=== PATIENT | female | born 1950 | race Caucasian/White ===

== ENCOUNTER 2017-04-06 14:11 | Inpatient (IN) | payer MEDICARE, BC ==
[~2017-04-06] VITALS: Ht 172.7 cm; Wt 82.6 kg
--- NOTE | ~2017-04-06 | CON ---
[place], [place] REPORT OF CONSULTATION NAME: AUREA YANEZ [facility] #: [id number] UNIT #: [id number] ROOM: 411 DOCTOR: DAVID JAMISON MD BIRTHDATE: [birth year] DOS: 04/07/2017 CARDIOLOGY CONSULTATION REFERRED BY: Hospitalist Service. REASON FOR CONSULTATION: Chest pain. HISTORY OF PRESENT ILLNESS: This patient is a 66-year-old woman who is typically followed by Dr. Pollack at the [facility]. She does have a history of long-term and ongoing cigarette abuse, COPD, hyperlipidemia, and vascular disease. She tells me that she presented with unstable angina and possibly a myocardial infarction in September 2016. The patient did undergo catheterization with subsequent angioplasty and stenting. She states that her pains did not resolve completely and she was catheterized again in December 2016 at which time she received another stent. It is not clear if this was to treat an in-stent restenosis or a new lesion. Records have been requested. Since then, she continues to have episodes of chest pain. Nitroglycerin helps slightly. The pains appear to be worsened by pressing on the chest. They also seemed to be worsened by cough. The patient is not sure if she has ever had a true heart attack and tends to minimize her symptoms. She presented to the hospital on this occasion because she developed worsening sharp left chest pain at rest with some radiation into her left arm and neck. She was also more short of breath. Since she has been in the hospital, she has had persistent tightness in her left chest. Despite this, her electrocardiogram showed no acute changes and her cardiac biomarkers have been negative. PAST MEDICAL HISTORY: Includes 1. Long-term and ongoing cigarette abuse. 2. Chronic obstructive pulmonary disease with persistent cough and wheezing. 3. Coronary artery disease. The patient reports catheterization in September 2016 with placement of a stent. She had a repeat catheterization in December 2016 with placement of another stent. Details and old records are pending. 4. Hyperlipidemia. 5. Hypertension. 6. Anxiety and depression. 7. Status post hysterectomy and oophorectomy. 8. History of suburethral sling procedure. MEDICATIONS: Prior to admission included DuoNeb by inhaler q.i.d., atorvastatin 40 mg daily, BuSpar 15 mg b.i.d., carvedilol 3.125 mg b.i.d., citalopram 40 mg at bedtime, clopidogrel 75 mg daily, gabapentin 300 mg t.i.d., isosorbide mononitrate 15 mg per day, lisinopril 20 mg per day, oxybutynin 10 mg per day, ropinirole 1 mg at bedtime, topiramate 25 mg b.i.d., nitroglycerin sublingually p.r.n., buprenorphine 10 mcg per hour by patch applied daily and lidocaine ointment q.i.d. ALLERGIES: The patient has no known drug allergies. [place], [place] REPORT OF CONSULTATION NAME: AUREA YANEZ UNIT #: [id number] ROOM: 411 DOCTOR: DAVID JAMISON MD BIRTHDATE: [birth year] REVIEW OF SYSTEMS: The patient denies diplopia, loss of vision, lightheadedness, syncope or focal weakness. She does admit to anxiety and depression. She does admit to poor interest in her surroundings and activities. She denies nausea or vomiting. She denies fevers, chills or sweats. She denies any heat or cold intolerance and denies polydipsia or polyuria. She denies hemoptysis, but she does have a persistent mild productive cough. She does have persistent wheezing. She does have some pain on breathing. She denies hematemesis, nausea or vomiting. She denies change in bowel or bladder habits. She denies blood in her stool or urine. She admits that her legs cramp when she walks. She also states that she has a difficult time sleeping at night because she has restless legs and her legs cramp at night. She denies any peripheral edema or history of clots in her legs. The remainder of the review of systems is negative except as noted above. FAMILY HISTORY: Negative for early coronary artery disease. SOCIAL HISTORY: The patient has been a smoker since she was a teenager. She does now smoke 1 pack per day. She does not consume excessive amounts of alcohol. PHYSICAL EXAMINATION: GENERAL: The patient is a well-nourished white female who is awake, alert and oriented. VITAL SIGNS: Pulse is 70 and regular; blood pressure was 100/60 in her right arm and 110/70 in her left. She was afebrile. She weighed 82.6 kilograms and had a body mass index of 27.5. HEENT: Normocephalic, atraumatic. Extraocular muscles are intact. Sclerae are clear. Pupils are equal, round and reactive to light. The oral mucosa is moist. Tongue is midline. NECK: Supple. She has no jugular distention. Carotids are full and I heard no bruits on each side. She had no neck or supraclavicular masses. LUNGS: Respirations are unlabored. She does have a frequent cough during the interview, which sounds coarse and productive. On exam, she does have expiratory prolongation bilaterally with scattered wheezes bilaterally. She had no rales. She had no presacral edema or chest wall tenderness and I could not elicit her chest pain by palpation of her chest. CARDIOVASCULAR: Her heart had a regular rhythm. She had occasional premature beats. She had a fourth heart sound, but no third heart sound. There is a grade 2/6 systolic ejection murmur along left sternal border radiating toward the base. No diastolic murmurs are present. ABDOMEN: Soft and normally active without masses, organomegaly, bruits or tenderness. EXTREMITIES: Showed no edema. Peripheral pulses were markedly diminished in the feet. There was no Homans sign and no palpable cords or swelling in the legs. The radial pulse in the right arm seemed diminished, but was normal on the left. LABORATORY DATA: Chest x-ray was felt to be normal. I reviewed her electrocardiograms and those are normal except for a single PVC on one of the cardiograms. Serial cardiac biomarkers have been normal. Hemoglobin is 12.4, [place], [place] REPORT OF CONSULTATION NAME: AUREA YANEZ UNIT #: [id number] ROOM: 411 DOCTOR: DAVID JAMISON MD BIRTHDATE: [birth year] white count 9200, platelet count 196,000. Sodium 143, potassium 4.6, BUN 17, creatinine 0.99, glucose is 165. Total cholesterol is 133, LDL 51, HDL 70. TSH is normal at 0.426. IMPRESSION: 1. Left precordial chest pain. Etiology of this is not clear. It certainly does have several atypical features. The fact that she has had persistent pain for over 48 hours and no elevation in troponin is a strong indicator that her current symptoms are not cardiac in origin. 2. History of atherosclerotic heart disease, status post stenting in September 2016 and December 2016. Records have been requested. 3. Hypertension. 4. Hyperlipidemia. 5. Long-term and ongoing cigarette abuse. 6. Restless leg syndrome. 7. Anxiety and depression. 8. Probable widespread vascular disease with unequal blood pressures in the arms and diminished pulses in the feet. PLAN: For today, we will check an echocardiogram, bilateral carotid ultrasound and lower extremity arterial Doppler studies to help survey the extent of her peripheral vascular disease. I was hoping to do a stress test today, but she has already had breakfast and caffeine. We will therefore delay a pharmacologic stress test for the next 24 hours and proceed tomorrow. In the meantime, I have decreased her lisinopril and increased her beta corrine. I have increased her nitrates. I have also increased her statin even though her lipids look good. Statin has multiple affects beyond lipid lowering which help improve prognosis. I have spoken to the patient in no uncertain terms that she should quit smoking immediately. I thank the hospitalist physicians for asking our advice regarding her care. DAVID JAMISON MD CM:CONSTR:REPORT OF CONSULTATION 0936 04/07/171921 interface
--- NOTE | ~2017-04-06 | PR ---
[place], [place] PROGRESS NOTE NAME: AUREA YANEZ [facility] #: [id number] UNIT #: [id number] ROOM: 411 DOCTOR: DAVID JAMISON MD BIRTHDATE: [birth year] DOS: 04/08/2017 SUBJECTIVE: The patient was seen in the Cardiology Department just prior to her stress test today, 04/08/2017. She is a 66-year-old woman who does have a history of atherosclerotic heart disease followed by Dr. Ranjeet Pacheco at the [facility]. Since I saw her yesterday, we were able to get some records. An echocardiogram from showed normal left ventricular size with an ejection fraction between 50 and 55%. No wall motion abnormalities were described. Mild mitral insufficiency was present. The report of her catheterization from 01/13/2017 was also available. The left main was a long vessel with a 20-30% distal stenosis. The LAD was a medium caliber vessel. In its proximal portion, it tapered significantly toward the middle and distal portions. There was one small medium diagonal branch that emanated from the proximal portion of the LAD that had minimal luminal irregularities. The remainder of the LAD had mild diffuse disease. The circumflex artery had a proximal 50-60% stenosis. The previously placed stent was noted to be occluded. The distal circumflex filled by collaterals. The right coronary artery had a proximal 30% stenosis with a distal 20% stenosis along with a 50-60% occlusion of the posterior descending. She did undergo percutaneous intervention with a stent placed within the previously placed and occluded circumflex stent. A new proximal stent was also placed. Drug-eluting stents were utilized. Dual antiplatelet therapy should therefore be continued for a full year if possible. PHYSICAL EXAMINATION: VITAL SIGNS: Today, her pulse is 60 and regular, blood pressure is 109/60. She is afebrile. She weighs 82.6 kg and has a body mass index is 27.7. NECK: Supple. She has no jugular distention. LUNGS: Respirations are unlabored. Her chest is clear. HEART: Regular rhythm. She has a fourth heart sound, but no third heart sound. The PMI is not displaced. ABDOMEN: Benign. EXTREMITIES: Showed no edema. LABORATORY DATA: Serial troponins have been negative. Carotid ultrasound shows less than 50% stenosis bilaterally with plaque disease present. Lower extremity arterial Doppler studies do show distal disease, but nothing that is serious or occlusive. IMPRESSION: 1. Left precordial chest pain, etiology is not yet clear. She does have atypical features, but also has had significant coronary artery disease with previous revascularization percutaneously. She does have 3 total stents within her circumflex distribution. 2. History of atherosclerotic heart disease, status post stenting in 09/2016 and 12/2016. 3. Hypertension. 4. Hyperlipidemia. 5. Long-term and ongoing cigarette abuse. 6. Restless legs syndrome. 7. Anxiety and depression. [place], [place] PROGRESS NOTE NAME: AUREA YANEZ UNIT #: [id number] ROOM: 411 DOCTOR: DAVID JAMISON MD BIRTHDATE: [birth year] 8. Mild peripheral vascular disease involving the carotid and lower extremity distributions. PLAN: We will proceed with a pharmacologic stress test today to determine if she has had evidence for further re-occlusions. Further recommendations will depend upon the results of the stress test. We thank the hospitalist physicians for asking our advice regarding her care. DAVID JAMISON MD CM:PNTRANS [id number] DAVID JAMISON MD 04/09/17228 interface
--- NOTE | ~2017-04-06 | CON ---
[place], [place] REPORT OF CONSULTATION [id number] UNIT #: [id number] ROOM: 411 DOCTOR: MARCIANO ZENDEJAS ED.D (RODNEY) BIRTHDATE: [birth year] DOS: 04/07/2017 HISTORY OF PRESENT ILLNESS: The patient is a 66-year-old female referred by the hospitalist for an evaluation of her anxiety and depression. At the present time, this patient is on the 4th floor at [facility]. She states she is a and has five children. She follows with a primary care physician in [place], [place]. She does smoke 1 pack of cigarettes per day, but otherwise has no substance abuse issues. This patient was awake, alert and oriented in all 3 spheres, but appeared to be quite depressed. Her medical history is pertinent for depression, hypertension, and COPD. Her medications include atorvastatin, BuSpar, Celexa, Plavix, Neurontin, DuoNeb, Imdur, Nitrostat, Topamax, Lovenox, and Restoril. The family physician is now Dr. Tinsley in [place], [place]. This patient denies any suicidal ideation or plan and does not appear to be having any active hallucinations. She states she has had a great deal of difficulty because of her multiple medical problems, and she is unable to return to work. She was working part-time at a [employer] company in [place], [place]. I did suggest she follow up with outpatient counseling, and she stated she would most likely go to [facility] in [place] which is near her home. DIAGNOSIS: Major depressive disorder, recurrent. RECOMMENDATIONS: The patient should continue her Celexa and BuSpar and should follow up outpatient at [facility] in [place], [place]. Thank you very much for this consult. MARCIANO ZENDEJAS ED.D CM:CONSTR:REPORT OF CONSULTATION 1353 04/08/17 0441 interface
--- NOTE | ~2017-04-06 | ST ---
[place], [place] EXERCISE STRESS TEST REPORT NAME: AUREA YANEZ [facility] #: [id number] UNIT #: [id number] ROOM: 411 DOCTOR: DAVID JAMISON MD BIRTHDATE: [birth year] DOS: 04/08/2017 PHARMACOLOGIC MYOCARDIAL PERFUSION STUDY INDICATIONS: Precordial chest pain. PROCEDURE: The patient was given a rapid infusion of regadenoson 0.4 mg intravenously followed by a saline flush. She had a funny sensation in her chest, but no other symptoms. Her resting heart rate of 58 anh to 76. The resting blood pressure of 102/68 fell to 98/74. Her electrocardiogram showed frequent PACs and PVCs, but no diagnostic ST or T-wave changes. After the infusion of regadenoson, she was given radionuclide intravenously. IMPRESSION: 1. Well tolerated infusion of regadenoson. 2. Radionuclide administered. Please see the separate imaging report for further details of the patient's stress test results. DAVID JAMISON MD CM:STRESS:EXERCISE STRESS TEST REPORT [id number] DAVID JAMISON MD
[2017-04-06 14:11] VITALS: BP 78/50
[2017-04-06] MEDS ORDERED: IMDUR SA30 MG PO (14:29)
[2017-04-06] MEDS ORDERED: ATORVASTATIN CA40 M1 PO (14:29)
[2017-04-06] MEDS ORDERED: BUTRANS10 MCG/HR TD (14:29)
[2017-04-06] MEDS ORDERED: CITALOPRAM HYDR40 MG PO (14:29)
[2017-04-06] MEDS ORDERED: NEURONTIN300 MG PO (14:30)
[2017-04-06] MEDS ORDERED: CARVEDILOL3.125 MG PO (14:30)
[2017-04-06] MEDS ORDERED: LISINOPRIL20 MG PO (14:30)
[2017-04-06] MEDS ORDERED: BRILINTA90 M1 PO (14:31)
[2017-04-06] MEDS ORDERED: OXYBUTYNIN CHLO10 MG PO (14:31)
[2017-04-06] MEDS ORDERED: ROPINIROLE HYDRO1 MG PO (14:31)
[2017-04-06] MEDS ORDERED: DUONEB 3 MG/3 ML3 M1 INH (14:32)
[2017-04-06] MEDS ORDERED: BUSPAR15 MG PO (14:32)
[2017-04-06] MEDS ORDERED: LIDOCAINE5% TP (14:33)
[2017-04-06] MEDS ORDERED: TOPAMAX25 M3 PO (14:35)
[2017-04-06 14:37] LABS: BASO # 0.1 10*3/uL (0.0-0.1); BASO % 0.7 % (0.0-1.0); EOS # 0.3 10*3/uL (0.0-0.4); EOS % 4.1 % (1.0-4.0); HEMATOCRIT 36.9 % (37.0-47.0); HEMOGLOBIN 12.1 g/dl (12.0-16.0); LYMPH # 2.5 10*3/uL (1.3-4.4); LYMPH % 29.9 % (27.0-41.0); MEAN CELL VOLUME 103.4 fl (81.0-99.0); MEAN CORPUSCULAR HGB 33.9 pg (27.0-31.0); MEAN CORPUSCULAR HGB CONC 32.8 g/dl (33.0-37.0); MEAN PLATELET VOLUME 9.7 fl (9.6-12.3); MONO # 0.5 10*3/uL (0.1-1.0); MONO % 6.6 % (3.0-9.0); NEUT # 4.8 10*3/uL (2.3-7.9); NEUT % 58.2 % (47.0-73.0); PLATELET COUNT AUTOMATED 206 10*3/uL (130-400); RED BLOOD COUNT 3.57 10*6/uL (4.10-5.10); RED CELL DISTRI WIDTH 12.9 % (0-14.5); WHITE BLOOD COUNT 8.2 10*3/uL (4.8-10.8)
[2017-04-06] MEDS ORDERED: NITROSTAT0.4 MG SL (14:45)
[2017-04-06 14:48] LABS: INTERNATIONAL NORM RATIO 1.1 (2.0-3.5); PROTHROMBIN TIME 11.8 SECONDS (9.0-12.4)
[2017-04-06 14:53] LABS: ALBUMIN 3.4 gm/dl (3.1-4.5); ALKALINE PHOSPHATASE 75 U/L (45-117); BILIRUBIN, TOTAL 0.3 mg/dl (0.2-1.0); BUN 15 mg/dl (7-24); CARBON DIOXIDE 27 mmol/L (21-32); CHLORIDE 109 mmol/L (98-107); CKMB 1.1 ng/ml (0.5-3.6); CPK 81 U/L (26-192); EST GLOM FILT AFRICAN AMERICAN > 60 ml/min; GLUCOSE 81 mg/dL (65-99); MAGNESIUM 2.1 mg/dL (1.5-2.1); POTASSIUM 4.4 mmol/L (3.5-5.1); SGOT/AST 11 IU/L (3-35); SGPT/ALT 18 U/L (12-78); SODIUM 141 mmol/L (136-145); TOTAL PROTEIN 6.6 gm/dL (6.4-8.2)
[2017-04-06 14:54] LABS: C-REACTIVE PROTEIN < 0.29 MG/DL (0-0.3); TROPONIN I < 0.015 ng/ml (<0.045)
[2017-04-06 15:00] VITALS: BP 90/44; BP 90/54
[2017-04-06 15:30] VITALS: BP 104/51
[2017-04-06 16:02] VITALS: BP 111/57
[2017-04-06] MEDS ORDERED: PLAVIX75 M1 PO (18:37)
[2017-04-06 20:36] VITALS: BP 102/57
[2017-04-07 00:08] VITALS: BP 104/60
[2017-04-07 00:29] LABS: CKMB 1.2 ng/ml (0.5-3.6); CPK 77 U/L (26-192)
[2017-04-07 00:32] LABS: TROPONIN I < 0.015 ng/ml (<0.045)
[2017-04-07 06:07] LABS: BASO % 0.1 % (0.0-1.0); HEMOGLOBIN 12.4 g/dl (12.0-16.0); IG # 0.1 10*3/uL (0.0-0.1); LYMPH % 11.2 % (27.0-41.0); MEAN CELL VOLUME 104.3 fl (81.0-99.0); MEAN CORPUSCULAR HGB 33.2 pg (27.0-31.0); MEAN CORPUSCULAR HGB CONC 31.8 g/dl (33.0-37.0); MEAN PLATELET VOLUME 10.1 fl (9.6-12.3); MONO # 0.3 10*3/uL (0.1-1.0); MONO % 3.3 % (3.0-9.0); NEUT # 7.8 10*3/uL (2.3-7.9); NEUT % 84.7 % (47.0-73.0); PLATELET COUNT AUTOMATED 196 10*3/uL (130-400); RED BLOOD COUNT 3.74 10*6/uL (4.10-5.10); RED CELL DISTRI WIDTH 12.7 % (0-14.5); WHITE BLOOD COUNT 9.2 10*3/uL (4.8-10.8)
[2017-04-07 06:19] LABS: CKMB 1.1 ng/ml (0.5-3.6); CPK 74 U/L (26-192)
[2017-04-07 06:20] LABS: TROPONIN I < 0.015 ng/ml (<0.045)
[2017-04-07 06:34] LABS: ALBUMIN 3.2 gm/dl (3.1-4.5); BUN 17 mg/dl (7-24); CARBON DIOXIDE 27 mmol/L (21-32); CHLORIDE 112 mmol/L (98-107); CHOLESTEROL 133 mg/dL (<200); EST GLOM FILT AFRICAN AMERICAN > 60 ml/min; GLUCOSE 165 mg/dL (65-99); HDL CHOLESTEROL 70 mg/dl (40-60); LDL CHOLESTEROL 51 mg/dL (9-159); MAGNESIUM 2.1 mg/dL (1.5-2.1); PHOSPHOROUS 2.8 mg/dL (2.5-4.9); POTASSIUM 4.6 mmol/L (3.5-5.1); SGOT/AST 11 IU/L (3-35); SGPT/ALT 19 U/L (12-78); SODIUM 143 mmol/L (136-145); TRIGLYCERIDES 61 mg/dl (<150); VLDL CHOLESTEROL 12 mg/dL (6-40)
[2017-04-07 06:40] LABS: ALKALINE PHOSPHATASE 76 U/L (45-117); BILIRUBIN, TOTAL 0.2 mg/dl (0.2-1.0); FREE T4 0.72 ng/dl (0.76-1.46); THYROID STIM HORMONE (HS) 0.426 uIU/ml (0.358-4.75); TOTAL PROTEIN 6.7 gm/dL (6.4-8.2)
[2017-04-07 07:36] LABS: FOLIC ACID 6.13 ng/mL (>5.38)
[2017-04-07 08:00] VITALS: BP 111/41
[2017-04-07 12:00] VITALS: BP 101/47
[2017-04-07 12:16] LABS: CKMB 1.4 ng/ml (0.5-3.6); CPK 67 U/L (26-192)
[2017-04-07 12:29] LABS: TROPONIN I < 0.015 ng/ml (<0.045)
[2017-04-07 16:00] VITALS: BP 97/48
[2017-04-07 20:00] VITALS: BP 111/54
[2017-04-08] VITALS: BP 105/60
[2017-04-08 08:00] VITALS: BP 109/60
[2017-04-08 12:00] VITALS: BP 152/57
[2017-04-08 16:00] VITALS: BP 98/50
[2017-04-08 20:00] VITALS: BP 98/52
[2017-04-09] VITALS: BP 95/54
[2017-04-09 08:00] VITALS: BP 139/67
[2017-04-09] MEDS ORDERED: IMDUR SA30 MG PO (11:22)
[2017-04-09] MEDS ORDERED: NICODERM C21 MG/24 H TD (11:22)
[2017-04-09] MEDS ORDERED: ATORVASTATIN CA80 M1 PO (11:22)
[2017-04-09] MEDS ORDERED: FAMOTIDINE20 M1 PO (11:22)
[2017-04-09] MEDS ORDERED: VITAMIN D50000 I3 PO (11:22)
[2017-04-09] MEDS ORDERED: LISINOPRIL10 M1 PO (11:22)
[2017-04-09 12:00] VITALS: BP 122/62
== END 2017-04-09 13:09 | disposition home or self-care (01) | DRG 206 ==
LOC: ED 14:11 → 4E 15:14 → EDHOLD 15:14 → 4E 15:36
PROVIDERS: Emergency Medicine; Family Medicine
DX: M94.0 Chondrocostal junction syndrome [Tietze] (principal); E44.0 Moderate protein-calorie malnutrition; F33.2 Major depressive disorder, recurrent severe without psychotic features; E87.8 Other disorders of electrolyte and fluid balance, not elsewhere classified; J44.1 Chronic obstructive pulmonary disease with (acute) exacerbation; F41.9 Anxiety disorder, unspecified; D75.89 Other specified diseases of blood and blood-forming organs; I25.10 Atherosclerotic heart disease of native coronary artery without angina pectoris; I10 Essential (primary) hypertension; E78.2 Mixed hyperlipidemia; M54.9 Dorsalgia, unspecified; E55.9 Vitamin D deficiency, unspecified; K21.9 Gastro-esophageal reflux disease without esophagitis; G25.81 Restless legs syndrome; F17.210 Nicotine dependence, cigarettes, uncomplicated; I73.9 Peripheral vascular disease, unspecified; Z90.710 Acquired absence of both cervix and uterus; Z90.721 Acquired absence of ovaries, unilateral; Z95.5 Presence of coronary angioplasty implant and graft; Z79.899 Other long term (current) drug therapy; Z68.27 Body mass index [BMI] 27.0-27.9, adult

== ENCOUNTER 2017-07-04 15:04 | Emergency (ER) | payer MEDICARE, BC ==
[~2017-07-04] VITALS: Ht 175.2 cm; Wt 83.9 kg
[~2017-07-04 15:04] MED LIST: ATORVASTATIN CA40 M1 PO; ATORVASTATIN CA80 M1 PO; BRILINTA90 M1 PO; BUSPAR15 MG PO; BUTRANS10 MCG/HR TD; CARVEDILOL3.125 MG PO; CITALOPRAM HYDR40 MG PO; DUONEB 3 MG/3 ML3 M1 INH; FAMOTIDINE20 M1 PO; IMDUR SA30 MG PO; LIDOCAINE5% TP; LISINOPRIL10 M1 PO; LISINOPRIL20 MG PO; NEURONTIN300 MG PO; NICODERM C21 MG/24 H TD; NITROSTAT0.4 MG SL; OXYBUTYNIN CHLO10 MG PO; PLAVIX75 M1 PO; ROPINIROLE HYDRO1 MG PO; TOPAMAX25 M3 PO; VITAMIN D50000 I3 PO
[2017-07-04 15:27] LABS: BASO # 0.1 10*3/uL (0.0-0.1); BASO % 0.9 % (0.0-1.0); EOS # 0.4 10*3/uL (0.0-0.4); EOS % 3.9 % (1.0-4.0); HEMATOCRIT 37.7 % (37.0-47.0); HEMOGLOBIN 12.6 g/dl (12.0-16.0); LYMPH # 2.3 10*3/uL (1.3-4.4); LYMPH % 24.8 % (27.0-41.0); MEAN CELL VOLUME 98.7 fl (81.0-99.0); MEAN CORPUSCULAR HGB CONC 33.4 g/dl (33.0-37.0); MEAN PLATELET VOLUME 10.3 fl (9.6-12.3); MONO # 0.7 10*3/uL (0.1-1.0); MONO % 7.2 % (3.0-9.0); NEUT # 5.8 10*3/uL (2.3-7.9); NEUT % 62.8 % (47.0-73.0); PLATELET COUNT AUTOMATED 200 10*3/uL (130-400); RED BLOOD COUNT 3.82 10*6/uL (4.10-5.10); RED CELL DISTRI WIDTH 12.4 % (0-14.5); WHITE BLOOD COUNT 9.2 10*3/uL (4.8-10.8)
[2017-07-04 15:35] LABS: INTERNATIONAL NORM RATIO 1.2 (2.0-3.5); PROTHROMBIN TIME 12.7 SECONDS (9.0-12.4)
[2017-07-04 15:48] LABS: ALBUMIN 3.4 gm/dl (3.1-4.5); ALKALINE PHOSPHATASE 90 U/L (45-117); BILIRUBIN, TOTAL 0.3 mg/dl (0.2-1.0); BUN 23 mg/dl (7-24); CARBON DIOXIDE 23 mmol/L (21-32); CHLORIDE 109 mmol/L (98-107); EST GLOM FILT AFRICAN AMERICAN > 60 ml/min; GLUCOSE 105 mg/dL (65-99); MAGNESIUM 1.9 mg/dL (1.5-2.1); POTASSIUM 4.2 mmol/L (3.5-5.1); SGOT/AST 9 IU/L (3-35); SGPT/ALT 20 U/L (12-78); SODIUM 141 mmol/L (136-145); TOTAL PROTEIN 6.7 gm/dL (6.4-8.2)
[2017-07-04 15:53] LABS: TROPONIN I < 0.015 ng/ml (<0.045)
== END 2017-07-04 21:24 | disposition short-term general hospital (02) ==
LOC: ED 15:04
PROVIDERS: Emergency Medicine
DX: R07.9 Chest pain, unspecified (principal); F17.200 Nicotine dependence, unspecified, uncomplicated; Z95.5 Presence of coronary angioplasty implant and graft

== ENCOUNTER 2017-10-10 18:02 | Emergency (ER) | payer MEDICARE, BC ==
[~2017-10-10] VITALS: Wt 83.9 kg
[2017-10-10 18:49] LABS: BASO # 0.1 10*3/uL (0.0-0.1); BASO % 0.8 % (0.0-1.0); EOS # 0.5 10*3/uL (0.0-0.4); EOS % 5.1 % (1.0-4.0); HEMATOCRIT 39.3 % (37.0-47.0); LYMPH # 2.7 10*3/uL (1.3-4.4); LYMPH % 25.4 % (27.0-41.0); MEAN CELL VOLUME 98.5 fl (81.0-99.0); MEAN CORPUSCULAR HGB 32.6 pg (27.0-31.0); MEAN CORPUSCULAR HGB CONC 33.1 g/dl (33.0-37.0); MONO # 0.8 10*3/uL (0.1-1.0); MONO % 7.1 % (3.0-9.0); NEUT # 6.5 10*3/uL (2.3-7.9); NEUT % 61.2 % (47.0-73.0); PLATELET COUNT AUTOMATED 217 10*3/uL (130-400); RED BLOOD COUNT 3.99 10*6/uL (4.10-5.10); RED CELL DISTRI WIDTH 13.4 % (0-14.5); WHITE BLOOD COUNT 10.6 10*3/uL (4.8-10.8)
[2017-10-10 18:55] LABS: INTERNATIONAL NORM RATIO 1.1 (2.0-3.5)
[2017-10-10 19:04] LABS: ALBUMIN 3.7 gm/dl (3.1-4.5); ALKALINE PHOSPHATASE 88 U/L (45-117); BUN 17 mg/dl (7-24); CHLORIDE 106 mmol/L (98-107); CREATININE 1.22 mg/dL (0.55-1.02); POTASSIUM 4.1 mmol/L (3.5-5.1); SGOT/AST 17 IU/L (3-35); SGPT/ALT 18 U/L (12-78); SODIUM 138 mmol/L (136-145); TOTAL PROTEIN 7.4 gm/dL (6.4-8.2)
[2017-10-10 19:08] LABS: TROPONIN I < 0.015 ng/ml (<0.045)
[2017-10-10] MEDS ORDERED: DELTASONE20 M1 PO (20:32)
[2017-10-10] MEDS ORDERED: VIBRAMYCIN100 MG PO (20:32)
== END 2017-10-10 21:02 | disposition home or self-care (01) ==
LOC: ED 18:02
PROVIDERS: Physician Assistant
DX: R07.89 Other chest pain (principal); R06.02 Shortness of breath; J44.9 Chronic obstructive pulmonary disease, unspecified; F17.200 Nicotine dependence, unspecified, uncomplicated; F10.10 Alcohol abuse, uncomplicated; Z98.61 Coronary angioplasty status; Z79.899 Other long term (current) drug therapy; Z90.710 Acquired absence of both cervix and uterus

== ENCOUNTER 2018-02-02 18:22 | Inpatient (IN) | payer MEDICARE, BC ==
[~2018-02-02] VITALS: Ht 172.7 cm; Wt 76.2 kg
[~2018-02-02 18:22] MED LIST changes: +DELTASONE20 M1 PO; +VIBRAMYCIN100 MG PO
[2018-02-02 18:28] VITALS: BP 128/61
[2018-02-02 19:05] LABS: BASO # 0.1 10*3/uL (0.0-0.1); BASO % 0.8 % (0.0-1.0); EOS # 0.5 10*3/uL (0.0-0.4); EOS % 5.1 % (1.0-4.0); HEMATOCRIT 36.7 % (37.0-47.0); HEMOGLOBIN 11.9 g/dl (12.0-16.0); LYMPH # 2.5 10*3/uL (1.3-4.4); LYMPH % 28.1 % (27.0-41.0); MEAN CELL VOLUME 101.4 fl (81.0-99.0); MEAN CORPUSCULAR HGB 32.9 pg (27.0-31.0); MEAN CORPUSCULAR HGB CONC 32.4 g/dl (33.0-37.0); MEAN PLATELET VOLUME 9.7 fl (9.6-12.3); MONO # 0.8 10*3/uL (0.1-1.0); MONO % 9.5 % (3.0-9.0); NEUT # 4.9 10*3/uL (2.3-7.9); NEUT % 55.6 % (47.0-73.0); PLATELET COUNT AUTOMATED 245 10*3/uL (130-400); RED BLOOD COUNT 3.62 10*6/uL (4.10-5.10); RED CELL DISTRI WIDTH 13.2 % (0-14.5); WHITE BLOOD COUNT 8.8 10*3/uL (4.8-10.8)
[2018-02-02 19:14] LABS: ACT PARTIAL THROMBO TIME 25.4 SECONDS (20.8-31.5); INTERNATIONAL NORM RATIO 1.1 (2.0-3.5)
[2018-02-02 19:22] LABS: ALBUMIN 3.1 gm/dl (3.1-4.5); ALKALINE PHOSPHATASE 76 U/L (45-117); BUN 16 mg/dl (7-24); CHLORIDE 107 mmol/L (98-107); CREATININE 0.89 mg/dL (0.55-1.02); POTASSIUM 4.5 mmol/L (3.5-5.1); SGOT/AST 11 IU/L (3-35); SGPT/ALT 14 U/L (12-78); SODIUM 138 mmol/L (136-145); TOTAL PROTEIN 6.8 gm/dL (6.4-8.2)
[2018-02-02 19:23] LABS: TROPONIN I < 0.015 ng/ml (<0.045)
[2018-02-02 19:30] VITALS: BP 136/52
[2018-02-02 20:30] VITALS: BP 97/67
[2018-02-02] MEDS ORDERED: ISOSORBIDE30 MG PO (21:22)
[2018-02-02] MEDS ORDERED: BRILINTA90 M1 PO (21:22)
[2018-02-02] MEDS ORDERED: LIPITOR40 MG PO (21:23)
[2018-02-02] MEDS ORDERED: METOPROLOL SUCC25 M2 PO (21:23)
[2018-02-02] MEDS ORDERED: ASPIRIN ADULT L81 M1 PO (21:24)
[2018-02-02] MEDS ORDERED: RANEXA1000 M1 PO (21:24)
[2018-02-03] VITALS: BP 104/78
[2018-02-03 06:12] LABS: BASO % 0.2 % (0.0-1.0); HEMATOCRIT 35.4 % (37.0-47.0); HEMOGLOBIN 11.8 g/dl (12.0-16.0); LYMPH # 0.9 10*3/uL (1.3-4.4); LYMPH % 8.4 % (27.0-41.0); MEAN CELL VOLUME 100.9 fl (81.0-99.0); MEAN CORPUSCULAR HGB 33.6 pg (27.0-31.0); MEAN CORPUSCULAR HGB CONC 33.3 g/dl (33.0-37.0); MEAN PLATELET VOLUME 9.9 fl (9.6-12.3); MONO # 0.1 10*3/uL (0.1-1.0); MONO % 0.8 % (3.0-9.0); NEUT # 9.3 10*3/uL (2.3-7.9); NEUT % 89.8 % (47.0-73.0); PLATELET COUNT AUTOMATED 240 10*3/uL (130-400); RED BLOOD COUNT 3.51 10*6/uL (4.10-5.10); RED CELL DISTRI WIDTH 13.2 % (0-14.5); WHITE BLOOD COUNT 10.4 10*3/uL (4.8-10.8)
[2018-02-03 06:31] LABS: ALBUMIN 3.1 gm/dl (3.1-4.5); ALKALINE PHOSPHATASE 70 U/L (45-117); BUN 13 mg/dl (7-24); CHLORIDE 109 mmol/L (98-107); CHOLESTEROL 107 mg/dL (<200); CREATININE 1.04 mg/dL (0.55-1.02); FREE T4 0.89 ng/dl (0.76-1.46); HDL CHOLESTEROL 53 mg/dl (40-60); PHOSPHOROUS 2.4 mg/dL (2.5-4.9); POTASSIUM 4.1 mmol/L (3.5-5.1); SODIUM 138 mmol/L (136-145)
[2018-02-03 06:38] LABS: LDL CHOLESTEROL 44 mg/dL (9-159); SGOT/AST 12 IU/L (3-35); SGPT/ALT 14 U/L (12-78); THYROID STIM HORMONE (HS) 0.445 uIU/ml (0.358-4.75); TOTAL PROTEIN 6.8 gm/dL (6.4-8.2); TRIGLYCERIDES 50 mg/dl (<150); VLDL CHOLESTEROL 10 mg/dL (6-40)
[2018-02-03 08:00] VITALS: BP 111/59
[2018-02-03 08:18] LABS: VITAMIN D, 25-HYDROXY 11.7 ng/mL (30-100)
[2018-02-03 12:00] VITALS: BP 127/65
[2018-02-03 16:00] VITALS: BP 133/54
[2018-02-03 20:00] VITALS: BP 128/51
[2018-02-04] VITALS: BP 138/57
[2018-02-04 06:50] LABS: BASO % 0.1 % (0.0-1.0); HEMATOCRIT 34.7 % (37.0-47.0); HEMOGLOBIN 11.3 g/dl (12.0-16.0); LYMPH # 1.6 10*3/uL (1.3-4.4); LYMPH % 9.7 % (27.0-41.0); MEAN CELL VOLUME 101.2 fl (81.0-99.0); MEAN CORPUSCULAR HGB 32.9 pg (27.0-31.0); MEAN CORPUSCULAR HGB CONC 32.6 g/dl (33.0-37.0); MEAN PLATELET VOLUME 9.7 fl (9.6-12.3); MONO # 0.7 10*3/uL (0.1-1.0); MONO % 4.2 % (3.0-9.0); NEUT # 13.6 10*3/uL (2.3-7.9); NEUT % 84.8 % (47.0-73.0); PLATELET COUNT AUTOMATED 242 10*3/uL (130-400); RED BLOOD COUNT 3.43 10*6/uL (4.10-5.10); RED CELL DISTRI WIDTH 13.5 % (0-14.5); WHITE BLOOD COUNT 16.1 10*3/uL (4.8-10.8)
[2018-02-04 07:04] LABS: ALKALINE PHOSPHATASE 65 U/L (45-117); BUN 14 mg/dl (7-24); CHLORIDE 106 mmol/L (98-107); CREATININE 0.95 mg/dL (0.55-1.02); PHOSPHOROUS 3.3 mg/dL (2.5-4.9); POTASSIUM 4.7 mmol/L (3.5-5.1); SGOT/AST 11 IU/L (3-35); SGPT/ALT 15 U/L (12-78); SODIUM 140 mmol/L (136-145); TOTAL PROTEIN 6.6 gm/dL (6.4-8.2)
[2018-02-04 08:00] VITALS: BP 131/57
[2018-02-04 12:00] VITALS: BP 122/51
[2018-02-04] MEDS ORDERED: PREDNISONE10 MG PO (12:14)
[2018-02-04] MEDS ORDERED: DOXYCYCLINE100 MG PO (12:14)
[2018-02-04] MEDS ORDERED: TESSALON PERLE100 M1 PO (12:14)
== END 2018-02-04 14:42 | disposition home or self-care (01) | DRG 190 ==
LOC: ED 18:22 → 4E 19:30 → EDHOLD 19:30 → 4E 19:56
PROVIDERS: Internal Medicine; Internal Medicine Hospice and Palliative Medicine; Nurse Practitioner Family
DX: J44.1 Chronic obstructive pulmonary disease with (acute) exacerbation (principal); J18.9 Pneumonia, unspecified organism; E44.0 Moderate protein-calorie malnutrition; D72.1 Eosinophilia; I11.0 Hypertensive heart disease with heart failure; I50.32 Chronic diastolic (congestive) heart failure; E83.41 Hypermagnesemia; E83.39 Other disorders of phosphorus metabolism; D53.9 Nutritional anemia, unspecified; F32.9 Major depressive disorder, single episode, unspecified; I25.10 Atherosclerotic heart disease of native coronary artery without angina pectoris; F41.9 Anxiety disorder, unspecified; G89.29 Other chronic pain; M54.9 Dorsalgia, unspecified; E78.5 Hyperlipidemia, unspecified; R07.89 Other chest pain; J44.0 Chronic obstructive pulmonary disease with (acute) lower respiratory infection; Z90.710 Acquired absence of both cervix and uterus; Z90.721 Acquired absence of ovaries, unilateral; Z95.5 Presence of coronary angioplasty implant and graft; Z79.899 Other long term (current) drug therapy; Z79.82 Long term (current) use of aspirin; Z72.0 Tobacco use; Z71.6 Tobacco abuse counseling; Z68.26 Body mass index [BMI] 26.0-26.9, adult

== ENCOUNTER 2018-05-11 16:21 | Inpatient (IN) | payer MEDICARE, BC ==
[~2018-05-11] VITALS: Ht 170.1 cm; Wt 223.3 kg
[~2018-05-11 16:21] MED LIST changes: +ASPIRIN ADULT L81 M1 PO; +DOXYCYCLINE100 MG PO; +ISOSORBIDE30 MG PO; +LIPITOR40 MG PO; +METOPROLOL SUCC25 M2 PO; +PREDNISONE10 MG PO; +RANEXA1000 M1 PO; +TESSALON PERLE100 M1 PO
[2018-05-11] MEDS ORDERED: PLAVIX75 M1 PO (16:43)
[2018-05-11 16:58] LABS: BASO # 0.1 10*3/uL (0.0-0.1); BASO % 0.7 % (0.0-1.0); EOS # 0.4 10*3/uL (0.0-0.4); EOS % 5.1 % (1.0-4.0); HEMATOCRIT 35.5 % (37.0-47.0); HEMOGLOBIN 11.6 g/dl (12.0-16.0); LYMPH # 1.9 10*3/uL (1.3-4.4); MEAN CELL VOLUME 103.8 fl (81.0-99.0); MEAN CORPUSCULAR HGB 33.9 pg (27.0-31.0); MEAN CORPUSCULAR HGB CONC 32.7 g/dl (33.0-37.0); MEAN PLATELET VOLUME 10.4 fl (9.6-12.3); MONO # 0.7 10*3/uL (0.1-1.0); MONO % 8.8 % (3.0-9.0); NEUT # 4.4 10*3/uL (2.3-7.9); NEUT % 59.9 % (47.0-73.0); PLATELET COUNT AUTOMATED 193 10*3/uL (130-400); RED BLOOD COUNT 3.42 10*6/uL (4.10-5.10); RED CELL DISTRI WIDTH 13.6 % (0-14.5); WHITE BLOOD COUNT 7.4 10*3/uL (4.8-10.8)
[2018-05-11 17:06] LABS: ACT PARTIAL THROMBO TIME 24.3 SECONDS (20.8-31.5); INTERNATIONAL NORM RATIO 1.2 (2.0-3.5)
[2018-05-11 17:15] LABS: ALBUMIN 3.4 gm/dl (3.1-4.5); ALKALINE PHOSPHATASE 72 U/L (45-117); BUN 19 mg/dl (7-24); CHLORIDE 108 mmol/L (98-107); CREATININE 1.17 mg/dL (0.55-1.02); POTASSIUM 4.6 mmol/L (3.5-5.1); SGOT/AST 9 IU/L (3-35); SGPT/ALT 16 U/L (12-78); SODIUM 140 mmol/L (136-145); TOTAL PROTEIN 6.5 gm/dL (6.4-8.2)
[2018-05-11 17:16] LABS: TROPONIN I < 0.015 ng/ml (<0.045)
[2018-05-11 17:21] VITALS: BP 96/55
[2018-05-11] MEDS ORDERED: BACLOFEN20 M1 PO (17:34)
[2018-05-11] MEDS ORDERED: SYMB80 INH (17:34)
[2018-05-11] MEDS ORDERED: LYRICA75 M1 PO (17:43)
[2018-05-11 18:40] VITALS: BP 95/55
[2018-05-11 18:58] VITALS: BP 100/54
[2018-05-11 20:00] VITALS: BP 101/62
[2018-05-12] VITALS: BP 110/66
[2018-05-12 06:00] LABS: ALBUMIN 3.3 gm/dl (3.1-4.5); ALKALINE PHOSPHATASE 66 U/L (45-117); BUN 16 mg/dl (7-24); CHLORIDE 105 mmol/L (98-107); CHOLESTEROL 128 mg/dL (<200); CREATININE 1.05 mg/dL (0.55-1.02); HDL CHOLESTEROL 75 mg/dl (40-60); LDL CHOLESTEROL 44 mg/dL (9-159); PHOSPHOROUS 2.8 mg/dL (2.5-4.9); POTASSIUM 4.4 mmol/L (3.5-5.1); SGOT/AST 8 IU/L (3-35); SGPT/ALT 13 U/L (12-78); SODIUM 135 mmol/L (136-145); TOTAL PROTEIN 6.4 gm/dL (6.4-8.2); TRIGLYCERIDES 44 mg/dl (<150); VLDL CHOLESTEROL 9 mg/dL (6-40)
[2018-05-12 06:01] LABS: BASO % 0.1 % (0.0-1.0); HEMATOCRIT 36.4 % (37.0-47.0); HEMOGLOBIN 11.8 g/dl (12.0-16.0); LYMPH # 0.8 10*3/uL (1.3-4.4); LYMPH % 10.2 % (27.0-41.0); MEAN CELL VOLUME 104.6 fl (81.0-99.0); MEAN CORPUSCULAR HGB 33.9 pg (27.0-31.0); MEAN CORPUSCULAR HGB CONC 32.4 g/dl (33.0-37.0); MEAN PLATELET VOLUME 10.6 fl (9.6-12.3); MONO # 0.1 10*3/uL (0.1-1.0); MONO % 0.9 % (3.0-9.0); NEUT # 6.5 10*3/uL (2.3-7.9); PLATELET COUNT AUTOMATED 185 10*3/uL (130-400); RED BLOOD COUNT 3.48 10*6/uL (4.10-5.10); RED CELL DISTRI WIDTH 13.3 % (0-14.5); WHITE BLOOD COUNT 7.4 10*3/uL (4.8-10.8)
[2018-05-12 07:01] LABS: VITAMIN D, 25-HYDROXY 19.9 ng/mL (30-100)
[2018-05-12 08:00] VITALS: BP 105/66
[2018-05-12 12:00] VITALS: BP 95/56
[2018-05-12 16:00] VITALS: BP 92/52
[2018-05-12 20:00] VITALS: BP 106/56
[2018-05-13] VITALS: BP 106/56
[2018-05-13 06:17] LABS: BUN 21 mg/dl (7-24); CHLORIDE 110 mmol/L (98-107); CREATININE 0.96 mg/dL (0.55-1.02); POTASSIUM 4.8 mmol/L (3.5-5.1); SODIUM 145 mmol/L (136-145)
[2018-05-13 08:00] VITALS: BP 121/67
[2018-05-13 12:00] VITALS: BP 106/58
[2018-05-13 16:00] VITALS: BP 118/71
[2018-05-13 20:00] VITALS: BP 144/83
[2018-05-14] VITALS: BP 134/71
[2018-05-14] MEDS ORDERED: ISOSORBIDE DINI30 MG PO (03:17)
[2018-05-14 08:00] VITALS: BP 132/77
[2018-05-14] MEDS ORDERED: ATHLETE'S FOOT15 GM T (10:40)
[2018-05-14] MEDS ORDERED: LEVAQUIN500 M2 PO (10:40)
[2018-05-14] MEDS ORDERED: PREDNISONE10 MG PO (10:40)
[2018-05-14] MEDS ORDERED: Vitamin D PO (10:40)
[2018-05-14] MEDS ORDERED: NICOTROL10 MG INH (11:19)
[2018-05-14 12:00] VITALS: BP 106/55
[2018-07-03] MEDS ORDERED: PREDNISONE50 MG PO (14:50)
[2018-07-11] MEDS ORDERED: ZESTRIL10 MG PO (18:55)
[2018-07-13] MEDS ORDERED: B12,B-12,B 12500 MC1 PO (16:10)
[2018-07-13] MEDS ORDERED: LASIX40 MG PO (16:10)
== END 2018-05-14 14:30 | disposition home or self-care (01) | DRG 193 ==
LOC: ED 16:21 → EDHOLD 18:17 → 4E 18:17
PROVIDERS: Internal Medicine; Internal Medicine Hospice and Palliative Medicine
DX: J18.9 Pneumonia, unspecified organism (principal); N17.0 Acute kidney failure with tubular necrosis; I11.0 Hypertensive heart disease with heart failure; E87.1 Hypo-osmolality and hyponatremia; E44.1 Mild protein-calorie malnutrition; I50.32 Chronic diastolic (congestive) heart failure; B35.3 Tinea pedis; J44.1 Chronic obstructive pulmonary disease with (acute) exacerbation; Z68.45 Body mass index [BMI] 70 or greater, adult; J44.0 Chronic obstructive pulmonary disease with (acute) lower respiratory infection; I25.10 Atherosclerotic heart disease of native coronary artery without angina pectoris; R00.1 Bradycardia, unspecified; F41.9 Anxiety disorder, unspecified; D53.9 Nutritional anemia, unspecified; R73.9 Hyperglycemia, unspecified; E78.5 Hyperlipidemia, unspecified; F32.9 Major depressive disorder, single episode, unspecified; M54.5 Low back pain; G89.29 Other chronic pain; E55.9 Vitamin D deficiency, unspecified; Z72.0 Tobacco use; Z71.6 Tobacco abuse counseling; Z95.5 Presence of coronary angioplasty implant and graft; Z90.710 Acquired absence of both cervix and uterus; Z90.722 Acquired absence of ovaries, bilateral; Z83.1 Family history of other infectious and parasitic diseases; Z79.82 Long term (current) use of aspirin; Z79.52 Long term (current) use of systemic steroids; Z79.899 Other long term (current) drug therapy

== ENCOUNTER → 2018-06-23 | Outpatient (CLI) | payer MEDICARE, BC ==
[~2018-06-23] MED LIST changes: +ATHLETE'S FOOT15 GM T; +BACLOFEN20 M1 PO; +ISOSORBIDE DINI30 MG PO; +LEVAQUIN500 M2 PO; +LYRICA75 M1 PO; +NICOTROL10 MG INH; +PREDNISONE50 MG PO; +SYMB80 INH; +Vitamin D PO
== END | disposition home or self-care (01) ==
LOC: US 12:19
DX: I65.23 Occlusion and stenosis of bilateral carotid arteries (principal); I73.9 Peripheral vascular disease, unspecified; R42 Dizziness and giddiness; R10.31 Right lower quadrant pain; K59.00 Constipation, unspecified; R09.89 Other specified symptoms and signs involving the circulatory and respiratory systems; K40.90 Unilateral inguinal hernia, without obstruction or gangrene, not specified as recurrent; I70.213 Atherosclerosis of native arteries of extremities with intermittent claudication, bilateral legs; R51 Headache

== ENCOUNTER 2018-07-28 23:02 | Inpatient (IN) | payer MEDICARE, BC ==
[~2018-07-28] VITALS: Ht 175.2 cm; Wt 86.8 kg
--- NOTE | ~2018-07-28 | CON ---
[place], [place] REPORT OF CONSULTATION NAME: AUREA YANEZ [facility] #: [id number] UNIT #: [id number] ROOM: 528 DOCTOR: ASHUTOSH BLUE MD BIRTHDATE: [birth year] DOS: 07/30/2018 PULMONARY CONSULTATION EVALUATION AND MANAGEMENT CONSULTATION REQUESTED BY: Hospice Service. REASON FOR CONSULTATION: Shortness of breath. HISTORY OF PRESENT ILLNESS: This is a 67-year-old white female seen in my office. The patient on 07/27/2018, first for the assessment of COPD. She reported symptoms of having cough, which described to be nonproductive with intermittent wheezing. She was also complaining of pain in the retrosternal area. The patient does have symptoms of shortness of breath that occurs only with exertion. She was also complaining of pain in the abdomen advised to be assessed. The patient in the Hospital Emergency room because of nonresolving pain. The patient has been admitted to the hospital yesterday has been currently assessed for the abdominal pain. This morning as the patient was seen, she was sitting on the chair, stating symptoms of shortness of breath. The patient was still noted with exertion, but noted somewhat decreased. She does not have any symptoms of wheezing, but noted with [id number] nonproductive cough. REVIEW OF SYSTEMS: CONSTITUTIONAL: Fatigue and tiredness noted without any symptoms of fever or chills. EYES: Denies any burning, redness, or tenderness. EARS, NOSE, THROAT SYMPTOMS: Denies sore throat, hoarseness, otalgia, postnasal drainage or epistaxis. CARDIOVASCULAR: Denies angina pain, edema of the lower extremities. GASTROINTESTINAL: Pain was described low portion of the abdomen, non-radiation mild to moderate severity without any association of hematemesis, melena or diarrhea. GENITOURINARY: Denies dysuria, suprapubic pain, or hematuria. MUSCULOSKELETAL: No acute joint pain, redness, or tenderness. SKIN: No lesions or rashes. CENTRAL NERVOUS SYSTEM: Denies dizziness, headache or diplopia or syncopal episode. Remaining systems were reviewed. They were noted all negative. PAST MEDICAL HISTORY: 1. Gastroesophageal reflux. 2. Chronic obstructive pulmonary disease. There were noted of moderate severity. 3. Coronary artery disease. 4. General anxiety and depression. 5. Hypercholesterolemia. 6. Mild obesity. SOCIAL HISTORY: She is , has five children. Lives at home. No history [place], [place] REPORT OF CONSULTATION [facility]: [facility] [id number] UNIT #: [id number] ROOM: 528 DOCTOR: ASHUTOSH BLUE MD BIRTHDATE: [birth year] of alcohol use or illicit drug. Tobacco use noted from age [age] years old up to 2 packs of cigarettes a day, which was gradually decreased and stated that she has smoked only a couple of cigarettes every day until hospitalization. PAST SURGICAL HISTORY: Noted as none. FAMILY HISTORY: Father at age of 110. The patient natural causes. Mother at 81 years complication of congestive heart failure. HOME MEDICATIONS: Known use of DuoNeb, Symbicort, Lasix, tramadol, omeprazole, meclizine, Toprol-XL, Imdur, lisinopril, Lipitor, Requip, citalopram and BuSpar. DRUG ALLERGY HISTORY: The patient was noted as no known drug allergies. PHYSICAL EXAMINATION: GENERAL: This is a 67-year-old white female who has been noted currently sitting on the chair this morning for assessment of acute distress. Height of 5 feet 9 inches, weight of 191 pounds, BMI 28.2. VITAL SIGNS: Normal temperature, respiratory rate 18-20, heart rate 75 -69, blood pressure 134/75-89/65. Also, recorded yesterday. Intake 3.730 liters, the output was not recorded. Pulse ox saturation on room air 94% saturation. HEENT: Examination shows head was atraumatic. Eyes: No icterus. NECK: Supple. CARDIOVASCULAR: S1, S2 is audible. LUNGS: The patient was noted with moderate decreased breath sounds bilaterally with mild to moderate expiratory wheezing, no crackles. ABDOMEN: Soft with tendon noted low portion of the abdomen. The organomegaly. Bowel sounds present. CENTRAL NERVOUS SYSTEM: Cranial nerves 2-12 intact. MUSCULOSKELETAL: Noted without any acute deformities. SKIN: Noted without any abnormal lesions or rashes. LABORATORY DATA: CBC of the patient that was done yesterday patient's WBC count was noted as normal, hemoglobin 9.7, hematocrit 29.1, platelet count was normal. The PT, PTT yesterday was noted. INR 1.2. PTT normal. CMP yesterday, normal BUN and creatinine. Albumin 2.5. The blood culture from 07/27/2018 in the Emergency Room, taken showed no bacterial growth. CBC on 07/30/2018, this morning, hemoglobin 9.6, remaining CBC normal. BMP of the patient noted as potassium 3.4, otherwise normal. Urine culture was noted, one culture of 25,000 colony forming units. The second does not show any abnormal bacterial growth. The patient was seen in the Emergency Room 07/27/2080 for the patient at that time was assessed. The patient with a CT scan of the abdomen performed. It shows a fat containing right inguinal hernia size of 2.1 and 1.9 cm. There was no lymphadenopathy was described. Remaining finding, the patient was essentially noted a non-pathological lower portion. CT was ordered for a 6 mm granuloma in the right lower lobe. There were spleen and other structures were reported as normal. IMPRESSION: The patient nonspecific chest pain at this time, etiology is unclear. Also, occur noted concomitant exacerbation of chronic obstructive [place], [place] REPORT OF CONSULTATION NAME: AUREA YANEZ UNIT #: [id number] ROOM: 528 DOCTOR: ASHUTOSH BLUE MD BIRTHDATE: [birth year] pulmonary disease, which has been treated with corticosteroids. PLAN OF MANAGEMENT: The patient could be continued on Solu-Medrol for next 24 hours. Monitor respiratory status improvement in the symptoms of wheezing. Possible consideration home discharge tomorrow morning depends on improvement and resolution of current symptoms for the nonproductive cough. The patient is already receiving the Mucinex 1200 mg p.o. b.i.d. Continue current antibiotic remains quite bronchitis, abstinence tobacco and tobacco cessation counseling was done with the patient. ASHUTOSH BENÍTEZ MD CM:CONSTR:REPORT OF CONSULTATION 1238 07/30/18 1620 interface
--- NOTE | ~2018-07-28 | PR ---
[place], [place] PROGRESS NOTE NAME: AUREA YANEZ [facility] #: [id number] UNIT #: [id number] ROOM: 528 DOCTOR: JEYSON CEVALLOS MD,ASHUTOSH BIRTHDATE: [birth year] DOS: 07/31/2018 PULMONARY PROGRESS NOTE SUBJECTIVE: She has been noted with significant improvement in respiratory symptoms with reduction of wheezing. There is no cough today. There are no symptoms of chest pain. Denies symptoms of nausea or vomiting. OBJECTIVE: VITAL SIGNS: Normal temperature, respiratory rate of 18, heart rate 78, blood pressure 105/54. Pulse oxygen saturation on room air is 94% saturation at rest. HEENT: Head was atraumatic. Eyes nonicterus. NECK: Supple. CARDIOVASCULAR: S1, S2 audible. LUNGS: Noted without any wheezing or crackles. ABDOMEN: Soft, nontender. IMPRESSION: 1. Marked improvement in wheezing noted with resolving acute exacerbation of chronic obstructive pulmonary disease. 2. Abdominal pain, which has been already managed by the primary care team. PLAN OF MANAGEMENT: No changes from the pulmonary standpoint, except consideration for home discharge on tapering prednisone when the patient is noted medically stable. She already has an appointment in the office for followup and that will be kept by the patient. ASHUTOSH BENÍTEZ MD CM:PNTRANS [id number] ASHUTOSH CEVALLOS MD 07/31/18 1316 interface
[~2018-07-28 23:02] MED LIST changes: +B12,B-12,B 12500 MC1 PO; +CEFUROXIME AXE500 MG PO; +LASIX40 MG PO; +PYRIDIUM100 MG PO; +ZESTRIL10 MG PO
[2018-07-28 23:06] VITALS: BP 100/55
[2018-07-28 23:26] LABS: BASO # 0.1 10*3/uL (0.0-0.1); BASO % 0.8 % (0.0-1.0); EOS # 0.2 10*3/uL (0.0-0.4); HEMATOCRIT 31.5 % (37.0-47.0); HEMOGLOBIN 10.6 g/dl (12.0-16.0); LYMPH # 1.5 10*3/uL (1.3-4.4); LYMPH % 19.9 % (27.0-41.0); MEAN CELL VOLUME 97.5 fl (81.0-99.0); MEAN CORPUSCULAR HGB 32.8 pg (27.0-31.0); MEAN CORPUSCULAR HGB CONC 33.7 g/dl (33.0-37.0); MEAN PLATELET VOLUME 9.8 fl (9.6-12.3); MONO # 0.9 10*3/uL (0.1-1.0); MONO % 11.3 % (3.0-9.0); NEUT # 4.9 10*3/uL (2.3-7.9); NEUT % 64.3 % (47.0-73.0); PLATELET COUNT AUTOMATED 258 10*3/uL (130-400); RED BLOOD COUNT 3.23 10*6/uL (4.10-5.10); RED CELL DISTRI WIDTH 12.9 % (0-14.5); WHITE BLOOD COUNT 7.6 10*3/uL (4.8-10.8)
[2018-07-28 23:43] LABS: EPITHELIAL CELLS TNTC
[2018-07-28 23:44] LABS: BACTERIA 1+; YEAST 1+
[2018-07-28 23:48] LABS: ALBUMIN 2.6 gm/dl (3.1-4.5); ALKALINE PHOSPHATASE 64 U/L (45-117); BUN 19 mg/dl (7-24); CHLORIDE 101 mmol/L (98-107); CREATININE 0.95 mg/dL (0.55-1.02); POTASSIUM 3.8 mmol/L (3.5-5.1); SGOT/AST 32 IU/L (3-35); SGPT/ALT 34 U/L (12-78); SODIUM 133 mmol/L (136-145); TOTAL PROTEIN 6.5 gm/dL (6.4-8.2)
[2018-07-29 01:00] VITALS: BP 99/48
[2018-07-29 01:15] VITALS: BP 108/50
[2018-07-29 06:42] LABS: BASO % 0.6 % (0.0-1.0); EOS # 0.1 10*3/uL (0.0-0.4); EOS % 1.3 % (1.0-4.0); HEMATOCRIT 29.1 % (37.0-47.0); HEMOGLOBIN 9.7 g/dl (12.0-16.0); LYMPH # 1.6 10*3/uL (1.3-4.4); LYMPH % 22.4 % (27.0-41.0); MEAN CELL VOLUME 98.6 fl (81.0-99.0); MEAN CORPUSCULAR HGB 32.9 pg (27.0-31.0); MEAN CORPUSCULAR HGB CONC 33.3 g/dl (33.0-37.0); MEAN PLATELET VOLUME 9.8 fl (9.6-12.3); NEUT # 4.2 10*3/uL (2.3-7.9); NEUT % 59.9 % (47.0-73.0); PLATELET COUNT AUTOMATED 226 10*3/uL (130-400); RED BLOOD COUNT 2.95 10*6/uL (4.10-5.10); RED CELL DISTRI WIDTH 13.2 % (0-14.5); WHITE BLOOD COUNT 7.1 10*3/uL (4.8-10.8)
[2018-07-29 07:06] LABS: ACT PARTIAL THROMBO TIME 24.6 SECONDS (20.8-31.5); INTERNATIONAL NORM RATIO 1.2 (2.0-3.5)
[2018-07-29 07:07] LABS: ALBUMIN 2.3 gm/dl (3.1-4.5); ALKALINE PHOSPHATASE 56 U/L (45-117); BUN 14 mg/dl (7-24); CHLORIDE 106 mmol/L (98-107); CREATININE 0.82 mg/dL (0.55-1.02); PHOSPHOROUS 3.3 mg/dL (2.5-4.9); POTASSIUM 3.8 mmol/L (3.5-5.1); SGOT/AST 27 IU/L (3-35); SGPT/ALT 27 U/L (12-78); SODIUM 136 mmol/L (136-145); TOTAL PROTEIN 5.8 gm/dL (6.4-8.2)
[2018-07-29 08:25] VITALS: BP 110/50
[2018-07-29 13:07] VITALS: BP 100/65
[2018-07-29 16:00] VITALS: BP 89/65
[2018-07-29 20:00] VITALS: BP 99/66
[2018-07-30] VITALS: BP 129/56
[2018-07-30 06:14] LABS: BASO % 0.2 % (0.0-1.0); HEMATOCRIT 28.8 % (37.0-47.0); HEMOGLOBIN 9.6 g/dl (12.0-16.0); LYMPH % 17.2 % (27.0-41.0); MEAN CORPUSCULAR HGB 32.7 pg (27.0-31.0); MEAN CORPUSCULAR HGB CONC 33.3 g/dl (33.0-37.0); MEAN PLATELET VOLUME 9.9 fl (9.6-12.3); MONO # 0.2 10*3/uL (0.1-1.0); MONO % 3.4 % (3.0-9.0); NEUT # 4.5 10*3/uL (2.3-7.9); NEUT % 77.5 % (47.0-73.0); PLATELET COUNT AUTOMATED 225 10*3/uL (130-400); RED BLOOD COUNT 2.94 10*6/uL (4.10-5.10); RED CELL DISTRI WIDTH 12.9 % (0-14.5); WHITE BLOOD COUNT 5.8 10*3/uL (4.8-10.8)
[2018-07-30 06:29] LABS: BUN 11 mg/dl (7-24); CHLORIDE 108 mmol/L (98-107); CREATININE 0.72 mg/dL (0.55-1.02); POTASSIUM 3.4 mmol/L (3.5-5.1); SODIUM 138 mmol/L (136-145)
[2018-07-30 08:00] VITALS: BP 134/55
[2018-07-30 12:00] VITALS: BP 136/61
[2018-07-30 14:06] LABS: IRON 78 ug/dL (50-170); TOTAL IRON BINDING CAPACITY 214 ug/dl (250-450)
[2018-07-30 16:00] VITALS: BP 114/63
[2018-07-30 20:00] VITALS: BP 116/68
[2018-07-31] VITALS: BP 92/47
[2018-07-31 04:00] VITALS: BP 152/53
[2018-07-31 08:00] VITALS: BP 105/54
[2018-07-31] MEDS ORDERED: PREDNISONE10 MG PO (11:26)
[2018-07-31] MEDS ORDERED: MUCINEX1200 M1 PO (11:26)
[2018-07-31] MEDS ORDERED: ZITHROMAX500 MG PO (11:26)
[2018-07-31 12:00] VITALS: BP 98/52
== END 2018-07-31 14:56 | disposition home or self-care (01) | DRG 193 ==
LOC: ED 23:02 → EDHOLD 07-29 00:11 → 5E 07-29 00:11
PROVIDERS: Family Medicine; Internal Medicine; Student in an Organized Health Care Education/Training Program
DX: J18.9 Pneumonia, unspecified organism (principal); E43 Unspecified severe protein-calorie malnutrition; J96.20 Acute and chronic respiratory failure, unspecified whether with hypoxia or hypercapnia; N39.0 Urinary tract infection, site not specified; I50.32 Chronic diastolic (congestive) heart failure; E87.1 Hypo-osmolality and hyponatremia; I13.0 Hypertensive heart and chronic kidney disease with heart failure and stage 1 through stage 4 chronic kidney disease, or unspecified chronic kidney disease; J44.0 Chronic obstructive pulmonary disease with (acute) lower respiratory infection; J44.1 Chronic obstructive pulmonary disease with (acute) exacerbation; N18.3 Chronic kidney disease, stage 3 (moderate); R31.9 Hematuria, unspecified; E78.5 Hyperlipidemia, unspecified; I25.10 Atherosclerotic heart disease of native coronary artery without angina pectoris; F32.9 Major depressive disorder, single episode, unspecified; G47.33 Obstructive sleep apnea (adult) (pediatric); K21.9 Gastro-esophageal reflux disease without esophagitis; F41.1 Generalized anxiety disorder; E78.00 Pure hypercholesterolemia, unspecified; E55.9 Vitamin D deficiency, unspecified; D64.9 Anemia, unspecified; M54.9 Dorsalgia, unspecified; G89.29 Other chronic pain; F17.210 Nicotine dependence, cigarettes, uncomplicated; Z79.82 Long term (current) use of aspirin; Z79.899 Other long term (current) drug therapy; Z90.710 Acquired absence of both cervix and uterus; Z95.5 Presence of coronary angioplasty implant and graft; Z90.722 Acquired absence of ovaries, bilateral; Z71.6 Tobacco abuse counseling; Z80.9 Family history of malignant neoplasm, unspecified; Z82.49 Family history of ischemic heart disease and other diseases of the circulatory system; Z68.28 Body mass index [BMI] 28.0-28.9, adult

== ENCOUNTER → 2018-08-05 | Day surgery (SDC) | payer MEDICARE, BC ==
[~2018-08-05] VITALS: Ht 175.2 cm; Wt 81.6 kg
[~2018-08-05] MED LIST changes: +MUCINEX1200 M1 PO; +ZITHROMAX500 MG PO
--- NOTE | ~2018-08-05 | O ---
[place], [place] OPERATIVE NOTE NAME: AUREA YANEZ UNIT #: [id number] ROOM: DOCTOR: JOSEPH ENNIS MD BIRTHDATE: [birth year] DOS: 08/05/2018 INDICATIONS: This is a 67-year-old patient who presented with chief complaint of dyspepsia and dysphagia, history of sensation of pills getting stuck in the mid esophagus Progressively, she is getting worse as far as solid food dysphagia. ALLERGIES: No known medication. FAMILY HISTORY: Noncontributory. PAST SURGICAL HISTORY: Cardiac and hysterectomy and bowel resection, but she does not recall details. PAST MEDICAL HISTORY: COPD, coronary artery disease, hypertension, hyperlipidemia, and depression. SOCIAL HISTORY: One pack smoker, nonalcohol consumer. PROCEDURE: Today's procedure part of investigation is panendoscopy and biopsy and balloon dilation of the esophagus. PREMEDICATION: Propofol. SCOPE: Olympus forward-viewing gastroscope Q10 video. REPORT: After putting the patient in left lateral position and application of lubricant to the scope, the scope was introduced. Thereafter, under direct visualization, advanced through the length of esophagus without difficulty. Distal esophageal benign stricture was noticed. Hiatal hernia of 4.5 cm was noticed. Gastric pouch was entered. Gastritis was noticed. Antral biopsy obtained. A balloon size 20 was introduced in the distal esophagus, dilated and swept throughout the length of the esophagus. The patient was gradually extubated and tolerated the procedure well. IMPRESSION: Benign esophageal stricture, status post balloon dilation, large hiatal hernia, gastritis. PLAN AND DISCUSSION: We are going to continue with PPI management of the patient. Omeprazole 25 mg 1 every day, antireflux with elevation of the head of the bed 6-10 inches all time. Gaviscon as antacid of choice. Also we are going to proceed with colonoscopic evaluation. COLONOSCOPY INDICATIONS: The patient presented with chief complaint of nonspecific abdominal pain. No prior colonoscopy. However, she has had what appears to be the bowels, right hemicolon resection and she does not recall the details. PROCEDURE: Today's procedure part of investigation is colonoscopy plus [place], [place] OPERATIVE NOTE NAME: AUREA YANEZ UNIT #: [id number] ROOM: DOCTOR: JOSEPH ENNIS MD BIRTHDATE: [birth year] photographic series. PREMEDICATION: Propofol. SCOPE: Olympus forward-viewing colonoscope 10L video. REPORT: After putting the patient in left lateral position and application of lubricant to the scope, the scope was introduced. Thereafter under direct visualization, advanced through the length of colon without difficulty. As I approached this anatomy of cecum area, I see what appears to be anastomotic site of the small bowel and colon and site looks benign. There is no penetration or perforation of the area with akosua or sutures. No ulceration was noticed. The air was suctioned out. The patient was gradually extubated, tolerated procedure well. IMPRESSION: Status post right hemicolectomy, details not known to us. She does not recall much of the history of it. PLAN AND DISCUSSION: We are going to continue with upper GI management and as far as the lower bowel is concerned, she perhaps would be safe enough for the next 5-10 years' reassessment, but I did not see any acute pathology in the colon. As far as the upper GI is concerned, we are going to redo start her on omeprazole 20 mg every day. Thank you very much again for your kind referral. ADDENDUM 08/21 1040: Polyp was removed from the sigmoid colon by piecemeal polypectomy. IMPRESSION: Sessile polyp at sigmoid colon JOSEPH ENNIS MD CM:OPRECORD:OPERATIVE NOTE 1200 T: JOSEPH ENNIS MD 08/21/18 1037 TERENCE PRADO.R
[2018-08-05 10:00] VITALS: BP 107/71
[2018-08-05 11:54] VITALS: BP 94/59
[2018-08-05 12:09] VITALS: BP 121/68
[2018-08-05 12:22] VITALS: BP 122/65
== END | disposition home or self-care (01) ==
LOC: SDC 07-31 10:15
DX: K63.5 Polyp of colon (principal); K22.2 Esophageal obstruction; K29.50 Unspecified chronic gastritis without bleeding; K44.9 Diaphragmatic hernia without obstruction or gangrene; I10 Essential (primary) hypertension; I25.10 Atherosclerotic heart disease of native coronary artery without angina pectoris; I25.2 Old myocardial infarction; K21.9 Gastro-esophageal reflux disease without esophagitis; E78.5 Hyperlipidemia, unspecified; J44.9 Chronic obstructive pulmonary disease, unspecified; F32.9 Major depressive disorder, single episode, unspecified; D64.9 Anemia, unspecified; Z98.0 Intestinal bypass and anastomosis status; Z90.49 Acquired absence of other specified parts of digestive tract; Z87.891 Personal history of nicotine dependence; Z90.710 Acquired absence of both cervix and uterus; Z95.5 Presence of coronary angioplasty implant and graft; Z79.899 Other long term (current) drug therapy; Z80.9 Family history of malignant neoplasm, unspecified

== ENCOUNTER → 2018-08-07 | Outpatient (CLI) | payer MEDICARE, BC ==
[2018-08-07 10:32] LABS: HEMATOCRIT 36.4 % (37.0-47.0); HEMOGLOBIN 11.8 g/dl (12.0-16.0); MEAN CELL VOLUME 102.2 fl (81.0-99.0); MEAN CORPUSCULAR HGB 33.1 pg (27.0-31.0); MEAN CORPUSCULAR HGB CONC 32.4 g/dl (33.0-37.0); MEAN PLATELET VOLUME 9.5 fl (9.6-12.3); PLATELET COUNT AUTOMATED 228 10*3/uL (130-400); RED BLOOD COUNT 3.56 10*6/uL (4.10-5.10); RED CELL DISTRI WIDTH 13.8 % (0-14.5); WHITE BLOOD COUNT 10.8 10*3/uL (4.8-10.8)
[2018-08-07 11:03] LABS: PLATELET SUFFICIENCY NORMAL (NORMAL); TOTAL CELLS COUNTED 100 #CELLS
[2018-08-19 14:09] LABS: GTG BAND RESOLUTION ACHIEVED 400 (.)
== END | disposition home or self-care (01) ==
LOC: RESCLI 02:14
PROVIDERS: Internal Medicine
DX: J44.9 Chronic obstructive pulmonary disease, unspecified (principal); D64.9 Anemia, unspecified; I25.10 Atherosclerotic heart disease of native coronary artery without angina pectoris; F41.9 Anxiety disorder, unspecified; M54.9 Dorsalgia, unspecified; N32.81 Overactive bladder; E78.5 Hyperlipidemia, unspecified; I10 Essential (primary) hypertension; F17.200 Nicotine dependence, unspecified, uncomplicated; Z79.899 Other long term (current) drug therapy

== ENCOUNTER → 2018-08-27 | Outpatient (CLI) | payer MEDICARE, BC | END | disposition home or self-care (01) | LOC: RESCLI 08:58 | DX: I10 Essential (primary) hypertension (principal); I25.10 Atherosclerotic heart disease of native coronary artery without angina pectoris; J44.9 Chronic obstructive pulmonary disease, unspecified; N32.81 Overactive bladder; E78.5 Hyperlipidemia, unspecified; D63.8 Anemia in other chronic diseases classified elsewhere; F41.9 Anxiety disorder, unspecified; Z90.710 Acquired absence of both cervix and uterus; Z72.0 Tobacco use ==

== ENCOUNTER → 2018-12-10 | Outpatient (CLI) | payer MEDICARE, BC ==
--- NOTE | 2018-12-10 10:06 | NUR ---
6 MINUTE WALK TEST TO ASSESS FOR HOME OXYGEN ROOM AIR AT REST: SPO2 97%, HR 64, RR 20, BP 171/94 ROOM AIR WITH AMBULATION: SPO2 94% HR 74, RR 24 SPO2 93%, HR 74, RR 28 SPO2 94%, HR 82, RR 28 RECOVERY: SPO2 95% ON RA, HR 78, RR 20, BP 173/94
== END | disposition home or self-care (01) ==
LOC: RESCLI 01:39
DX: I25.10 Atherosclerotic heart disease of native coronary artery without angina pectoris (principal); F41.9 Anxiety disorder, unspecified; J44.9 Chronic obstructive pulmonary disease, unspecified; M54.9 Dorsalgia, unspecified; N32.81 Overactive bladder; E78.5 Hyperlipidemia, unspecified; I10 Essential (primary) hypertension; D63.8 Anemia in other chronic diseases classified elsewhere; F17.200 Nicotine dependence, unspecified, uncomplicated; Z79.899 Other long term (current) drug therapy; Z90.710 Acquired absence of both cervix and uterus

== ENCOUNTER → 2019-02-03 | Outpatient (CLI) | payer MEDICARE, BC ==
[~2019-02-03] MED LIST changes: +AUGMENTIN 875875 MG PO; +ELIQUIS5 M1 PO; +FLUCONAZOLE100 MG PO
== END | disposition home or self-care (01) ==
LOC: LAB 07:01 → MAMMO 07:20
DX: Z12.31 Encounter for screening mammogram for malignant neoplasm of breast (principal); R53.83 Other fatigue; D64.9 Anemia, unspecified; Z79.899 Other long term (current) drug therapy; Z79.82 Long term (current) use of aspirin

== ENCOUNTER 2019-04-25 19:51 | Inpatient (IN) | payer MEDICARE, BC ==
[2019-04-25] VITALS (11 sets, daily range): BP systolic 68–135; BP diastolic 0–62
[~2019-04-25] VITALS: Ht 175.3 cm; Wt 93.2 kg
--- NOTE | ~2019-04-25 | O ---
[place], [place] OPERATIVE NOTE NAME: AUREA YANEZ UNIT #: [id number] ROOM: 408 DOCTOR: LOLI REBOLLEDOJOSEPH BIRTHDATE: [birth year] DOS: INDICATION: The patient has come in for epigastric distress, abdominal pain, undergoing investigation. The patient with leukocytosis. Consultation has been dictated. PROCEDURE #1: Today's procedure part of investigation is panendoscopy and colonoscopy. PREMEDICATION: Propofol. SCOPE: Olympus forward-viewing gastroscope Q10 video. REPORT: After putting the patient in left lateral position and application of lubricant to the scope, the scope was introduced. Thereafter, under direct visualization, advanced through the length of esophagus without difficulty. Esophagus, cervical, thoracic distal within normal limits. Small hiatal hernia was noticed. Gastritis seen. Antral biopsy obtained. Duodenal bulb, second and third part within normal limits. The patient extubated, tolerated the procedure well. IMPRESSION: Gastritis, small hiatal hernia. PLAN AND DISCUSSION: We will proceed with colonoscopy. GASTROENDOSCOPIC REPORT The patient has presented with GI bleed, undergoing investigation. CT scan has been abnormal. PROCEDURE #2: Today's procedure part of investigation is colonoscopy. PREMEDICATION: Propofol. SCOPE: Olympus forward-viewing colonoscope 10L video. REPORT: After putting the patient in left lateral position and application of lubricant to the scope, the scope was introduced. Thereafter, under direct visualization, advanced through the length of colon without difficulty. Rectal pouch, the first 15 cm itself is fresh and viable. Beyond this point, all the way to beyond the splenic flexure is all advanced ischemic colitis with cobblestoning great tissue and pus on the scar. Transverse colon itself and ascending colon within normal limits. Photographic series of base of cecum obtained. Scope was withdrawn through the left colon again. Multiple biopsies obtained. There is no bleeding from the biopsy site. Further confirming advanced ischemic colitis. PLAN AND DISCUSSION: CTA of the abdomen today continuation with IV hydration. Continuation with vancomycin and Zosyn. We are going to keep her on n.p.o. status until the CT of the abdomen is done and Dr. Mckenzie gets the results today [place], [place] OPERATIVE NOTE NAME: AUREA YANEZ UNIT #: [id number] ROOM: 408 DOCTOR: LOLI REBOLLEDO,JOSEPH BIRTHDATE: [birth year] and then we will decide about clear liquid or otherwise. This patient most likely requires to have left colectomy done and we will discuss with the family. JOSEPH MCKENZIE MD CM:OPRECORD:OPERATIVE NOTE [id number] JOSEPH MCKENZIE MD 04/28/19 1316 interface
--- NOTE | ~2019-04-25 | PR ---
[place], [place] PROGRESS NOTE NAME: AUREA YANEZ UNIT #: [id number] ROOM: 412 DOCTOR: ELEANOR ALVES MD BIRTHDATE: [birth year] DOS: 05/06/2019 REASON FOR VISIT: Atrial fibrillation, coronary artery disease. HISTORY OF PRESENT ILLNESS: The patient is feeling better. She is tolerating oral diet. Denies any chest pain or palpitation, no dizziness, no PND, no orthopnea. No nausea or vomiting. REVIEW OF SYSTEMS: Review of 8 systems negative except as mentioned above. RHYTHM STRIPS: The patient in sinus rhythm. PHYSICAL EXAMINATION: VITAL SIGNS: Blood pressure 108/53, pulse 67 and respiratory rate was 18. GENERAL: Alert, comfortable, in no acute distress. HEENT: Pupils are round and equal. NECK: Supple, no distended neck veins, no carotid bruit. CHEST: Symmetric, nontender. LUNGS: Clear to auscultation bilaterally. HEART: Regular rhythm, no S3. Grade 1/6 systolic murmur. ABDOMEN: Bowel sounds normal. There is noted ileostomy. EXTREMITIES: Showed trace edema. Distal pulses palpable. SKIN: Warm and dry. No cyanosis, no clubbing. RECTAL: Deferred. GENITOURINARY: Deferred. MEDICATIONS AND LABORATORY DATA: Reviewed. Hemoglobin 8.1. IMPRESSION: 1. New onset atrial fibrillation postoperatively, the patient converted to sinus rhythm. 2. Colitis, status post colectomy and ileostomy. 3. Coronary artery disease with history of stents in 2017. 4. Anemia. RECOMMENDATIONS: 1. Blood pressure and heart rate are stable. 2. Continue current medication. 3. Due to high CHADS2-VASc score, I would recommend oral anticoagulation, Xarelto or Eliquis; however, I would keep her on baby aspirin 81 mg and discontinue her Plavix since her stents are more than a year ago. I would like to avoid triple therapy due to her anemia. 4. Resume aspirin and I would recommend Eliquis when she is cleared from a surgical standpoint. 5. No family at bedside at the time of my examination. [place], [place] PROGRESS NOTE NAME: AUREA YANEZ UNIT #: [id number] ROOM: 412 DOCTOR: ELEANOR ALVES MD BIRTHDATE: [birth year] ELEANOR ALVES MD CM:PNTRANS [phone] ELEANOR ALVES MD 05/07/195 interface
--- NOTE | ~2019-04-25 | PR ---
[place], [place] PROGRESS NOTE NAME: AUREA YANEZ [facility] #: [id number] UNIT #: [id number] ROOM: 412 DOCTOR: LONG REBOLLEDOELEANOR BIRTHDATE: [birth year] DOS: 05/02/2019 CARDIOLOGY FOLLOWUP NOTE REASON FOR VISIT: New-onset atrial fibrillation. HISTORY OF PRESENT ILLNESS: The patient is feeling better. Denies any chest pain or shortness, but still having some abdominal discomfort from the surgery and also mild nausea, but no diarrhea, no fever and chills. No cough or hemoptysis. No PND or orthopnea. No chest pain or palpitations. REVIEW OF SYSTEMS: Review of 10 systems negative except as mentioned above. RHYTHM STRIPS: The patient in sinus rhythm. PHYSICAL EXAMINATION: VITAL SIGNS: Blood pressure 146/65, pulse 83, respiratory rate 18, weight 93.1 kg, BMI 30. GENERAL: Alert, comfortable, in no acute distress. HEENT: Pupils are round and equal. No jaundice. NECK: Supple. No distended neck veins, no carotid bruit. CHEST: Symmetrical, nontender. LUNGS: A few scattered rhonchi, but good air entry bilaterally. HEART: Regular rhythm, no S3. Grade 1/6 systolic murmur. ABDOMEN: Bowel sounds are diminished. EXTREMITIES: Show trace edema. Distal pulses palpable. SKIN: Warm and dry. No cyanosis, no clubbing. RECTAL: Deferred. GENITOURINARY: Deferred. NEUROLOGIC: The patient is alert with no focal neurologic deficit. MEDICATIONS: Reviewed. LABS: Reviewed. IMPRESSION: 1. New-onset atrial fibrillation, currently in sinus rhythm. 2. Status post colectomy with ileostomy for colitis. 3. Coronary artery disease, status post stents in 10/2016 and 12/2016. 4. Anemia. 5. Hypertension. RECOMMENDATIONS: 1. Continue current medications. 2. A 2D echo was ordered based on her 2D echo findings, the patient will need oral anticoagulation when she is stable from a surgical standpoint. 3. I would discontinue aspirin and continue her Plavix with her oral anticoagulation. 4. No family at bedside at the time of my examination. 5. The patient follows with Dr. Pollack who is her video conference specialist in [place], [place] PROGRESS NOTE NAME: AUREA YANEZ UNIT #: [id number] ROOM: [facility] DOCTOR: ELEANOR ALVES MD BIRTHDATE: [birth year] [place]. ELEANOR ALVES MD CM:PNTRANS [phone] ELEANOR ALVES MD 05/28/19 0733 interface
--- NOTE | ~2019-04-25 | PR ---
[place], [place] PROGRESS NOTE NAME: AUREA YANEZ UNIT #: [id number] ROOM: 412 DOCTOR: ELEANOR ALVES MD BIRTHDATE: [birth year] DOS: 05/05/2019 CARDIOLOGY PROGRESS NOTE REASON FOR VISIT: New-onset atrial fibrillation and coronary artery disease. HISTORY OF PRESENT ILLNESS: The patient is feeling better. No abdominal pain. No chest pain or shortness of breath, no palpitations, no dizziness, no syncope. REVIEW OF SYSTEMS: Review of 8 systems negative except as mentioned above. PHYSICAL EXAMINATION: VITAL SIGNS: Blood pressure 112/67, pulse 82, respiratory rate 20. GENERAL: Alert, comfortable, in no acute distress. HEAD AND NECK: Pupils are round and equal, no jaundice. Neck is supple, no distended neck veins, no carotid bruit. CHEST: Symmetrical, nontender. ABDOMEN: Nontender. Bowel sounds normal. EXTREMITIES: Showed 2+ edema. Distal pulses palpable. SKIN: Warm and dry. No cyanosis, no clubbing. RECTAL: Deferred. GENITOURINARY: Deferred. REVIEW OF THE DIAGNOSTIC TEST: Labs and EKGs reviewed as available. IMPRESSION: 1. New-onset atrial fibrillation with high CHADS2-VASc score, currently in sinus rhythm. 2. Colitis, status post colectomy and ileostomy. 3. Coronary artery disease, status post stents in February 2017. 4. Anemia. 5. Hypertension. RECOMMENDATIONS: 1. Continue current medications. 2. Start Lasix 20 mg daily. 3. Monitor heart rate and blood pressures. 4. When the patient is stable, she will need to resume her antiplatelet therapy and also oral anticoagulation with Xarelto or Eliquis. 5. Since her stent was in 2006, I would discontinue her Plavix and keep her on low dose aspirin with her oral anticoagulation. 6. No family at bedside at the time of my examination. 7. The patient will follow up with Dr. Pollack in [place] after her discharge. [place], [place] PROGRESS NOTE NAME: AUREA YANEZ UNIT #: [id number] ROOM: 412 DOCTOR: ELEANOR ALVES MD BIRTHDATE: [birth year] ELEAONR ALVES MD CM:KATHE [phone] ELEANOR ALVES MD 05/06/19 0632 interface
--- NOTE | ~2019-04-25 | CON ---
[place], [place] REPORT OF CONSULTATION NAME: AUREA YANEZ UNIT #: [id number] ROOM: 408 DOCTOR: JOSEPH ENNIS MD BIRTHDATE: [birth year] DOS: HISTORY OF PRESENT ILLNESS: This is a 68-year-old patient, who was presented with chief complaint of abdominal pain, undergoing investigation at the time of admission, she had leukocytosis of 12.4, H and H of 14 and 41. The patient had a chemistry, which was within normal limit. Calcium 7.9. Lipase was within normal limit. INR 1.2. CT scan of the abdomen was associated with colitis involving the left colon and rectosigmoid. Lactic acid was surprisingly normal in 1.1. Chemistry otherwise within normal limits. PAST MEDICAL HISTORY: Associated with GI bleed, sepsis at the present time and colitis documented on CT scan; otherwise, back pain, renal insufficiency, protein-calorie malnutrition, obstructive sleep apnea. PAST SURGICAL HISTORY: Oophorectomy, hysterectomy, angioplasty, stent. SOCIAL HISTORY: Smoker, nonalcohol consumer. FAMILY HISTORY: Noncontributory. ALLERGIES: No known medications. MEDICATIONS: List reviewed and the patient has been on aspirin and Plavix. REVIEW OF SYSTEMS: HEENT: Denies double vision, blurred vision. RESPIRATORY: Denies acute shortness of breath. CARDIOVASCULAR: Denies acute chest pain. DIGESTIVE SYSTEM: Abdominal pain, bleeding. PHYSICAL EXAMINATION: VITAL SIGNS: Stable. HEENT: Within normal limit. NECK: Supple, no thyromegaly, no cervical lymphadenopathy. CHEST: Symmetric anatomy, equal expansion. No wheeze, no rhonchi. HEART: Normal sinus rhythm, no gallop, no murmur. ABDOMEN: Soft, obese, no hepato-organomegaly. Bowel sounds present. No pulsatile mass. EXTREMITIES: No cyanosis, no pedal edema. NEUROLOGIC: Alert, oriented to time, place, person. Sensory, motor intact. Cranial nerves 2-12 intact. IMPRESSION: Colitis on CT scan; otherwise, as identified above. PLAN: Organized intubation for colonoscopy. [place], [place] REPORT OF CONSULTATION NAME: AUREA YANEZ UNIT #: [id number] ROOM: 408 DOCTOR: JOSEPH ENNIS MD BIRTHDATE: [birth year] JOSEPH ENNIS MD CM:CONSTR:REPORT OF CONSULTATION 1058 04/28/19 1314 interface
--- NOTE | ~2019-04-25 | PR ---
[place], [place] PROGRESS NOTE NAME: AUREA YANEZ UNIT #: [id number] ROOM: 412 DOCTOR: DELIA KIM MD BIRTHDATE: [birth year] DOS: 05/09/2019 ADDENDUM. This is an addendum to the progress note done by the nurse practitioner, Stella Carlos. I agree with the assessment and plan, reviewed the labs and imaging, and made the necessary changes in the note. Delia Kim MD CM:PNTRANS [phone] DELIA KIM MD 05/12/19 0439 interface
--- NOTE | ~2019-04-25 | PR ---
[place], [place] PROGRESS NOTE NAME: [facility]ANE[id number] UNIT #: [id number] ROOM: 412 DOCTOR: ELEANOR ALVES MD BIRTHDATE: [birth year] DOS: 05/07/2019 CARDIOLOGY PROGRESS NOTE REASON FOR VISIT: Atrial fibrillation and coronary artery disease. HISTORY OF PRESENT ILLNESS: The patient denies any chest pain or shortness of breath. No fever and chills. No nausea, vomiting, diarrhea. No PND or orthopnea. No palpitations. REVIEW OF SYSTEMS: Review of 8 systems negative except as mentioned above. RHYTHM STRIPS: The patient in sinus rhythm. PHYSICAL EXAMINATION: VITAL SIGNS: Blood pressure 143/68, pulse 68, respirations 20. Weight 93 kilos. GENERAL: Alert, comfortable, in no acute distress. HEENT: Pupils are round and equal, no jaundice. NECK: Supple, no distended neck veins, no carotid bruit. CHEST: Symmetrical, nontender. LUNGS: Clear to auscultation anteriorly. HEART: Regular rhythm, no S3. Grade 1/6 systolic murmur. ABDOMEN: Bowel sounds normal. EXTREMITIES: Showed trace edema. Distal pulses palpable. SKIN: Warm and dry. No cyanosis. No clubbing. RECTAL: Deferred. IMPRESSION: 1. New onset atrial fibrillation, currently sinus rhythm. 2. Colitis, status post colectomy with ileostomy. 3. Coronary artery disease, status post stents in 2017. 4. Anemia. 5. Hypertension. RECOMMENDATIONS: 1. Continue current medications. 2. The patient is to be on aspirin 81 mg for her CAD and Eliquis 5 mg twice a day when she is stable and cleared by the Surgery. No family at bedside. The patient follows with Dr. Pollack in [place] after the discharge. [place], [place] PROGRESS NOTE NAME: AUREA YANEZ UNIT #: [id number] ROOM: 412 DOCTOR: ELEANOR ALVES MD BIRTHDATE: [birth year] ELEANOR ALVES MD CM:PNTRANS [phone] ELEANOR ALVES MD 05/08/19 0059 interface
--- NOTE | ~2019-04-25 | PR ---
[place], [place] PROGRESS NOTE NAME: AUREA YANEZ UNIT #: [id number] ROOM: 412 DOCTOR: SURINDER URBINA BIRTHDATE: [birth year] DOS: 05/09/2019 SUBJECTIVE: The patient is being followed for an abdominal wound for which she is receiving Augmentin. Cultures are pending, but they do have heavy yeast growth. Gram stain had gram-negative bacilli and budding yeast. She is alert and oriented, feels fairly well, abdomen is still a little sore, but it is improving, some dry cough. She is hoarse, little nausea, sometimes after eating. No rash or itch. No fevers or chills. Occasional sore throat. Stool per ostomy. She has been afebrile. LABORATORY DATA: WBCs 12.9, platelets 286. BUN 6, creatinine 0.48. Blood cultures from the 10th with Staph haemolyticus considered contaminant. Wound cultures as above. PHYSICAL EXAMINATION: VITAL SIGNS: Temperature 98.3, pulse 74, respirations 20, BP 112/49. GENERAL: A 68-year-old female, in no acute distress. HEAD, EYES, EARS, NOSE AND THROAT: Normocephalic. Seems to have the beginnings of thrush. NECK: Supple. LUNGS: Clear to auscultation bilaterally. Respirations even and unlabored. HEART: Regular rhythm. No murmur appreciated. ABDOMEN: Soft, nontender. Wound is dressed. MEGHAN with no active discharge. Ostomy with watery stool. EXTREMITIES: +2 edema bilateral lower extremities. SKIN: Warm, dry, free of rashes. ASSESSMENT AND PLAN: Possible abdominal wound infection, currently on Augmentin. She is status post surgery for ischemic colitis. Culture now with yeast, also appears to have the beginnings of thrush. We will start Diflucan. Continue the Augmentin. Follow up on her final wound culture. FEBRUARY CARLIT[facility] [place], [place] PROGRESS NOTE NAME: AUREA YANEZ UNIT #: [id number] ROOM: 412 DOCTOR: SURINDER URBINA BIRTHDATE: [birth year] Delia Morrison MD CM:PNMADIHA [phone] FEBRUARY SURINDER [facility] 05/09/19 1239 interface
--- NOTE | ~2019-04-25 | CON ---
[place], [place] REPORT OF CONSULTATION NAME: AUREA YANEZ [facility] #: [id number] UNIT #: [id number] ROOM: 412 DOCTOR: ELEANOR ALVES MD BIRTHDATE: [birth year] DOS: 05/01/2019 CARDIOLOGY CONSULT NOTE REASON FOR CONSULTATION: Atrial fibrillation. HISTORY OF PRESENT ILLNESS: The patient is a 68-year-old patient who was admitted a few days ago for some gastrointestinal pain and subsequently she underwent colectomy with ileostomy for her colitis. She has history of coronary artery disease, hypertension, atrial fibrillation with rapid ventricular rate, hence Cardiology was consulted. The patient at the time of examination is alert and comfortable. Denies any chest pain, shortness of breath. No palpitations, no dizziness, no nausea or vomiting. The patient had NG tube and currently n.p.o. At home, she has no PND or orthopnea. No headaches. No neurologic symptoms. No palpitations. She had no prior history of atrial fibrillation. PAST MEDICAL HISTORY: 1. Coronary artery disease with history of cardiac stents, possibly 10/2016 and 12/2016. Records not available. 2. Hypertension. 3. Sleep apnea. 4. Dyslipidemia. 5. Depression. 6. COPD. 7. Chronic kidney disease. PAST SURGICAL HISTORY: History of hysterectomy, oophorectomy, coronary angioplasty and stents. SOCIAL HISTORY: The patient does smoke about 2-1/2 packs a day, does not use illicit drugs, does not drink. FAMILY HISTORY: Nil contributory, but father diseased at the age of 100. Mother at the age of 78. ALLERGIES: Reviewed. HOME MEDICATIONS: Reviewed and the cardiac medications include aspirin, Lipitor, metoprolol, lisinopril, and Ranexa. PHYSICAL EXAMINATION: VITAL SIGNS: Blood pressure 107/66, pulse 90, respiratory rate 18, weight 93.1 kg, BMI 30.3. GENERAL: Alert, comfortable, in no acute distress. HEENT AND NECK: Pupils are round and equal. No jaundice. Tongue was moist. The patient had NG tube. Neck is supple, no distended neck veins, no carotid bruit. CHEST: Symmetrical, nontender. LUNGS: Few scattered rhonchi. Good air entry bilaterally. HEART: Irregularly irregular, grade 1/6 systolic murmur. [place], [place] REPORT OF CONSULTATION NAME: AUREA YANEZ [facility] #: [id number] UNIT #: [id number] ROOM: 412 DOCTOR: LONG REBOLLEDO,ELEANOR BIRTHDATE: [birth year] ABDOMEN: Benign. Bowel sounds are diminished. The patient had ileostomy. EXTREMITIES: Showed trace edema. Distal pulses palpable. SKIN: Warm and dry. No cyanosis, no clubbing. RECTAL: Deferred. GENITOURINARY: Deferred. NEUROLOGIC: Alert. No focal neuro deficit. PSYCHIATRIC: The patient is alert with good mood and affect. REVIEW OF THE DIAGNOSTIC TESTS: Her EKG and labs reviewed. Echo from 07/2018 reviewed. The pertinent labs including white cell count 13,000, hemoglobin 9.5, potassium 3.3, creatinine 1.36, albumin 1.7. IMPRESSION: 1. New onset atrial fibrillation, CHADS2-VASc score of at least 4. 2. Recent surgery for her colitis with ileostomy. 3. Coronary artery disease, status post stents in 10/2016 and 12/2016. 4. Hypertension. 5. Anemia. 6. Dyslipidemia. 7. Chronic kidney disease. 8. Mild hypokalemia. 9. Hypoalbuminemia. RECOMMENDATIONS: 1. Rate control with digoxin and IV Cardizem. 2. Renal dose Lovenox. This was okayed by the general surgeon. 3. Check 2D echo for LV function and valvular function. 4. The risks and benefits of the oral anticoagulation discussed and the patient will be on oral anticoagulation based on her echo findings. 5. Since the patient requires oral anticoagulation, I would discontinue her aspirin since the patient was on Plavix for her coronary artery disease and cardiac stents due to risk of bleeding from our triple therapy. 6. Above treatment plan discussed with the patient and her daughter who is at bedside and all questions answered. 7. The patient will follow with Dr. Pollack, her hide stretcher hand in [place], [place]. ELEANOR ALVES MD CM:CONSTR:REPORT OF CONSULTATION 1605 05/28/19 0731 interface
--- NOTE | ~2019-04-25 | PR ---
[place], [place] PROGRESS NOTE NAME: AUREA YANEZ [facility] #: [id number] UNIT #: [id number] ROOM: 412 DOCTOR: SURINDER URBINA,FEBRUARY BIRTHDATE: [birth year] DOS: 05/08/2019 SUBJECTIVE: The patient is a 68-year-old female who is being followed. She originally had a bacteremia with a Staph haemolyticus. This was felt to be due to contamination. She has been started now on Augmentin due to drainage from her abdominal wound. She had ischemic colitis and undergone surgery with extended colectomy with primary anastomosis explantation of abdominal wall mesh and diverting loop ileostomy. Her wound cultures have gram-negative rods thus far on the Gram stain, cultures, however, are pending. Her WBCs are improving, they are down to 14.2 today. She has been afebrile, is having some abdominal pain. States it is about the same. No nausea or vomiting. States she has been eating a fair amount. No rash or itch. Some shortness of breath overnight. She was put on oxygen. No cough. CURRENT MEDICATIONS: Include aspirin, Protonix, Eliquis, Augmentin, [place], Pulmicort, Phenergan, Zofran, Requip, Zestril, Lipitor, DuoNeb, Ranexa, Ditropan, Nitrostat, Toprol, Imdur, Celexa. LABORATORY DATA: WBC is 14.2, platelets 264, BUN 6, creatinine 0.51. LFTs within normal limits. PHYSICAL EXAMINATION: VITAL SIGNS: Temperature 97.5, pulse 72, respirations 20, BP 120/58. GENERAL: A 68-year-old female, in no acute distress. HEAD, EYES, EARS NOSE AND THROAT: Normocephalic. Mucous membranes, tacky. No thrush. Oropharynx clear. NECK: Supple. LUNGS: Clear to auscultation bilaterally. Respirations even and unlabored. HEART: Regular rhythm. No murmur appreciated. ABDOMEN: Soft. Mild generalized tenderness. Positive bowel sounds, opaque ostomy appliance in place. Abdominal incision with akosua. Central portion of the incision is opened quite deep. Wound is fairly clean. There is no odor or cellulitis. EXTREMITIES: +2 to 3 edema bilateral lower extremities. SKIN: Warm, pale, dry, free of rashes, ecchymosis of the right upper extremity. ASSESSMENT: Possible abdominal wound infection. PLAN: Continue the Augmentin. Follow up on wound cultures. The Staph haemolyticus bacteremia was contaminant. ADDENDUM I agree with the assessment and plan. I reviewed the labs and imaging and made the necessary changes in the note. [place], [place] PROGRESS NOTE NAME: AUREA YANEZ UNIT #: [id number] ROOM: [facility] DOCTOR: SURINDER URBINAFEBRUARY BIRTHDATE: [birth year] ZULEMA CADENA CNP Deliadevorah Morrison MD CM:PNTRANS [id number] ZULEMA SURINDER URBINA 05/12/19 0526 interface
--- NOTE | ~2019-04-25 | O ---
[place], [place] OPERATIVE NOTE NAME: AUREA YANEZ [facility] #: [id number] UNIT #: [id number] ROOM: 412 DOCTOR: HEATH REBOLLEDO,GERA CHARLES BIRTHDATE: [birth year] DOS: 04/29/2019 PREOPERATIVE DIAGNOSES: Ischemic colitis involving left colon to the peritoneal reflection, coronary artery disease, chronic obstructive pulmonary disease, and sepsis. POSTOPERATIVE DIAGNOSES: Ischemic colitis involving left colon to the peritoneal reflection, coronary artery disease, chronic obstructive pulmonary disease, sepsis, previous abdominal mesh implantation from presumed ventral hernia. PROCEDURE: Diagnostic laparoscopy converted to laparotomy, mobilization of splenic flexure, lysis of adhesions, extended left hemicolectomy with anastomosis (29 mm EEA, end to side) colorectal anastomosis, intraoperative sigmoidoscopy, loop ileostomy and abdominal closure and explantation of old mesh. SURGEON: Gera Joe M.D. ANESTHESIA: General. FLUIDS: 3500 mL crystalloid. No blood products. URINE OUTPUT: 400 mL, clear yellow urine. INDICATIONS: This is a 68-year-old lady who has ischemic colitis documented on endoscopy by Dr. Mckenzie yesterday with findings of involvement of the left colon up to the splenic flexure with a complete left colon involvement including the peritoneal reflection, but sparing the rectum. She has had 2 different endoscopy notes, one reporting this recent colonoscopy and a second roughly a year ago (07/2018), which reports that she does not have right colon, had an ileocolic, assumed ileotransverse anastomosis. Her CT scan findings were not consistent with this and appeared to show a normal length of right and transverse colon with somewhat redundant transverse colon. In any event, given her ischemic colitis and lack of flow through the inferior mesenteric vessels on CT scan (celiac and superior mesenteric axis intact), the patient is now for resection with the risks, benefits, and possible complications discussed at length with the patient's family and the patient at the bedside last evening. DESCRIPTION OF PROCEDURE: The patient was brought to the operating suite and placed on the table in supine position. Adequate conscious sedation was obtained by the anesthesia staff. Endotracheal anesthesia was induced and endotracheal tube was secured. The abdomen was prepped and draped in the usual sterile fashion, including placement of Jon catheter, orogastric [place] sump for bladder and gastric decompression respectively. The patient was placed in lithotomy position with Deanne straps suspended from the table for the laparoscopic part of the procedure. She was then prepped and draped including perineal prep and vaginal prep from the xiphoid to the mid thighs including the perineum. A small transverse incision was made in the supraumbilical region and the abdomen was cannulated with a Veress needle to create pneumoperitoneum in [place], [place] OPERATIVE NOTE NAME: AUREA YANEZ UNIT #: [id number] ROOM: [facility] DOCTOR: GERA JOE MD BIRTHDATE: [birth year] the usual fashion by closed technique. Once this was done, the abdomen was insufflated. It was felt that the patient had some resistance in the midline, given concern that her old upper midline laparotomy incision might have mesh although the patient denied this. She had had previous pelvic surgery, hysterectomy and some sort of vesicoureteral sling described by her daughter for female urinary incontinence. She denies any other procedures, though she has this upper midline incision and has clips, which appeared to be consistent with cholecystectomy as well, she again has this reported history endoscopically in 07/2018 of having a visualized ileocolic anastomosis and that the right colon was gone, though again a CAT scan does not seem to bear this out. Once pneumoperitoneum was established, she was cannulated with a 5-mm 30-degree laparoscope by closed technique with the Optiview port 5 mm and once the port removed, laparoscopy confirmed intraperitoneal placement. There were significant adhesions present in the midline, but the laparoscope could be inserted up into the upper abdomen and the left lobe of the liver and right lobe of the liver and stomach could be seen and were normal. On rotating from the left upper quadrant towards the left gutter, the patient did have marked adhesions and a good deal of what appeared to be a serous/ascitic fluid. On examination of the contralateral side of the abdomen (right) similar findings were present as well as small bowel loop was seen with adhesions to the anterior abdominal wall. At this point, it was decided that a laparoscopic dissection would be quite difficult at best. It was decided to convert to open laparotomy. The patient had a low midline incision, opened extending slightly above the laparoscopic trocar insertion site and going roughly half the distance between the umbilicus and the pubic symphysis, opening the midline with cautery without difficulty. On lifting and opening this, the patient did in fact have a large mesh what appears to be either composite or Ventralex mesh with a PTFE surface along the peritoneum and the typical polypropylene surface and edges could be seen with some fragmentation as this was cut through and divided in the midline. This was followed up to the complete extent of the mesh, which went roughly half a distance up to the xiphoid from the umbilicus in the midline. She does not seem to have a ventral hernia defect here underneath the mesh, though it appears that she may have had. She does have a small diastasis and it seems that this was repaired more or less in the fashion of the ventral hernia. The mesh will need to be explanted at the end of the case and family was notified of this through the circulating nurse to notify them in advance that the procedure would likely be a little longer than expected given this unforeseen findings. She did have marked adhesions, which were then taken down carefully elevating the edges bilaterally of the fascia with Tish clamps and carefully dissecting with sharp dissection and electrocautery to free the omentum and the bowel from both sides of the lateral abdominal larkin until completely free. The inferior portion of the incision was extended slightly to roughly 3-4 cm above the pubic symphysis as pelvic visualization was adequate. Retractors were placed and this was dissected free, finding a good deal and very redundant amount of gastrocolic omentum stuck to the anterior abdominal wall and to the retroperitoneum. Through a fairly protracted dissection, all of these sites were freed. The attention was directed to the left colon, which was isolated and seen to show some thickening, but no gross transmural injury appearance to the bowel wall. It was a fairly short and thickened at the mesentery, extending upwards, then above the splenic flexure. The patient was seen to have a fairly redundant [place], [place] OPERATIVE NOTE NAME: AUREA YANEZ Sayda UNIT #: [id number] ROOM: 412 DOCTOR: GERA JOE MD BIRTHDATE: [birth year] transverse colon, which appeared to be completely normal, consistent with the endoscopic findings. With this done, attention was directed to this and the transverse colon and splenic flexure were mobilized into a protracted dissection, protecting the spleen and the left kidney and left ureter, identifying all the structures throughout the dissection as this was done. The gastrocolic omentum was divided using the LigaSure device and carried around the splenic flexure, freeing this from the greater curvature of the stomach and following this around the splenic flexure and off the kidney to completely mobilize. This was then followed down the gutter on the left side and the pericolic gutter was mobilized along the line of Toldt with cautery and blunt dissection until the diseased left colon was mobilized all the way down to the pelvic brim. This was then freed from the anterior abdominal wall, where there were some adhesions, presumably due to the patient's prior pelvic surgery/sling operation. The anterior wall of the rectum was freed from the retroperitoneum without entering this and the bladder could be seen to be intact and was still peritonealized. Her uterus is surgically absent. Once this was done and dissection was carried down and the rectum was mobilized right to the peritoneal reflection. Endoscopic evaluation was reported to have shown that there was roughly 15 cm of rectum distally, which is disease free. Intraoperative sigmoidoscopy was then performed and this was actually seen to be roughly 30 cm. Under direct visualization with the endoscope and with the surgical appliance fitter assisting holding the colon in her hands and locating the point where the mucosal disease in the rectum and the colon ended and the more distal rectum was normal. This was marked intraoperatively with a stitch in the serosal surface of 3-0 Vicryl to keep this landmark in mind during the dissection. The bowel was then inspected and the transverse colon was seen to be fairly redundant, but given its U shape and the short mesentery, it was seen that the bowel was only reached to the presumed transection point of the rectosigmoid junction by creating a J-type proximal limb and anastomosing this side of the colon to the end of the rectal stump/Jesus's pouch). Once this was adequately mobilized again through a fairly protracted dissection, attention was directed to division of the colon. The distal colon was divided using a TA 60 diverting stapler, clamping the bowel, proximal to the stapler and then incising this. The stapler was removed and on inspection, there was a small bleeding point at the lateral pericolic side, which was suture ligated with 3-0 Vicryl with good hemostasis. The mesentery of this colon was then taken down. Following this, proximally using the LigaSure device until reaching the area of the splenic flexure/very proximal, left colon or very beginning of the transverse colon, with a landmark difficult to completely identify as the colon was already mobilized. This was a site where the disease ended and then this was transected removing this after dividing the mesentery with the LigaSure device and handing this off as specimen. The bowel was inspected and the mesentery seemed to be hemostatic and the edges of the bowel viable. Attention was then directed to anastomosis. EEA sizers were passed through the rectum, assuring that these were passed easily to the transected rectal stump to the most proximal limit of what was essentially the Jesus's pouch. The dilators were passed superiorly, using first a 25 mm, then 29 mm and then 33 mm dilators passed up to the transected end of the rectum without any difficulty. Given this, it was decided to use a 29 mm EEA stapler for anastomosis as the scope passed easily, but was a better match to the patient's caliber of the rectum and more distal bowel. The proximal bowel was [place], [place] OPERATIVE NOTE NAME: AUREA YANEZ Sayda UNIT #: [id number] ROOM: [facility] DOCTOR: GERA OJE MD BIRTHDATE: [birth year] then inspected and seen to come freely down to the transected end of the Jesus's pouch. With this in mind, a 29 mm EEA stapler was obtained and opened. The proximal end of the colon was opened, passing the anvil part of the stapler into the lumen of the proximal colon and then passing this retrograde until reaching the appropriate point for anastomosis using the spike end of the anvil, this was then brought through the anterior mesenteric side of the proximal limb of the colon and brought through and then the anvil grasped with a large Claudia clamp. This was then tested again to be sure it was in good approximation with the Jesus's pouch and was seen to be adequate. The end was then reclosed using a 55 mm CRISS stapler to reapproximate this, with small bleeding point in the mesentery, suture ligated with 3-0 Vicryl suture to good effect. The 29 mm EEA stapler was then brought antegrade through the rectal stump up to the proximal end of the Jesus's pouch, bringing the stem of the EEA stapler through the proximal end of the Jesus's pouch just anterior to the transection point under direct visualization. This was then connected to the anvil and they were brought in approximation nicely under direct visualization and then the stapler fired to create the side end of colorectal anastomosis. The stapler was carefully removed from the rectum. This was inspected and seemed to be intact circumferentially. Proximal and distal tissue donuts were removed and placed in separate specimen containers after handing off to the circulating staff. With the anastomosis complete, the area was irrigated and suctioned dry. Attention was then directed to explantation of the mesh, explaining first the left, then the right side of the intraperitoneal surface of the mesh, which appears to be a Ventralex composite PTFE lined polypropylene and PTFE a combination mesh. With both halves were completely removed, incising multiple Prolene sutures, which were closing these in place, it was completely removed. Again, on inspection, there does not appear to be any ventral hernia defect that was underneath the mesh of significant size. The abdomen was then copiously irrigated and suctioned dry, assuring good hemostasis, running the small bowel. There were some adhesions of more proximal small bowel with interloop adhesions themselves, which were followed, but the small bowel was eventually after lysis of adhesions followed from the ligament of Treitz to the ileocecal valve. A site roughly 30 cm proximal to the ileocecal valve was selected for loop ileostomy. At the premarked site at roughly the midpoint between the umbilicus and the anterior superior iliac spine on the right side, a small transverse incision was made, carried through the subcutaneous fat to the anterior fascia, which was then split transversely and the muscle split bluntly, avoiding the epigastric vessel and then the peritoneum opened dilating this to fit two of the concrete mixer operator's finger wrist. The small bowel was then grasped with a [place] clamp and easily delivered without difficulty through this to the skin surface with good length of the ileostomy and adequate for mobilization and maturation into a loop ileostomy. This was then secured subperitoneal with a 3-0 Vicryl in several spots to the proximal and distal loops. Once done, this was then secured over the skin, placing a small ileostomy minerva underneath the bowel making a small avascular opening at the loop ileostomy. This was securing this to the skin edges with 3-0 nylon for later maturation. The abdomen was then once more inspected for good hemostasis, the abdomen was then closed en jeanne with two #1 looped PDS sutures running first from the inferior corner towards the midline and from the superior corner and inferiorly to the midline. These were spaced every several passes of the PDS suture with interrupted [place], [place] OPERATIVE NOTE NAME: AUREA YANEZ UNIT #: [id number] ROOM: [facility] DOCTOR: GERA JOE MD BIRTHDATE: [birth year] [id number] sutures of 2-0 Vicryl to the anterior fascia as well. Once this was brought to just below the umbilicus to the midpoint of the incision, these were tied and peritoneal closure was deemed to be complete. Preliminary sponge counts were done prior to closing and were seen to be adequate. The skin edges were then approximated with wide approximated skin clips. Prior to skin closure and abdominal closure, a 15 mm round drain was placed in the pelvis next to the anastomosis and brought out through the left abdominal wall, in the mirror image position to the ileostomy, and secured with 3-0 nylon and placed to grenade suction. The skin was approximated and dressing applied, attention was directed to maturation of the ileostomy. This was done in sunil fashion with interrupted 3-0 Vicryl, easily dilating both the proximal and distal limbs of the ileostomy with gas starting to pass immediately into the stoma bag. Ileostomy appliance was then tailored to size and placed over the ileostomy secured with skin prep and benzoin and then secured with [place] parastomal tape to the superior and lateral surfaces, avoiding placing this dressing over the incision. With this done, attention was directed to the sponge and needle counts and instrument counts which were all correct and prior to completing the abdominal closure. The patient was then allowed to awaken in the room and extubated without difficulty. She was transported to the ICU for observation in satisfactory condition. She received therapeutic antibiotics in the morning prior to starting the procedure and repeated dose of Zosyn intraoperatively. She had compression devices to lower extremities for DVT prophylaxis. Prior to closure, her orogastric tube was removed and was converted to a nasogastric [place] sump, assuring good positioning along the greater curvature of the stomach prior to closing the abdomen. She received 3500 mL of crystalloid and received no blood products or colloid during the procedure. She had 400 mL of clear yellow urine out. Estimated blood loss was roughly 100 mL. GERA JOE MD CM:OPRECORD:OPERATIVE NOTE [id number] SHANAE PADILLA DO and JOSEPH JOE MD 06/01/19 1313 interface
--- NOTE | ~2019-04-25 | EKG ---
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
--- NOTE | ~2019-04-25 | PR ---
[place], [place] PROGRESS NOTE [id number] UNIT #: [id number] ROOM: 412 DOCTOR: ELEANOR ALVES MD BIRTHDATE: [birth year] DOS: 05/04/2019 CARDIOLOGY PROGRESS NOTE REASON FOR VISIT: Atrial fibrillation. SUBJECTIVE: The patient denies any chest pain, shortness of breath, abdominal pain is much better. No PND, no orthopnea. No nausea or vomiting. REVIEW OF SYSTEMS: Review of the 8 systems negative except as mentioned above. RHYTHM STRIPS: Patient in sinus rhythm. PHYSICAL EXAMINATION: VITAL SIGNS: Blood pressure 132/62, pulse 80, respiratory rate was 20. Weight 93.1 kilos. GENERAL: Alert, comfortable, in no acute distress. HEENT: Pupils are round and equal. NECK: Supple, no distended neck veins. CHEST: Symmetrical, nontender. LUNGS: A few scattered rhonchi. Good air entry bilaterally. HEART: Regular rhythm, no S3. ABDOMEN: Bowel sounds slightly diminished, but positive. EXTREMITIES: Showed no edema. Distal pulses palpable. SKIN: Warm and dry. No cyanosis, no clubbing. IMPRESSION: 1. Atrial fibrillation, new onset, currently sinus rhythm. 2. Colitis, status post colectomy with ileostomy. 3. Coronary artery disease. 4. Anemia. 5. Hypertension. RECOMMENDATIONS: 1. Continue current medication. 2. Risks and benefits of the oral anticoagulation discussed. 3. Once the patient is cleared by surgery standpoint, we will start oral anticoagulation. I would recommend Xarelto or Eliquis. 4. For her coronary artery disease, I would keep her on aspirin and Plavix, not both due to risk of bleeding with triple therapy. 5. No family at bedside. [place], [place] PROGRESS NOTE NAME: AUREA YANEZ UNIT #: [id number] ROOM: 412 DOCTOR: ELEANOR ALVES MD BIRTHDATE: [birth year] ELEANOR ALVES MD CM:PNTRANS [id number] ELEANOR ALVES MD 05/05/19 2134 interface
[~2019-04-25 19:51] MED LIST changes: -AUGMENTIN 875875 MG PO; -ELIQUIS5 M1 PO; -FLUCONAZOLE100 MG PO
[2019-04-25 20:43] LABS: BASO % 0.2 % (0.0-1.0); EOS % 0.1 % (1.0-4.0); HEMATOCRIT 41.5 % (37.0-47.0); HEMOGLOBIN 14.1 g/dl (12.0-16.0); LYMPH # 1.9 10*3/uL (1.3-4.4); LYMPH % 15.2 % (27.0-41.0); MEAN CELL VOLUME 99.5 fl (81.0-99.0); MEAN CORPUSCULAR HGB 33.8 pg (27.0-31.0); MEAN PLATELET VOLUME 10.7 fl (9.6-12.3); MONO # 1.2 10*3/uL (0.1-1.0); MONO % 9.3 % (3.0-9.0); NEUT # 9.3 10*3/uL (2.3-7.9); NEUT % 74.7 % (47.0-73.0); PLATELET COUNT AUTOMATED 187 10*3/uL (130-400); RED BLOOD COUNT 4.17 10*6/uL (4.10-5.10); RED CELL DISTRI WIDTH 12.5 % (0-14.5); WHITE BLOOD COUNT 12.4 10*3/uL (4.8-10.8)
[2019-04-25 20:55] LABS: ACT PARTIAL THROMBO TIME 27.7 SECONDS (20.0-32.1); INTERNATIONAL NORM RATIO 1.2 (2.0-3.5)
[2019-04-25 20:59] LABS: ALBUMIN 3.1 gm/dl (3.1-4.5); CREATININE 1.2 mg/dL (0.55-1.02); POTASSIUM 4.1 mmol/L (3.5-5.1); TOTAL PROTEIN 6.4 gm/dL (6.4-8.2)
--- NOTE | 2019-04-25 21:33 | NUR ---
NOTIFIED LORENZO DEAN, MOVED TO ROOM 4 FOR CLOSER OBSERVATION, ANOTHER LITER OF FLUIDS ORDERED, PT [facility]
--- NOTE | 2019-04-25 21:34 | NUR ---
NO ACTIVE RECTAL BLEEDING NOTED
--- NOTE | 2019-04-25 22:47 | NUR ---
PATIENT TO CT.
--- NOTE | 2019-04-25 23:11 | NUR ---
LORENZO GARCIA AND DR. GOLDSTEIN INFORMED OF SYSTOLIC PRESSURE BEING 68/0 WITH DOPPLER.
[2019-04-26] VITALS (15 sets, daily range): BP systolic 96–137; BP diastolic 43–90
--- NOTE | 2019-04-26 00:40 | NUR ---
A 68, admitted to ICCU, under the services of SHANAE Carlson DO with a diagnosis of COLITIS SEVERE SEPSIS. Chief complaint is FALLING AT WORK AND RECTAL BLLEDING. Patient arrived via stretcher from ER. Monitor applied. Initial assessment completed. Vital signs taken and recorded. SHANAE CARLSON DO notified of admission to the unit. Orders received. See assessment for past medical history, medications and allergies. Patient and/or family oriented to unit. [facility]U visitation policy reviewed. Clothing/patient valuable form completed. PARTH DE OLIVEIRA
[2019-04-26] MEDS ORDERED: IMDUR SA30 MG PO (01:02)
--- NOTE | 2019-04-26 01:04 | NUR ---
PATIENT STATES SHE IS FEELING A LITTLE NAUSEATED. ZOFRAN GIVEN. WILL MONTIOR AND REASSESS.
--- NOTE | 2019-04-26 01:08 | NUR ---
MED LIST UTD PATIENT HAD A LIST BROUGHT FROM HOME.
[2019-04-26 05:36] LABS: BUN 16 mg/dl (7-24); CHLORIDE 112 mmol/L (98-107); CHOLESTEROL 115 mg/dL (<200); CREATININE 0.93 mg/dL (0.55-1.02); HDL CHOLESTEROL 67 mg/dl (40-60); LDL CHOLESTEROL 33 mg/dL (9-159); PHOSPHOROUS 2.5 mg/dL (2.5-4.9); POTASSIUM 3.7 mmol/L (3.5-5.1); SODIUM 142 mmol/L (136-145); TRIGLYCERIDES 77 mg/dl (<150); VLDL CHOLESTEROL 15 mg/dL (6-40)
[2019-04-26 05:42] LABS: THYROID STIM HORMONE (HS) 0.815 uIU/ml (0.358-4.75)
[2019-04-26 05:54] LABS: BASO % 0.2 % (0.0-1.0); EOS % 0.2 % (1.0-4.0); HEMATOCRIT 38.9 % (37.0-47.0); HEMOGLOBIN 12.6 g/dl (12.0-16.0); LYMPH # 1.8 10*3/uL (1.3-4.4); LYMPH % 18.7 % (27.0-41.0); MEAN CELL VOLUME 102.1 fl (81.0-99.0); MEAN CORPUSCULAR HGB 33.1 pg (27.0-31.0); MEAN CORPUSCULAR HGB CONC 32.4 g/dl (33.0-37.0); MEAN PLATELET VOLUME 10.9 fl (9.6-12.3); MONO % 10.1 % (3.0-9.0); NEUT # 6.7 10*3/uL (2.3-7.9); NEUT % 70.3 % (47.0-73.0); PLATELET COUNT AUTOMATED 149 10*3/uL (130-400); RED BLOOD COUNT 3.81 10*6/uL (4.10-5.10); RED CELL DISTRI WIDTH 12.6 % (0-14.5); WHITE BLOOD COUNT 9.6 10*3/uL (4.8-10.8)
--- NOTE | 2019-04-26 06:30 | NUR ---
ASKED FOR ORDERS, PENDING.
--- NOTE | 2019-04-26 09:43 | NUR ---
AUREA YANEZ [id number] Please refer to the physician's history and physical for past medical history, comorbid conditions, and allergies. Diagnosis: COLITIS SEVERE SEPSIS Gucci Score: 23,LOW OR NO RISK WOUND DESCRIPTIONS: Wound Number: 1 Right forearm skin tear noted unable to measure or assess due to IV dressing and site over top of skin tear. Surface the patient is resting on: Isoflex SKIN PREVENTION RECOMMENDATION: 1. Pressure redistribution support surface as appropriate 2. Elevate heels 3. Remove boots/TEDS every shift and reapply 4. Head of bed 30 degrees as tolerated 5. Assess nutrition and hydration 6. Manage moisture 7. Avoid the use of containment devices while in bed 8. Use absorptive products on surfaces limit layers of linens on bed 9. Turn and reposition every 1-2 hours in bed and every 1 hour in chair as tolerated 10. Weight shifts every 15 minutes while up in chair 11. Offloading with pillows or device to keep heels elevated off bed 12. Monitor skin at least every shift 13. Inspect under medical devices twice a day WOUND TREATMENT RECOMMENDATIONS: Once IV site changed need for re eval to determine wound care recommendations.
--- NOTE | 2019-04-26 15:47 | NUR ---
Shift chart check completed.24 HR chart check completed.
--- NOTE | 2019-04-26 16:12 | NUR ---
ON ASSESSMENT PATIENT IS DROWSY BUT ORIENTED. SHE'S ABLE TO TELL ME WHY SHE'S HERE. SHE JUST CLAIMS TO BE "SORE". IV FLUIDS CONTINUE. ABDOMEN IS SOFTLY OBESE AND HYPOACTIVE BOWEL SOUNDS. UPDATED HER ON THE PLAN TO MOVE HER OUT OF ICCU LATER HIS AFTERNOON/EVENING. SEE ALL APPROPRIATE INTERVENTIONS.
--- NOTE | 2019-04-26 17:24 | NUR ---
PT TRANSFERRED VIA BED IN STABLE CONDITION TO [facility]. REPORT TO WILBER.
--- NOTE | 2019-04-26 18:47 | NUR ---
CALLED DR. FRIAS TO NOTIFY HER THAT PATIENT'S BC CAME BACK POSITIVE. NO NEW ORDERS RECEIVED.
[2019-04-27] VITALS (7 sets, daily range): BP systolic 86–108; BP diastolic 43–60
[2019-04-27 07:09] LABS: CHLORIDE 111 mmol/L (98-107); POTASSIUM 3.5 mmol/L (3.5-5.1); SODIUM 140 mmol/L (136-145)
[2019-04-27 07:27] LABS: BUN 12 mg/dl (7-24); CREATININE 0.74 mg/dL (0.55-1.02)
[2019-04-27 07:43] LABS: BASO % 0.3 % (0.0-1.0); EOS # 0.1 10*3/uL (0.0-0.4); EOS % 0.8 % (1.0-4.0); LYMPH % 12.5 % (27.0-41.0); MEAN CELL VOLUME 101.4 fl (81.0-99.0); MEAN CORPUSCULAR HGB 32.9 pg (27.0-31.0); MEAN CORPUSCULAR HGB CONC 32.4 g/dl (33.0-37.0); MEAN PLATELET VOLUME 11.1 fl (9.6-12.3); MONO # 0.9 10*3/uL (0.1-1.0); MONO % 10.9 % (3.0-9.0); NEUT # 5.9 10*3/uL (2.3-7.9); NEUT % 74.6 % (47.0-73.0); PLATELET COUNT AUTOMATED 126 10*3/uL (130-400); RED BLOOD COUNT 2.89 10*6/uL (4.10-5.10); RED CELL DISTRI WIDTH 12.6 % (0-14.5); WHITE BLOOD COUNT 7.9 10*3/uL (4.8-10.8)
[2019-04-27 07:44] LABS: HEMATOCRIT 29.3 % (37.0-47.0); HEMOGLOBIN 9.5 g/dl (12.0-16.0)
--- NOTE | 2019-04-27 09:00 | NUR ---
[employer] Barista in to talk to patient. Patient states lives at home alone with her daughter checking in on her. Her daughter lives above her in the duplex. There are 0 steps in the home. Physician: Margie Mckeon Pharmacy: [facility] Home health services: none Patient's level of ADLs: INDEPENDENT Patient has working utilities: yes DME: nebulizer Follow-up physician's appointment after d/c: will be made by the hospitalist nurse director upon discharge Does patient want to access PORTAL?: no Discharge plan discussed with patient. She lives at home alone with her daughter checking in on her. She states her daughter lives above her in a duplex. She is independent in her ADLs and ambulation. Discussed home health care services and she denies any home needs at this time. When medically stable she will be discharged to home. AKIN HUYNH
[2019-04-28] VITALS (9 sets, daily range): BP systolic 102–154; BP diastolic 49–73
--- NOTE | 2019-04-28 03:05 | NUR ---
PT IS RESTING IN BED AT THIS TIME AND DENIES ANY PAIN OR DISCOMFORT. SHE IS NPO FOR AN EGD/COLO IN THE MORNING WITH DR. ENNIS. RESPIRATIONS ARE EASY AND NONLABORED. SAFETY MEASURES INTACT. WILL CONTINUE TO MONITOR PT.
--- NOTE | 2019-04-28 08:00 | NUR ---
Patient resting quietly with no c/o discomfort. Respirations easy and regular. Vital signs stable. No overt distress. MIRLANDE OROSCO R
[2019-04-28 08:07] LABS: BASO % 0.3 % (0.0-1.0); EOS # 0.2 10*3/uL (0.0-0.4); EOS % 2.5 % (1.0-4.0); HEMATOCRIT 29.7 % (37.0-47.0); HEMOGLOBIN 9.9 g/dl (12.0-16.0); LYMPH # 0.7 10*3/uL (1.3-4.4); LYMPH % 10.3 % (27.0-41.0); MEAN CELL VOLUME 102.4 fl (81.0-99.0); MEAN CORPUSCULAR HGB 34.1 pg (27.0-31.0); MEAN CORPUSCULAR HGB CONC 33.3 g/dl (33.0-37.0); MEAN PLATELET VOLUME 10.7 fl (9.6-12.3); MONO # 0.6 10*3/uL (0.1-1.0); MONO % 9.6 % (3.0-9.0); NEUT % 76.7 % (47.0-73.0); PLATELET COUNT AUTOMATED 142 10*3/uL (130-400); RED CELL DISTRI WIDTH 12.4 % (0-14.5); WHITE BLOOD COUNT 6.5 10*3/uL (4.8-10.8)
[2019-04-28 08:15] LABS: BUN 10 mg/dl (7-24); CHLORIDE 112 mmol/L (98-107); CREATININE 0.79 mg/dL (0.55-1.02); POTASSIUM 3.4 mmol/L (3.5-5.1); SODIUM 140 mmol/L (136-145)
--- NOTE | 2019-04-28 08:24 | NUR ---
OFF FLOOR TO SURGERY.
--- NOTE | 2019-04-28 09:46 | NUR ---
LAB CALLED WITH CRITICAL BLOOD CULTURE RESULTS. DR FRIAS NOTIFIED.
--- NOTE | 2019-04-28 15:00 | NUR ---
[employer] Mud Thickener Operator in to see patient. No new needs or request at this time. She denies any home needs. When medically stable she will be discharged to home.
--- NOTE | 2019-04-28 15:13 | NUR ---
CALLED DR ENNIS WITH CTA ABDOMEN/PELVIS RESULTS. NEW ORDERS FOR CLEAR LIQUID DIET RECEIVED.
--- NOTE | 2019-04-28 15:34 | NUR ---
DR KIM ANSWERING SERVICE NOTIFIED OF CONSULT.
--- NOTE | 2019-04-28 16:39 | NUR ---
DR KIM RETURNED CALL, NOTIFIED OF CONSULT. SHE STATES SHE WILL SEE THE PT.
--- NOTE | 2019-04-28 17:23 | NUR ---
DR ENNIS IN TO SEE PT. NOTIFIED OF COLO/CTA RESULTS AND PLAN OF CARE. DR ENNIS SPOKE WITH DAUGHTER BECCA BY PHONE. ORDERS RECEIVED FOR DR JOE CONSULT.
--- NOTE | 2019-04-28 17:25 | NUR ---
DR JOE NOTIFIED OF CONSULT BY DR ENNIS WHO DISCUSSED CASE.
--- NOTE | 2019-04-28 17:40 | NUR ---
DR ENNIS SPOKE AGAIN WITH PT AND DAUGHTER WHO IS PRESENT IN THE PT'S ROOM. DAUGHTER/PT STATE UNDERSTANDING
--- NOTE | 2019-04-28 21:45 | NUR ---
MEDICATED WITH ZOFRAN PER PRN ORDER FOR C/O NAUSEA.
[2019-04-29] VITALS (8 sets, daily range): BP systolic 78–139; BP diastolic 38–83
--- NOTE | 2019-04-29 01:00 | NUR ---
PATIENT IN DISTRESSING PAIN. RATES ABDOMINAL PAIN 10/10. ABDOMINAL FIRM AND DISTENDED. PATIENT STATES SHE THINKS HER ABDOMEN IS MORE DISTENDED THEN BEFORE. NOTIFIED DR. CANDELARIO. KUB ORDERED AND 1MG DILUADID TO BE GIVEN. WILL CONTINUE TO MONITOR.
--- NOTE | 2019-04-29 01:15 | NUR ---
MEDICATED WITH 1MG DILAUDID IV. RATES PAIN 08/26. WILL CHECK EFFECTIVENESS.
--- NOTE | 2019-04-29 02:52 | NUR ---
PATIENT ASLEEP. HEART RATE REMAINS 140S-150S. RESPIRATIONS 2O/MIN, NON LABORED. BED ALARM ON, CALL LIGHT WITHIN REACH. 1:1 SITTER IN WITH PATIENT. WILL CONTINUE TO MONITOR.
--- NOTE | 2019-04-29 03:00 | NUR ---
DILAUDID EFFECTIVE PER PATIENT
--- NOTE | 2019-04-29 03:41 | NUR ---
PATIENT RIPPED IV OUT WHILE SLEEPING IV started left antecubital with #22G angiocath after 2 attempts. The IV site was prepped with Chloraprep. Heparin lock attached. Sterile dressing applied. Patient tolerated precedure well. Procedure performed according to [facility] policy & procedure. MIRLANDE JORDAN
[2019-04-29 08:38] LABS: BASO % 0.5 % (0.0-1.0); EOS # 0.2 10*3/uL (0.0-0.4); EOS % 3.1 % (1.0-4.0); HEMATOCRIT 33.3 % (37.0-47.0); HEMOGLOBIN 11.1 g/dl (12.0-16.0); LYMPH # 0.8 10*3/uL (1.3-4.4); LYMPH % 12.5 % (27.0-41.0); MEAN CELL VOLUME 100.6 fl (81.0-99.0); MEAN CORPUSCULAR HGB 33.5 pg (27.0-31.0); MEAN CORPUSCULAR HGB CONC 33.3 g/dl (33.0-37.0); MEAN PLATELET VOLUME 10.6 fl (9.6-12.3); MONO # 0.8 10*3/uL (0.1-1.0); MONO % 11.9 % (3.0-9.0); NEUT # 4.6 10*3/uL (2.3-7.9); NEUT % 70.2 % (47.0-73.0); RED BLOOD COUNT 3.31 10*6/uL (4.10-5.10); RED CELL DISTRI WIDTH 12.7 % (0-14.5); WHITE BLOOD COUNT 6.5 10*3/uL (4.8-10.8)
[2019-04-29 08:49] LABS: PLATELET COUNT AUTOMATED 206 10*3/uL (130-400)
[2019-04-29 08:55] LABS: ALBUMIN 2.4 gm/dl (3.1-4.5); ALKALINE PHOSPHATASE 69 U/L (45-117); BUN 8 mg/dl (7-24); CHLORIDE 112 mmol/L (98-107); CREATININE 0.74 mg/dL (0.55-1.02); POTASSIUM 3.3 mmol/L (3.5-5.1); SGOT/AST 38 IU/L (3-35); SGPT/ALT 21 U/L (12-78); SODIUM 143 mmol/L (136-145); TOTAL PROTEIN 5.3 gm/dL (6.4-8.2)
--- NOTE | 2019-04-29 09:00 | NUR ---
Nursery Technician in to see patient. No new needs or request at this time. She states she is going to surgery about 1200 or 1230 where they have to remove part of her intestines. Discussed short term SNF and home health care services and she continues to refuse both. When medically stable she will be discharged to home.
[2019-04-29 09:09] LABS: INTERNATIONAL NORM RATIO 1.1 (2.0-3.5)
--- NOTE | 2019-04-29 11:26 | NUR ---
PATIENT TAKEN TO OR.
--- NOTE | 2019-04-29 20:59 | NUR ---
1999 RECEIVED FROM OR VIA BED. REPORT RECEIVED. IV FLUIDS INFUSING. PT IS AWAKE. COLOR PALE. C/O NAUSEA. NG INTACT AND CONNECTED TO LIS. FLANAGAN PATENT AND DRAINING CLEAR YELLOW URINE. MEGHAN BULB DRAIN INTACT TO ABD. ILESTOMY INTACT. NO DISTRESS NOTED. PULSE OX 98% WITH [address] MARES HERE. NSS BOLUS INFUSING. SEE INTERVENTION SCREEN.
--- NOTE | 2019-04-29 22:13 | NUR ---
2154 MEDICATED WITH ZOFRAN IV FOR NAUSEA AND DILAUDID 0.5MG IV FOR C/O'S POST-OP ABD PAIN. WILL MONITOR. 2209 EARLIER MEDS EFFECTIVE. RESTING IN BED WITH EYES CLOSED. PT CHANGED TO NC. PULSE OX STILL 100%. BP 118/58 NOW. WILL CONT TO MONITOR.
[2019-04-30] VITALS: BP 100/52
--- NOTE | 2019-04-30 00:23 | NUR ---
TAKING ICE CHIPS PO- SMALL AMOUNTS. EARLIER IV TYLENOL EFFETIVE
--- NOTE | 2019-04-30 02:02 | NUR ---
0200 DILAUDID 0.5MG IV FOR C/O'S POST-OP ABD PAIN. RATES PAIN A "7". ABD BINDER APPLIED ORDERED AND PT REPOSITIONED. WILL MONITOR.
--- NOTE | 2019-04-30 02:13 | NUR ---
EARLIER PAIN MED EFFECTIVE. RESTING IN BED WITH EYES CLOSED. APPEARS TO BE SLEEPING.
[2019-04-30 04:00] VITALS: BP 104/58
[2019-04-30 05:56] LABS: ALBUMIN 1.7 gm/dl (3.1-4.5); ALKALINE PHOSPHATASE 50 U/L (45-117); BUN 11 mg/dl (7-24); CHLORIDE 115 mmol/L (98-107); CREATININE 1.05 mg/dL (0.55-1.02); POTASSIUM 3.8 mmol/L (3.5-5.1); SGOT/AST 65 IU/L (3-35); SGPT/ALT 30 U/L (12-78); SODIUM 144 mmol/L (136-145); TOTAL PROTEIN 4.4 gm/dL (6.4-8.2)
--- NOTE | 2019-04-30 05:58 | NUR ---
MEDICATED WITH DILAUDID 0.5MG IV FOR C/O'S POST-OP ABD PAIN. CONT TO RATE PAIN A "7". WILL MONITOR.
--- NOTE | 2019-04-30 06:03 | NUR ---
PAIN MED EFFECTIVE. RESTING IN BED WITH EYES CLOSED. IV FLUIDS CONT. MEGHAN BULB DRAIN INTACT AND DRAINING SEROUSANGUINOUS DRNG. NO DRNG NOTED IN ILEOSTOMY BAG. ABD DRSG D/I WITH CIRCLED BLOODY DRNG NOTED. FLANAGAN REMAINS PATENT. CONT TO TAKE ICE CHIPS PO. REMAINS ALERT, PULSE OX 98% WITH 02 INTACT VIA NC. CONDITION GUARDED.
[2019-04-30 06:20] LABS: HEMATOCRIT 35.3 % (37.0-47.0); HEMOGLOBIN 11.3 g/dl (12.0-16.0); MEAN CELL VOLUME 102.3 fl (81.0-99.0); MEAN CORPUSCULAR HGB 32.8 pg (27.0-31.0); MEAN PLATELET VOLUME 11.2 fl (9.6-12.3); PLATELET COUNT AUTOMATED 248 10*3/uL (130-400); RED BLOOD COUNT 3.45 10*6/uL (4.10-5.10); WHITE BLOOD COUNT 13.3 10*3/uL (4.8-10.8)
[2019-04-30 07:15] LABS: PLATELET SUFFICIENCY NORMAL (NORMAL); TOTAL CELLS COUNTED 100 #CELLS
[2019-04-30 07:16] LABS: BURR CELLS MODERATE; POLYCHROMASIA SLIGHT
[2019-04-30 08:00] VITALS: BP 95/50
--- NOTE | 2019-04-30 08:30 | NUR ---
PATIENT RECEIVED MORPHINE FOR C/O ABDOMINAL PAIN RATED 7/10.
--- NOTE | 2019-04-30 09:42 | NUR ---
PATIENT RESTING IN BED AT THIS TIME. NO S/S OF DISTRESS. PATIENT IS PALE IN APPEARANCE. STATES MORPHINE IS HELPING TO EASE THE PAIN SHE IS EXPERIENCING. RATES IT 5/10 NOW. EMPTIED 110 CC FROM MEGHAN DRAIN THIS MORNING. CALL LIGHT WITHIN REACH.
--- NOTE | 2019-04-30 10:58 | NUR ---
PATIENT RECEIVED DILAUDID FOR BREAKTHROUGH PAIN IN ABDOMEN RATED 6/10.
--- NOTE | 2019-04-30 11:40 | NUR ---
PT STATES SOME RELIEF OF PAIN AND NUSEA WITH EARLIER PRN MEDS.
[2019-04-30 12:00] VITALS: BP 94/47
--- NOTE | 2019-04-30 13:22 | NUR ---
MORPHINE FOR PAIN & ZOFRAN FOR NAUSEA. DR JOE ROUNDED
--- NOTE | 2019-04-30 14:00 | NUR ---
PT STATES SOME RELIEF OF PAIN BUT STILL C/O NAUSEA WITH EARLIER PRN MEDS.
--- NOTE | 2019-04-30 15:06 | NUR ---
Farmworker Machine in to see patient. No new needs or request at this time. She continues to deny any home needs and states her daughter and son-in-law who live in the apartment above her will help her. When medically stable she will be discharged to home.
--- NOTE | 2019-04-30 15:21 | NUR ---
DR JOE IN TO SEE PT EARLIER. NEW ORDERS RECEIVED. 500CC LR IV BOLUS GIVEN PER ORDER.
[2019-04-30 16:00] VITALS: BP 93/44
--- NOTE | 2019-04-30 16:35 | NUR ---
MEDICATED PT PER PRN ORDER WITH DILAUDID FOR PT'S C/O ABD. PAIN THAT RATES 7/10 ON PAIN SCALE. OGT REINSERTED DUE TO NOT HEARING AIR BOLUS WHEN PLACMENT CHECKED. STAT CXR ORDERED FOR PLACEMENT VERIFICATION.
--- NOTE | 2019-04-30 17:00 | NUR ---
PT STATES SOME RELIEF OF PAIN WITH EARLIER DILAUDID.
--- NOTE | 2019-04-30 18:29 | NUR ---
PT'S DAUGHTER IN TO VISIT WITH HER.
[2019-04-30 20:00] VITALS: BP 102/45
--- NOTE | 2019-04-30 20:06 | NUR ---
1845 PT RESTING IN BED WITH HOB ELEVATED. SIDE RAILS UP X'S 2. VS AT BEDSIDE. PT IS ALERT AND ORIENTED. CALL LIGHT IN REACH. NPO EXCEPT FOR ICE CHIPS. NG INTACT AND TO LIS FOR SHORT PERIOD OF TIME DUE TO NAUSEA. PULSE OX 94% ON RA. IV FLUIDS CONT. FLANAGAN PATENT AND DRAINING CLEAR LAUREN URINE. ILEOSTOMY INTACT. NO DRNG NOTED. MEGHAN BULB DRAIN INTACT AND DRNG SEROSANGUINOUS DRNG. ABD DRSG D/I WITH OLD CIRCLED BLOODY DRNG NOTED. NO DISTRESS NOTED. SCD'S/MIAN'S INTACT BILATERAL LOWER EXTREMITIES.
--- NOTE | 2019-04-30 20:55 | NUR ---
2049 MEDICATED WITH DILAUDID 0.5MG IV FOR C/O'S POST OP ABD PAIN, SCD'S/MIAN'S REMOVED PER PT REQUEST. WILL MONITOR.
--- NOTE | 2019-04-30 21:30 | NUR ---
EARLIER DILAUDID EFFECTIVE. RESTING IN BED WITH EYES CLOSED.
[2019-05-01] VITALS (14 sets, daily range): BP systolic 99–126; BP diastolic 38–76
--- NOTE | 2019-05-01 00:18 | NUR ---
RESTING IN BED WITH EYES CLOSED. APPEARS TO BE SLEEPING.
--- NOTE | 2019-05-01 05:35 | NUR ---
0340 DILAUDID IV FOR C/O'S ABD PAIN. WILL MONITOR. 0400 EARLIER PAIN MED EFFECTIVE. 0515 COMPLETE BED BATH GIVEN AND LINENS CHANGED.
--- NOTE | 2019-05-01 05:36 | NUR ---
PT TURNS WELL PER SELF. COUGHS AND DEEP BREATHES ON OWN. INCENTIVE SPIROMETER AT BEDSIDE AND USES. WIGGLES TOES AND SPLINTS ABD INCISION WHEN TURNING/COUGHING.
[2019-05-01 06:03] LABS: ALBUMIN 1.7 gm/dl (3.1-4.5); CREATININE 1.34 mg/dL (0.55-1.02); PHOSPHOROUS 2.4 mg/dL (2.5-4.9); POTASSIUM 3.3 mmol/L (3.5-5.1)
[2019-05-01 06:04] LABS: TOTAL PROTEIN 4.6 gm/dL (6.4-8.2)
--- NOTE | 2019-05-01 06:13 | NUR ---
RESTING IN BED WITH EYES CLOSED. APPEARS TO BE SLEEPING. NO DISTRESS NOTED. NGT INTACT AND CLAMPED. IV FLUIDS CONT. FLANAGAN PATENT. CONDITION GUARDED.
[2019-05-01 06:20] LABS: HEMATOCRIT 29.7 % (37.0-47.0); HEMOGLOBIN 9.5 g/dl (12.0-16.0); MEAN CELL VOLUME 102.8 fl (81.0-99.0); MEAN CORPUSCULAR HGB 32.9 pg (27.0-31.0); NUCLEATED RED BLOOD CELL 0.2 % (0.0-0.0); PLATELET COUNT AUTOMATED 248 10*3/uL (130-400); RED BLOOD COUNT 2.89 10*6/uL (4.10-5.10); RED CELL DISTRI WIDTH 13.6 % (0-14.5)
[2019-05-01 07:53] LABS: BURR CELLS FEW; PLATELET SUFFICIENCY NORMAL (NORMAL); POLYCHROMASIA SLIGHT; TOTAL CELLS COUNTED 100 #CELLS
--- NOTE | 2019-05-01 08:05 | NUR ---
PATIENT NOTED TO AFIB RVR RATE 140'S PER CM.
--- NOTE | 2019-05-01 08:17 | NUR ---
PATIENT AWAKE ALERT AND ORIENTED. C/O NAUSEA AND PAIN AT THIS TIME. PAIN RATED 7/10 ON PAIN SCALED. PATIENT NOTED TO BE AFIB RVR PER CM. PATIENT STATED THAT SHE DOES NOT HAVE A HISTORY OF ATRIAL FIBRILLATION. NGT INTACT TO LEFT NARE WHICH IS CLAMPED AT THIS TIME. MIDLINE ABDOMINAL DRESSING INTACT WITH DRAINAGE NOTED. MEGHAN TO LLQ INTACT WITH SEROSANGUINOUS FLUID NOTED. ILEOSTOMY TO RIGHT SIDE INTACT WITH WITH GREEENISH LIQUID NOTED. MEDICATED WITH ZOFRAN AND DILAUDID PER PRN ORDERS. WILL CONTINUE TO MONITOR.
--- NOTE | 2019-05-01 08:40 | NUR ---
NOTIFIED OF ATRIAL FIBRILLATION W/RVR RATE 110-160'S PER CM. NEW ORDERS RECEIVED.
--- NOTE | 2019-05-01 08:49 | NUR ---
ANSWERING SERVICE NOTIFIED OF NEW CONSULT ORDER.
--- NOTE | 2019-05-01 09:00 | NUR ---
CALLED. INFORMED OF NEW CONSULT ORDER. UPDATED ON PATIENT CONDITION AND NEW ONSET ATRIAL FIBRILLATION W/RVR. NEW ORDERS RECEIVED FOR CARDIZEM GTT, AND IV DIGOXIN. ORDER RECEIVED TO START LOVENOX IF OKAY WITH TO DO SO.
--- NOTE | 2019-05-01 09:25 | NUR ---
CALLED AND UPDATED ON PATIENT CONDITION. INFORMED OF ORDERS RECEIVED FROM . STATES THAT IT IS OKAY TO START LOVENOX PER ORDERS.
--- NOTE | 2019-05-01 10:23 | NUR ---
PATIENT CONTINUES TO C/O NAUSEA. MEDICATED WITH PHENERGAN PER NEW ORDER. WILL CONTINUE TO MONITOR.
--- NOTE | 2019-05-01 11:03 | NUR ---
NOTIFIED OF NEED FOR WOUND ORDERS FOR SKIN TEAR ON RIGHT FOREARM.
--- NOTE | 2019-05-01 11:30 | NUR ---
PATIENT HAVING VISUAL HALLUCINATIONS. STATING TO RN TO GET THAT BUG UP THERE ON THE CEILING. INFORMED PATIENT THERE WAS NO BUG ON THE CEILING. INFORMED OF THIS DUE TO POSSIBLY THE PHENERGAN CAUSING. WILL CONTINUE TO MONITOR.
--- NOTE | 2019-05-01 11:36 | NUR ---
NOTIFIED OF NEED FOR CENTRAL LINE. 2 RNS HAVE ATTEMPTED IV ACCESS AND WERE UNSUCCESSFUL.
--- NOTE | 2019-05-01 14:27 | NUR ---
PATIENT CONTINUES TO C/O NAUSEA. MEDICATED WITH ZOFRAN PER PRN ORDER.
--- NOTE | 2019-05-01 15:31 | NUR ---
PATIENT C/O ABDOMINAL PAIN AT THIS TIME. RATE 7/10 ON PAIN SCALE. MEDICATED WITH MORPHINE SULFATE 2MG IV PER PRN ORDER.
--- NOTE | 2019-05-01 16:38 | NUR ---
PATIENT CONVERTED TO NSR PER CM-RATE 70'S. CARDIZEM GTT INFUSING AT 10MG/HR.
--- NOTE | 2019-05-01 19:35 | NUR ---
MEDICATED WITH PHENERGAN PER PRN ORDER FOR C/O NAUSEA.
--- NOTE | 2019-05-01 23:30 | NUR ---
MEDICATIED WITH MORPHINE AND PHENERGAN PER PRN ORDER FOR C/O PAIN AND NAUSEA.
[2019-05-02] VITALS (12 sets, daily range): BP systolic 111–147; BP diastolic 46–68
--- NOTE | 2019-05-02 03:30 | NUR ---
MEDICATED WITH MORPHINE AND PHENERGAN PER PRN ORDEERS FOR C/O PAIN AND NAUSEA.
[2019-05-02 04:36] LABS: HEMATOCRIT 25.1 % (37.0-47.0); HEMOGLOBIN 8.2 g/dl (12.0-16.0); MEAN CORPUSCULAR HGB 33.3 pg (27.0-31.0); MEAN CORPUSCULAR HGB CONC 32.7 g/dl (33.0-37.0); MEAN PLATELET VOLUME 10.4 fl (9.6-12.3); NUCLEATED RED BLOOD CELL 0.2 % (0.0-0.0); PLATELET COUNT AUTOMATED 245 10*3/uL (130-400); RED BLOOD COUNT 2.46 10*6/uL (4.10-5.10); RED CELL DISTRI WIDTH 13.7 % (0-14.5); WHITE BLOOD COUNT 11.5 10*3/uL (4.8-10.8)
[2019-05-02 04:53] LABS: ALBUMIN 1.5 gm/dl (3.1-4.5); ALKALINE PHOSPHATASE 55 U/L (45-117); BUN 9 mg/dl (7-24); CHLORIDE 116 mmol/L (98-107); CREATININE 0.72 mg/dL (0.55-1.02); POTASSIUM 3.6 mmol/L (3.5-5.1); SGOT/AST 46 IU/L (3-35); SGPT/ALT 34 U/L (12-78); SODIUM 147 mmol/L (136-145); TOTAL PROTEIN 4.3 gm/dL (6.4-8.2)
[2019-05-02 05:12] LABS: PLATELET SUFFICIENCY NORMAL (NORMAL); TOTAL CELLS COUNTED 100 #CELLS
--- NOTE | 2019-05-02 10:56 | NUR ---
DR JOE IN TO SEE PT.
--- NOTE | 2019-05-02 11:25 | NUR ---
PT MEDICATED WITH MORPHINE 2MG IV FOR C/O SURGICAL SITE ABD PAIN AND ZOFRAN IV FOR NAUSEA.
--- NOTE | 2019-05-02 12:56 | NUR ---
NG TUBE REMOVER PER ORDER.
--- NOTE | 2019-05-02 14:51 | NUR ---
PT MEDICATED WITH MORPHINE 2MG IV AND PHENERGAN 12.5MG IV FOR C/O SURGICAL SITE ABD PAIN AND NAUSEA.
[2019-05-03] VITALS (10 sets, daily range): BP systolic 118–161; BP diastolic 56–70
--- NOTE | 2019-05-03 03:28 | NUR ---
PATIENT GIVEN DILAUDID FOR POST OP PAIN 6/10.
--- NOTE | 2019-05-03 04:28 | NUR ---
PATIENT STATED THAT PAIN MEDICATION WAS EFFECTIVE. NO PAIN AT THIS TIME.
--- NOTE | 2019-05-03 06:42 | NUR ---
PATIENT HAS DENIED NAUSEA THROUGH OUT THE NIGHT AND HAS TOLERATED ICE CHIPS THROUGH OUT THE NIGHT.
[2019-05-03 07:46] LABS: ALBUMIN 1.4 gm/dl (3.1-4.5); ALKALINE PHOSPHATASE 63 U/L (45-117); BUN 7 mg/dl (7-24); CHLORIDE 115 mmol/L (98-107); CREATININE 0.56 mg/dL (0.55-1.02); IRON 19 ug/dL (50-170); POTASSIUM 3.6 mmol/L (3.5-5.1); SGOT/AST 28 IU/L (3-35); SGPT/ALT 29 U/L (12-78); SODIUM 146 mmol/L (136-145); TOTAL IRON BINDING CAPACITY 116 ug/dl (250-450); TOTAL PROTEIN 4.3 gm/dL (6.4-8.2)
[2019-05-03 07:47] LABS: PREALBUMIN 6 mg/dl (20-40)
--- NOTE | 2019-05-03 09:00 | NUR ---
Co Founder And Director in to see patient. No new needs or request at this time. She continues to deny any home needs and states her daughter and son-in-law who live in the apartment above her will help her. She is requesting pain medication, nurse notified. When medically stable she will be discharged to home.
--- NOTE | 2019-05-03 09:14 | NUR ---
AUREA YANEZ [id number] Please refer to the physician's history and physical for past medical history, comorbid conditions, and allergies. Diagnosis: COLITIS SEVERE SEPSIS Gucci Score: 14,MODERATE RISK WOUND DESCRIPTIONS: (revisit) Wound Number: 1 Location of the wound: right forearm Type of wound: SKIN TEAR Thickness: Partial Size: 2.5cm X 2.2cm X 0.1cm Tunneling: NONE Undermining: NONE Sinus Tract: NONE Presence of Exudate: Serous Amount: Light Color: Red Odor: None Periwound Skin Appearance: Normal Wound edges: APPROXIMATED Pain (associated with wound): DENIED AT TIME OF ASSESSMENT Surface the patient is resting on: Isoflex SKIN PREVENTION RECOMMENDATION: 1. Pressure redistribution support surface as appropriate 2. Elevate heels 3. Remove boots/TEDS every shift and reapply 4. Head of bed 30 degrees as tolerated 5. Assess nutrition and hydration 6. Manage moisture 7. Avoid the use of containment devices while in bed 8. Use absorptive products on surfaces limit layers of linens on bed 9. Turn and reposition every 1-2 hours in bed and every 1 hour in chair as tolerated 10. Weight shifts every 15 minutes while up in chair 11. Offloading with pillows or device to keep heels elevated off bed 12. Monitor skin at least every shift 13. Inspect under medical devices twice a day WOUND TREATMENT RECOMMENDATIONS: D/C CURRENT SKIN TEAR GUIDLINE ORDERS. SKIN TEAR GUIDELINES: CLEANSE WITH NSS APPLY SUREPREP AROUND WOUND ALLOW TO DRY APPLY THERAHONEY AND COVER WITH OPTIFOAM GENTLE.
--- NOTE | 2019-05-03 10:32 | NUR ---
PT MEDICATED WITH DILAUDID 0.5MG IV FOR C/O SURGICAL SITE ABD PAIN.
--- NOTE | 2019-05-03 11:20 | NUR ---
Dr. David notified of wound care recommendations.
--- NOTE | 2019-05-03 11:24 | NUR ---
11:00 AM PT TAKEN OFF OF BIPAP AND PLACED ON 5 L NC. SPO2 99% PT TOLERATING WELL. RESPS EASY AND UNLABORED AT 18-22. BBSs CLEAR AND DIMINISHED T/O.
--- NOTE | 2019-05-03 11:31 | NUR ---
PT STATED DILAUDID WAS EFFECTIVE IN EASING HER SURGICAL SITE PAIN.
--- NOTE | 2019-05-03 11:43 | NUR ---
ELEVATOR EXAMINER TILA NOTIFIED OF PT'S STATUS BEING CHANGED TO [facility].
--- NOTE | 2019-05-03 13:56 | NUR ---
Occupational Therapy evaluation completed in ICCU with full eval to follow. Precautions include fall risk,BUE edema,MEGHAN drain, ileostomy-new,wound, abd binder, abd precautions,ICCU precautions, IV right jugular, high complexity level 99554 via chart review, testing and evaluation. Recommend OT per POC and SNF to enable return home alone. Thank you for this referral. Saray Chin OTR/l
--- NOTE | 2019-05-03 13:57 | NUR ---
CARDIZEM GTT DC'D NOW THAT PT IS ABLE TO TAKE HER ORAL BETA LUC.
--- NOTE | 2019-05-03 14:10 | NUR ---
PHYSICAL THERAPY Patient evaluated on iccu, full evaluation to follow. Continue with PT as per plan of care with fall, ABD INCISION ( S/P COLECTOMY WITH ILEOSTOMY 04/29/19), ABD Binder, Abd drain, mod (A) x 2 and acute debility precautions. Will require SNF. PAtient is high complexity via chart review, tests and evaluation: 66872. Thank you for this referral. Radha Garza,PT
--- NOTE | 2019-05-03 17:50 | NUR ---
pt transfered to [facility]2 at this time via bed. report given to marj brice.
--- NOTE | 2019-05-03 17:50 | NUR ---
pt medicated with morphine and zofran at this time for c/o surgical site abd pain and nausea.
--- NOTE | 2019-05-03 21:49 | NUR ---
PATIENT REFUSING MOST NIGHT TIME MEDICATIONS. REQUESTS TO ONLY TAKE NEW PO ANTUBIOTIC. EXPLAINED IMPORTANCE OF MEDICATIONS. PATIENT STATES "ILL TRY AND TAKE THEM ALL TOMORROW."
[2019-05-04] VITALS: BP 130/69
--- NOTE | 2019-05-04 04:48 | NUR ---
Wound Care Recommendations: D/C both skin tear guidelines Skin tear guidelines: Cleanse right forearm with nss and apply sureprep around the wound therahoney to wound bed and cover with optifoam gentle.
[2019-05-04 07:10] LABS: HEMATOCRIT 26.8 % (37.0-47.0); HEMOGLOBIN 8.6 g/dl (12.0-16.0); MEAN CELL VOLUME 103.5 fl (81.0-99.0); MEAN CORPUSCULAR HGB 33.2 pg (27.0-31.0); MEAN CORPUSCULAR HGB CONC 32.1 g/dl (33.0-37.0); MEAN PLATELET VOLUME 10.1 fl (9.6-12.3); NUCLEATED RED BLOOD CELL 0.2 % (0.0-0.0); PLATELET COUNT AUTOMATED 286 10*3/uL (130-400); RED BLOOD COUNT 2.59 10*6/uL (4.10-5.10); RED CELL DISTRI WIDTH 14.2 % (0-14.5); WHITE BLOOD COUNT 10.1 10*3/uL (4.8-10.8)
[2019-05-04 07:41] LABS: ALBUMIN 1.5 gm/dl (3.1-4.5); BUN 6 mg/dl (7-24); CHLORIDE 109 mmol/L (98-107); POTASSIUM 3.9 mmol/L (3.5-5.1); SODIUM 141 mmol/L (136-145)
[2019-05-04 07:46] LABS: ALKALINE PHOSPHATASE 70 U/L (45-117); CREATININE 0.49 mg/dL (0.55-1.02); SGOT/AST 23 IU/L (3-35); SGPT/ALT 30 U/L (12-78); TOTAL PROTEIN 4.7 gm/dL (6.4-8.2)
[2019-05-04 07:50] LABS: TOTAL CELLS COUNTED 100 #CELLS
[2019-05-04 07:52] LABS: PLATELET SUFFICIENCY NORMAL (NORMAL); POLYCHROMASIA SLIGHT
[2019-05-04 08:00] VITALS: BP 138/62
--- NOTE | 2019-05-04 08:00 | NUR ---
MEDICATED WITH PRN ZOFRAN PER ORDER AND REQUEST. THEN 08 MEDICATED WITH PRN MORPHINE PER ORDER AND REQUEST FOR ABDOMINAL PAIN.
--- NOTE | 2019-05-04 08:57 | NUR ---
PATIENT REQUESTING PAIN AND NAUSEA MEDICINE AGAIN. EDUCATED WHEN MEDICINES WERE GIVEN.
--- NOTE | 2019-05-04 09:00 | NUR ---
Printing Table Worker in to see patient. No new needs or request at this time. She continues to deny any home needs and states her daughter and son-in-law who live in the apartment above her will help her. She is requesting pain and nausea medication, nurse notified. When medically stable she will be discharged to home.
--- NOTE | 2019-05-04 10:09 | NUR ---
Pt declined OT this am due to "nausea & dizziness". Debra CHAVARRIA/Oneyda
--- NOTE | 2019-05-04 10:31 | NUR ---
Dr. Quevedo notified of wound care recommendations.
--- NOTE | 2019-05-04 10:37 | NUR ---
PHYSICAL THERAPY Patient is not feeling well and nauseous at this time. Patient was approached twice and the first time there was pain, which the RN was giving morphine to treat and nausea as well. Patient unable to participate in therapy this morning for this reason. MIKEL VILLA CORPORATE LAW SPECIALIST
--- NOTE | 2019-05-04 10:58 | NUR ---
MEDICATED WITH PHENERGAN PER ORDERS ZOFRAN HELPED MINIMALLY EARLIER.
--- NOTE | 2019-05-04 11:10 | NUR ---
MEDICATED WITH DILAUDID PER ORDER FOR C/O ABDOMINAL PAIN. MORPHINE HELPED A LITTLE EARLIER.
[2019-05-04 12:00] VITALS: BP 137/70
--- NOTE | 2019-05-04 12:30 | NUR ---
DILAUDID AND PHENERGAN HELPED.
--- NOTE | 2019-05-04 13:06 | NUR ---
Pt was seen for 15 minutes in OT for edema control exercises (sequential pumping exercises) after demonstration & cues for correct procedures. Applied lotion to both hands & fingers with retrograde massage to further decrease edema. O2 in place & call light within reach. Continue with POC. Debra CHAVARRIA/Oneyda
--- NOTE | 2019-05-04 14:14 | NUR ---
PHYSICAL THERAPY Patient gives informed consent for treatment. Patient complains of abdominal pain prior to therapy session from her recent abdominal surgery. Patient has catheter and multiple IVs infusing at this time. Patient log rolls to the L SIDE with instruction in proper log rolling technique from this EMPLOYMENT TRAINING SPECIALIST. Patient successfully LOG ROLLS and then transfers side-lying to sitting at EOB with MOD A X 2. Patient required VERBAL CUES for proper transfer technique. Patient sat at EOB for 10 minutes with CGA X 1 to SBA. Patient performed LAQs with bilateral LEs in sitting at EOB x 10 reps each. Patient unable to attempt sit to stand due to abdominal pain. Patient requests to lie back down in bed due to pain and nausea. Patient transfers back to supine in bed with MOD A X 2 with verbal cues for side lying and then log rolling back onto back. Patient scoots herself up in bed wit huse of UES and LEs. Patient was left in supine in bed with head of bed elevated, call light within reach, and bed alarm activated. Patient was 1:1 with this EMPLOYMENT TRAINING SPECIALIST for 16 minutes total. MIKEL VILLA EMPLOYMENT TRAINING SPECIALIST
[2019-05-04 16:00] VITALS: BP 124/69
--- NOTE | 2019-05-04 16:27 | NUR ---
DR. GALEANO AWARE OF NO OTHER ACCESS. RIJ TO REMAIN.
[2019-05-04 20:00] VITALS: BP 132/63
--- NOTE | 2019-05-04 20:00 | NUR ---
RESTING IN BED WITH HOB ELEVATED. IJ INTACT TO RIGHT SIDE OF NECK. IV FLUIDS INFUSING INTO RIJ WITHOUT DIFFICULTY. LUNGS WITH WHEEZES; DRY NONPRODUCTIVE COUGH NOTED. PULSE OX 94% ON ROOM AIR. FLANAGAN INTACT FOR LAUREN URINE. COLOSTOMY EMPTIED FOR 150 CC'S OF DARK GREEN LIQUID. PT. VOICES NO C/O AT THIS TIME. NO DISTRESS NOTED. WILL CONTINUE TO MONITOR. CALL LIGHT WITHIN REACH.
--- NOTE | 2019-05-04 21:50 | NUR ---
MEDICATED WITH ZOFRAN FOR C/O NAUSEA. PT. HAD A SMALL LIQUID GREEN EMESIS EARLIER.
[2019-05-05] VITALS: BP 139/62
--- NOTE | 2019-05-05 | NUR ---
RESTING IN BED WITH EYES CLOSED. VOICES NO FURTHER C/O NAUSEA OR PAIN AT THIS TIME. CALL LIGHT REMAINS WITHIN REACH.
--- NOTE | 2019-05-05 03:00 | NUR ---
MEDICATED WITH DILAUDID FOR C/O PAIN & PHENERGAN FOR C/O NAUSEA.
--- NOTE | 2019-05-05 06:00 | NUR ---
VOICES NO C/O NAUSEA OR VOMITING NOR PAIN AT THIS TIME. MEDICATIONS GIVEN EARLIER APPARENTLY EFFECTIVE. CALL LIGHT REMAINS WITHIN REACH.
[2019-05-05 06:37] LABS: BUN 5 mg/dl (7-24); CHLORIDE 106 mmol/L (98-107); POTASSIUM 3.9 mmol/L (3.5-5.1); SODIUM 137 mmol/L (136-145)
[2019-05-05 06:39] LABS: CREATININE 0.55 mg/dL (0.55-1.02)
[2019-05-05 08:00] VITALS: BP 110/72
--- NOTE | 2019-05-05 09:00 | NUR ---
Registered Dental Assistant Rda in to see patient. No new needs or request at this time. She continues to deny any home needs or short term SNF stay and states her daughter and son-in-law who live in the apartment above her will help her. When medically stable she will be discharged to home.
--- NOTE | 2019-05-05 09:03 | NUR ---
Dr. Quevedo notified of wound care recommendations.
--- NOTE | 2019-05-05 11:19 | NUR ---
PHYSICAL THERAPY Patient gives informed consent for treatment. Patient has catheter and IV s infusing, wound tube, and colostomy bag. Patient identified by name nad . Patient instructed in log rolling. Patient log rolls to right side with MIN A X 1 WITH VERBAL CUES FOR REACHING FOR RAILING AND PUSHING OFF RAILING OF BED AND OTHER ELBOW TO SIT. Patient side-lying to sitting at EOB with MIN A X 2. Patient sit to stand transfer with CGA X 1 with verbal cues for pushing off bed rail with one hand and other hand on Walker. Patient stood at Walker for 3 minutes total with SBA to CGA. Patient ambulated 10 ft. x 2 with CGA X 2 1 standing rest break at 10'. Patient had no LOB or increased abdominal pain with gait. Patient performed seated bilateral LE THER EX 2 X 10 REPS each in all planes of movement for strengthening the LEs in order to improve patient's functional mobility. Patient transferred back to supine in bed with MOD A X 2 with Verbal Cues for side-lying first and then log rolling. Patient was left in supine with head of bed elevated, call light within reach, and bed alarm activated. Patient's tray table near patient. Patient was 1:1 with this PATIENT CASE COORDINATOR for 24 minutes total. MIKEL VILLA PATIENT CASE COORDINATOR
[2019-05-05 12:00] VITALS: BP 112/67
--- NOTE | 2019-05-05 12:20 | NUR ---
Pt was seen x 25 minutes in OT beginning with retrograde massage for left UE F/B performing sequential pumpimg exercises to decrease swelling with 2 cues for correct procedures. CGA x 2 supine to sit at EOB. CGA x 2 sit to stand at bedside. Call light within reach & alarm in place. Continue with POC. Debra CHAVARRIA/Oneyda
[2019-05-05 16:00] VITALS: BP 104/43
--- NOTE | 2019-05-05 17:15 | NUR ---
MEDICATED WITH DILAUDID PER ORDER AND REQUEST FOR ABDOMINAL/SURGICAL PAIN.
[2019-05-05 20:00] VITALS: BP 94/55
--- NOTE | 2019-05-05 20:00 | NUR ---
RESTING IN BED WITH HOB ELEVATED. PULSE OX 94% ON ROOM AIR. PT. ENCOURAGED TO TAKE DEEP BREATHS. LUNGS CLEAR BUT DIMINISHED BILATERALLY WITH NO COUGH NOTED AT THIS TIME. ANA INTACT TO MIDLINE INCISION. PT. HAS A MEGHAN DRAIN; SMALL AMOUNT OF LIGHT PINK DRAINAGE NOTED. ILEOSTOMY HAS A SMALL AMOUNT OF GREEN LIQUID DRAINAGE. FLANAGAN PATENT FOR CLEAR YELLOW URINE. PT. VOICES NO C/O AT THIS TIME. CALL LIGHT WITHIN REACH.
[2019-05-05 22:55] VITALS: BP 155/56
--- NOTE | 2019-05-05 22:59 | NUR ---
MEDICATED WITH DILAUDID FOR C/O ABDOMINAL PAIN RATED A 6/10.
[2019-05-06] VITALS: BP 108/53
--- NOTE | 2019-05-06 | NUR ---
RESTING IN BED WITH EYES CLOSED. PAIN MEDICATION GIVEN EARLIER APPARENTLY EFFECTIVE.
--- NOTE | 2019-05-06 05:25 | NUR ---
MEDICATED WITH NORCO FOR C/O ABDOMINAL PAIN RATED A 6/10.
[2019-05-06 06:17] LABS: HEMATOCRIT 24.8 % (37.0-47.0); HEMOGLOBIN 8.1 g/dl (12.0-16.0); MEAN CELL VOLUME 102.1 fl (81.0-99.0); MEAN CORPUSCULAR HGB 33.3 pg (27.0-31.0); MEAN CORPUSCULAR HGB CONC 32.7 g/dl (33.0-37.0); MEAN PLATELET VOLUME 10.1 fl (9.6-12.3); PLATELET COUNT AUTOMATED 252 10*3/uL (130-400); RED BLOOD COUNT 2.43 10*6/uL (4.10-5.10); RED CELL DISTRI WIDTH 13.7 % (0-14.5); WHITE BLOOD COUNT 18.4 10*3/uL (4.8-10.8)
[2019-05-06 06:33] LABS: ALBUMIN 1.5 gm/dl (3.1-4.5); ALKALINE PHOSPHATASE 70 U/L (45-117); BUN 5 mg/dl (7-24); CHLORIDE 104 mmol/L (98-107); CREATININE 0.62 mg/dL (0.55-1.02); POTASSIUM 3.7 mmol/L (3.5-5.1); SGOT/AST 20 IU/L (3-35); SGPT/ALT 23 U/L (12-78); SODIUM 137 mmol/L (136-145); TOTAL PROTEIN 4.7 gm/dL (6.4-8.2)
[2019-05-06 07:27] LABS: TOTAL CELLS COUNTED 100 #CELLS
[2019-05-06 07:28] LABS: PLATELET SUFFICIENCY NORMAL (NORMAL)
[2019-05-06 07:52] VITALS: BP 120/69
--- NOTE | 2019-05-06 07:57 | NUR ---
24 HR CHART CHECK COMPLETE
--- NOTE | 2019-05-06 09:00 | NUR ---
Casino Accountant in to see patient. Discussed short term SNF and she refuses. Discussed home health care services and she is agreeable. When provided with a list of agencies she chose [facility]. When medically stable she will be discharged to home with [facility].
--- NOTE | 2019-05-06 11:27 | NUR ---
Pt was seen for OT x 23 minutes beginning with donning gown with assist only to tie straps in back. Sit to stand & fxl mobility to sink area with CGA using w/walker. Stood approx 4-5 minutes at sink for grooming with close supervision for safety. Pt stated, "tired today" but follows through with therapy. Call light within reach & bed alarm in place. Continue with POC. Debra CHAVARRIA/Oneyda
[2019-05-06 11:30] VITALS: BP 103/52
--- NOTE | 2019-05-06 12:00 | NUR ---
Extractions Technologist in to see patient. Discussed short term SNF and she is agreeable. She states if the doctor thinks that is what is needed. When provided with a list of facilities [facility] and [facility]. [facility]. supply planner notified.
--- NOTE | 2019-05-06 12:03 | NUR ---
PHYSICAL THERAPY Patient gives informed consent for treatment. Patient was supine in bed with head of bed elevated and bed alarm activated upon this OBJECT ORIENTED DEVELOPER arriving in patient's room. Patient reports decreased pain in abdominal area and feeling much better. Patient performed supine to sitting at EOB transfer with SBA. Patient demonstrated good technigue with log-rolling. Patient sat on EOB unassisted with SBA. Patient sit to stand transfer with MIN A X 1. Patient ambulated with Wh Walker and CGA X 1 for 60' x 2 with No LOB with gait and one standing rest break during each gait due fatigue and SOB. Patient 02 SATS taken and recorded as 95% and pulse 88- 90 following ambulation. Patient transferred back to supine in bed with MIN A X 2. Patient was left in supine with head of bed elevated, call light within reach and bed alarm activated. Patient did not have any abdominal pain post ambulation. Patient was 1:1 with this OBJECT ORIENTED DEVELOPER for 19 minutes total. MIKEL VILLA OBJECT ORIENTED DEVELOPER
--- NOTE | 2019-05-06 13:11 | NUR ---
Patient agreeable to snf placement, stating [facility] Contacted facility and faxed referral. waiting on review/acceptance.
[2019-05-06 15:34] LABS: HEMATOCRIT 24.5 % (37.0-47.0); HEMOGLOBIN 7.8 g/dl (12.0-16.0); MEAN CELL VOLUME 104.3 fl (81.0-99.0); MEAN CORPUSCULAR HGB 33.2 pg (27.0-31.0); MEAN CORPUSCULAR HGB CONC 31.8 g/dl (33.0-37.0); MEAN PLATELET VOLUME 10.7 fl (9.6-12.3); PLATELET COUNT AUTOMATED 265 10*3/uL (130-400); RED BLOOD COUNT 2.35 10*6/uL (4.10-5.10); WHITE BLOOD COUNT 18.2 10*3/uL (4.8-10.8)
[2019-05-06 16:00] VITALS: BP 108/54
[2019-05-06 16:30] LABS: TOTAL CELLS COUNTED 100 #CELLS
[2019-05-06 16:31] LABS: PLATELET SUFFICIENCY NORMAL (NORMAL)
[2019-05-06 20:00] VITALS: BP 111/59
[2019-05-06 20:00] LABS: BILIRUBIN NEGATIVE (NEGATIVE); BLOOD 1+ (NEGATIVE); CLARITY CLEAR (CLEAR); COLOR YELLOW (YELLOW); GLUCOSE NEGATIVE (NEGATIVE); KETONE NEGATIVE (NEGATIVE); LEUKO ESTERASE NEGATIVE (NEGATIVE); NITRITE NEGATIVE (NEGATIVE); PH 6.5 (5.0-9.0); UROBILINOGEN 0.2 E.U./dl (0.2-1.0)
[2019-05-06 20:17] LABS: BACTERIA 2+; EPITHELIAL CELLS E2-4; WBC 0-2 wbc/hpf (0-5); YEAST TRACE
[2019-05-07] VITALS: BP 105/52
--- NOTE | 2019-05-07 02:00 | NUR ---
UP TO BATHROOM WITH ASSISTANCE AND BACK TO BED.
--- NOTE | 2019-05-07 02:55 | NUR ---
24 HR chart check completed.
--- NOTE | 2019-05-07 04:00 | NUR ---
SLEEPING RESP EASY AND REG. NO ACUTE DISTRESS NOTED.
[2019-05-07 06:18] LABS: HEMATOCRIT 23.2 % (37.0-47.0); HEMOGLOBIN 7.5 g/dl (12.0-16.0); MEAN CELL VOLUME 103.1 fl (81.0-99.0); MEAN CORPUSCULAR HGB 33.3 pg (27.0-31.0); MEAN CORPUSCULAR HGB CONC 32.3 g/dl (33.0-37.0); MEAN PLATELET VOLUME 9.9 fl (9.6-12.3); PLATELET COUNT AUTOMATED 255 10*3/uL (130-400); RED BLOOD COUNT 2.25 10*6/uL (4.10-5.10); RED CELL DISTRI WIDTH 13.8 % (0-14.5)
[2019-05-07 06:36] LABS: ALBUMIN 1.4 gm/dl (3.1-4.5); ALKALINE PHOSPHATASE 66 U/L (45-117); BUN 6 mg/dl (7-24); CHLORIDE 107 mmol/L (98-107); CREATININE 0.57 mg/dL (0.55-1.02); POTASSIUM 3.8 mmol/L (3.5-5.1); SGOT/AST 14 IU/L (3-35); SGPT/ALT 18 U/L (12-78); SODIUM 139 mmol/L (136-145); TOTAL PROTEIN 4.6 gm/dL (6.4-8.2)
[2019-05-07 06:39] LABS: INTERNATIONAL NORM RATIO 1.2 (2.0-3.5)
[2019-05-07 07:12] LABS: PLATELET SUFFICIENCY NORMAL (NORMAL); POLYCHROMASIA SLIGHT; TOTAL CELLS COUNTED 100 #CELLS
[2019-05-07 08:00] VITALS: BP 143/65
--- NOTE | 2019-05-07 09:02 | NUR ---
PT seen for 15 min OT this date. PT identified by name and by patient and wrist band. Pt completes toileting with MIN A with use of ww. Pt requires extended time on commode due to being fatigue. Pt completes functional mobility from commode to bed with use of WW, with fair safety , fatigue noted. Pt completes sit to supine with verbal cues for use of handrail for increased safety and increased ability to position self for comfort. Pt breakfast arrives. PT is able to open all packages, requiring no help for breakfast. Pt declines UB/LB bathing/dressing at this time due to feeling fatigue and wanting to rest. Will go back at a later time. contiue with POC Claudia DESAI/Oneyda
--- NOTE | 2019-05-07 10:21 | NUR ---
Patient accepted to [facility], 3 night stay complete, hospital exemption complete. Patient can go when medically stable for discharge. [facility] stating if patient is discharged today or over the weekend they will need ostomy supplies to cover until they can order some next week. Notified Zeynep Boucher in morning meeting.
--- NOTE | 2019-05-07 10:47 | NUR ---
Upon discharge recommend patient to follow up for wound care in outpatient setting continue current wound care orders at discharging facility.
--- NOTE | 2019-05-07 11:50 | NUR ---
PHYSICAL THERAPY Patient gives informed consent for treatment. Patient was identified by name and . Patient was supine in bed with head of bed elevated and bed alarm activated upon this DISTRIBUTION TRANSFORMER ASSEMBLER arriving in patient's room. Patient transfers supine to sitting at EOB with SBA with verbal cues for proper technique for log-rolling and for pushing up off of elbow and other hand to side-lying to sitting at EOB. Patient ambulated 14' x 1 with Wh Walker and CGA X 1 before she had sit in chair with MIN A X 1. Patient then sit to stand out of bedside chair with MIN A X 1. Patient ambulated another 14' x 1 to bedside with CGA X 1 and sat on EOB CGA. Patient transferred to supine in bed with SBA. Patient says she is too fatigued to do ther ex or balance exercises. Patient was left in supine in bed with head of bed elevated, call light within reach, and bed alarm activated. Patient was 1:1 with his DISTRIBUTION TRANSFORMER ASSEMBLER for 17 minutes total. MIKEL VILLA DISTRIBUTION TRANSFORMER ASSEMBLER
[2019-05-07 12:00] VITALS: BP 115/57
--- NOTE | 2019-05-07 14:07 | NUR ---
PHYSICAL THERAPY Patient gives informed consent for treatment. Patient was identified by name and . Patient reports just being givem a shot for pain by the nurse and it is staring to help. Patient was supine in bed upon this SORT MANAGER arriving in the patient's room. Patient declined getting out of bed this afternoon. patient agrees to ther ex in supine. Patient performed SUPINE bilateral LE ther ex 2 x 10 reps each in all planes of movement for strengthening the LEs in order to improve patient's functional mobility. Patient was left in supine with head of bed elevated, call light within reach, and bed alarm activated. Patient was 1:1 with this SORT MANAGER for 15 minutes total. MIKEL VILLA SORT MANAGER
--- NOTE | 2019-05-07 14:50 | NUR ---
PHYSICAL THERAPY CO-SIGN I approve of the Phyical Therapy notes written above. AAMIR RAMSAY PT
[2019-05-07 16:00] VITALS: BP 122/56
[2019-05-07 20:00] VITALS: BP 106/55
[2019-05-08] VITALS: BP 107/53
--- NOTE | 2019-05-08 04:42 | NUR ---
24 HR chart check completed.
--- NOTE | 2019-05-08 05:40 | NUR ---
PATIENT WAS UP TO BATHROOM AND BACK TO BED. WHEN RN ENTERED ROOM AFTER THIS HAPPEND PT. WAS SOB. PT. STATED " I GET SO SHORT OF BREATH AFTER I GET BACK TO BED." PULSE OX CHECKED 89-90% APPLIED 1.5L O2 NC AND PULSE OX CAME UP TO 94-95% WITH OXYGEN. WILL NOTIFY
--- NOTE | 2019-05-08 05:47 | NUR ---
NOTIFIED DR. BROWN OF SOB AND O2 APPLICATION. NO NEW ORDERS AT THIS TIME.
[2019-05-08 06:08] LABS: ALBUMIN 1.5 gm/dl (3.1-4.5); ALKALINE PHOSPHATASE 67 U/L (45-117); BUN 6 mg/dl (7-24); CHLORIDE 107 mmol/L (98-107); CREATININE 0.51 mg/dL (0.55-1.02); POTASSIUM 3.8 mmol/L (3.5-5.1); SGOT/AST 17 IU/L (3-35); SGPT/ALT 18 U/L (12-78); SODIUM 140 mmol/L (136-145); TOTAL PROTEIN 4.9 gm/dL (6.4-8.2)
[2019-05-08 06:14] LABS: HEMATOCRIT 24.1 % (37.0-47.0); HEMOGLOBIN 7.6 g/dl (12.0-16.0); MEAN CELL VOLUME 103.9 fl (81.0-99.0); MEAN CORPUSCULAR HGB 32.8 pg (27.0-31.0); MEAN CORPUSCULAR HGB CONC 31.5 g/dl (33.0-37.0); MEAN PLATELET VOLUME 10.6 fl (9.6-12.3); PLATELET COUNT AUTOMATED 264 10*3/uL (130-400); RED BLOOD COUNT 2.32 10*6/uL (4.10-5.10); RED CELL DISTRI WIDTH 14.1 % (0-14.5); WHITE BLOOD COUNT 14.2 10*3/uL (4.8-10.8)
[2019-05-08 07:29] LABS: PLATELET SUFFICIENCY NORMAL (NORMAL); POLYCHROMASIA SLIGHT; TOTAL CELLS COUNTED 100 #CELLS
[2019-05-08 08:00] VITALS: BP 149/84
--- NOTE | 2019-05-08 08:39 | NUR ---
MEDICATED WITH PRN NORCO AND ZOFRAN PER PATIENT REQUEST ABDOMINAL PAIN AND NAUSEA.
[2019-05-08 09:01] VITALS: BP 149/84
--- NOTE | 2019-05-08 10:00 | NUR ---
BABAR MONTERROSO HELPED.
--- NOTE | 2019-05-08 10:17 | NUR ---
DR. JOE CALLED TO CHECK ON STATUS OF PATIENT. OK BY HIM TO DISCHARGE TO [place] TODAY.
[2019-05-08 11:39] VITALS: BP 120/58
[2019-05-08 16:30] VITALS: BP 101/51
--- NOTE | 2019-05-08 18:00 | NUR ---
MEDICATED WITH ZOFRAN PER ORDER.
[2019-05-08 20:00] VITALS: BP 98/52
--- NOTE | 2019-05-08 23:41 | NUR ---
ZOFRAN GIVEN PER ORDER FOR NAUSEA.
[2019-05-09] VITALS: BP 135/68
--- NOTE | 2019-05-09 02:03 | NUR ---
NORCO GIVEN FOR ABD INCISIONAL PAIN PER ORDER. SEE MAR.
--- NOTE | 2019-05-09 02:07 | NUR ---
NORCO GIVEN PER ORDER FOR ABD INCISION PAIN. ZOFRAN EFFECTIVE FOR NAUSEA PER PT.
--- NOTE | 2019-05-09 02:49 | NUR ---
24 HR chart check completed.
[2019-05-09 06:12] LABS: BASO % 0.3 % (0.0-1.0); EOS # 0.1 10*3/uL (0.0-0.4); EOS % 0.7 % (1.0-4.0); HEMATOCRIT 22.6 % (37.0-47.0); HEMOGLOBIN 7.1 g/dl (12.0-16.0); LYMPH # 1.1 10*3/uL (1.3-4.4); LYMPH % 8.8 % (27.0-41.0); MEAN CELL VOLUME 104.6 fl (81.0-99.0); MEAN CORPUSCULAR HGB 32.9 pg (27.0-31.0); MEAN CORPUSCULAR HGB CONC 31.4 g/dl (33.0-37.0); MEAN PLATELET VOLUME 10.3 fl (9.6-12.3); MONO # 0.9 10*3/uL (0.1-1.0); MONO % 6.6 % (3.0-9.0); NEUT # 10.6 10*3/uL (2.3-7.9); PLATELET COUNT AUTOMATED 286 10*3/uL (130-400); RED BLOOD COUNT 2.16 10*6/uL (4.10-5.10); RED CELL DISTRI WIDTH 14.1 % (0-14.5); WHITE BLOOD COUNT 12.9 10*3/uL (4.8-10.8)
[2019-05-09 06:35] LABS: BUN 6 mg/dl (7-24); CHLORIDE 106 mmol/L (98-107); CREATININE 0.48 mg/dL (0.55-1.02); POTASSIUM 3.9 mmol/L (3.5-5.1); SODIUM 140 mmol/L (136-145)
[2019-05-09 08:00] VITALS: BP 116/61
[2019-05-09 12:00] VITALS: BP 112/49
[2019-05-09] MEDS ORDERED: FLUCONAZOLE100 MG PO (13:00)
[2019-05-09] MEDS ORDERED: ELIQUIS5 M1 PO (13:00)
[2019-05-09] MEDS ORDERED: AUGMENTIN 875875 MG PO (13:00)
--- NOTE | 2019-05-09 13:47 | NUR ---
PATIENT BEING DISCHARGED TO [facility]. DAUGHTER AWARE AT BEDSIDE.
--- NOTE | 2019-05-09 15:41 | NUR ---
NURSE TO NURSE REPORT CALLED TO [facility].
[2019-05-09 16:00] VITALS: BP 114/59
--- NOTE | 2019-05-09 17:03 | NUR ---
PATIENT DISCHARGED TO [facility] VIA AMBULANCE WITH [facility].
--- NOTE | 2019-05-10 16:29 | NUR ---
OCCUPATIONAL THERAPY CO-SIGN I approve of the Occupational Therapy notes written above. JULIETA MASCORRO OTR/Oneyda
== END 2019-05-09 17:03 | disposition other institution (70) | DRG 853 ==
LOC: ED 19:51 → ICCU 04-26 00:05 → EDHOLD 04-26 00:05 → 4E 04-26 00:05 → ICCU 04-26 00:13 → 4E 04-26 17:25 → ICCU 04-29 19:55 → 4E 05-03 16:17
PROVIDERS: Family Medicine; Internal Medicine; Physician Assistant; Podiatrist Foot & Ankle Surgery; Student in an Organized Health Care Education/Training Program; ADMIT Internal Medicine
DX: A41.1 Sepsis due to other specified staphylococcus (principal); N17.0 Acute kidney failure with tubular necrosis; K56.7 Ileus, unspecified; K55.9 Vascular disorder of intestine, unspecified; R65.20 Severe sepsis without septic shock; F41.9 Anxiety disorder, unspecified; F17.210 Nicotine dependence, cigarettes, uncomplicated; I12.9 Hypertensive chronic kidney disease with stage 1 through stage 4 chronic kidney disease, or unspecified chronic kidney disease; I25.10 Atherosclerotic heart disease of native coronary artery without angina pectoris; F32.9 Major depressive disorder, single episode, unspecified; D64.9 Anemia, unspecified; E87.6 Hypokalemia; E88.09 Other disorders of plasma-protein metabolism, not elsewhere classified; K29.70 Gastritis, unspecified, without bleeding; K44.9 Diaphragmatic hernia without obstruction or gangrene; G89.29 Other chronic pain; M54.9 Dorsalgia, unspecified; G47.33 Obstructive sleep apnea (adult) (pediatric); J44.9 Chronic obstructive pulmonary disease, unspecified; I48.91 Unspecified atrial fibrillation; N18.3 Chronic kidney disease, stage 3 (moderate); Z71.6 Tobacco abuse counseling; Z90.722 Acquired absence of ovaries, bilateral; Z90.710 Acquired absence of both cervix and uterus; Z83.1 Family history of other infectious and parasitic diseases; Z80.8 Family history of malignant neoplasm of other organs or systems; Z79.82 Long term (current) use of aspirin; Z79.899 Other long term (current) drug therapy; Z79.02 Long term (current) use of antithrombotics/antiplatelets; Z95.5 Presence of coronary angioplasty implant and graft

== ENCOUNTER 2019-05-25 14:34 | Emergency (ER) | payer MEDICARE, BC ==
[~2019-05-25] VITALS: Ht 165.1 cm; Wt 87.1 kg
--- NOTE | ~2019-05-25 | EKG ---
[place], [place] ELECTROCARDIOGRAM REPORT NAME: AUREA YANEZ UNIT #: [id number] ROOM: DOCTOR: EPIPHANY DRAFT REPORT BIRTHDATE: [birth year] [facility] Test Date: 2019-05-25 Test Time: 15:13:51 Pat Name: AUREA YANEZ Department: Room: [facility] Gender: F Journeyman Tool And Die Maker: Sonia Shearer : 1950 Requested By: LORENZO GARCIA PA-C Order Number: [id number] Reading MD: Pop Wagner MD Measurements Intervals [place] Rate: 68 P: 60 NE: 176 QRS: 28 QRSD: 88 T: 67 QT: 372 QTc: 396 Interpretive Statements Sinus rhythm Compared to ECG 04/25/2019 23:22:09 No significant changes Electronically Signed On 06-01-2019 4:01:12 PDT by Pop Wagner MD CM:EKGRPT:ELECTROCARDIOGRAM REPORT [id number] LORENZO GARCIA PA-C EPIPHANY DRAFT REPORT LORENZO GARCIA PA-C
[~2019-05-25 14:34] MED LIST changes: +AUGMENTIN 875875 MG PO; +ELIQUIS5 M1 PO; +FLUCONAZOLE100 MG PO
[2019-05-25 16:01] LABS: BASO # 0.1 10*3/uL (0.0-0.1); BASO % 0.4 % (0.0-1.0); EOS # 0.3 10*3/uL (0.0-0.4); EOS % 2.7 % (1.0-4.0); HEMOGLOBIN 10.6 g/dl (12.0-16.0); LYMPH # 2.2 10*3/uL (1.3-4.4); LYMPH % 17.9 % (27.0-41.0); MEAN CELL VOLUME 105.4 fl (81.0-99.0); MEAN CORPUSCULAR HGB 31.9 pg (27.0-31.0); MEAN CORPUSCULAR HGB CONC 30.3 g/dl (33.0-37.0); MEAN PLATELET VOLUME 10.2 fl (9.6-12.3); MONO # 1.1 10*3/uL (0.1-1.0); MONO % 8.7 % (3.0-9.0); NEUT # 8.5 10*3/uL (2.3-7.9); NEUT % 69.7 % (47.0-73.0); PLATELET COUNT AUTOMATED 291 10*3/uL (130-400); RED BLOOD COUNT 3.32 10*6/uL (4.10-5.10); RED CELL DISTRI WIDTH 14.1 % (0-14.5); WHITE BLOOD COUNT 12.2 10*3/uL (4.8-10.8)
[2019-05-25 16:12] LABS: INTERNATIONAL NORM RATIO 1.1 (2.0-3.5)
[2019-05-25 16:18] LABS: ALKALINE PHOSPHATASE 147 U/L (45-117); BUN 48 mg/dl (7-24); CHLORIDE 111 mmol/L (98-107); LIPASE 95 U/L (73-393); SGOT/AST 23 IU/L (3-35); SGPT/ALT 66 U/L (12-78); SODIUM 139 mmol/L (136-145); TOTAL PROTEIN 7.5 gm/dL (6.4-8.2)
[2019-05-25 16:22] LABS: POTASSIUM 6.5 mmol/L (3.5-5.1); TROPONIN I < 0.015 ng/ml (<0.045)
[2019-05-25 17:20] LABS: ABG HCO3 16.8 mmol/l (22-26); ABG O2 SATURATION 59.1 % (95-97)
[2019-05-25 17:23] LABS: ARTERIAL BLOOD GAS PH 7.176 (7.35-7.45)
[2019-05-25 17:24] LABS: ARTERIAL BLOOD GAS PO2 36.3 mmHg (80-90)
[2019-05-25 17:39] LABS: BILIRUBIN 1+ (NEGATIVE); BLOOD NEGATIVE (NEGATIVE); CLARITY SL CLOUDY (CLEAR); COLOR YELLOW (YELLOW); GLUCOSE NEGATIVE (NEGATIVE); KETONE TRACE (NEGATIVE); LEUKO ESTERASE NEGATIVE (NEGATIVE); NITRITE POSITIVE (NEGATIVE); SPECIFIC GRAVITY >= 1.030 (1.005-1.030); UROBILINOGEN 0.2 E.U./dl (0.2-1.0)
[2019-05-25 17:48] LABS: BACTERIA 3+
== END 2019-05-25 19:25 | disposition short-term general hospital (02) ==
LOC: ED 14:34
PROVIDERS: Physician Assistant
DX: N17.9 Acute kidney failure, unspecified (principal); R11.2 Nausea with vomiting, unspecified; R19.7 Diarrhea, unspecified; F17.200 Nicotine dependence, unspecified, uncomplicated; Z79.899 Other long term (current) drug therapy; Z79.82 Long term (current) use of aspirin; Z90.710 Acquired absence of both cervix and uterus; Z93.3 Colostomy status; Z93.2 Ileostomy status

== ENCOUNTER 2019-07-23 18:03 | Inpatient (IN) | payer MEDICARE, BC ==
[~2019-07-23] VITALS: Ht 175.2 cm; Wt 84.6 kg
--- NOTE | ~2019-07-23 | EKG ---
[place], [place] ELECTROCARDIOGRAM REPORT NAME: AUREA YANEZ UNIT #: [id number] ROOM: 405 DOCTOR: CHACHA DRAFT REPORT BIRTHDATE: [birth year] [facility] Test Date: 2019-07-23 Test Time: 20:47:18 Pat Name: AUREA YANEZ Department: Room: 405 Gender: F Classroom Monitor: Tal Hernandez : 1950 Requested By: ALTAGRACIA CANDELARIO Order Number: [id number] Reading MD: Yesika Carlos MD Measurements Intervals [place] Rate: 84 P: 59 SD: 189 QRS: 1 QRSD: 90 T: 31 QT: 409 QTc: 484 Interpretive Statements Sinus rhythm Abnormal R-wave progression, early transition Borderline ST depression, anterolateral leads Compared to ECG 06/06/2019 21:24:35 Junctional rhythm no longer present Intraventricular conduction delay no longer present ST (T wave) deviation still present Electronically Signed On 07-25-2019 7:45:52 PDT by Yesika Carlos MD CM:EKGRPT:ELECTROCARDIOGRAM REPORT [id number] ALTAGRACIA MILLAN DRAFT REPORT ALTAGRACIA CANDELARIO DO
--- NOTE | ~2019-07-23 | EKG ---
[place], [place] ELECTROCARDIOGRAM REPORT NAME: AUREA YANEZ UNIT #: [id number] ROOM: 405 DOCTOR: CHACHA DRAFT REPORT BIRTHDATE: [birth year] [facility] Test Date: 2019-07-23 Test Time: 23:56:43 Pat Name: AUREA YANEZ Department: Room: 405 Gender: F Insurance Processing Clerk: : 1950 Requested By: ALTAGRACIA CANDELARIO Order Number: [id number] Reading MD: Yesika Carlos MD Measurements Intervals [place] Rate: 82 P: 64 VA: 195 QRS: 0 QRSD: 76 T: 39 QT: 398 QTc: 465 Interpretive Statements Sinus rhythm Minimal ST depression, anterolateral leads Compared to ECG 06/06/2019 21:24:35 Junctional rhythm no longer present Intraventricular conduction delay no longer present ST (T wave) deviation still present Electronically Signed On 07-25-2019 7:46:16 PDT by Yesika Carlos MD CM:EKGRPT:ELECTROCARDIOGRAM REPORT [id number] ALTAGRACIA MILLAN DRAFT REPORT ALTAGRACIA CANDELARIO DO
--- NOTE | ~2019-07-23 | EKG ---
[place], [place] ELECTROCARDIOGRAM REPORT NAME: AUREA YANEZ UNIT #: [id number] ROOM: 405 DOCTOR: CHACHA DRAFT REPORT BIRTHDATE: [birth year] [facility] Test Date: 2019-07-23 Test Time: 18:08:31 Pat Name: AUREA YANEZ Department: Room: 405 Gender: F Park Activities Coordinator: : 1950 Requested By: ALTAGRACIA CANDELARIO Order Number: [id number] Reading MD: Yesika Carlos MD Measurements Intervals [place] Rate: 87 P: 66 NM: 188 QRS: 49 QRSD: 84 T: 61 QT: 368 QTc: 443 Interpretive Statements Sinus rhythm Nonspecific ST depression, anterior leads Baseline wander in lead(s) V2,V3,V4,V5,V6 Compared to ECG 06/06/2019 21:24:35 Junctional rhythm no longer present Intraventricular conduction delay no longer present ST (T wave) deviation still present Electronically Signed On 07-25-2019 7:45:41 PDT by Yesika Carlos MD CM:EKGRPT:ELECTROCARDIOGRAM REPORT [id number] ALTAGRACIA MILLAN DRAFT REPORT ALTAGRACIA CANDELARIO DO
[2019-07-23 18:06] VITALS: BP 154/107
[2019-07-23 18:15] VITALS: BP 143/80
[2019-07-23 18:30] VITALS: BP 135/75
[2019-07-23 18:35] LABS: BASO # 0.1 10*3/uL (0.0-0.1); BASO % 0.9 % (0.0-1.0); EOS # 0.2 10*3/uL (0.0-0.4); HEMATOCRIT 38.9 % (37.0-47.0); HEMOGLOBIN 12.3 g/dl (12.0-16.0); LYMPH # 2.1 10*3/uL (1.3-4.4); LYMPH % 32.1 % (27.0-41.0); MEAN CELL VOLUME 95.1 fl (81.0-99.0); MEAN CORPUSCULAR HGB 30.1 pg (27.0-31.0); MEAN CORPUSCULAR HGB CONC 31.6 g/dl (33.0-37.0); MONO # 0.6 10*3/uL (0.1-1.0); MONO % 8.7 % (3.0-9.0); NEUT # 3.5 10*3/uL (2.3-7.9); PLATELET COUNT AUTOMATED 250 10*3/uL (130-400); RED BLOOD COUNT 4.09 10*6/uL (4.10-5.10); WHITE BLOOD COUNT 6.4 10*3/uL (4.8-10.8)
[2019-07-23 18:51] LABS: ALBUMIN 3.5 gm/dl (3.1-4.5); ALKALINE PHOSPHATASE 86 U/L (45-117); BUN 9 mg/dl (7-24); CHLORIDE 108 mmol/L (98-107); CREATININE 0.91 mg/dL (0.55-1.02); POTASSIUM 3.3 mmol/L (3.5-5.1); SGOT/AST 21 IU/L (3-35); SGPT/ALT 25 U/L (12-78); SODIUM 141 mmol/L (136-145); TOTAL PROTEIN 7.2 gm/dL (6.4-8.2)
[2019-07-23 18:53] LABS: LIPASE 48 U/L (73-393); TROPONIN I < 0.015 ng/ml (<0.045)
[2019-07-23 18:56] LABS: ACT PARTIAL THROMBO TIME 25.4 SECONDS (20.0-32.1); INTERNATIONAL NORM RATIO 1.1 (2.0-3.5)
[2019-07-23 19:14] VITALS: BP 133/80
[2019-07-23 20:21] VITALS: BP 150/70
--- NOTE | 2019-07-23 20:41 | NUR ---
ADMISSION EXPLAINED TO PATIENT.
[2019-07-23 21:15] VITALS: BP 128/63
--- NOTE | 2019-07-23 21:49 | NUR ---
Time: 2114 A 68 year old FEMALE admitted to 4E under services of VI WHITE DO. Pt. arrived via bed from ER. Chief complaint: COPD EXACERBATION. PATIENT ORIENTED TO THE FLOOR 4E CALL LIGHT REVIEWED AND DEMONSTRATED ADVANCED DIRECTIVE AND HEALTHY LIFESTYLE FORMS REVIEWED AND COMPLETED MILADY HERNANDEZ
--- NOTE | 2019-07-23 22:59 | NUR ---
FLUTTER GIVEN TO PT AND PT INSTRUCTED ON USE OF FLUTTER. PT EXHIBTS PROPER TECHNIQUE. PT GWEN WELL.
[2019-07-24] VITALS: BP 131/65
--- NOTE | 2019-07-24 | NUR ---
Patient resting quietly with no c/o discomfort. Respirations easy and regular. Vital signs stable. No overt distress. COLOSTOMY EMPTIED FOR FOAMY, GREEN STOOL. GILBERT ROBB
--- NOTE | 2019-07-24 01:10 | NUR ---
Patient resting quietly with no c/o discomfort. Respirations easy and regular. Vital signs stable. No overt distress. GILBERT ROBB 24 HR chart check completed.
--- NOTE | 2019-07-24 05:01 | NUR ---
24 HR chart check completed.
--- NOTE | 2019-07-24 05:14 | NUR ---
MEDICATED WITH PO TYLENOL ORDERED PER PT REQUEST FOR C/O HEADACHE.
[2019-07-24 06:26] LABS: HEMOGLOBIN 11.1 g/dl (12.0-16.0); MEAN CELL VOLUME 96.2 fl (81.0-99.0); MEAN CORPUSCULAR HGB 30.5 pg (27.0-31.0); MEAN CORPUSCULAR HGB CONC 31.7 g/dl (33.0-37.0); MEAN PLATELET VOLUME 10.3 fl (9.6-12.3); PLATELET COUNT AUTOMATED 222 10*3/uL (130-400); RED BLOOD COUNT 3.64 10*6/uL (4.10-5.10); WHITE BLOOD COUNT 5.1 10*3/uL (4.8-10.8)
--- NOTE | 2019-07-24 06:51 | NUR ---
MEDICATION EFFECTIVE FOR HEADACHE.
[2019-07-24 07:07] LABS: ALBUMIN 3.2 gm/dl (3.1-4.5); BUN 10 mg/dl (7-24); CHLORIDE 108 mmol/L (98-107); CREATININE 0.94 mg/dL (0.55-1.02); POTASSIUM 3.6 mmol/L (3.5-5.1); SGOT/AST 16 IU/L (3-35); SGPT/ALT 23 U/L (12-78); SODIUM 141 mmol/L (136-145); TOTAL PROTEIN 6.9 gm/dL (6.4-8.2)
[2019-07-24 07:09] LABS: BURR CELLS FEW; PLATELET SUFFICIENCY NORMAL (NORMAL); TOTAL CELLS COUNTED 100 #CELLS
[2019-07-24 07:10] LABS: ALKALINE PHOSPHATASE 78 U/L (45-117); BASOPHILS 1 % (0-1); CHOLESTEROL 116 mg/dL (<200); HDL CHOLESTEROL 65 mg/dl (40-60); LDL CHOLESTEROL 39 mg/dL (9-159); PHOSPHOROUS 3.2 mg/dL (2.5-4.9); TRIGLYCERIDES 60 mg/dl (<150); VLDL CHOLESTEROL 12 mg/dL (6-40)
[2019-07-24 07:16] LABS: VITAMIN D, 25-HYDROXY 20.5 ng/mL (30-100)
[2019-07-24 08:00] VITALS: BP 92/60
--- NOTE | 2019-07-24 09:49 | NUR ---
Medication effective to reduce headache to 0/10
--- NOTE | 2019-07-24 11:00 | NUR ---
PHYSICAL THERAPY PT EVAL COMPLETED ON LEVEL 4: FULL EVALUATION TO FOLLOW. RECOMMEND PT WHILE HERE TO ADDRESS DECREASED STRENGTH, ENDURANCE, BALANCE AND THUS FUNCTIONAL MOIBLITY. PT EVAL IS MODERATE COMPLEXITY: 04020. D/C RECOMMENDATIONS ARE HOME WITH HOME HEALTH PT. THANK YOU FOR REFERRAL DONALD WEBSTER PT
--- NOTE | 2019-07-24 11:46 | NUR ---
Dr. Swift in to evaulate. Orders recieved. To CT via returned and resumed lunch. Medicated for renewed c/o headache.
[2019-07-24 12:00] VITALS: BP 96/62
--- NOTE | 2019-07-24 15:30 | NUR ---
Med time changes were based on pt. preference.
[2019-07-24 16:00] VITALS: BP 126/53
--- NOTE | 2019-07-24 17:31 | NUR ---
Called into room , pt. stating that she is shaking all over, has a headache and wants to go home. Pt. informed that dtr. was in and left cell phone monorail charger operator,and didn't want to wake her, She began weeping stating that she wasn't asleep. Dr. mg was notified and Buspar was given. Dtr. then arrived and pt. is much calmer at this time.
[2019-07-24 20:00] VITALS: BP 137/71
--- NOTE | 2019-07-24 21:00 | NUR ---
OSTOMY BAG/WAFER CHANGED X2 D/T LEAKING.
[2019-07-25] VITALS: BP 128/60
--- NOTE | 2019-07-25 | NUR ---
Patient resting quietly with no c/o discomfort. Respirations easy and regular. Vital signs stable. No overt distress. GILBERT ROBB
--- NOTE | 2019-07-25 04:00 | NUR ---
Patient resting quietly with no c/o discomfort. Respirations easy and regular. Vital signs stable. No overt distress. GILBERT ROBB
[2019-07-25 06:26] LABS: BASO % 0.1 % (0.0-1.0); HEMATOCRIT 33.9 % (37.0-47.0); HEMOGLOBIN 10.7 g/dl (12.0-16.0); LYMPH # 1.3 10*3/uL (1.3-4.4); LYMPH % 12.8 % (27.0-41.0); MEAN CELL VOLUME 95.8 fl (81.0-99.0); MEAN CORPUSCULAR HGB 30.2 pg (27.0-31.0); MEAN CORPUSCULAR HGB CONC 31.6 g/dl (33.0-37.0); MEAN PLATELET VOLUME 10.5 fl (9.6-12.3); MONO # 0.6 10*3/uL (0.1-1.0); MONO % 5.7 % (3.0-9.0); NEUT # 8.5 10*3/uL (2.3-7.9); NEUT % 80.9 % (47.0-73.0); PLATELET COUNT AUTOMATED 224 10*3/uL (130-400); RED BLOOD COUNT 3.54 10*6/uL (4.10-5.10); RED CELL DISTRI WIDTH 15.3 % (0-14.5); WHITE BLOOD COUNT 10.5 10*3/uL (4.8-10.8)
[2019-07-25 06:59] LABS: ALBUMIN 3.2 gm/dl (3.1-4.5); ALKALINE PHOSPHATASE 69 U/L (45-117); BUN 13 mg/dl (7-24); CHLORIDE 109 mmol/L (98-107); CREATININE 0.77 mg/dL (0.55-1.02); SGOT/AST 12 IU/L (3-35); SGPT/ALT 20 U/L (12-78); SODIUM 139 mmol/L (136-145); TOTAL PROTEIN 6.8 gm/dL (6.4-8.2)
[2019-07-25 08:00] VITALS: BP 123/71
[2019-07-25 12:00] VITALS: BP 101/53
[2019-07-25 16:00] VITALS: BP 127/69
[2019-07-25 20:00] VITALS: BP 112/47
--- NOTE | 2019-07-25 20:00 | NUR ---
Patient resting quietly with no c/o discomfort. Respirations easy and regular. Vital signs stable. No overt distress. GILBERT ROBB 24 HR chart check completed.
[2019-07-26] VITALS: BP 108/60
--- NOTE | 2019-07-26 | NUR ---
Patient resting quietly with no c/o discomfort. Respirations easy and regular. Vital signs stable. No overt distress. GILBERT ROBB
--- NOTE | 2019-07-26 04:00 | NUR ---
Patient resting quietly with no c/o discomfort. Respirations easy and regular. Vital signs stable. No overt distress. GILBERT ROBB
[2019-07-26 06:22] LABS: BASO % 0.1 % (0.0-1.0); HEMATOCRIT 34.4 % (37.0-47.0); HEMOGLOBIN 10.7 g/dl (12.0-16.0); LYMPH # 1.8 10*3/uL (1.3-4.4); LYMPH % 18.1 % (27.0-41.0); MEAN CELL VOLUME 97.2 fl (81.0-99.0); MEAN CORPUSCULAR HGB 30.2 pg (27.0-31.0); MEAN CORPUSCULAR HGB CONC 31.1 g/dl (33.0-37.0); MEAN PLATELET VOLUME 10.5 fl (9.6-12.3); MONO # 0.6 10*3/uL (0.1-1.0); MONO % 6.2 % (3.0-9.0); NEUT # 7.6 10*3/uL (2.3-7.9); PLATELET COUNT AUTOMATED 204 10*3/uL (130-400); RED BLOOD COUNT 3.54 10*6/uL (4.10-5.10); RED CELL DISTRI WIDTH 15.3 % (0-14.5); WHITE BLOOD COUNT 10.2 10*3/uL (4.8-10.8)
[2019-07-26 06:36] LABS: BUN 22 mg/dl (7-24); CHLORIDE 109 mmol/L (98-107); POTASSIUM 3.9 mmol/L (3.5-5.1); SODIUM 139 mmol/L (136-145)
[2019-07-26 06:38] LABS: CREATININE 0.86 mg/dL (0.55-1.02)
--- NOTE | 2019-07-26 07:50 | NUR ---
RESTING IN BED. RESP-EASY AND REGULAR. NO C/O AT THIS TIME. CALL LIGHT IN REACH. SEE SHIFT ASSESSMENT.
[2019-07-26 08:00] VITALS: BP 141/85
--- NOTE | 2019-07-26 09:00 | NUR ---
Research Physiologist in to talk to patient. Patient states lives at home with alone. There are few steps in the home. Physician: gio Pharmacy: [facility] Home health services: none at present Patient's level of ADLs: INDEPENDENT Patient has working utilities: all working DME: walker, nebulizer, no home oxygen Follow-up physician's appointment after d/c: will be made by hospitalist nurse director upon discharge Does patient want to access PORTAL?: no Discharge plan discussed with patient, she states she lives at home alone, she is independent in adls and ambulation, drives, she states she had [place] home health home services until last Friday they discontinued their services, patient stated she had surgery and was ordered home health after. discussed with her if she would like home health to be reordered and she stated she didn't feel she needed any at this time, patient is hoping to be discharged to home today, case management will follow. JOSELIN RAYMUNDO
[2019-07-26] MEDS ORDERED: OXYBUTYNIN CHLOR5 MG PO (09:33)
[2019-07-26] MEDS ORDERED: NATURE'S BLEND F1 MG PO (09:33)
[2019-07-26] MEDS ORDERED: MUCINEX ER600 MG PO (09:37)
[2019-07-26] MEDS ORDERED: DOXYCYCLINE100 M3 PO (09:38)
[2019-07-26] MEDS ORDERED: PREDNISONE10 MG PO (09:38)
--- NOTE | 2019-07-26 10:05 | NUR ---
Occupational therapy orders received, chart reviewed, and OT screen performed. Patient admitted for SOB and COPD exacerbation. Upon OTR arrival, patient was OOB and had completed dressing and grooming tasks herself. Patient reported she has been walking to the bathroom herself, getting dressed, and has good strength and endurance. OT orders to be discharged at this time, per patient she does not need OT evaluation or treatment. Thank you for the referral. Elly Kat OTR/L
--- NOTE | 2019-07-26 10:24 | NUR ---
Discharge instructions reviewed with patient/family. Patient receptive and verbalizes understanding. Follow-up care arranged. Written instructions given to patient/family. HEPLOCK REMOVED 2X2 APPLIED. PT AMBULATORY OFF THE FLOOR FOR DISCHARGE. PARTH ZENG
== END 2019-07-26 10:24 | disposition home or self-care (01) | DRG 871 ==
LOC: ED 18:03 → EDHOLD 20:38 → 4E 20:38
PROVIDERS: Emergency Medicine; Family Medicine; Hospitalist; Internal Medicine; ADMIT Internal Medicine
DX: A41.9 Sepsis, unspecified organism (principal); J18.9 Pneumonia, unspecified organism; J44.1 Chronic obstructive pulmonary disease with (acute) exacerbation; I50.32 Chronic diastolic (congestive) heart failure; J44.0 Chronic obstructive pulmonary disease with (acute) lower respiratory infection; I13.0 Hypertensive heart and chronic kidney disease with heart failure and stage 1 through stage 4 chronic kidney disease, or unspecified chronic kidney disease; N17.9 Acute kidney failure, unspecified; E87.6 Hypokalemia; E87.8 Other disorders of electrolyte and fluid balance, not elsewhere classified; R00.1 Bradycardia, unspecified; E78.5 Hyperlipidemia, unspecified; I25.10 Atherosclerotic heart disease of native coronary artery without angina pectoris; D64.9 Anemia, unspecified; E53.8 Deficiency of other specified B group vitamins; F32.9 Major depressive disorder, single episode, unspecified; F41.9 Anxiety disorder, unspecified; G89.29 Other chronic pain; M54.9 Dorsalgia, unspecified; E55.9 Vitamin D deficiency, unspecified; G47.33 Obstructive sleep apnea (adult) (pediatric); N18.3 Chronic kidney disease, stage 3 (moderate); F17.210 Nicotine dependence, cigarettes, uncomplicated; Z90.49 Acquired absence of other specified parts of digestive tract; Z71.6 Tobacco abuse counseling; Z93.3 Colostomy status; Z90.710 Acquired absence of both cervix and uterus; Z90.722 Acquired absence of ovaries, bilateral; Z95.5 Presence of coronary angioplasty implant and graft; Z83.1 Family history of other infectious and parasitic diseases; Z79.82 Long term (current) use of aspirin; Z79.899 Other long term (current) drug therapy; Z79.02 Long term (current) use of antithrombotics/antiplatelets; I25.2 Old myocardial infarction

== ENCOUNTER 2019-09-24 16:44 | Inpatient (IN) | payer MEDICARE, BC ==
[~2019-09-24] VITALS: Ht 172.7 cm; Wt 81.2 kg
--- NOTE | ~2019-09-24 | EKG ---
[place], [place] ELECTROCARDIOGRAM REPORT NAME: AUREA YANEZ UNIT #: [id number] ROOM: 411 DOCTOR: CHACHA DRAFT REPORT BIRTHDATE: [birth year] [facility] Test Date: 2019-09-24 Test Time: 19:47:36 Pat Name: AUREA YANEZ Department: Room: 411 Gender: F Top Former: MONTRELL : 1950 Requested By: AMITA GILMAN Order Number: [id number] Reading MD: Gurdeep Smith MD Measurements Intervals [place] Rate: 69 P: 63 MS: 180 QRS: 3 QRSD: 87 T: 89 QT: 388 QTc: 416 Interpretive Statements Sinus rhythm Ventricular premature complex Abnormal R-wave progression, early transition Electronically Signed On 09-25-2019 7:06:25 PST by Gurdeep Smith MD CM:EKGRPT:ELECTROCARDIOGRAM REPORT [id number] AMITA MILLAN DRAFT REPORT AMITA GILMAN DO
--- NOTE | ~2019-09-24 | EKG ---
[place], [place] ELECTROCARDIOGRAM REPORT NAME: AUREA YANEZ UNIT #: [id number] ROOM: 411 DOCTOR: CHACHA DRAFT REPORT BIRTHDATE: [birth year] [facility] Test Date: 2019-09-24 Test Time: 16:48:15 Pat Name: AUREA YANEZ Department: Room: 411 Gender: F Mobile Security Specialist: : 1950 Requested By: AMITA GILMAN Order Number: [id number] Reading MD: Gurdeep Smith MD Measurements Intervals [place] Rate: 79 P: 76 VA: 157 QRS: 45 QRSD: 99 T: 85 QT: 368 QTc: 422 Interpretive Statements Sinus rhythm Ventricular premature complex Consider right atrial enlargement Electronically Signed On 09-25-2019 7:04:10 PST by Gurdeep Smith MD CM:EKGRPT:ELECTROCARDIOGRAM REPORT [id number] AMITA MILLAN DRAFT REPORT AMITA GILMAN DO
--- NOTE | ~2019-09-24 | EKG ---
[place], [place] ELECTROCARDIOGRAM REPORT NAME: AUREA YANEZ UNIT #: [id number] ROOM: 411 DOCTOR: CHACHA DRAFT REPORT BIRTHDATE: [birth year] [facility] Test Date: 2019-09-24 Test Time: 22:58:32 Pat Name: AUREA YANEZ Department: Room: 411 Gender: F Workshop Manager: Jorje Carlos : 1950 Requested By: AMITA GILMAN Order Number: [id number] Reading MD: Gurdeep Smith MD Measurements Intervals [place] Rate: 67 P: 0 VT: 196 QRS: 15 QRSD: 85 T: 71 QT: 426 QTc: 450 Interpretive Statements Sinus rhythm Nonspecific ST changes Electronically Signed On 09-25-2019 7:07:49 PST by Gurdeep Smith MD CM:EKGRPT:ELECTROCARDIOGRAM REPORT [id number] AMITA MILLAN DRAFT REPORT AMITA GILMAN DO
[~2019-09-24 16:44] MED LIST changes: +DOXYCYCLINE100 M3 PO; +MUCINEX ER600 MG PO; +NATURE'S BLEND F1 MG PO; +OXYBUTYNIN CHLOR5 MG PO
[2019-09-24 17:04] VITALS: BP 105/77
[2019-09-24 17:04] LABS: BASO # 0.1 10*3/uL (0.0-0.1); BASO % 0.7 % (0.0-1.0); EOS # 0.2 10*3/uL (0.0-0.4); EOS % 1.3 % (1.0-4.0); HEMATOCRIT 48.1 % (37.0-47.0); HEMOGLOBIN 16.5 g/dl (12.0-16.0); LYMPH # 3.7 10*3/uL (1.3-4.4); MEAN CELL VOLUME 90.4 fl (81.0-99.0); MEAN CORPUSCULAR HGB CONC 34.3 g/dl (33.0-37.0); MEAN PLATELET VOLUME 10.3 fl (9.6-12.3); NEUT # 7.3 10*3/uL (2.3-7.9); NEUT % 59.3 % (47.0-73.0); PLATELET COUNT AUTOMATED 247 10*3/uL (130-400); RED BLOOD COUNT 5.32 10*6/uL (4.10-5.10); WHITE BLOOD COUNT 12.3 10*3/uL (4.8-10.8)
[2019-09-24 17:15] LABS: ACT PARTIAL THROMBO TIME 24.7 SECONDS (20.0-32.1)
[2019-09-24 17:19] LABS: ALBUMIN 4.1 gm/dl (3.1-4.5); ALKALINE PHOSPHATASE 156 U/L (45-117); BUN 45 mg/dl (7-24); CHLORIDE 102 mmol/L (98-107); POTASSIUM 4.3 mmol/L (3.5-5.1); SGOT/AST 37 IU/L (3-35); SGPT/ALT 43 U/L (12-78); SODIUM 132 mmol/L (136-145); TOTAL PROTEIN 8.5 gm/dL (6.4-8.2)
[2019-09-24 17:21] LABS: TROPONIN I < 0.015 ng/ml (<0.045)
[2019-09-24 17:37] VITALS: BP 103/79
--- NOTE | 2019-09-24 17:44 | NUR ---
PT STATES THAT SHE IS FEELING SLIGHTLY IMPROVED AFTER THE BREATHING TREATMENT. SHE IS RESTING IN BED PLAYING ON HER CELL PHONE WITH DAUGHTER AT BEDSIDE. NO SIGNS OF ACUTE DISTRESS AT THIS TIME. BED IS IN LOW POSITION. WILL CONTINUE TO MONITOR.
[2019-09-24 18:30] VITALS: BP 139/82
--- NOTE | 2019-09-24 18:33 | NUR ---
Time: 1829 A 68 year old FEMALE admitted to 4E under services of ALTAGRACIA CALI DO. Pt. arrived via bed from ER. Chief complaint: DEHYDRATION. BRISEIDA GALLARDO
[2019-09-24] MEDS ORDERED: OXYBUTYNIN5 MG PO (18:49)
[2019-09-24 20:00] VITALS: BP 133/71
--- NOTE | 2019-09-24 21:30 | NUR ---
DR MARES MADE AWARE OF ELEVATED LACTIC ACID, PATIENT CURRENTLY RECIEVEING IV FLUID BOLUS, NO NEW ORDERS
[2019-09-25] VITALS: BP 97/53
[2019-09-25 06:52] LABS: BASO # 0.1 10*3/uL (0.0-0.1); BASO % 0.7 % (0.0-1.0); EOS # 0.2 10*3/uL (0.0-0.4); EOS % 2.5 % (1.0-4.0); HEMATOCRIT 38.2 % (37.0-47.0); HEMOGLOBIN 12.8 g/dl (12.0-16.0); LYMPH % 24.6 % (27.0-41.0); MEAN CELL VOLUME 93.2 fl (81.0-99.0); MEAN CORPUSCULAR HGB 31.2 pg (27.0-31.0); MEAN CORPUSCULAR HGB CONC 33.5 g/dl (33.0-37.0); MEAN PLATELET VOLUME 10.7 fl (9.6-12.3); MONO # 0.8 10*3/uL (0.1-1.0); MONO % 9.2 % (3.0-9.0); NEUT # 5.1 10*3/uL (2.3-7.9); NEUT % 62.3 % (47.0-73.0); PLATELET COUNT AUTOMATED 194 10*3/uL (130-400); WHITE BLOOD COUNT 8.1 10*3/uL (4.8-10.8)
[2019-09-25 07:15] LABS: ALBUMIN 2.9 gm/dl (3.1-4.5); CREATININE 1.17 mg/dL (0.55-1.02); FREE T4 0.97 ng/dl (0.76-1.46); PHOSPHOROUS 3.5 mg/dL (2.5-4.9); POTASSIUM 3.9 mmol/L (3.5-5.1)
[2019-09-25 07:20] LABS: THYROID STIM HORMONE (HS) 1.01 uIU/ml (0.358-4.75)
[2019-09-25 07:49] LABS: VITAMIN D, 25-HYDROXY 11.8 ng/mL (30-100)
[2019-09-25 08:00] VITALS: BP 105/61
[2019-09-25] MEDS ORDERED: LEVAQUIN750 M1 PO (09:14)
[2019-09-25] MEDS ORDERED: PREDNISONE10 MG PO (09:14)
[2019-09-25] MEDS ORDERED: VITAMIN D32000 UNI1 PO (09:14)
--- NOTE | 2019-09-25 11:34 | NUR ---
Discharge instructions reviewed with patient/family. Patient receptive and verbalizes understanding. Follow-up care arranged. Written instructions given to patient/family. EMMA MITTAL
--- NOTE | 2019-09-27 18:26 | NUR ---
PHYSICAL THERAPY Nursing screen received and chart reviewed. Patient discharged on 09/25/19. Thank you. Rachel Bal,PT,DPT.
== END 2019-09-25 11:34 | disposition home or self-care (01) | DRG 871 ==
LOC: ED 16:44 → 4E 17:56 → EDHOLD 17:56 → 4E 18:14
PROVIDERS: Family Medicine; Internal Medicine; ADMIT Emergency Medicine
DX: A41.9 Sepsis, unspecified organism (principal); J18.9 Pneumonia, unspecified organism; N17.0 Acute kidney failure with tubular necrosis; I50.32 Chronic diastolic (congestive) heart failure; I13.0 Hypertensive heart and chronic kidney disease with heart failure and stage 1 through stage 4 chronic kidney disease, or unspecified chronic kidney disease; J44.1 Chronic obstructive pulmonary disease with (acute) exacerbation; J44.0 Chronic obstructive pulmonary disease with (acute) lower respiratory infection; E87.2 Acidosis; E44.0 Moderate protein-calorie malnutrition; R65.20 Severe sepsis without septic shock; E86.0 Dehydration; J44.9 Chronic obstructive pulmonary disease, unspecified; F41.9 Anxiety disorder, unspecified; G89.29 Other chronic pain; M54.9 Dorsalgia, unspecified; N18.3 Chronic kidney disease, stage 3 (moderate); I25.10 Atherosclerotic heart disease of native coronary artery without angina pectoris; F32.9 Major depressive disorder, single episode, unspecified; E78.5 Hyperlipidemia, unspecified; G47.33 Obstructive sleep apnea (adult) (pediatric); Z90.710 Acquired absence of both cervix and uterus; Z90.49 Acquired absence of other specified parts of digestive tract; F17.210 Nicotine dependence, cigarettes, uncomplicated; Z84.89 Family history of other specified conditions; Z93.3 Colostomy status; Z95.5 Presence of coronary angioplasty implant and graft; A08.4 Viral intestinal infection, unspecified; D75.1 Secondary polycythemia; Z79.82 Long term (current) use of aspirin; Z79.899 Other long term (current) drug therapy; E55.9 Vitamin D deficiency, unspecified; E53.8 Deficiency of other specified B group vitamins; Z68.27 Body mass index [BMI] 27.0-27.9, adult

== ENCOUNTER 2019-10-18 16:46 | Inpatient (IN) | payer MEDICARE, BC ==
[~2019-10-18] VITALS: Ht 170.1 cm; Wt 79.6 kg
[~2019-10-18 16:46] MED LIST changes: +LEVAQUIN750 M1 PO; +OXYBUTYNIN5 MG PO; +VITAMIN D32000 UNI1 PO
[2019-10-18 16:49] VITALS: BP 148/97
[2019-10-18 17:21] LABS: BASO # 0.1 10*3/uL (0.0-0.1); BASO % 0.5 % (0.0-1.0); EOS # 0.1 10*3/uL (0.0-0.4); EOS % 1.2 % (1.0-4.0); HEMATOCRIT 44.5 % (37.0-47.0); LYMPH % 17.7 % (27.0-41.0); MEAN CELL VOLUME 95.7 fl (81.0-99.0); MEAN CORPUSCULAR HGB 32.3 pg (27.0-31.0); MEAN CORPUSCULAR HGB CONC 33.7 g/dl (33.0-37.0); MEAN PLATELET VOLUME 10.7 fl (9.6-12.3); MONO % 8.9 % (3.0-9.0); NEUT % 70.9 % (47.0-73.0); PLATELET COUNT AUTOMATED 271 10*3/uL (130-400); RED BLOOD COUNT 4.65 10*6/uL (4.10-5.10); RED CELL DISTRI WIDTH 15.2 % (0-14.5); WHITE BLOOD COUNT 11.3 10*3/uL (4.8-10.8)
[2019-10-18 17:32] LABS: ACT PARTIAL THROMBO TIME 24.5 SECONDS (20.0-32.1)
[2019-10-18 17:36] LABS: ALBUMIN 3.8 gm/dl (3.1-4.5); ALKALINE PHOSPHATASE 105 U/L (45-117); BUN 37 mg/dl (7-24); CHLORIDE 105 mmol/L (98-107); CREATININE 2.17 mg/dL (0.55-1.02); LIPASE 74 U/L (73-393); POTASSIUM 4.3 mmol/L (3.5-5.1); SGOT/AST 30 IU/L (3-35); SGPT/ALT 66 U/L (12-78); SODIUM 134 mmol/L (136-145)
[2019-10-18 17:41] LABS: TROPONIN I < 0.015 ng/ml (<0.045)
--- NOTE | 2019-10-18 17:44 | NUR ---
LACTIC ACID OF 3.6. DR. KDOAK INFANTE.
[2019-10-18 18:37] LABS: BILIRUBIN NEGATIVE (NEGATIVE); BLOOD NEGATIVE (NEGATIVE); CLARITY SL CLOUDY (CLEAR); COLOR YELLOW (YELLOW); GLUCOSE NEGATIVE (NEGATIVE); KETONE NEGATIVE (NEGATIVE); LEUKO ESTERASE 2+ (NEGATIVE); NITRITE NEGATIVE (NEGATIVE); UROBILINOGEN 0.2 E.U./dl (0.2-1.0)
[2019-10-18 18:44] LABS: BACTERIA 2+; EPITHELIAL CELLS 51-100; WBC 51-100 wbc/hpf (0-5)
[2019-10-18 18:46] LABS: HYALINE CAST 16-20
--- NOTE | 2019-10-18 19:26 | NUR ---
PT EVALUATED AND SHE IS CURRENTLY HAVING LEG CRAMPS. PT CHANGED INTO A GOWN. SHE STATES THAT SHE HAS BEEN GENERALLY WEAK FOR THE PAST FEW DAYS WITH SOME MILD SOB MORE SO WITH EXERTION. PT HAS COLOSTOMY IN PLACE AND REPORTS THAT IT HAS BEEN "RUNNY" THE PAST FEW DAYS.
[2019-10-18 19:48] VITALS: BP 132/64
--- NOTE | 2019-10-18 20:37 | NUR ---
PT FINALLY HAS A BED. GO [facility] ROOM TO TAKE PT UPSTAIRS AND DR. SUTTON RESIDENT IS IN THE ROOM TALKING WITH PT SO TAKING THE PT UPSTAIRS WILL BE DELAYED AT THIS TIME.
--- NOTE | 2019-10-18 20:38 | NUR ---
LAB CALLED WITH CRITICAL LACTIC ACID LEVEL 2.7
--- NOTE | 2019-10-18 20:45 | NUR ---
Time: 2044 A 68 year old FEMALE admitted to 5E under services of FAMILIA MARES DO, Pt. arrived via ambulatory from ER. Chief complaint: MULTIPLE COMPLAINTS. THONY SPRING
--- NOTE | 2019-10-18 21:25 | NUR ---
DR. SUTTON NOTIFIED OF PT'S MED REC UTD AND IF ANY ADDITIONAL FLUIDS NEEDED AT THIS TIME. TO ORDER NS @ 125ML/HR X1 NOW.
--- NOTE | 2019-10-18 23:20 | NUR ---
DR. SUTTON NOTIFIED OF LACTIC ACID LEVEL OF 4.4. T.O. ORDER RCVD TO INCREASE RATE OF FLUIDS TO 150ML/HR.
[2019-10-19] VITALS: BP 93/73
--- NOTE | 2019-10-19 02:01 | NUR ---
DR. SUTTON NOTIFIED OF LACTIC ACID OF 3.1 AND IVF STILL INFUSING.
[2019-10-19 04:00] VITALS: BP 97/62
[2019-10-19 05:54] LABS: ALBUMIN 3.3 gm/dl (3.1-4.5); CREATININE 1.44 mg/dL (0.55-1.02); PHOSPHOROUS 3.3 mg/dL (2.5-4.9); POTASSIUM 3.8 mmol/L (3.5-5.1); TOTAL PROTEIN 6.8 gm/dL (6.4-8.2)
[2019-10-19 06:11] LABS: BASO # 0.1 10*3/uL (0.0-0.1); BASO % 0.7 % (0.0-1.0); EOS # 0.2 10*3/uL (0.0-0.4); EOS % 2.9 % (1.0-4.0); HEMATOCRIT 40.4 % (37.0-47.0); HEMOGLOBIN 13.3 g/dl (12.0-16.0); LYMPH % 26.1 % (27.0-41.0); MEAN CELL VOLUME 97.6 fl (81.0-99.0); MEAN CORPUSCULAR HGB 32.1 pg (27.0-31.0); MEAN CORPUSCULAR HGB CONC 32.9 g/dl (33.0-37.0); MEAN PLATELET VOLUME 10.4 fl (9.6-12.3); MONO # 0.7 10*3/uL (0.1-1.0); MONO % 8.8 % (3.0-9.0); NEUT # 4.7 10*3/uL (2.3-7.9); NEUT % 60.8 % (47.0-73.0); PLATELET COUNT AUTOMATED 214 10*3/uL (130-400); RED BLOOD COUNT 4.14 10*6/uL (4.10-5.10); RED CELL DISTRI WIDTH 15.3 % (0-14.5); WHITE BLOOD COUNT 7.6 10*3/uL (4.8-10.8)
--- NOTE | 2019-10-19 06:15 | NUR ---
Dr. JOE consulted for COLOSTOMY REVERSAL/PT KNOWN TO YOU. THONY SPRING
[2019-10-19 08:00] VITALS: BP 106/67
--- NOTE | 2019-10-19 11:19 | NUR ---
Cartographic Designer in to talk to patient. Patient states lives at HOME with ALONE, BUT GRANDSON AND DAUGHTER ARE WITH HER FREQUENTLY. There are OUTSIDE steps in the home. Physician: GUANAKITO Pharmacy: [facility] Home health services: NONE Patient's level of ADLs: INDEPENDENT Patient has working utilities: YES DME: CPAP, NEBULIZER Follow-up physician's appointment after d/c: WILL BE MADE BY HOSPITALIST NURSE DIRECTOR ON DISCHARGE Does patient want to access PORTAL?: NO Discharge plan PT LIVES AT HOME ALONE BUT STATES GRANDSON OR DAUGHTER ARE THERE MOST OF THE TIME. TALKED WITH PT ABOUT REHAB OR HOME HEALTH, SHE DENIES BOTH. STATES SHE WAS JUST DEHYDRATED AND IS NORMALLY INDEPENDENT IN HER CARE. WILL CONTINUE TO FOLLOW. STATES SHE WILL HAVE A RIDE HOME.. MARCOS PAIGE
[2019-10-19 12:00] VITALS: BP 90/52
[2019-10-19 16:00] VITALS: BP 84/42
--- NOTE | 2019-10-19 16:57 | NUR ---
DR. DAVID INFORMED OF MANUAL BLOOD PRESSURE.
--- NOTE | 2019-10-19 17:38 | NUR ---
PT TRANSFERRED TO 4TH FLOOR FOR CONTINUOUS CARDIAC MONITORING.
[2019-10-19 19:35] VITALS: BP 106/58
--- NOTE | 2019-10-19 19:35 | NUR ---
PT'S MANUAL BP NOW 106/58. IVF INFUSING PER ORDER. PT DENIES ANY NEW/WORSENING SYMPTOMS AT THIS TIME. WILL MONITOR. CALL LIGHT IN REACH.
--- NOTE | 2019-10-19 20:30 | NUR ---
PT C/O BURNING TO IV SITE IN R WRIST. IV SITE REMOVED & DSD APPLIED. NEW 22 GAUGE IV SITE INITIATED BY RONNIE GARG PER POLICY. IV FLUIDS RECONNECTED AND INFUSING PER ORDER. BAG NEAR COMPLETION. WILL MONITOR.
--- NOTE | 2019-10-19 21:45 | NUR ---
PO TYLENOL ADMINISTERED PER PRN ORDER FOR C/O HEADACHE. PT RATES PAIN 4/10. STATES SHE HAS HX OF MIGRAINES AND DESCRIBES IT FEELING SIMILAR TO A MILD MIGRAINE. WILL MONITOR EFFECTIVENESS. CALL LIGHT IN REACH. IVF INFUSION COMPLETE AT THIS TIME.
[2019-10-20] VITALS (11 sets, daily range): BP systolic 70–104; BP diastolic 37–60
--- NOTE | 2019-10-20 00:29 | NUR ---
EARLIER TYLENOL APPEARS EFFECTIVE. PT ASLEEP IN BED. RESPIRATIONS EASY. NO S/S OF DISTRESS NOTED. WILL MONITOR. CALL LIGHT IN REACH.
--- NOTE | 2019-10-20 03:25 | NUR ---
PT AWAKE IN BED WATCHING TV. MANUAL BP NOW 102/60. PT DENIES ANY NEEDS AT THIS TIME. WILL MONITOR. CALL LIGHT IN REACH.
[2019-10-20 05:45] LABS: BASO # 0.1 10*3/uL (0.0-0.1); EOS # 0.2 10*3/uL (0.0-0.4); EOS % 2.8 % (1.0-4.0); HEMATOCRIT 36.6 % (37.0-47.0); HEMOGLOBIN 11.9 g/dl (12.0-16.0); LYMPH # 1.5 10*3/uL (1.3-4.4); LYMPH % 25.2 % (27.0-41.0); MEAN CELL VOLUME 98.4 fl (81.0-99.0); MEAN CORPUSCULAR HGB CONC 32.5 g/dl (33.0-37.0); MEAN PLATELET VOLUME 10.1 fl (9.6-12.3); MONO # 0.5 10*3/uL (0.1-1.0); MONO % 8.6 % (3.0-9.0); NEUT # 3.8 10*3/uL (2.3-7.9); NEUT % 61.7 % (47.0-73.0); PLATELET COUNT AUTOMATED 193 10*3/uL (130-400); RED BLOOD COUNT 3.72 10*6/uL (4.10-5.10); RED CELL DISTRI WIDTH 15.7 % (0-14.5); WHITE BLOOD COUNT 6.1 10*3/uL (4.8-10.8)
[2019-10-20 06:02] LABS: ALBUMIN 2.9 gm/dl (3.1-4.5); ALKALINE PHOSPHATASE 78 U/L (45-117); BUN 20 mg/dl (7-24); CHLORIDE 111 mmol/L (98-107); CREATININE 1.12 mg/dL (0.55-1.02); POTASSIUM 3.9 mmol/L (3.5-5.1); SGOT/AST 24 IU/L (3-35); SGPT/ALT 44 U/L (12-78); SODIUM 139 mmol/L (136-145); TOTAL PROTEIN 6.1 gm/dL (6.4-8.2)
[2019-10-20 06:03] LABS: TROPONIN I < 0.015 ng/ml (<0.045)
--- NOTE | 2019-10-20 07:30 | NUR ---
ASSESSMENT COMPLETED AND DOCUMENTED. PT DENIES CHEST PAIN AT THIS TIME. HAS SOME DISCOMFORT WITH TEMPORAL HEADACHE RATES 06/26. PT LAYING IN BED RESTING, CALL LIGHT IN REACH HALIMA SPTHIERNOCC
--- NOTE | 2019-10-20 08:30 | NUR ---
PATIENT SITTING UP IN BED, EATING BREAKFAST. NO DISTRESS NOTED. RESPIRATIONS EASY, REGULAR ON RA. WILL CONTINUE TO MONITOR. NO VOICED COMPLAINTS. CALL LIGHT WITHIN REACH.
--- NOTE | 2019-10-20 09:00 | NUR ---
ELECTRONICS LEAD IN TO TALK WITH PT. DISCUSSED WITH PT IF SHE WOULD NEED TO GO TO A SKILLED FACILITY WHICH ONE SHE WOULD CHOOSE, SHE STATES RM TO BE CLOSE TO HOME. ALSO STATES SHE HAS HAD [facility] IN THE PAST AND WOULD USE THEM AGAIN IF NEEDED. ALSO STATES SHE DOES NOT THINK SHE NEEDS EITHER AND WANTS TO GO HOME ON DISCHARGE WITH NO NEW NEEDS.
--- NOTE | 2019-10-20 10:15 | NUR ---
PT SITTING IN BED. PERFORMED PERSONAL HYGIENE WITHOUT COMPLAINTS. NO S/S OF DISTRESS. BAG #1 D5W- 20MEQ KCL FLUIDS INITIATED AT RATE OF 125. PT TOLERATED WELL. HALIMA IBRAHIMCC
--- NOTE | 2019-10-20 10:50 | NUR ---
Occupuational therapy orders received and chart reviewed. OT screen completed. Per discussion with the patient, she is independent with ADLs and functional mobility and transfers. Patient stated she has good strength and has not had any loss of balance since admission. Patient stated she is going home after discharge. Occupational therapy orders to be discharged at this time. Thank you for the referral. Elly Kat, OTR/L
--- NOTE | 2019-10-20 12:10 | NUR ---
VITALS REASSESSED AND DOCUMENTED. PT DENIES ANY DISCOMFORT, PAIN, HEADACHES OR SOB. SHE VOICES NO COMPLAINTS AT THIS TIME. PT IS SITTING UP IN BED WAITING ON LUNCH TRAY CALL LIGHT IN REACH Didi MENDOZA
--- NOTE | 2019-10-20 13:20 | NUR ---
PHYSICAL THERAPY Kimberlee completed low level of [id number] home with HH vs Snf pending progress with ambulation. PT to work on transfers,amb,strengthening, safety and balance. Thank you Erika Schroeder PT
--- NOTE | 2019-10-20 13:30 | NUR ---
PT LAYING IN BED COMFORTABLE. PT DENIES ANY SOB OR CHEST PAIN. NO S/S OF DISTRESS. OSTOMY SUPPLIES PROVIDED TO PT. PT SELF CARE CHANGED OSTOMY WITH LITTLE ASSISSTANCE PT TOLERATED WELL. CALL LIGHT IN REACH REPORT GIVEN TO JENNA. Didi [facility]
--- NOTE | 2019-10-20 15:46 | NUR ---
NOTIFIED REGARDING LOW MANUAL BP READING. BP 70/50. PT ASYMPTOMATIC. IVF INCREASED TO 100CC/HR. WILL CONTINUE TO MONITOR. HR 60'S. CALL LIGHT WITHIN REACH.
--- NOTE | 2019-10-20 16:18 | NUR ---
IN TO SEE PATIENT.
--- NOTE | 2019-10-20 17:14 | NUR ---
IV BOLUS INFUSING PER ORDER. BP 80/52. WILL CONTINUE TO MONITOR. PT REMAINS ASYMPTOMATIC.
--- NOTE | 2019-10-20 18:59 | NUR ---
NOTIFIED REGARDING BP 72/40 MANUALLY. IV BOLUS COMPLETE. IN TO SEE PATIENT.
--- NOTE | 2019-10-20 19:15 | NUR ---
IV BOLUSING INFUSING AT THIS TIME. PT UP IN ROOM. FAMILY MEMBER AT BEDSIDE. PT REMAINS ASYMPTOMATIC. WILL MONITOR.
--- NOTE | 2019-10-20 19:15 | NUR ---
SECOND IV BOLUS INFUSING. PATIENT UP IN ROOM. FAMILY AT BEDSIDE. PT REMAINS AYSMPTOMATIC. WILL CONTINUE TO MONITOR.
--- NOTE | 2019-10-20 19:58 | NUR ---
NOTIFIED OF REPEAT BP 82/38 MANUALLY FOLLOWING 500 CC FLUID BOLUS. AWARE THAT PT HAS NS@80 CURRENTLY RUNNING WITH ABOUT 400 CCs LEFT IN BAG. INSTRUCTED TO BOLUS REMAINDER OF THE BAG NOW AND RECHECK AFTER.
--- NOTE | 2019-10-20 20:44 | NUR ---
NOTIFIED OF REPEAT BP 88/44 MANUALLY FOLLOWING REMAINDER IVF BAG (ROUGHTLY ABOUT 500 CCs OF NSS). INSTRUCTED TO ORDER NS@80 ML/HR AND CALL CARDIOLOGY FOR FURTHER DIRECTION.
--- NOTE | 2019-10-20 20:50 | NUR ---
'S ANSWERING SERVICE CALLED AT THIS TIME PER 'S REQUEST. MESSAGE & CALL BACK NUMBER LEFT WITH BOOKKEEPING CLERKS SUPERVISOR. RETURN PHONE CALL REQUESTED.
--- NOTE | 2019-10-20 21:00 | NUR ---
DR. MEZA RETURNED PHONE CALL REGARDING PAGE TO ANSWERING SERVICE. DISCUSSED PERTINENT PT INFORMATION & CURRENT BP 88/44 FOLLOWING BOLUSES (2,000 CCs TOTAL). INSTRUCTED TO TAKE ORTHOS AND CALL BACK ON CELL PHONE AT [phone].
--- NOTE | 2019-10-20 21:15 | NUR ---
CALLED BACK WITH ORTHO RESULTS. AWARE PT ON NS@80 ML/HR. INSTRUCTED TO INCREASE FLUIDS TO 125/HR. AWARE OF HX OF DIASTOLIC CHF AND PRO-BNP OF 136.00.
[2019-10-21] VITALS (7 sets, daily range): BP systolic 80–92; BP diastolic 38–54
--- NOTE | 2019-10-21 00:18 | NUR ---
PT REMAINS HYPOTENSIVE WITH BP AT 86/46 MANUALLY IN L UPPER ARM. PT DENIES ANY SYMPTOMS AND VOICES NO COMPLAINTS. WILL CONTINUE TO MONITOR. IVF INFUSING AT 125 ML/HR PER ORDER.
--- NOTE | 2019-10-21 02:40 | NUR ---
PT ASLEEP IN BED. RESPIRATIONS EASY. NO S/S OF DISTRESS NOTED. WILL MONITOR. CALL LIGHT IN REACH.
--- NOTE | 2019-10-21 08:06 | NUR ---
PHYSICAL THERAPY Patient presented to therapy in supine with head of bed slightly elevated and bed alarm off. Patient gives informed consent for treatment. Patient was identified by name and on wristband. Patient had report of no pain and walking to and from the restroom on her own thoughout the day. Patient performed supine to sitting at EOB transfer with SBA. Patient performed sat on EOB unassisted. Patient sit to stand from EOB with SBA. Patient ambulated 400+ x 1 with NO assistive device and patient pushing the IV POLE herself with Close Supervision with no LOB or SOB. Patient transferred on and off commode MOD [place] and managed IV pole inside of restroom herself with NO difficulty. Patient was left sitting on EOB with call light within reach. Patient tolerated treatment very well with NO SOB, LOB or other difficulty. Patient was 1:1 with this PROTOHISTORIAN for 16 minutes total. MIKEL VILLA PROTOHISTORIAN
--- NOTE | 2019-10-21 09:00 | NUR ---
PT IV CHECKED FOR STRESS TEST. LEAKING AT SITE TO LT WRIST. REMOVED, PRESSURE APPLIED. NEW IV STARTED TO RT ARM PER POLICY. PT TOLERATED WELL.
--- NOTE | 2019-10-21 09:10 | NUR ---
PT OFF FLOOR FOR STRESS TEST AT THIS TIME.
--- NOTE | 2019-10-21 10:00 | NUR ---
INFORMED CONSENT OBTAINED FOR LEXISCAN NUCLEAR STRESS TEST WITH DR. DUMONT. RESTING EKG NSR WITH HR OF 65 AND BP OF 88/44. SKIN WARM AND DRY AND DENIES ANY DISCOMFORT. LUNGS CLEAR WITH SPO2 OF 99% ON ROOM AIR. DR. DUMONT AWARE OF BP AND HAD PT PERFORM ISOMETRIC HAND EXERCISES AND ARM AND LEG LIFTS IN SEATED POSITION. PT COMPLETED A 1:00 LEXISCAN PROTOCOL RECEIVING LEXISCAN 0.4 MG IV OVER 10 SECONDS. HAD NO CHEST PAIN OR ANY EKG CHANGES. DID DEVELOP SHORTNESS OF BREATH THAT WAS RELIEVED IN RECOVERY. HAD A PEAK HR OF 78 WITH BP OF 102/48. LAST RECOVERY HR OF 73 WITH BP OF 94/50. AWAITING SCANNING IN STABLE CONDITION.
--- NOTE | 2019-10-21 11:30 | NUR ---
SPOKE WITH DR DUMONT REGARDING PT'S HYPOTENSION: 90/38 AND PARAMETERS FOR METOPROLOL IS TO HOL IF SBP<100. PT HAS BEEN ASYMPTOMATIC, STATES TO REDUCE PARAMETERS TO HOLD IF SBP<90 SHE HAS BEEN ASYMPTOMATIC.
--- NOTE | 2019-10-21 11:50 | NUR ---
PT CONTINUES TO STATE SHE WANTS TO GO HOME ON DISCHARGE AND WILL HAVE NO NEEDS. WILL CONTINUE TO FOLLOW.
--- NOTE | 2019-10-21 14:25 | NUR ---
PHYSICAL THERAPY Patient presented to therapy is supine with head of bed slightly elevated and bed alarm off. Patient was identified by name and on wristband. Patient gives informed consent for treatment. Patient performed supine to sittiNG at EOB with SBA. Patient sit to stand from EOB with SBA. Patient ambulated with Wh Walker and Close Supervision for 550' x 1 WITH NO LOB or SOB. Patient pushed the IV pole herself during the ambulation around entire 5 th floor. Patient transferred back to supine in bed with SBA. Patient was left in supine in bed with call light within reach and head of bed elevated. Patient was 1:1 with this PREANALYTICS TEAM LEAD for 15 minutes total. MIKEL VILLA PREANALYTICS TEAM LEAD
--- NOTE | 2019-10-21 15:40 | NUR ---
DR DAVID MADE AWARE OF NEED FOR [employer] SHARPSHOOTER RENEWAL.
--- NOTE | 2019-10-21 15:52 | NUR ---
MEDICATED WITH TYLENOL PER PRN ORDER FOR COMPLAINTS OF HEADACHE. WILL MONITOR FOR EFFECTIVENESS.
--- NOTE | 2019-10-21 17:33 | NUR ---
DR DAVID INFORMED THAT PT STATES SHE IS HAVING LIQUID/WATERY STOOLS FROM OSTOMY, AND IS REFUSING MILK OF MAG.
--- NOTE | 2019-10-21 17:58 | NUR ---
PT STATES EARLIER TYLENOL HELPED WITH HEADACHE.
[2019-10-22] VITALS (8 sets, daily range): BP systolic 82–108; BP diastolic 36–56
--- NOTE | 2019-10-22 03:18 | NUR ---
24 HR chart check completed.
--- NOTE | 2019-10-22 03:48 | NUR ---
Patient sleeping. Respirations relaxed and easy.Radha on. QUENTIN SHERMAN
[2019-10-22 06:49] LABS: BUN 11 mg/dl (7-24); CHLORIDE 119 mmol/L (98-107); POTASSIUM 3.8 mmol/L (3.5-5.1); SODIUM 146 mmol/L (136-145)
--- NOTE | 2019-10-22 07:30 | NUR ---
ASSESSMENT COMPLETED AND DOCUMENTED. HYGIENE COMPLETED FOR FOR SCOPE. PT SITTING IN BED WATCHING TV. NO COMPLAINTS AT THIS TIME. NO S/S OF DISTRESS HALIMA MENDOZA
--- NOTE | 2019-10-22 07:57 | NUR ---
SPOKE WITH DR LEON REGARDING LOVENOX AND ELIQUIS ACTIVE ORDERS. STATES TO D/C LOVENOX.
--- NOTE | 2019-10-22 09:10 | NUR ---
PT GIVEN BETA LUC PER PROTOCOL FOR PROCEDURE. BP X2 110/58. PT DENIES SOB, CHEST PAIN OR DISCOMFORT. PT LAYING IN BED WATCHING TV. NO S/S OF DISTRESS HALIMA IBRAHIMCC
--- NOTE | 2019-10-22 09:30 | NUR ---
PHYSICAL THERAPY Patient seen this am 1:1 for therapy visit and was supine in bed upon therapist arrival. Patient identified by name / and was very pleasant this morning. Therapist wished patient a Happy Birthday which is today as patient voices no c/o's pain. Patient SBA for all transfers and ambulates SBA, ad yonas in hallway > 250 feet, demonstrating no LOB and only mild fatigue. Patient also tolerated eyes open / closed and backward gait SBA without LOB while returning to supine in bed. Patient remained in bed with call light, tray table and telephone voicing no new c/o's. Will continue per POC as tolerated, total treatment time 16 minutes. Leandro Sanchez, SHIPPING WEIGHER
--- NOTE | 2019-10-22 09:30 | NUR ---
TALKED WITH PT AGAIN ABOUT HOME NEEDS, SHE STATES SHE WILL RETURN HOME WITH HELP FROM DAUGHTER AND GRAND SON AND DOES NOT WANT ANY HOME HEALTH AT THIS TIME. WILL CONTINUE TO FOLLOW.
--- NOTE | 2019-10-22 09:50 | NUR ---
PT OFF FLOOR TO SURGERY AT THIS TIME.
--- NOTE | 2019-10-22 09:50 | NUR ---
PT GIVEN BETA-LUC PER PROTOCOL FOR PROCEDURE. BP X2 110/58. PT DENIES CHEST PAIN, SOB OR DISCOMFORT. LAYING IN BED WATCHING TV NO COMPLAINTS. NO S/S OF DISTRESS HALIMA MENDOZA
--- NOTE | 2019-10-22 11:23 | NUR ---
PT. OFF FLOOR -IN SURGERY
--- NOTE | 2019-10-22 11:40 | NUR ---
PT RETURNED TO FLOOR FROM OR. PLEASANT, COOPERATIVE STATE. DENIES ANY PAIN OR DISCOMFORT. VITALS STABLE, EASY, NONLABORED RESPIRATIONS. NO S/S OF DISTRESS. PT LAYING IN BED ORDERING LUNCH TRAY. HALIMA MENDOZA
--- NOTE | 2019-10-22 13:25 | NUR ---
PT RESTING COMFORTABLE IN BED. PT HAS NO COMPLAINTS AT THIS TIME. NO SIGN OR SYMPTOMS OF DISTRESS. CALL LIGHT IN REACH AND BED IN LOW POSITION. REPORT GIVEN HANDED TO NICOLE. VARGHESE THIERNOCC
--- NOTE | 2019-10-22 20:30 | NUR ---
Patient resting quietly with no c/o discomfort. Respirations easy and regular. Vital signs stable. No overt distress. SHEILA CEVALLOS
[2019-10-23] VITALS: BP 82/54
--- NOTE | 2019-10-23 01:55 | NUR ---
24 HR chart check completed.
--- NOTE | 2019-10-23 05:17 | NUR ---
PATIENT SLEEPING, EYES CLSOED. NO DISTRESS. CALL LIGHT WITHIN REACH
[2019-10-23 07:05] LABS: BASO % 0.7 % (0.0-1.0); EOS # 0.2 10*3/uL (0.0-0.4); EOS % 3.4 % (1.0-4.0); HEMATOCRIT 31.7 % (37.0-47.0); HEMOGLOBIN 10.4 g/dl (12.0-16.0); LYMPH # 1.4 10*3/uL (1.3-4.4); LYMPH % 22.9 % (27.0-41.0); MEAN CELL VOLUME 99.1 fl (81.0-99.0); MEAN CORPUSCULAR HGB 32.5 pg (27.0-31.0); MEAN CORPUSCULAR HGB CONC 32.8 g/dl (33.0-37.0); MEAN PLATELET VOLUME 10.5 fl (9.6-12.3); MONO # 0.5 10*3/uL (0.1-1.0); MONO % 8.5 % (3.0-9.0); NEUT # 3.8 10*3/uL (2.3-7.9); PLATELET COUNT AUTOMATED 170 10*3/uL (130-400); RED CELL DISTRI WIDTH 15.5 % (0-14.5); WHITE BLOOD COUNT 5.9 10*3/uL (4.8-10.8)
[2019-10-23 07:37] LABS: BUN 7 mg/dl (7-24); CHLORIDE 114 mmol/L (98-107); POTASSIUM 3.8 mmol/L (3.5-5.1); SODIUM 143 mmol/L (136-145)
[2019-10-23 07:39] LABS: CREATININE 0.97 mg/dL (0.55-1.02)
[2019-10-23 08:00] VITALS: BP 90/56
--- NOTE | 2019-10-23 08:00 | NUR ---
HILLARY GENAO NP NOTIFIED OF PT BLOOD PRESSURE. PT IS ASYMPTOMATIC WITH 92/50. PT HAS NO COMPLAINTS AT THIS TIME. REPSIRAITONS EASY AND UNLABORED ON ROOM AIR. NO S/S OF DISTRESS. WILL CONTINUE TO MONITOR. CALL LIGHT IN REACH.
[2019-10-23 08:05] VITALS: BP 92/50
[2019-10-23] MEDS ORDERED: XARELTO20 M1 PO ×3 (09:53→10:12)
--- NOTE | 2019-10-23 10:00 | NUR ---
HILLARY GENAO NP NOTIFIES THIS NURSE AND STATES TO NOT GIVE PT ELIQUIS WITH 10 AM MEDICATIONS. PT TO DISCONTINUE TAKING ELIQUIS AND TO TAKE XARELTO 20 MG PO AT HS. PT TO BE NOTIFIED THAT SHE HAS A SCRIPT IN OUR OUTPATIENT PHARMACY THAT NEEDS TO BE PICKED UP ON FRIDAY. TWO TABLETS OF XARELTO TO BE PULLED FROM [facility] AND TO BE GIVEN TO PATIENT TO TAKE HOME UPON DISCHARGE AND TO BE TAKEN TONIGHT AT HS AND TOMORROW NIGHT AT HS. WILL NOTIFY PATIENT AND GIVE INSTRUCTIONS ON TAKING MEDICATIONS.
--- NOTE | 2019-10-23 12:14 | NUR ---
Discharge instructions reviewed with patient/family. Patient receptive and verbalizes understanding. Follow-up care arranged. Written instructions given to patient/family. LORENZO COWAN
--- NOTE | 2019-10-27 07:42 | NUR ---
PHYSICAL THERAPY CO-SIGN I approve of the Physical Therapy notes written above. Erika Schroeder PT
== END 2019-10-23 12:14 | disposition home or self-care (01) | DRG 640 ==
LOC: ED 16:46 → 5E 18:49 → EDHOLD 18:49 → 4E 18:49 → 5E 20:27 → 4E 10-19 17:27
PROVIDERS: Emergency Medicine; Hospitalist; Student in an Organized Health Care Education/Training Program; ADMIT Internal Medicine
PROC: 3E073KZ Introduction of Other Diagnostic Substance into Coronary Artery, Percutaneous Approach (ICD-10-PCS; 2019-10-21)
PROC: 4A02XM4 Measurement of Cardiac Total Activity, External Approach (ICD-10-PCS; 2019-10-21)
PROC: 0DJD8ZZ Inspection of Lower Intestinal Tract, Via Natural or Artificial Opening Endoscopic (ICD-10-PCS; principal; 2019-10-22)
PROC: 5A09357 Assistance with Respiratory Ventilation, Less than 24 Consecutive Hours, Continuous Positive Airway Pressure (ICD-10-PCS; 2019-10-23)
DX: E86.0 Dehydration (principal); N17.0 Acute kidney failure with tubular necrosis; K94.13 Enterostomy malfunction; I50.32 Chronic diastolic (congestive) heart failure; I13.0 Hypertensive heart and chronic kidney disease with heart failure and stage 1 through stage 4 chronic kidney disease, or unspecified chronic kidney disease; K55.9 Vascular disorder of intestine, unspecified; E44.0 Moderate protein-calorie malnutrition; E87.2 Acidosis; M94.0 Chondrocostal junction syndrome [Tietze]; E87.1 Hypo-osmolality and hyponatremia; D72.829 Elevated white blood cell count, unspecified; R73.9 Hyperglycemia, unspecified; R82.71 Bacteriuria; F41.9 Anxiety disorder, unspecified; E78.5 Hyperlipidemia, unspecified; M54.5 Low back pain; F32.5 Major depressive disorder, single episode, in full remission; G89.29 Other chronic pain; N18.3 Chronic kidney disease, stage 3 (moderate); E55.9 Vitamin D deficiency, unspecified; G47.33 Obstructive sleep apnea (adult) (pediatric); I48.0 Paroxysmal atrial fibrillation; I25.10 Atherosclerotic heart disease of native coronary artery without angina pectoris; J44.9 Chronic obstructive pulmonary disease, unspecified; E53.8 Deficiency of other specified B group vitamins; F17.210 Nicotine dependence, cigarettes, uncomplicated; Z71.6 Tobacco abuse counseling; Z83.1 Family history of other infectious and parasitic diseases; Z79.01 Long term (current) use of anticoagulants; Z68.28 Body mass index [BMI] 28.0-28.9, adult

== ENCOUNTER → 2019-11-22 | Day surgery (SDC) | payer MEDICARE, BC ==
[~2019-11-22] VITALS: Ht 170.1 cm; Wt 79.4 kg
[~2019-11-22] MED LIST changes: +XARELTO20 M1 PO
[2019-11-22 11:38] VITALS: BP 118/72
[2019-11-22 12:45] VITALS: BP 101/38
[2019-11-22 13:00] VITALS: BP 100/47
[2019-11-22 13:13] VITALS: BP 103/64
== END | disposition home or self-care (01) ==
LOC: SDC 11-18 13:15
DX: Z09 Encounter for follow-up examination after completed treatment for conditions other than malignant neoplasm (principal); K55.1 Chronic vascular disorders of intestine; I25.10 Atherosclerotic heart disease of native coronary artery without angina pectoris; J44.9 Chronic obstructive pulmonary disease, unspecified; F32.9 Major depressive disorder, single episode, unspecified; I25.2 Old myocardial infarction; Z79.899 Other long term (current) drug therapy; Z87.19 Personal history of other diseases of the digestive system

== ENCOUNTER 2019-11-29 14:56 | Inpatient (IN) | payer MEDICARE, BC ==
[~2019-11-29] VITALS: Ht 175.2 cm; Wt 83.7 kg
[2019-11-29] VITALS (10 sets, daily range): BP systolic 69–85; BP diastolic 38–51
[2019-11-29 15:41] LABS: BASO # 0.1 10*3/uL (0.0-0.1); BASO % 0.7 % (0.0-1.0); EOS # 0.3 10*3/uL (0.0-0.4); EOS % 3.2 % (1.0-4.0); HEMATOCRIT 37.7 % (37.0-47.0); HEMOGLOBIN 12.1 g/dl (12.0-16.0); LYMPH # 2.2 10*3/uL (1.3-4.4); MEAN CELL VOLUME 103.6 fl (81.0-99.0); MEAN CORPUSCULAR HGB 33.2 pg (27.0-31.0); MEAN CORPUSCULAR HGB CONC 32.1 g/dl (33.0-37.0); MEAN PLATELET VOLUME 10.6 fl (9.6-12.3); MONO # 0.6 10*3/uL (0.1-1.0); MONO % 6.7 % (3.0-9.0); NEUT % 65.1 % (47.0-73.0); PLATELET COUNT AUTOMATED 192 10*3/uL (130-400); RED BLOOD COUNT 3.64 10*6/uL (4.10-5.10); WHITE BLOOD COUNT 9.2 10*3/uL (4.8-10.8)
[2019-11-29 16:19] LABS: ALBUMIN 3.4 gm/dl (3.1-4.5); ALKALINE PHOSPHATASE 78 U/L (45-117); BUN 34 mg/dl (7-24); CHLORIDE 112 mmol/L (98-107); CREATININE 1.95 mg/dL (0.55-1.02); POTASSIUM 5.2 mmol/L (3.5-5.1); SGOT/AST 28 IU/L (3-35); SGPT/ALT 62 U/L (12-78); SODIUM 140 mmol/L (136-145); TOTAL PROTEIN 6.8 gm/dL (6.4-8.2)
[2019-11-29 16:20] LABS: TROPONIN I < 0.015 ng/ml (<0.045)
[2019-11-29 17:45] LABS: BILIRUBIN NEGATIVE (NEGATIVE); BLOOD NEGATIVE (NEGATIVE); CLARITY CLEAR (CLEAR); COLOR YELLOW (YELLOW); GLUCOSE NEGATIVE (NEGATIVE); KETONE NEGATIVE (NEGATIVE); LEUKO ESTERASE 1+ (NEGATIVE); NITRITE NEGATIVE (NEGATIVE); SPECIFIC GRAVITY 1.015 (1.005-1.030); UROBILINOGEN 0.2 E.U./dl (0.2-1.0)
[2019-11-29 17:54] LABS: BACTERIA TRACE
[2019-11-29] MEDS ORDERED: PLAVIX75 M1 PO (20:16)
[2019-11-30] VITALS (91 sets, daily range): BP systolic 68–126; BP diastolic 32–554
[2019-11-30 04:55] LABS: BASO % 0.1 % (0.0-1.0); EOS % 0.1 % (1.0-4.0); HEMATOCRIT 37.5 % (37.0-47.0); HEMOGLOBIN 11.9 g/dl (12.0-16.0); LYMPH # 0.8 10*3/uL (1.3-4.4); LYMPH % 10.3 % (27.0-41.0); MEAN CELL VOLUME 101.9 fl (81.0-99.0); MEAN CORPUSCULAR HGB 32.3 pg (27.0-31.0); MEAN CORPUSCULAR HGB CONC 31.7 g/dl (33.0-37.0); MEAN PLATELET VOLUME 10.7 fl (9.6-12.3); MONO # 0.1 10*3/uL (0.1-1.0); MONO % 0.9 % (3.0-9.0); PLATELET COUNT AUTOMATED 197 10*3/uL (130-400); RED BLOOD COUNT 3.68 10*6/uL (4.10-5.10); RED CELL DISTRI WIDTH 12.6 % (0-14.5)
[2019-11-30 05:07] LABS: CREATININE 1.4 mg/dL (0.55-1.02); PHOSPHOROUS 2.1 mg/dL (2.5-4.9); POTASSIUM 5.3 mmol/L (3.5-5.1)
[2019-11-30 17:12] LABS: CREATININE 1.21 mg/dL (0.55-1.02)
[2019-11-30 17:24] LABS: POTASSIUM 4.3 mmol/L (3.5-5.1)
[2019-12-01] VITALS (49 sets, daily range): BP systolic 85–127; BP diastolic 44–85
[2019-12-01 06:20] LABS: BASO % 0.3 % (0.0-1.0); EOS # 0.1 10*3/uL (0.0-0.4); HEMATOCRIT 32.5 % (37.0-47.0); HEMOGLOBIN 10.4 g/dl (12.0-16.0); LYMPH # 2.2 10*3/uL (1.3-4.4); LYMPH % 25.2 % (27.0-41.0); MEAN CELL VOLUME 102.5 fl (81.0-99.0); MEAN CORPUSCULAR HGB 32.8 pg (27.0-31.0); MONO # 0.6 10*3/uL (0.1-1.0); MONO % 6.2 % (3.0-9.0); PLATELET COUNT AUTOMATED 174 10*3/uL (130-400); RED BLOOD COUNT 3.17 10*6/uL (4.10-5.10); RED CELL DISTRI WIDTH 13.1 % (0-14.5); WHITE BLOOD COUNT 8.9 10*3/uL (4.8-10.8)
[2019-12-01 06:26] LABS: ALBUMIN 2.8 gm/dl (3.1-4.5); BUN 16 mg/dl (7-24); CHLORIDE 121 mmol/L (98-107); CREATININE 1.07 mg/dL (0.55-1.02); PHOSPHOROUS 3.1 mg/dL (2.5-4.9); SGOT/AST 11 IU/L (3-35); SGPT/ALT 38 U/L (12-78); SODIUM 147 mmol/L (136-145)
[2019-12-01 06:28] LABS: ALKALINE PHOSPHATASE 64 U/L (45-117); TOTAL PROTEIN 5.6 gm/dL (6.4-8.2)
[2019-12-02] VITALS: BP 116/54
[2019-12-02 06:31] LABS: BASO % 0.5 % (0.0-1.0); EOS # 0.2 10*3/uL (0.0-0.4); EOS % 3.6 % (1.0-4.0); HEMATOCRIT 33.1 % (37.0-47.0); HEMOGLOBIN 10.3 g/dl (12.0-16.0); LYMPH # 1.6 10*3/uL (1.3-4.4); LYMPH % 28.1 % (27.0-41.0); MEAN CELL VOLUME 103.1 fl (81.0-99.0); MEAN CORPUSCULAR HGB 32.1 pg (27.0-31.0); MEAN CORPUSCULAR HGB CONC 31.1 g/dl (33.0-37.0); MEAN PLATELET VOLUME 10.6 fl (9.6-12.3); MONO # 0.5 10*3/uL (0.1-1.0); MONO % 7.7 % (3.0-9.0); NEUT # 3.5 10*3/uL (2.3-7.9); NEUT % 59.9 % (47.0-73.0); PLATELET COUNT AUTOMATED 142 10*3/uL (130-400); RED BLOOD COUNT 3.21 10*6/uL (4.10-5.10); RED CELL DISTRI WIDTH 13.2 % (0-14.5); WHITE BLOOD COUNT 5.8 10*3/uL (4.8-10.8)
[2019-12-02 06:48] LABS: BUN 14 mg/dl (7-24); CHLORIDE 122 mmol/L (98-107); CREATININE 0.94 mg/dL (0.55-1.02); PHOSPHOROUS 3.1 mg/dL (2.5-4.9); POTASSIUM 3.9 mmol/L (3.5-5.1); SODIUM 147 mmol/L (136-145)
[2019-12-02 08:00] VITALS: BP 127/57
[2019-12-02 12:00] VITALS: BP 122/52
[2019-12-02 13:05] LABS: CORTISOL #3 15.7 ug/dL (Not Estab.); CORTISOL BASELINE 7.8 ug/dL (.)
[2019-12-02 16:00] VITALS: BP 116/73
[2019-12-02 20:00] VITALS: BP 124/63
[2019-12-03] VITALS: BP 134/63
[2019-12-03 07:23] LABS: POTASSIUM 4.1 mmol/L (3.5-5.1)
[2019-12-03 07:26] LABS: CREATININE 1.1 mg/dL (0.55-1.02)
[2019-12-03 09:00] VITALS: BP 126/53
[2019-12-03] MEDS ORDERED: CORTEF5 M1 PO (10:07)
== END 2019-12-03 13:34 | disposition home or self-care (01) | DRG 314 ==
LOC: ED 14:56 → ICCU 18:18 → EDHOLD 18:18 → 4E 18:58 → ICCU 11-30 01:54 → 5E 12-01 14:02
PROVIDERS: Emergency Medicine; Internal Medicine; Internal Medicine Critical Care Medicine; Student in an Organized Health Care Education/Training Program; ADMIT Internal Medicine
DX: I95.89 Other hypotension (principal); N17.0 Acute kidney failure with tubular necrosis; R57.1 Hypovolemic shock; K90.89 Other intestinal malabsorption; I50.32 Chronic diastolic (congestive) heart failure; I13.0 Hypertensive heart and chronic kidney disease with heart failure and stage 1 through stage 4 chronic kidney disease, or unspecified chronic kidney disease; E27.40 Unspecified adrenocortical insufficiency; J44.1 Chronic obstructive pulmonary disease with (acute) exacerbation; E87.2 Acidosis; N18.3 Chronic kidney disease, stage 3 (moderate); D75.89 Other specified diseases of blood and blood-forming organs; E87.5 Hyperkalemia; I25.10 Atherosclerotic heart disease of native coronary artery without angina pectoris; F32.9 Major depressive disorder, single episode, unspecified; G89.29 Other chronic pain; E55.9 Vitamin D deficiency, unspecified; M54.9 Dorsalgia, unspecified; G47.33 Obstructive sleep apnea (adult) (pediatric); E53.8 Deficiency of other specified B group vitamins; E66.3 Overweight; Z68.27 Body mass index [BMI] 27.0-27.9, adult; Z90.49 Acquired absence of other specified parts of digestive tract; Z90.710 Acquired absence of both cervix and uterus; F17.210 Nicotine dependence, cigarettes, uncomplicated; Z71.6 Tobacco abuse counseling; Z95.5 Presence of coronary angioplasty implant and graft; Z79.899 Other long term (current) drug therapy; Z93.3 Colostomy status; F41.1 Generalized anxiety disorder; Z82.49 Family history of ischemic heart disease and other diseases of the circulatory system

== ENCOUNTER 2019-12-18 16:07 | Inpatient (IN) | payer MEDICARE, BC ==
[2019-12-18] VITALS (13 sets, daily range): BP systolic 58–108; BP diastolic 28–60
[~2019-12-18] VITALS: Ht 175.2 cm; Wt 101.2 kg
[~2019-12-18 16:07] MED LIST changes: +CORTEF5 M1 PO
[2019-12-18 16:26] LABS: BASO # 0.1 10*3/uL (0.0-0.1); BASO % 0.5 % (0.0-1.0); EOS # 0.3 10*3/uL (0.0-0.4); EOS % 2.5 % (1.0-4.0); HEMOGLOBIN 12.8 g/dl (12.0-16.0); LYMPH # 2.8 10*3/uL (1.3-4.4); LYMPH % 25.3 % (27.0-41.0); MEAN CELL VOLUME 102.8 fl (81.0-99.0); MEAN CORPUSCULAR HGB 32.9 pg (27.0-31.0); MEAN PLATELET VOLUME 10.8 fl (9.6-12.3); MONO % 8.7 % (3.0-9.0); NEUT # 6.9 10*3/uL (2.3-7.9); NEUT % 62.5 % (47.0-73.0); PLATELET COUNT AUTOMATED 232 10*3/uL (130-400); RED BLOOD COUNT 3.89 10*6/uL (4.10-5.10)
[2019-12-18 16:40] LABS: ACT PARTIAL THROMBO TIME 31.7 SECONDS (20.0-32.1); INTERNATIONAL NORM RATIO 1.2 (2.0-3.5)
[2019-12-18 16:43] LABS: ALBUMIN 3.5 gm/dl (3.1-4.5); BUN 54 mg/dl (7-24); CHLORIDE 107 mmol/L (98-107); CREATININE 4.65 mg/dL (0.55-1.02); POTASSIUM 5.1 mmol/L (3.5-5.1); SGOT/AST 23 IU/L (3-35); SGPT/ALT 38 U/L (12-78); SODIUM 136 mmol/L (136-145); TOTAL PROTEIN 7.1 gm/dL (6.4-8.2)
[2019-12-18 16:55] LABS: ALKALINE PHOSPHATASE 90 U/L (45-117); TROPONIN I < 0.015 ng/ml (<0.045)
--- NOTE | 2019-12-18 17:24 | NUR ---
PATIENT PROVIDED WITH A WARM BLANKET.
--- NOTE | 2019-12-18 18:00 | NUR ---
A 69, admitted to ICCU, under the services of AMITA Cordova DO with a diagnosis of COPD, RENAL FAILURE. Chief complaint is SHORT OF BREATH & A LITTLE TROUBLE WALKING TODAY. Patient arrived via stretcher from ER. Monitor applied. Initial assessment completed. Vital signs taken and recorded. AMITA CORDOVA DO notified of admission to the unit. Orders received. See assessment for past medical history, medications and allergies. Patient and/or family oriented to unit. [facility] visitation policy reviewed. ZHAO GONZALEZ
--- NOTE | 2019-12-18 18:16 | NUR ---
MED REC UPDATED PER PATIENT MED LIST & REVIEWED WITH THE PATIENT WHO KNEW HER MEDS
--- NOTE | 2019-12-18 18:52 | NUR ---
MEDS RECONCILED WITH PRINTED LIST FROM HOME.
--- NOTE | 2019-12-18 18:59 | NUR ---
DR BENÍTEZ NOTIFIED OF CONSULTATION. REVIEWED LABS/ORDERS WITH HIM. ORDERS RECEIVED.
--- NOTE | 2019-12-18 19:05 | NUR ---
[facility] ANSWERING SERVICE NOTIFIED OF CONSULT WITH A REQUEST FOR A CALL BACK TONIGHT DR BENÍTEZ WANTS THEM TO ORDER IV FLUIDS.
--- NOTE | 2019-12-18 19:16 | NUR ---
DR AVILA CALLED BACK. REVIEWED LABS/ORDERS WITH HIM. ORDERS RECEIVED.
--- NOTE | 2019-12-18 19:30 | NUR ---
ASSUMED PATIENT CARE FROM WALTER TRUJILLO. PATIENT IS HYPOTENSIVE AT THIS TIME. PATIENT IS ASYMPTOMATIC BUT DOES FEEL WEAK AND TIRED. REPORTS NOT SLEEPING WELL THE PAST FEW NIGHTS AND HAS SHORTNESS OF BREATHE ON EXERTION. PATIENT IS CURRENTLY FINISHING UP A FLUID BOLUS UPON ASSESSMENT. PATIENT HAS AN ILEOSTOMY WITH COPIOUS LIQUID STOOL PRODUCTION OBSERVED. PATIENT IS AFIB ON THE BRANCHER IN THE 80'S, CALL LIGHT WITHIN REACH. SEE ASSESSMENT.
--- NOTE | 2019-12-18 19:50 | NUR ---
DR. BROWN CALLED AND PATIENT CONDITION REVIEWED. PATIENT WAS RECENTLY HERE AND ON QUESTRAN. ORDERS RECEIVED TO PUT PATIENT ON QUESTRAN BID.
--- NOTE | 2019-12-18 20:50 | NUR ---
SPOKE WITH DR. UMAÑA REGARDING PATIENTS CONDITION AND PERSISTENT HYPOTENSION. RECENT VITALS REVIEWED. ORDERS RECEIVED TO GIVE SOLU-CORTEF NOW AND TO RUN 1ST SODIUM BICARB A BOLUS, THEN NEXT BAG AT 250/HR, AND THEN SWITCH TO LACTATED RINGERS PER ORDERS FROM DR. AVILA.
--- NOTE | 2019-12-18 22:20 | NUR ---
DR. UMAÑA NOTIFIED THAT PATIENTS PRESSURES HAVE SINCE DECREASED WHILE RECEIVING IV BOLUS OF SODIUM BICARBONATE. ORDERS RECEIVED TO START PATIENT ON LEVOPHED
--- NOTE | 2019-12-18 22:30 | NUR ---
LEVOPHED STARTED AT THIS TIME AT 4MCG.
--- NOTE | 2019-12-18 23:38 | NUR ---
WILFRED MULTILUMEN PLACED BY DR. UMAÑA AND CONFIRMED PLACEMENT WITH CXR.
[2019-12-19] VITALS (63 sets, daily range): BP systolic 92–136; BP diastolic 30–491
[2019-12-19 06:24] LABS: HEMATOCRIT 35.2 % (37.0-47.0); HEMOGLOBIN 11.5 g/dl (12.0-16.0); LYMPH # 0.8 10*3/uL (1.3-4.4); LYMPH % 11.8 % (27.0-41.0); MEAN CELL VOLUME 100.9 fl (81.0-99.0); MEAN CORPUSCULAR HGB CONC 32.7 g/dl (33.0-37.0); MEAN PLATELET VOLUME 10.8 fl (9.6-12.3); MONO # 0.1 10*3/uL (0.1-1.0); MONO % 1.6 % (3.0-9.0); NEUT # 5.8 10*3/uL (2.3-7.9); NEUT % 86.2 % (47.0-73.0); PLATELET COUNT AUTOMATED 210 10*3/uL (130-400); RED BLOOD COUNT 3.49 10*6/uL (4.10-5.10); RED CELL DISTRI WIDTH 12.7 % (0-14.5); WHITE BLOOD COUNT 6.7 10*3/uL (4.8-10.8)
[2019-12-19 06:46] LABS: ALBUMIN 2.8 gm/dl (3.1-4.5); CREATININE 2.58 mg/dL (0.55-1.02); FREE T4 0.79 ng/dl (0.76-1.46); THYROID STIM HORMONE (HS) 0.328 uIU/ml (0.358-4.75); TOTAL PROTEIN 6.2 gm/dL (6.4-8.2)
[2019-12-19 06:47] LABS: POTASSIUM 4.1 mmol/L (3.5-5.1)
[2019-12-19 07:07] LABS: ACT PARTIAL THROMBO TIME 26.4 SECONDS (20.0-32.1); INTERNATIONAL NORM RATIO 1.1 (2.0-3.5)
--- NOTE | 2019-12-19 07:13 | NUR ---
Shift chart check completed.24 HR chart check completed.
[2019-12-19 07:32] LABS: VITAMIN D, 25-HYDROXY 23.6 ng/mL (30-100)
--- NOTE | 2019-12-19 07:46 | NUR ---
ON ASSESSMENT PATIENT IS ALERT AND ORIENTED. NO VOICED COMPLAINTS OF PAIN OR SHORTNESS OF BREATH. LR CONTINUES AT 150/HR. LEVOPHED AT 4MCG/MIN. ILEOSTOMY INTACT. PT HUNGRY AND ORDERED BREAKFAST. MLC INTACT RIJ. NO PERIPHERAL EDEMA. PPP. SEE ALL APPROPRIATE INTEREVENTIONS.
--- NOTE | 2019-12-19 08:54 | NUR ---
DR AVILA PAGED TO RELAY THIS AM'S LABS AND GET FURTHER IV FLUID ORDERS.
--- NOTE | 2019-12-19 09:02 | NUR ---
DR AVILA CALLED IN AND REVIEWED THIS AM'S LABS, CURRENT ORDERS. NEW ORDERS RECEIVED.
--- NOTE | 2019-12-19 10:16 | NUR ---
PT UP TO BSC TO VOID AND TO EMPTY ILEOSTOMY. NO DIZZINESS ON STANDING. THE OSTOMY OUTPUT IS DEFINITELY THICKER THAN LAST NIGHT ON ADMISSION. CVP MEASUREMENT WITH HEAD OF BED AT LEVEL OF TRANSDUCER IS 1. ASSISTED PT TO POSITION OF COMFORT. SHE'S DECLINED A BATH AT THIS TIME.
--- NOTE | 2019-12-19 11:49 | NUR ---
LEVOPHED HAS BEEN TITRATED DOWN FROM 4MCG/MIN TO 1 MCG/MIN. SEE GRAPHIC FOR BP'S. O2 IS OFF WITH PULSE OX >94% AT ALL TIMES.
--- NOTE | 2019-12-19 13:18 | NUR ---
LEVOPHED DRIP OFF AT PRESENT. DR BENÍTEZ HAS VISITED.
--- NOTE | 2019-12-19 14:24 | NUR ---
ILEOSTOMY EMPTIED AGAIN FOR 400ML, MUCH THICKER THAN ON ADMISSION.
--- NOTE | 2019-12-19 20:16 | NUR ---
PT. RESTING IN BED. INDEPENDENT. RIJ MLC INTACT, HEP LOCKS IN LA AND RA ALSO ASYMPT. LUNGS DIMINISHED BILAT, PLSE OX 95% ON RA. ABDOMEN SOFT, NONDISTENDED AND NORMO. TRACE BLE EDEMA NOTED. LR CONTINUES ORDERED VIA MLC MEDIAL PORT, CVP TO DISTAL PORT. RESP. EASY AND REG, NO DISTRESS. TERENCE KWOK RN
--- NOTE | 2019-12-19 23:30 | NUR ---
TYLENOL GIVEN ORDERED FOR HEADACHE AND PAIN AT MLC SITE.
[2019-12-20] VITALS: BP 136/66
--- NOTE | 2019-12-20 00:13 | NUR ---
PT. STATES TYLENOL MINIMALLY EFFECTIVE.
[2019-12-20 04:00] VITALS: BP 106/52
[2019-12-20 05:17] LABS: CREATININE 1.14 mg/dL (0.55-1.02)
[2019-12-20 06:11] LABS: BASO % 0.1 % (0.0-1.0); EOS % 0.1 % (1.0-4.0); HEMATOCRIT 29.5 % (37.0-47.0); HEMOGLOBIN 9.3 g/dl (12.0-16.0); LYMPH # 1.4 10*3/uL (1.3-4.4); LYMPH % 15.9 % (27.0-41.0); MEAN CELL VOLUME 103.9 fl (81.0-99.0); MEAN CORPUSCULAR HGB 32.7 pg (27.0-31.0); MEAN CORPUSCULAR HGB CONC 31.5 g/dl (33.0-37.0); MEAN PLATELET VOLUME 11.2 fl (9.6-12.3); MONO # 0.7 10*3/uL (0.1-1.0); MONO % 7.6 % (3.0-9.0); NEUT # 6.8 10*3/uL (2.3-7.9); NEUT % 75.6 % (47.0-73.0); PLATELET COUNT AUTOMATED 147 10*3/uL (130-400); RED BLOOD COUNT 2.84 10*6/uL (4.10-5.10); RED CELL DISTRI WIDTH 13.2 % (0-14.5)
--- NOTE | 2019-12-20 06:42 | NUR ---
TYLENOL GIVEN FOR COMPLAINTS OF MLC NECK DISCOMFORT. TERENCE KWOK RN
[2019-12-20 08:00] VITALS: BP 117/68
[2019-12-20 12:00] VITALS: BP 120/60
--- NOTE | 2019-12-20 12:00 | NUR ---
Cancer Researcher in to talk to patient. Patient states lives at HOME with ALONE. There are ONE OUTSIDE steps in the home. Physician: GUANAKITO Pharmacy: [facility] Home health services: NONE Patient's level of ADLs: INDEPENDENT Patient has working utilities: YES DME: STATES SHE HAS A WALKER AND CANE IF SHE NEEDS IT Follow-up physician's appointment after d/c: WILL BE MADE BY HOSPITLIST NURSE DIRECTOR ON DISCHARGE Does patient want to access PORTAL?: NO Discharge plan PT LIVES AT HOME ALONE WITH DAUGHTER LIVING IN APARTMENT ABOVE HER AND CHECKS ON HER. PT DENIES SHE WILL HAVE NEEDS ON DISCHARGE. STATES SHE WILL RETURN HOME WHEN MEDICALLY STABLE. WILL CONTINUE TO FOLLOW. PT STATES SHE WILL HAVE A RIDE HOME.. MARCOS PAIGE
--- NOTE | 2019-12-20 13:40 | NUR ---
OSTOMY BAG "EXPLODED" ON PT, UP TO BSC, BATH GIVEN
[2019-12-20 16:00] VITALS: BP 135/63
[2019-12-20 20:00] VITALS: BP 110/55
--- NOTE | 2019-12-20 20:11 | NUR ---
PT. RESTING IN BED. IVF CONTINUE ORDERED VIA DISTAL PORT OF RIGHT IJ MLC. LUNGS DIMINISHED BILAT, PULSE OX 96% ON RA. ABDOMEN SOFT, NONDISTENDED AND NORMO. NO PERIPHERAL EDEMA NOTED. RESP. EASY AND REG ,NO DISTRESS. TERENCE KWOK RN
--- NOTE | 2019-12-20 21:16 | NUR ---
PT. OFFERED BED BATH AND BED LINEN CHANGE. PT. STATED SHE WAS WASHED UP THIS MORNING WHEN HER ILEOSTOMY BAG CAME OFF. HER BED WAS ALSO CHANGED AT THIS TIME. STATED SHE WOULD PREFER TO GET WASHED UP AGAIN TOMORROW. TERENCE KWOK RN
[2019-12-21] VITALS: BP 100/61
[2019-12-21 04:00] VITALS: BP 112/58
--- NOTE | 2019-12-21 05:06 | NUR ---
PT'S ILEOSTOMY LEAKING. PT. GIVEN BATH AND BED LINENS CHANGED. STOMA CLEANSED AND NEW BAG AND WAFER APPLIED. PT. TOLERATED WELL. TERENCE KWOK RN
--- NOTE | 2019-12-21 07:13 | NUR ---
Shift chart check completed.24 HR chart check completed.
--- NOTE | 2019-12-21 07:55 | NUR ---
ON ASSESSMENT PATIENT SITTING ON BSC. "MY BAG SPRUNG A LEAK AGAIN". NEW WAFER APPLIED WITH TAPE FOR WINDOWPANES. STOMAHESIVE APPLIED.
[2019-12-21 08:00] VITALS: BP 140/80
--- NOTE | 2019-12-21 11:01 | NUR ---
TYLENOL 650 BY MOUTH FOR HEADACHE.
[2019-12-21 12:00] VITALS: BP 132/75
--- NOTE | 2019-12-21 12:03 | NUR ---
PT CONTINUES TO DENY NEEDS AT HOME. WILL DISCHARGE HOME WHEN MEDICALLY STABLE. WILL CONTINUE TO FOLLOW.
--- NOTE | 2019-12-21 13:11 | NUR ---
EARLIER TYLENOL EFFECTIVE FOR HEADACHE.
--- NOTE | 2019-12-21 14:21 | NUR ---
PT UP AND ABOUT IN ROOM WITHOUT DIZZINESS. DR BENÍTEZ VISITED EARLIER THIS MORNING. DR AVILA IN. IV FLUIDS HAVE BEEN D/C.
--- NOTE | 2019-12-21 14:38 | NUR ---
DR ESPARZA NOTIFIED OF CONSULTATION ORDER. REVIEWED HER LABS AND CURRENT ILEOSTOMY OUTPUT AND WHAT MEDS ARE ORDERED AND BEING GIVEN. NO NEW ORDERS. HE'LL TRY TO SEE PATIENT TODAY, IF NOT, IN THE MORNING.
--- NOTE | 2019-12-21 15:08 | NUR ---
CATTLE BROKER, TILA, NOTIFIED PT HAS BEEN DOWN-GRADED TO TELEMETRY STATUS.
--- NOTE | 2019-12-21 15:50 | NUR ---
ILEOSTOMY EMPTIED FOR THE LEAST AMOUNT YET TODAY AND IT'S DEFINITELY THICKER THAN EARLIER. PT UPDATED THAT SHE'S BEEN "STEPPED DOWN" BUT NOT MOVING AT THIS TIME.
[2019-12-21 16:00] VITALS: BP 104/49
--- NOTE | 2019-12-21 18:48 | NUR ---
TRANSFERRED IN STABLE CONDITION, WITH ALL OF HER BELONGINGS, TO [facility]. TRANSFERRED VIA RECLINER CHAIR. PT ORIENTED TO ROOM, CALL LIGHT, BATHROOM. INSTRUCTED TO MEASURE HER URINE AND ILEOSTOMY OUTPUT.
[2019-12-21 20:00] VITALS: BP 133/66
--- NOTE | 2019-12-21 20:20 | NUR ---
PATIENT IS AAOX3 RESTING IN BED WITH EASY AND REGULAR RESPERS. FAMILY IS PRESENT AT BEDSIDE. ASSESSMENT IS COMPLETE WITH NO C/O OR S/S OF DISTRESS NOTED AT THIS TIME. BED IS LOW, LOCKED, AND CALL LIGHT IS WITHIN REACH. WILL CONTINUE TO MONITOR, SEE SHIFT ASSESSMENT.
[2019-12-22] VITALS: BP 110/57; BP 138/69
--- NOTE | 2019-12-22 05:00 | NUR ---
PATIENT PULLED OUT IV IN RIGHT AC.
[2019-12-22 08:00] VITALS: BP 98/60
[2019-12-22 08:08] LABS: BASO % 0.6 % (0.0-1.0); EOS # 0.2 10*3/uL (0.0-0.4); EOS % 2.4 % (1.0-4.0); HEMATOCRIT 31.5 % (37.0-47.0); LYMPH # 1.8 10*3/uL (1.3-4.4); LYMPH % 26.2 % (27.0-41.0); MEAN CELL VOLUME 104.3 fl (81.0-99.0); MEAN CORPUSCULAR HGB 33.1 pg (27.0-31.0); MEAN CORPUSCULAR HGB CONC 31.7 g/dl (33.0-37.0); MEAN PLATELET VOLUME 10.9 fl (9.6-12.3); MONO # 0.6 10*3/uL (0.1-1.0); MONO % 8.6 % (3.0-9.0); NEUT # 4.2 10*3/uL (2.3-7.9); NEUT % 61.8 % (47.0-73.0); PLATELET COUNT AUTOMATED 135 10*3/uL (130-400); RED BLOOD COUNT 3.02 10*6/uL (4.10-5.10); RED CELL DISTRI WIDTH 13.2 % (0-14.5); WHITE BLOOD COUNT 6.8 10*3/uL (4.8-10.8)
[2019-12-22 08:33] LABS: ALBUMIN 2.6 gm/dl (3.1-4.5); BUN 16 mg/dl (7-24); CHLORIDE 117 mmol/L (98-107); CREATININE 0.94 mg/dL (0.55-1.02); PHOSPHOROUS 3.6 mg/dL (2.5-4.9); POTASSIUM 4.1 mmol/L (3.5-5.1); SODIUM 145 mmol/L (136-145)
[2019-12-22 12:00] VITALS: BP 110/68
--- NOTE | 2019-12-22 13:22 | NUR ---
CONTINUES TO DENY NEEDS ON DISCHARGE. STATES SHE WILL RETURN HOME WITH DAUGHTER. WILL CONTINUE TO FOLLOW.
[2019-12-22 16:00] VITALS: BP 121/75
[2019-12-22 20:00] VITALS: BP 110/57
--- NOTE | 2019-12-22 23:48 | NUR ---
PATIENT IS RESTING IN BED WITH EASY AND REGULAR RESPERS ON ROOM AIR. ASSESSMENT IS COMPLETE WITH NO C/O OR S/S OF DISTRESS NOTED AT THIS TIME. BED IS LOW, LOCKED, AND CALL LIGHT IS WIHTIN REACH. WILL CONTINUE TO MONITOR, SEE SHIFT ASSESSMENT.
[2019-12-23] VITALS: BP 121/70
--- NOTE | 2019-12-23 02:11 | NUR ---
SLEEPING WITH EASY AND REGULAR RESPERS ON ROOM AIR. CALL LIGHT IS WITHIN REACH.
--- NOTE | 2019-12-23 03:56 | NUR ---
PRN TYLENOL GIVEN FOR C/O HEADACHE, NECK STIFFNESS/ACHING. CALL LIGHT IS WITHIN REACH, WILL MONITOR EFFECT.
--- NOTE | 2019-12-23 04:06 | NUR ---
PATIENT RESTING IN CHAIR WITH EASY AND REGULAR RESPERS ON ROOM AIR. CALL LIGHT IS WITHIN REACH.
--- NOTE | 2019-12-23 04:18 | NUR ---
CHART CHECK COMPLETE.
[2019-12-23 08:00] VITALS: BP 100/72; BP 135/63
[2019-12-23 08:36] LABS: BASO % 0.6 % (0.0-1.0); EOS # 0.2 10*3/uL (0.0-0.4); EOS % 3.2 % (1.0-4.0); HEMATOCRIT 31.6 % (37.0-47.0); HEMOGLOBIN 10.2 g/dl (12.0-16.0); LYMPH # 1.9 10*3/uL (1.3-4.4); LYMPH % 25.7 % (27.0-41.0); MEAN CELL VOLUME 103.3 fl (81.0-99.0); MEAN CORPUSCULAR HGB 33.3 pg (27.0-31.0); MEAN CORPUSCULAR HGB CONC 32.3 g/dl (33.0-37.0); MEAN PLATELET VOLUME 10.9 fl (9.6-12.3); MONO # 0.5 10*3/uL (0.1-1.0); MONO % 7.1 % (3.0-9.0); NEUT # 4.5 10*3/uL (2.3-7.9); NEUT % 62.8 % (47.0-73.0); PLATELET COUNT AUTOMATED 146 10*3/uL (130-400); RED BLOOD COUNT 3.06 10*6/uL (4.10-5.10); RED CELL DISTRI WIDTH 12.9 % (0-14.5); WHITE BLOOD COUNT 7.2 10*3/uL (4.8-10.8)
[2019-12-23 08:59] LABS: ALBUMIN 2.8 gm/dl (3.1-4.5); BUN 13 mg/dl (7-24); CHLORIDE 114 mmol/L (98-107); CREATININE 0.98 mg/dL (0.55-1.02); PHOSPHOROUS 4.2 mg/dL (2.5-4.9); SODIUM 143 mmol/L (136-145)
--- NOTE | 2019-12-23 09:30 | NUR ---
PT MEDICATED WITH TYLENOL AT THIS TIME PER PRN ORDER FOR HEADACHE. WILL MONITOR FOR EFFECTIVENESS.
--- NOTE | 2019-12-23 10:30 | NUR ---
PER PATIENT, HEADACHE HAS BEEN RELIEVED.
--- NOTE | 2019-12-23 10:45 | NUR ---
IN TO SEE PATIENT. DISCUSSED PICC LINE PLACEMENT TO PATIENT DUE TO HER NEEDING FREQUENT IV FLUIDS DUE TO MALABSORPTION. PATIENT AGREEABLE TO HAVING PICC PLACED AND RECEIVING IV FLUIDS AT HOME.
[2019-12-23 10:58] LABS: BILIRUBIN NEGATIVE (NEGATIVE); BLOOD NEGATIVE (NEGATIVE); CLARITY CLEAR (CLEAR); COLOR YELLOW (YELLOW); GLUCOSE NEGATIVE (NEGATIVE); KETONE NEGATIVE (NEGATIVE); LEUKO ESTERASE NEGATIVE (NEGATIVE); NITRITE NEGATIVE (NEGATIVE); SPECIFIC GRAVITY 1.015 (1.005-1.030); UROBILINOGEN 0.2 E.U./dl (0.2-1.0)
[2019-12-23 11:14] LABS: EPITHELIAL CELLS 0-1; RBC 0-2 rbc/hpf (0-2); WBC 0-2 wbc/hpf (0-5)
--- NOTE | 2019-12-23 11:53 | NUR ---
Nutritional Support Services Note: Met w/ pt to discuss a diet appropriate for her ostomy. Discussed a soft diet and gave a diet copy to pt. Recommended pt to avoid certain foods (lettuce, seeds, nuts, foods high in fiber) and discussed foods to eat that would make it easier to digest. Pt listened and has a fairly good understanding of diet. Encouraged her to try the diet for awhile to see if it makes a difference in her ostomy output. Stressed importance of fluids due to dehydration. Encouraged her to call w/ any questions or concerns. Will follow if needed. Liz Velasquez, Darby chemist internship
[2019-12-23 12:00] VITALS: BP 120/58
--- NOTE | 2019-12-23 12:33 | NUR ---
RECEIVED A CALL FROM SHONDA AT [facility] SINCE PT IS A [place] RESIDENT THEY HAD TO SEND REFERRAL TO [facility] AND THEY WILL CHECK COVERAGE. [facility] OFFICE PHONE NUMBER IS [phone].
--- NOTE | 2019-12-23 12:35 | NUR ---
REFERRAL SENT TO [facility] PER PT REQUEST.
--- NOTE | 2019-12-23 13:45 | NUR ---
PT MEDICATED WITH PO TYLENOL AT THIS TIME FOR C/O HEADACHE. WILL MONITOR.
--- NOTE | 2019-12-23 15:00 | NUR ---
PER PATIENT, HEADACHE HAS IMPROVED WITH TYLENOL.
[2019-12-23 16:00] VITALS: BP 103/72; BP 110/62
[2019-12-23 21:16] VITALS: BP 98/68
[2019-12-24] VITALS: BP 115/70; BP 129/51
--- NOTE | 2019-12-24 03:29 | NUR ---
PATIENT MEDICATED WITH TYLENOL FOR C/O HEADACHE. WILL MONITOR
--- NOTE | 2019-12-24 03:50 | NUR ---
24 HR chart check completed.
--- NOTE | 2019-12-24 04:29 | NUR ---
TYLENOL EFFECTIVE FOR HEADACHE
[2019-12-24 08:00] VITALS: BP 117/60
[2019-12-24 08:01] LABS: BASO % 0.5 % (0.0-1.0); EOS # 0.2 10*3/uL (0.0-0.4); HEMATOCRIT 33.3 % (37.0-47.0); HEMOGLOBIN 10.5 g/dl (12.0-16.0); LYMPH # 1.9 10*3/uL (1.3-4.4); LYMPH % 24.5 % (27.0-41.0); MEAN CELL VOLUME 104.4 fl (81.0-99.0); MEAN CORPUSCULAR HGB 32.9 pg (27.0-31.0); MEAN CORPUSCULAR HGB CONC 31.5 g/dl (33.0-37.0); MEAN PLATELET VOLUME 10.5 fl (9.6-12.3); MONO # 0.5 10*3/uL (0.1-1.0); NEUT # 4.9 10*3/uL (2.3-7.9); NEUT % 64.3 % (47.0-73.0); PLATELET COUNT AUTOMATED 142 10*3/uL (130-400); RED BLOOD COUNT 3.19 10*6/uL (4.10-5.10); RED CELL DISTRI WIDTH 12.8 % (0-14.5); WHITE BLOOD COUNT 7.7 10*3/uL (4.8-10.8)
[2019-12-24 08:10] LABS: ALBUMIN 3.2 gm/dl (3.1-4.5); BUN 16 mg/dl (7-24); CHLORIDE 117 mmol/L (98-107); CREATININE 0.99 mg/dL (0.55-1.02); PHOSPHOROUS 3.2 mg/dL (2.5-4.9); POTASSIUM 4.3 mmol/L (3.5-5.1); SODIUM 144 mmol/L (136-145)
--- NOTE | 2019-12-24 10:35 | NUR ---
PER NILTON AT THE [facility] THEY ARE STILL WAITING ON AUTHORAZATION FROM INSURANCE FOR IV FLUIDS. STATES THEY WERE HAVING TROUBLE CONTACTING INSURANCE YESTERDAY AND INTAKE IS WORKING ON IT.
[2019-12-24 12:00] VITALS: BP 108/68
--- NOTE | 2019-12-24 14:01 | NUR ---
TALKED TO NILTON AT [facility] ABOUT AUTHORAZATION FOR HOME IV FLUIDS. SHE STATES MEDICARE WILL PAY FOR LR ALL BUT 2.66 A DAY BUT THEY WILL NOT PAY FOR SUPPLIES THAT ARE 26$ A DAY. THEY ARE TRYING TO GET AUTHORAZATION FROM [facility] [employer] TO SEE IF THEY WILL COVER THESE CHARGES. TALKED WITH PT AND SHE IS UNABLE TO AFFORD THIS AT HOME.
--- NOTE | 2019-12-24 14:49 | NUR ---
PER CALL FROM NILTON AT [facility] AND PT IV'S AND SUPPLIES ARE COVERED 100%. THEY WILL HAVE MEDS AND SUPPLIES AT PT HOME BY 11 AM FRIDAY. TALKED WITH [facility] AND THEY WILL BE ABLE TO START PT TOMORROW. DR NIELSEN NOTIFIED THAT IT IS OK TO DISCHARGE PT TONIGHT.
--- NOTE | 2019-12-24 14:56 | NUR ---
CONSTRUCTION PROJECT ENGINEER IN TO LET PT KNOW THAT ALL HER IV'S AND SUPPLIES WILL BE COVERED AND THEY WILL BE DELIVERED BY 11 AM TOMORROW. PT STATES DAUGHTER WORKS UNTIL 4PM SO IT WILL BE AFTER THAT BEFORE SHE CAN COME GET HER. RN HOPE INFORMED.
[2019-12-24] MEDS ORDERED: QUESTRAN LIGHT4 GM PO (14:57)
[2019-12-24] MEDS ORDERED: LOPERAMIDE HCL2 MG PO (14:57)
[2019-12-24] MEDS ORDERED: METAMUCIL FIBE3.4 GM PO (14:57)
[2019-12-24] MEDS ORDERED: CORTEF5 M1 PO (14:57)
[2019-12-24] MEDS ORDERED: LACTATED RING1000 ML IV (15:00)
--- NOTE | 2019-12-24 16:30 | NUR ---
Discharge instructions reviewed with patient/family. Patient receptive and verbalizes understanding. Follow-up care arranged. Written instructions given to patient/family. DARNELL CHAVES
== END 2019-12-24 16:30 | disposition home health service (06) | DRG 682 ==
LOC: ED 16:07 → ICCU 17:22 → EDHOLD 17:22 → ICCU 17:38 → 4E 12-21 18:10
PROVIDERS: Emergency Medicine; Internal Medicine; Internal Medicine Nephrology; ADMIT Family Medicine
PROC: B548ZZA Ultrasonography of Superior Vena Cava, Guidance (ICD-10-PCS; principal; 2019-12-19)
PROC: 02HV33Z Insertion of Infusion Device into Superior Vena Cava, Percutaneous Approach (ICD-10-PCS; principal; 2019-12-19)
DX: N17.0 Acute kidney failure with tubular necrosis (principal); J18.9 Pneumonia, unspecified organism; J44.0 Chronic obstructive pulmonary disease with (acute) lower respiratory infection; E27.40 Unspecified adrenocortical insufficiency; J44.1 Chronic obstructive pulmonary disease with (acute) exacerbation; I13.0 Hypertensive heart and chronic kidney disease with heart failure and stage 1 through stage 4 chronic kidney disease, or unspecified chronic kidney disease; I50.30 Unspecified diastolic (congestive) heart failure; K94.19 Other complications of enterostomy; E86.0 Dehydration; I95.9 Hypotension, unspecified; R73.9 Hyperglycemia, unspecified; D75.89 Other specified diseases of blood and blood-forming organs; E78.5 Hyperlipidemia, unspecified; I25.10 Atherosclerotic heart disease of native coronary artery without angina pectoris; F32.9 Major depressive disorder, single episode, unspecified; F17.210 Nicotine dependence, cigarettes, uncomplicated; M54.9 Dorsalgia, unspecified; G89.29 Other chronic pain; G47.33 Obstructive sleep apnea (adult) (pediatric); N18.3 Chronic kidney disease, stage 3 (moderate); F41.1 Generalized anxiety disorder; G25.81 Restless legs syndrome; I48.0 Paroxysmal atrial fibrillation; Z79.01 Long term (current) use of anticoagulants; Z90.49 Acquired absence of other specified parts of digestive tract; I25.2 Old myocardial infarction; Z95.5 Presence of coronary angioplasty implant and graft; Z79.899 Other long term (current) drug therapy; Z90.710 Acquired absence of both cervix and uterus; Z90.722 Acquired absence of ovaries, bilateral

== ENCOUNTER → 2020-01-31 | Outpatient (CLI) | payer MEDICARE, BC ==
[~2020-01-31] MED LIST changes: +LACTATED RING1000 ML IV; +LOPERAMIDE HCL2 MG PO; +METAMUCIL FIBE3.4 GM PO; +QUESTRAN LIGHT4 GM PO
[2020-01-31 08:47] LABS: ALBUMIN 3.4 gm/dl (3.1-4.5); CREATININE 1.29 mg/dL (0.55-1.02); FREE T4 0.65 ng/dl (0.76-1.46); POTASSIUM 3.8 mmol/L (3.5-5.1); TOTAL PROTEIN 6.7 gm/dL (6.4-8.2)
[2020-01-31 08:55] LABS: THYROID STIM HORMONE (HS) 1.26 uIU/ml (0.358-4.75)
== END | disposition home or self-care (01) ==
LOC: LAB 07:48
PROVIDERS: Internal Medicine Endocrinology, Diabetes & Metabolism
DX: E27.40 Unspecified adrenocortical insufficiency (principal)

== ENCOUNTER 2020-02-06 01:56 | Inpatient (IN) | payer MEDICARE, BC ==
[~2020-02-06] VITALS: Ht 172.7 cm; Wt 93.0 kg
[2020-02-06] VITALS (82 sets, daily range): BP systolic 55–127; BP diastolic 25–96
[2020-02-06 02:25] LABS: ABG BASE EXCESS -2.1 mmol/L (-2.0-2.0); ARTERIAL BLOOD GAS PH 7.401 (7.35-7.45)
[2020-02-06 02:36] LABS: BASO % 0.4 % (0.0-1.0); EOS # 0.2 10*3/uL (0.0-0.4); EOS % 2.1 % (1.0-4.0); HEMATOCRIT 36.3 % (37.0-47.0); HEMOGLOBIN 11.7 g/dl (12.0-16.0); LYMPH # 0.5 10*3/uL (1.3-4.4); LYMPH % 7.3 % (27.0-41.0); MEAN CELL VOLUME 101.4 fl (81.0-99.0); MEAN CORPUSCULAR HGB 32.7 pg (27.0-31.0); MEAN CORPUSCULAR HGB CONC 32.2 g/dl (33.0-37.0); MEAN PLATELET VOLUME 10.1 fl (9.6-12.3); MONO # 0.2 10*3/uL (0.1-1.0); MONO % 2.4 % (3.0-9.0); NEUT # 6.3 10*3/uL (2.3-7.9); NEUT % 87.2 % (47.0-73.0); PLATELET COUNT AUTOMATED 150 10*3/uL (130-400); RED BLOOD COUNT 3.58 10*6/uL (4.10-5.10); RED CELL DISTRI WIDTH 12.6 % (0-14.5); WHITE BLOOD COUNT 7.2 10*3/uL (4.8-10.8)
[2020-02-06 02:46] LABS: ACT PARTIAL THROMBO TIME 26.3 SECONDS (20.0-32.1); INTERNATIONAL NORM RATIO 1.8 (2.0-3.5)
[2020-02-06 02:53] LABS: ALBUMIN 3.1 gm/dl (3.1-4.5); CREATININE 1.15 mg/dL (0.55-1.02); POTASSIUM 3.8 mmol/L (3.5-5.1); TOTAL PROTEIN 6.3 gm/dL (6.4-8.2)
[2020-02-06 02:58] LABS: TROPONIN I 0.239 ng/ml (<0.045)
[2020-02-06 03:42] LABS: TROPONIN I 0.231 ng/ml (<0.045)
[2020-02-06 07:19] LABS: ARTERIAL BLOOD GAS PH 7.326 (7.35-7.45)
[2020-02-06 07:20] LABS: ABG BASE EXCESS -5.7 mmol/L (-2.0-2.0)
[2020-02-06] MEDS ORDERED: ANTI-DIARRHEAL2 MG PO (10:03)
[2020-02-06 13:57] LABS: COLOR YELLOW (YELLOW)
[2020-02-06 13:58] LABS: BILIRUBIN NEGATIVE (NEGATIVE); BLOOD NEGATIVE (NEGATIVE); CLARITY SL CLOUDY (CLEAR); GLUCOSE NEGATIVE (NEGATIVE); KETONE NEGATIVE (NEGATIVE); LEUKO ESTERASE NEGATIVE (NEGATIVE); NITRITE NEGATIVE (NEGATIVE); SPECIFIC GRAVITY 1.005 (1.005-1.030); UROBILINOGEN 0.2 E.U./dl (0.2-1.0)
[2020-02-06 14:28] LABS: WBC 0-2 wbc/hpf (0-5)
[2020-02-07] VITALS (96 sets, daily range): BP systolic 66–125; BP diastolic 35–77
[2020-02-07 05:56] LABS: HEMATOCRIT 34.7 % (37.0-47.0); HEMOGLOBIN 11.1 g/dl (12.0-16.0); MEAN CELL VOLUME 102.4 fl (81.0-99.0); MEAN CORPUSCULAR HGB 32.7 pg (27.0-31.0); MEAN PLATELET VOLUME 10.6 fl (9.6-12.3); PLATELET COUNT AUTOMATED 194 10*3/uL (130-400); RED BLOOD COUNT 3.39 10*6/uL (4.10-5.10); RED CELL DISTRI WIDTH 12.7 % (0-14.5)
[2020-02-07 06:14] LABS: ALBUMIN 2.9 gm/dl (3.1-4.5); ALKALINE PHOSPHATASE 65 U/L (45-117); BUN 18 mg/dl (7-24); CHLORIDE 110 mmol/L (98-107); CREATININE 1.06 mg/dL (0.55-1.02); PHOSPHOROUS 2.3 mg/dL (2.5-4.9); POTASSIUM 3.6 mmol/L (3.5-5.1); SGOT/AST 18 IU/L (3-35); SGPT/ALT 26 U/L (12-78); SODIUM 138 mmol/L (136-145); TOTAL PROTEIN 6.4 gm/dL (6.4-8.2)
[2020-02-07 07:07] LABS: BURR CELLS MODERATE; PLATELET SUFFICIENCY NORMAL (NORMAL); TOTAL CELLS COUNTED 100 #CELLS
[2020-02-08] VITALS (94 sets, daily range): BP systolic 69–128; BP diastolic 38–87
[2020-02-08 05:33] LABS: CREATININE 1.1 mg/dL (0.55-1.02); POTASSIUM 3.4 mmol/L (3.5-5.1)
[2020-02-08 07:33] LABS: HEMATOCRIT 36.1 % (37.0-47.0); HEMOGLOBIN 11.4 g/dl (12.0-16.0); MEAN CELL VOLUME 102.3 fl (81.0-99.0); MEAN CORPUSCULAR HGB 32.3 pg (27.0-31.0); MEAN CORPUSCULAR HGB CONC 31.6 g/dl (33.0-37.0); MEAN PLATELET VOLUME 11.7 fl (9.6-12.3); PLATELET COUNT AUTOMATED 221 10*3/uL (130-400); RED BLOOD COUNT 3.53 10*6/uL (4.10-5.10); WHITE BLOOD COUNT 21.8 10*3/uL (4.8-10.8)
[2020-02-08 07:55] LABS: PLATELET SUFFICIENCY NORMAL (NORMAL); TOTAL CELLS COUNTED 100 #CELLS
[2020-02-09] VITALS (93 sets, daily range): BP systolic 72–128; BP diastolic 39–520
[2020-02-09 07:48] LABS: BASO % 0.1 % (0.0-1.0); HEMOGLOBIN 11.7 g/dl (12.0-16.0); LYMPH # 1.3 10*3/uL (1.3-4.4); LYMPH % 8.9 % (27.0-41.0); MEAN CELL VOLUME 102.2 fl (81.0-99.0); MEAN CORPUSCULAR HGB 32.3 pg (27.0-31.0); MEAN CORPUSCULAR HGB CONC 31.6 g/dl (33.0-37.0); MEAN PLATELET VOLUME 10.3 fl (9.6-12.3); MONO # 0.6 10*3/uL (0.1-1.0); MONO % 4.5 % (3.0-9.0); NEUT # 12.3 10*3/uL (2.3-7.9); NEUT % 85.5 % (47.0-73.0); PLATELET COUNT AUTOMATED 219 10*3/uL (130-400); RED BLOOD COUNT 3.62 10*6/uL (4.10-5.10); RED CELL DISTRI WIDTH 13.1 % (0-14.5); WHITE BLOOD COUNT 14.4 10*3/uL (4.8-10.8)
[2020-02-09 08:04] LABS: ALBUMIN 3.2 gm/dl (3.1-4.5); ALKALINE PHOSPHATASE 75 U/L (45-117); BUN 24 mg/dl (7-24); CHLORIDE 104 mmol/L (98-107); CREATININE 1.05 mg/dL (0.55-1.02); POTASSIUM 3.3 mmol/L (3.5-5.1); SGOT/AST 16 IU/L (3-35); SGPT/ALT 32 U/L (12-78); SODIUM 141 mmol/L (136-145); TOTAL PROTEIN 7.1 gm/dL (6.4-8.2)
[2020-02-10] VITALS (41 sets, daily range): BP systolic 83–126; BP diastolic 45–76
[2020-02-10 05:07] LABS: ALBUMIN 2.8 gm/dl (3.1-4.5); ALKALINE PHOSPHATASE 75 U/L (45-117); BUN 24 mg/dl (7-24); CHLORIDE 103 mmol/L (98-107); CREATININE 0.98 mg/dL (0.55-1.02); POTASSIUM 3.3 mmol/L (3.5-5.1); SGOT/AST 25 IU/L (3-35); SGPT/ALT 52 U/L (12-78); SODIUM 141 mmol/L (136-145); TOTAL PROTEIN 6.4 gm/dL (6.4-8.2)
[2020-02-10 05:56] LABS: BASO % 0.1 % (0.0-1.0); HEMATOCRIT 36.3 % (37.0-47.0); HEMOGLOBIN 11.6 g/dl (12.0-16.0); LYMPH # 1.7 10*3/uL (1.3-4.4); LYMPH % 14.5 % (27.0-41.0); MEAN CELL VOLUME 99.7 fl (81.0-99.0); MEAN CORPUSCULAR HGB 31.9 pg (27.0-31.0); MEAN PLATELET VOLUME 10.8 fl (9.6-12.3); MONO # 0.9 10*3/uL (0.1-1.0); MONO % 7.3 % (3.0-9.0); PLATELET COUNT AUTOMATED 227 10*3/uL (130-400); RED BLOOD COUNT 3.64 10*6/uL (4.10-5.10); RED CELL DISTRI WIDTH 12.9 % (0-14.5); WHITE BLOOD COUNT 11.7 10*3/uL (4.8-10.8)
[2020-02-11] VITALS: BP 107/63
[2020-02-11 04:00] VITALS: BP 95/61
[2020-02-11 05:39] LABS: CREATININE 1.14 mg/dL (0.55-1.02); POTASSIUM 3.3 mmol/L (3.5-5.1)
[2020-02-11 06:16] LABS: BASO % 0.2 % (0.0-1.0); EOS # 0.1 10*3/uL (0.0-0.4); EOS % 1.2 % (1.0-4.0); HEMATOCRIT 39.1 % (37.0-47.0); HEMOGLOBIN 12.5 g/dl (12.0-16.0); LYMPH # 2.7 10*3/uL (1.3-4.4); LYMPH % 24.5 % (27.0-41.0); MEAN CELL VOLUME 99.7 fl (81.0-99.0); MEAN CORPUSCULAR HGB 31.9 pg (27.0-31.0); MEAN PLATELET VOLUME 10.6 fl (9.6-12.3); MONO # 0.9 10*3/uL (0.1-1.0); MONO % 8.5 % (3.0-9.0); NEUT % 63.3 % (47.0-73.0); PLATELET COUNT AUTOMATED 231 10*3/uL (130-400); RED BLOOD COUNT 3.92 10*6/uL (4.10-5.10); RED CELL DISTRI WIDTH 13.2 % (0-14.5)
[2020-02-11] MEDS ORDERED: AMPICILLIN2 GM IV (07:49)
[2020-02-11 08:00] VITALS: BP 110/62
[2020-02-11 12:00] VITALS: BP 96/47
[2020-02-11 16:00] VITALS: BP 95/46
[2020-02-11 20:00] VITALS: BP 100/47
[2020-02-12] VITALS: BP 108/60
[2020-02-12 06:04] LABS: CREATININE 1.24 mg/dL (0.55-1.02); HEMATOCRIT 37.6 % (37.0-47.0); HEMOGLOBIN 12.1 g/dl (12.0-16.0); MEAN CELL VOLUME 101.1 fl (81.0-99.0); MEAN CORPUSCULAR HGB 32.5 pg (27.0-31.0); MEAN CORPUSCULAR HGB CONC 32.2 g/dl (33.0-37.0); MEAN PLATELET VOLUME 10.8 fl (9.6-12.3); PLATELET COUNT AUTOMATED 197 10*3/uL (130-400); POTASSIUM 2.9 mmol/L (3.5-5.1); RED BLOOD COUNT 3.72 10*6/uL (4.10-5.10); WHITE BLOOD COUNT 13.8 10*3/uL (4.8-10.8)
[2020-02-12 06:47] LABS: TOTAL CELLS COUNTED 100 #CELLS
[2020-02-12 06:48] LABS: PLATELET SUFFICIENCY NORMAL (NORMAL)
[2020-02-12 08:00] VITALS: BP 104/56
[2020-02-12 12:00] VITALS: BP 110/57
[2020-02-12 13:16] LABS: CREATININE 1.24 mg/dL (0.55-1.02)
[2020-02-12 13:29] LABS: POTASSIUM 4.1 mmol/L (3.5-5.1)
== END 2020-02-12 14:46 | disposition home health service (06) | DRG 871 ==
LOC: ED 01:56 → EDHOLD 03:42 → ICCU 03:42 → 4E 03:42 → ICCU 04:26
PROVIDERS: Emergency Medicine Emergency Medical Services; Internal Medicine; Internal Medicine Critical Care Medicine; Student in an Organized Health Care Education/Training Program; ADMIT Internal Medicine
PROC: 5A09357 Assistance with Respiratory Ventilation, Less than 24 Consecutive Hours, Continuous Positive Airway Pressure (ICD-10-PCS; principal; 2020-02-06)
PROC: 5A09357 Assistance with Respiratory Ventilation, Less than 24 Consecutive Hours, Continuous Positive Airway Pressure (ICD-10-PCS; 2020-02-07)
PROC: 5A09357 Assistance with Respiratory Ventilation, Less than 24 Consecutive Hours, Continuous Positive Airway Pressure (ICD-10-PCS; 2020-02-08)
PROC: B24BZZ4 Ultrasonography of Heart with Aorta, Transesophageal (ICD-10-PCS; 2020-02-09)
PROC: 5A09357 Assistance with Respiratory Ventilation, Less than 24 Consecutive Hours, Continuous Positive Airway Pressure (ICD-10-PCS; 2020-02-09)
PROC: B548ZZA Ultrasonography of Superior Vena Cava, Guidance (ICD-10-PCS; 2020-02-11)
PROC: 02HV33Z Insertion of Infusion Device into Superior Vena Cava, Percutaneous Approach (ICD-10-PCS; 2020-02-11)
PROC: 5A09357 Assistance with Respiratory Ventilation, Less than 24 Consecutive Hours, Continuous Positive Airway Pressure (ICD-10-PCS; 2020-02-12)
DX: A41.9 Sepsis, unspecified organism (principal); J18.9 Pneumonia, unspecified organism; I21.A1 Myocardial infarction type 2; R65.21 Severe sepsis with septic shock; N17.0 Acute kidney failure with tubular necrosis; E43 Unspecified severe protein-calorie malnutrition; I50.43 Acute on chronic combined systolic (congestive) and diastolic (congestive) heart failure; J96.21 Acute and chronic respiratory failure with hypoxia; L03.116 Cellulitis of left lower limb; J44.1 Chronic obstructive pulmonary disease with (acute) exacerbation; J44.0 Chronic obstructive pulmonary disease with (acute) lower respiratory infection; S26.90XA Unspecified injury of heart, unspecified with or without hemopericardium, initial encounter; D68.59 Other primary thrombophilia; I13.0 Hypertensive heart and chronic kidney disease with heart failure and stage 1 through stage 4 chronic kidney disease, or unspecified chronic kidney disease; E27.40 Unspecified adrenocortical insufficiency; E87.2 Acidosis; Z95.5 Presence of coronary angioplasty implant and graft; E66.9 Obesity, unspecified; E87.8 Other disorders of electrolyte and fluid balance, not elsewhere classified; E78.5 Hyperlipidemia, unspecified; I25.10 Atherosclerotic heart disease of native coronary artery without angina pectoris; F32.9 Major depressive disorder, single episode, unspecified; F41.9 Anxiety disorder, unspecified; M54.9 Dorsalgia, unspecified; G89.29 Other chronic pain; E55.9 Vitamin D deficiency, unspecified; G47.33 Obstructive sleep apnea (adult) (pediatric); N18.3 Chronic kidney disease, stage 3 (moderate); F51.01 Primary insomnia; I48.0 Paroxysmal atrial fibrillation; E87.6 Hypokalemia; R73.9 Hyperglycemia, unspecified; Z68.31 Body mass index [BMI] 31.0-31.9, adult; B95.2 Enterococcus as the cause of diseases classified elsewhere; I34.0 Nonrheumatic mitral (valve) insufficiency; E87.5 Hyperkalemia; F17.210 Nicotine dependence, cigarettes, uncomplicated; Z93.2 Ileostomy status; Z79.899 Other long term (current) drug therapy; Z90.49 Acquired absence of other specified parts of digestive tract; Z90.710 Acquired absence of both cervix and uterus; Z90.722 Acquired absence of ovaries, bilateral

== ENCOUNTER 2020-02-27 12:20 | Inpatient (IN) | payer MEDICARE, BC ==
[~2020-02-27] VITALS: Ht 175.3 cm; Wt 97.1 kg
[2020-02-27] VITALS (32 sets, daily range): BP systolic 67–155; BP diastolic 30–69
[~2020-02-27 12:20] MED LIST changes: +AMPICILLIN2 GM IV; +ANTI-DIARRHEAL2 MG PO
--- NOTE | 2020-02-27 12:30 | NUR ---
in the see pt at this time.
--- NOTE | 2020-02-27 12:43 | NUR ---
Atropine given at this time for low heart rate.
--- NOTE | 2020-02-27 12:53 | NUR ---
Heart rate now in the 60s after atropine.Levophed drip started at 4mcg/min at this time.
[2020-02-27 13:13] LABS: BASO # 0.1 10*3/uL (0.0-0.1); BASO % 0.9 % (0.0-1.0); EOS # 1.9 10*3/uL (0.0-0.4); EOS % 19.3 % (1.0-4.0); HEMATOCRIT 33.7 % (37.0-47.0); HEMOGLOBIN 10.7 g/dl (12.0-16.0); LYMPH # 1.8 10*3/uL (1.3-4.4); LYMPH % 18.2 % (27.0-41.0); MEAN CELL VOLUME 101.5 fl (81.0-99.0); MEAN CORPUSCULAR HGB 32.2 pg (27.0-31.0); MEAN CORPUSCULAR HGB CONC 31.8 g/dl (33.0-37.0); MEAN PLATELET VOLUME 10.9 fl (9.6-12.3); MONO # 0.7 10*3/uL (0.1-1.0); MONO % 6.7 % (3.0-9.0); NEUT # 5.3 10*3/uL (2.3-7.9); NEUT % 54.5 % (47.0-73.0); PLATELET COUNT AUTOMATED 170 10*3/uL (130-400); RED BLOOD COUNT 3.32 10*6/uL (4.10-5.10); RED CELL DISTRI WIDTH 12.9 % (0-14.5); WHITE BLOOD COUNT 9.8 10*3/uL (4.8-10.8)
[2020-02-27 13:24] LABS: ACT PARTIAL THROMBO TIME 33.2 SECONDS (20.0-32.1); INTERNATIONAL NORM RATIO 1.4 (2.0-3.5)
--- NOTE | 2020-02-27 13:26 | NUR ---
Levophed drip increased to 6 mcg/min at this time.
[2020-02-27 13:30] LABS: ALBUMIN 2.9 gm/dl (3.1-4.5); ALKALINE PHOSPHATASE 65 U/L (45-117); BUN 66 mg/dl (7-24); CHLORIDE 107 mmol/L (98-107); CREATININE 4.26 mg/dL (0.55-1.02); POTASSIUM 5.7 mmol/L (3.5-5.1); SGOT/AST 17 IU/L (3-35); SGPT/ALT 24 U/L (12-78); SODIUM 133 mmol/L (136-145); TOTAL PROTEIN 6.5 gm/dL (6.4-8.2)
[2020-02-27 13:32] LABS: TROPONIN I < 0.015 ng/ml (<0.045)
--- NOTE | 2020-02-27 13:40 | NUR ---
Atropine given at this time and heart rate in the 40s.
--- NOTE | 2020-02-27 14:30 | NUR ---
In to see pt at this time.Pt states she has illeostomy and brown bag intact.
--- NOTE | 2020-02-27 14:44 | NUR ---
Blood pressure in the 80s at this time and levophed increased to 8 mcg/min at this time.
--- NOTE | 2020-02-27 14:58 | NUR ---
Levophed drip increased to 10mcg/min at this time.
--- NOTE | 2020-02-27 15:30 | NUR ---
Pt stll sleeping at this time.
--- NOTE | 2020-02-27 16:00 | NUR ---
aware of pt with heart rate around 32 and 40 and pt on pressor this time and er hold.Stated he would see about maybe cardiology seeing pt.
--- NOTE | 2020-02-27 16:36 | NUR ---
TELEPHONE ORDER FROM DR LEON TO WEAN OFF LEVOPHEN AND BEGIN DOPAMINE 5 MCG, NPO AFTER MIDNIGHT.
[2020-02-27 16:45] LABS: CREATININE 3.82 mg/dL (0.55-1.02); POTASSIUM 5.3 mmol/L (3.5-5.1)
--- NOTE | 2020-02-27 17:02 | NUR ---
Pt up to bedside commade and voided.Pt has no open wounds at this time.Old bruising noted on legs and pt stated that was by her dog,Old healed scab noted on left lower ankle.Ilestomy site intact with dressing in place.
--- NOTE | 2020-02-27 17:15 | NUR ---
Dopamine drip started at 5 mcg/kg per min and infusing at 18 cc an hour.Levophed drip turned down to 8 mcg/min.
[2020-02-27 17:26] LABS: BILIRUBIN NEGATIVE (NEGATIVE); BLOOD NEGATIVE (NEGATIVE); CLARITY SL CLOUDY (CLEAR); COLOR YELLOW (YELLOW); GLUCOSE NEGATIVE (NEGATIVE); KETONE NEGATIVE (NEGATIVE); UROBILINOGEN 0.2 E.U./dl (0.2-1.0)
[2020-02-27 17:27] LABS: BACTERIA 1+; EPITHELIAL CELLS TNTC; LEUKO ESTERASE NEGATIVE (NEGATIVE); NITRITE NEGATIVE (NEGATIVE); RBC 0-2 rbc/hpf (0-2); YEAST 1+
--- NOTE | 2020-02-27 17:30 | NUR ---
Dopamine gtt infusing at 5 mcg and levophed drip turned down to 4mcg/min.
--- NOTE | 2020-02-27 18:00 | NUR ---
Dopamine infusing at 5 mcg and levophed turned down to 2mcg/min.
--- NOTE | 2020-02-27 18:25 | NUR ---
Levophed drip turned off at this time and dopamine infusing at 18 cc an hour.
--- NOTE | 2020-02-27 18:36 | NUR ---
Pt ate all of dinner at this time.
--- NOTE | 2020-02-27 18:50 | NUR ---
Levoped on 2mcg/min at this time and dopamine at 5mcg.
--- NOTE | 2020-02-27 19:12 | NUR ---
Transfer of care to [facility].
--- NOTE | 2020-02-27 19:26 | NUR ---
PT IN BED RESTING RESP EASY NO SIGN OF DISTRESS
--- NOTE | 2020-02-27 20:19 | NUR ---
PT REMAINS IN BED RESTING PT AWOKE EASILY WITH VERBAL STIMULI PT WITH NO REQUESTS AT THIS TIME
--- NOTE | 2020-02-27 22:36 | NUR ---
ampicillin would not scan
--- NOTE | 2020-02-27 23:36 | NUR ---
PT SLEEPING IN BED RESP EASY NO SIGN OF DISTRESS BED IN LOWEST POSITION BED RAILS UP CALL LIGHT IN REACH PT VISABLE FROM NRS STATION
[2020-02-28] VITALS (32 sets, daily range): BP systolic 75–138; BP diastolic 41–92
--- NOTE | 2020-02-28 02:25 | NUR ---
PT UP ON BEDSIDE COMMODE, NO DISTRESS NOTED AT THIS TIME, CALL LIGHT WITHIN REACH
--- NOTE | 2020-02-28 02:37 | NUR ---
PT ASSISTED BACK IN BACK, NO DISTRESS NOTED AT THIS TIME, CALLL LIGHT WITHIN REACH, WILL CONTINUE TO MONITOR
--- NOTE | 2020-02-28 03:08 | NUR ---
PT EMPTIED COLOSTOMY BAG PT NOW BACK IN BED RESTING NO REQUESTS NO COMPLIANTS
--- NOTE | 2020-02-28 03:17 | NUR ---
REPORT FROM TYREE TRUJILLO---MAGED CAMPOVERDE RN
--- NOTE | 2020-02-28 04:27 | NUR ---
LEVOPHED INFUSING AT 2 MCG, DOPAMINE INFUSING AT 4 MCG. BP 117/50,HEARTRATE 65 AT THIS TIME. PT IS SLEEPING.SHE AROUSES EASILY AND IS PLEASANT AND DENIES DISCOMFORT.---MAGED CAMPOVERDE RN
--- NOTE | 2020-02-28 05:31 | NUR ---
SPOKE WITH NURSING GENERAL LABOR FORKLIFT OPERATOR AND PT SHOULD BE ABLE TO GO TO ICU AFTER SHIFT CHANGE--MAGED CAMPOVERDE RN
[2020-02-28 06:20] LABS: BASO % 0.5 % (0.0-1.0); EOS # 0.1 10*3/uL (0.0-0.4); EOS % 1.5 % (1.0-4.0); HEMATOCRIT 33.5 % (37.0-47.0); LYMPH % 17.3 % (27.0-41.0); MEAN CORPUSCULAR HGB 31.6 pg (27.0-31.0); MEAN CORPUSCULAR HGB CONC 32.8 g/dl (33.0-37.0); MEAN PLATELET VOLUME 10.5 fl (9.6-12.3); MONO # 0.3 10*3/uL (0.1-1.0); MONO % 5.7 % (3.0-9.0); NEUT # 4.4 10*3/uL (2.3-7.9); NEUT % 74.7 % (47.0-73.0); PLATELET COUNT AUTOMATED 190 10*3/uL (130-400); RED BLOOD COUNT 3.48 10*6/uL (4.10-5.10); RED CELL DISTRI WIDTH 12.6 % (0-14.5)
--- NOTE | 2020-02-28 06:21 | NUR ---
PT RESTING WITHOUT C/O. VITALS STABLE.---MAGED CAMPOVERDE RN
--- NOTE | 2020-02-28 06:22 | NUR ---
DOPAMINE AT 3 MCG/KG/MIN.--MAGED CAMPOVERDE RN
[2020-02-28 06:26] LABS: ALBUMIN 2.6 gm/dl (3.1-4.5)
[2020-02-28 06:29] LABS: ACT PARTIAL THROMBO TIME 26.1 SECONDS (20.0-32.1); INTERNATIONAL NORM RATIO 1.2 (2.0-3.5)
[2020-02-28 06:32] LABS: CREATININE 2.2 mg/dL (0.55-1.02); FREE T4 0.72 ng/dl (0.76-1.46); PHOSPHOROUS 3.1 mg/dL (2.5-4.9)
--- NOTE | 2020-02-28 06:37 | NUR ---
SPOKE WITH DR MIRANDA AND MADE HER AWARE LEVOPHED DRIP AND DOPAMINE DRIP BOTH RUNNING AT 2 MCG AND BP IS 138/64,HEARTRATE IN THE 60'S. ORDERED FOR DRIPS TO CONTINUE AT THIS TIME.---MAGED CAMPOVERDE RN
[2020-02-28 06:46] LABS: MEAN CELL VOLUME 96.3 fl (81.0-99.0)
--- NOTE | 2020-02-28 07:30 | NUR ---
RESTING IN BED. DENIES ANY COMPLAINTS. LEVOPHED GTT INFUSING AT 2 BRIDGET'S AND DOPAMINE GTT INFUSING AT 2 BRIDGET'S. BP 125/57 WITH A MAP 84. PULSE OX 98% ON 2L NASAL CANNULA. O2 REMOVED. PULSE OX 96% ON ROOM AIR. INSPIRATORY WHEEZE HEARD IN LUNG YOUNG. HEART RATE 70'S NSR. NO EDEMA NOTED. LEFT LOWER LEG RED. PICC INTACT TO RIGHT ARM AND HEP LOCK INTACT TO LEFT HAND. ILEOSTOMY INTACT
[2020-02-28] MEDS ORDERED: VITAMIN B-121000 MC2 PO (07:50)
[2020-02-28] MEDS ORDERED: MIDODRINE HCL5 M1 PO (07:50)
[2020-02-28] MEDS ORDERED: PROPAFENONE HC150 MG PO (07:52)
[2020-02-28] MEDS ORDERED: CORTEF10 M1 PO (07:53)
[2020-02-28] MEDS ORDERED: CORTEF5 M1 PO (07:54)
[2020-02-28] MEDS ORDERED: ISOSORBIDE DINI30 MG PO (07:57)
[2020-02-28] MEDS ORDERED: PRINIVIL10 MG PO (07:59)
--- NOTE | 2020-02-28 08:00 | NUR ---
MED REC UP TO DATE IN COMPUTER PER PATIENT'S HOME LIST
--- NOTE | 2020-02-28 08:00 | NUR ---
LEVOPHED GTT TITRATED DOWN TO 1 BRIDGET
--- NOTE | 2020-02-28 08:42 | NUR ---
PHYSICAL THERAPY Screen and order received pt is still being held in emergency room department with possible transfer to ICCU will follow as medically appropriate, thank you. Erika Schroeder PT
--- NOTE | 2020-02-28 08:44 | NUR ---
Occupational therapy and nursing screen received. Patient is currently in the ED with a possible transfer to the critical care unit. Will follow up with patient when admitted critical care. Thank you. Elly Kat, OTR/L
--- NOTE | 2020-02-28 09:00 | NUR ---
LEVOPHED GTT TITRATED OFF
--- NOTE | 2020-02-28 09:00 | NUR ---
DR. PADILLA HERE TO SEE PATIENT.
[2020-02-28 09:19] LABS: VITAMIN D, 25-HYDROXY 16.9 ng/mL (30-100)
--- NOTE | 2020-02-28 09:38 | NUR ---
[facility] REMINDED OF CONSULT. THEY KNEW OF THE CONSULT
--- NOTE | 2020-02-28 10:16 | NUR ---
DR. AVILA'S ANSWERING SERVICE NOTIFIED OF CONSULT
--- NOTE | 2020-02-28 11:00 | NUR ---
DR. MEZA HERE TO SEE PATIENT ON CONSULT
--- NOTE | 2020-02-28 11:15 | NUR ---
DR. MEZA HERE TO SEE PATIENT. HE WANTS DOPAMINE GTT TURNED OFF AND LEVOPHED GTT PLACED BACK ON. LEVOPHED GTT STARTED AT 1 BRIDGET'S
--- NOTE | 2020-02-28 12:06 | NUR ---
LEVOPHED GTT TITATED OFF
--- NOTE | 2020-02-28 14:00 | NUR ---
TRANSFERRED TO ROOM 403-2 VIA BED
--- NOTE | 2020-02-28 15:35 | NUR ---
PT COMPLAIN OF HEADACHE, TYLENOL GIVEN
--- NOTE | 2020-02-28 19:46 | NUR ---
PATIENT RESTING IN BED WITH NO NEEDS MADE. BED IN LOWEST POSITION, CALL LIGHT IN REACH
--- NOTE | 2020-02-28 21:38 | NUR ---
MEDICATED WITH PRN TYLENOL FOR C/O HEADACHE. WILL MONITOR
[2020-02-29] VITALS: BP 107/48
[2020-02-29 02:00] VITALS: BP 126/54
[2020-02-29 06:10] LABS: BASO # 0.1 10*3/uL (0.0-0.1); BASO % 0.7 % (0.0-1.0); EOS # 0.1 10*3/uL (0.0-0.4); EOS % 1.8 % (1.0-4.0); HEMATOCRIT 31.6 % (37.0-47.0); LYMPH # 1.4 10*3/uL (1.3-4.4); LYMPH % 20.1 % (27.0-41.0); MEAN CORPUSCULAR HGB 32.2 pg (27.0-31.0); MEAN CORPUSCULAR HGB CONC 31.6 g/dl (33.0-37.0); MEAN PLATELET VOLUME 10.5 fl (9.6-12.3); MONO # 0.4 10*3/uL (0.1-1.0); NEUT # 4.9 10*3/uL (2.3-7.9); PLATELET COUNT AUTOMATED 146 10*3/uL (130-400); RED BLOOD COUNT 3.11 10*6/uL (4.10-5.10); WHITE BLOOD COUNT 6.8 10*3/uL (4.8-10.8)
[2020-02-29 06:33] LABS: CREATININE 1.31 mg/dL (0.55-1.02); POTASSIUM 4.9 mmol/L (3.5-5.1)
[2020-02-29 06:36] LABS: MEAN CELL VOLUME 101.6 fl (81.0-99.0)
[2020-02-29 08:00] VITALS: BP 109/55
--- NOTE | 2020-02-29 08:21 | NUR ---
Punch Hand in to talk to patient. Patient states lives at HOME with ALONE, DAUGHTER LIVES IN APARTMENT ABOVE HER. There are 1 steps in the home. Physician: GUANAKITO Pharmacy: [facility] services: [employer] [facility] Patient's level of ADLs: INDEPENDENT Patient has working utilities: YES DME: NONE Follow-up physician's appointment after d/c: WILL BE MADE BY HOSPITALIST NURSE DIRECTOR ON DISCHARGE Does patient want to access PORTAL?: NO Discharge plan PT LIVES AT HOME ALONE, HER DAUGHTER LIVES IN APARTMENT ABOVE HER AND HELPS HER IF SHE NEEDS IT. PT STATES SHE IS CURRENTLY GETTING IV FLUIDS DAILY AND IV ANTIBIOTICS EVERY 4 HOURS AT HOME FROM [facility] AND HAS [employer]. DENIES ANY OTHER NEEDS AT THIS TIME. WILL CONTINUE TO FOLLOW. STATES HER DAUGHTER WILL TAKE HER HOME ON DISCHARGE. . MARCOS PAIGE
--- NOTE | 2020-02-29 08:30 | NUR ---
Occupational Therapy evaluation completed on four with full evaluation to follow. Recommend occupational therapy per plan of care and home with HH SN, OT,and PT upon discharge. Thank you for this referral.
--- NOTE | 2020-02-29 08:35 | NUR ---
Physical Therapy evaluation completed on the 4th floor with full evaluation to follow. Recommend physical therapy per plan of care and home with home health upon discharge. Thank you for this referral. Erika Schroeder PT
[2020-02-29] MEDS ORDERED: LACTATED RING IV (09:48)
--- NOTE | 2020-02-29 11:14 | NUR ---
RESUME HH ORDER FAXED TO [facility] . ALSO RESUME ANTIBIOTIC AND RINGER LACTATE ORDERS FAXED TO [facility].
--- NOTE | 2020-02-29 11:53 | NUR ---
[facility] Discharge instructions reviewed with patient/family. Patient receptive and verbalizes understanding. Follow-up care arranged. Written instructions given to patient/family. JENNI DINH
== END 2020-02-29 11:53 | disposition home or self-care (01) | DRG 314 ==
LOC: ED 12:20 → EDHOLD 14:02 → 4E 14:02
PROVIDERS: Emergency Medicine; Hospitalist; ADMIT Internal Medicine
DX: I95.9 Hypotension, unspecified (principal); N17.0 Acute kidney failure with tubular necrosis; E43 Unspecified severe protein-calorie malnutrition; I50.22 Chronic systolic (congestive) heart failure; E87.2 Acidosis; E87.1 Hypo-osmolality and hyponatremia; I13.0 Hypertensive heart and chronic kidney disease with heart failure and stage 1 through stage 4 chronic kidney disease, or unspecified chronic kidney disease; J44.1 Chronic obstructive pulmonary disease with (acute) exacerbation; E27.40 Unspecified adrenocortical insufficiency; E86.1 Hypovolemia; R00.1 Bradycardia, unspecified; N18.3 Chronic kidney disease, stage 3 (moderate); E87.5 Hyperkalemia; D53.9 Nutritional anemia, unspecified; R79.89 Other specified abnormal findings of blood chemistry; E78.2 Mixed hyperlipidemia; I25.10 Atherosclerotic heart disease of native coronary artery without angina pectoris; F32.9 Major depressive disorder, single episode, unspecified; F41.9 Anxiety disorder, unspecified; G47.33 Obstructive sleep apnea (adult) (pediatric); I48.0 Paroxysmal atrial fibrillation; E87.8 Other disorders of electrolyte and fluid balance, not elsewhere classified; E83.51 Hypocalcemia; I08.1 Rheumatic disorders of both mitral and tricuspid valves; F17.210 Nicotine dependence, cigarettes, uncomplicated; G89.29 Other chronic pain; E86.0 Dehydration; M54.9 Dorsalgia, unspecified; E66.9 Obesity, unspecified; I25.2 Old myocardial infarction; Z87.01 Personal history of pneumonia (recurrent); Z90.710 Acquired absence of both cervix and uterus; Z90.722 Acquired absence of ovaries, bilateral; Z95.5 Presence of coronary angioplasty implant and graft; Z90.49 Acquired absence of other specified parts of digestive tract; Z93.2 Ileostomy status; Z80.8 Family history of malignant neoplasm of other organs or systems; Z84.89 Family history of other specified conditions; Z79.02 Long term (current) use of antithrombotics/antiplatelets; Z79.899 Other long term (current) drug therapy; Z71.6 Tobacco abuse counseling; Z68.31 Body mass index [BMI] 31.0-31.9, adult

== ENCOUNTER → 2020-03-07 | Outpatient (CLI) | payer MEDICARE, BC ==
[~2020-03-07] MED LIST changes: +CORTEF10 M1 PO; +LACTATED RING IV; +MIDODRINE HCL5 M1 PO; +PRINIVIL10 MG PO; +PROPAFENONE HC150 MG PO; +VITAMIN B-121000 MC2 PO
[2020-03-07 08:54] LABS: ALBUMIN 2.8 gm/dl (3.1-4.5); BUN 9 mg/dl (7-24); CHLORIDE 113 mmol/L (98-107); CREATININE 1.04 mg/dL (0.55-1.02); POTASSIUM 3.7 mmol/L (3.5-5.1); SGOT/AST 16 IU/L (3-35); SGPT/ALT 29 U/L (12-78); SODIUM 143 mmol/L (136-145); T3 UPTAKE 35 % (31-39); THYROXINE (T4) TOTAL 5.9 ug/dl (4.8-13.9); TOTAL PROTEIN 6.4 gm/dL (6.4-8.2)
[2020-03-07 09:03] LABS: ALKALINE PHOSPHATASE 67 U/L (45-117)
[2020-03-07 09:27] LABS: VITAMIN D, 25-HYDROXY 25.2 ng/mL (30-100)
== END | disposition home or self-care (01) ==
LOC: LAB 07:52
PROVIDERS: Internal Medicine Endocrinology, Diabetes & Metabolism
DX: E53.8 Deficiency of other specified B group vitamins (principal); E27.40 Unspecified adrenocortical insufficiency; R79.89 Other specified abnormal findings of blood chemistry; E55.9 Vitamin D deficiency, unspecified

== ENCOUNTER → 2020-04-14 | Outpatient (CLI) | payer MEDICARE, BC ==
[~2020-04-14] MED LIST changes: +CEFTRIAXONE2 G1 IV; +DICYCLOMINE HCL10 MG PO; +DICYCLOMINE HCL20 MG PO; +XARE20MG PO; +ZITHROMAX TRI-500 M1 PO
[2020-04-14 08:00] VITALS: BP 121/64
[2020-04-15 15:08] LABS: CORTISOL BASELINE 8.5 ug/dL (.)
[2020-04-17 12:04] LABS: CORTISOL #2 17.1 ug/dL (Not Estab.); CORTISOL #3 18.4 ug/dL (Not Estab.)
== END | disposition home or self-care (01) ==
LOC: INJECTION 07:45
PROVIDERS: Internal Medicine Endocrinology, Diabetes & Metabolism
DX: E27.40 Unspecified adrenocortical insufficiency (principal); I10 Essential (primary) hypertension; F32.9 Major depressive disorder, single episode, unspecified; J44.9 Chronic obstructive pulmonary disease, unspecified; I25.2 Old myocardial infarction; E78.5 Hyperlipidemia, unspecified; I48.91 Unspecified atrial fibrillation; Z79.01 Long term (current) use of anticoagulants; Z95.5 Presence of coronary angioplasty implant and graft

== ENCOUNTER 2020-04-28 22:13 | Inpatient (IN) | payer MEDICARE, BC ==
[~2020-04-28] VITALS: Ht 172.7 cm; Wt 84.6 kg
[2020-04-28 22:13] VITALS: BP 99/50
[~2020-04-28 22:13] MED LIST changes: -CEFTRIAXONE2 G1 IV; -DICYCLOMINE HCL20 MG PO; -XARE20MG PO; -ZITHROMAX TRI-500 M1 PO
[2020-04-28 22:29] LABS: ABG BASE EXCESS -3.3 mmol/L (-2.0-2.0); ARTERIAL BLOOD GAS PH 7.41 (7.35-7.45)
[2020-04-28 22:33] LABS: HEMATOCRIT 44.1 % (37.0-47.0); MEAN CELL VOLUME 97.4 fl (81.0-99.0); MEAN CORPUSCULAR HGB 31.1 pg (27.0-31.0); MEAN PLATELET VOLUME 10.3 fl (9.6-12.3); PLATELET COUNT AUTOMATED 107 10*3/uL (130-400); RED BLOOD COUNT 4.53 10*6/uL (4.10-5.10); RED CELL DISTRI WIDTH 13.6 % (0-14.5); WHITE BLOOD COUNT 2.8 10*3/uL (4.8-10.8)
[2020-04-28 22:44] LABS: ACT PARTIAL THROMBO TIME 28.5 SECONDS (20.0-32.1); INTERNATIONAL NORM RATIO 1.2 (2.0-3.5)
[2020-04-28 22:48] LABS: ALBUMIN 3.3 gm/dl (3.1-4.5); CREATININE 1.29 mg/dL (0.55-1.02); POTASSIUM 3.6 mmol/L (3.5-5.1); TOTAL PROTEIN 7.5 gm/dL (6.4-8.2)
[2020-04-28 22:49] LABS: TROPONIN I 0.04 ng/ml (<0.045)
[2020-04-28 22:58] LABS: PLATELET SUFFICIENCY LOW (NORMAL); TOTAL CELLS COUNTED 100 #CELLS
[2020-04-28 23:00] VITALS: BP 113/41
[2020-04-28 23:38] VITALS: BP 114/51
[2020-04-29] VITALS (7 sets, daily range): BP systolic 104–142; BP diastolic 50–68
--- NOTE | 2020-04-29 01:42 | NUR ---
SECOND EKG COMPLETED AND RESULTS GIVEN TO MD LEDESMA FOR REVIEW.EKG COMPLETED LATE DUE TO DEPARTMENT EMERGENCY.
--- NOTE | 2020-04-29 03:30 | NUR ---
REPORT FROM RONNIE KUHN. ASSUMED CARE OF PT.
[2020-04-29 04:20] LABS: HEMATOCRIT 40.4 % (37.0-47.0); MEAN CELL VOLUME 96.4 fl (81.0-99.0); MEAN CORPUSCULAR HGB CONC 32.2 g/dl (33.0-37.0); MEAN PLATELET VOLUME 10.7 fl (9.6-12.3); PLATELET COUNT AUTOMATED 97 10*3/uL (130-400); RED BLOOD COUNT 4.19 10*6/uL (4.10-5.10); RED CELL DISTRI WIDTH 13.7 % (0-14.5); WHITE BLOOD COUNT 9.9 10*3/uL (4.8-10.8)
[2020-04-29 04:24] LABS: CREATININE 1.17 mg/dL (0.55-1.02); POTASSIUM 3.4 mmol/L (3.5-5.1)
--- NOTE | 2020-04-29 04:42 | NUR ---
Time: 441 A 69 year old FEMALE admitted to 5E under services of RUSSEL FERNANDEZ DO. Pt. arrived via stretcher from ER. Chief complaint: GERTRUDIS HIGH
[2020-04-29 04:47] LABS: BASOPHILS 1 % (0-1); TOTAL CELLS COUNTED 100 #CELLS
[2020-04-29 04:48] LABS: PLATELET SUFFICIENCY LOW (NORMAL)
[2020-04-29] MEDS ORDERED: DICYCLOMINE HCL20 MG PO (05:12)
--- NOTE | 2020-04-29 05:12 | NUR ---
PATIENT STATES THERE HAVE BEEN NO MEDICATION CHANGES SINCE PREVIOUS DISCHARGE IN FEBRUARY OF 2020. DR LEON MADE AWARE AND STATES IT IS OK TO USE HER DISCHARGE MED LIST. MED REC COMPLETED.
--- NOTE | 2020-04-29 10:31 | NUR ---
Colostomy leaking at wafer site. Wafer and bag changed at this time. Pt cleansed well and repositioned for comfort.
--- NOTE | 2020-04-29 15:49 | NUR ---
C/o pain to skin at ileostomy site. Pt states this sometimes happens at home when she changes the wafer. Offered pt a pain pill. Reviewed orders with pt for pain. Pt states she would like a norco. Medicated with norco per prn order.
--- NOTE | 2020-04-29 16:40 | NUR ---
States that norco helped to relieve pain.
--- NOTE | 2020-04-29 20:15 | NUR ---
PATIENT ASSESSMENT COMPLETED AT THIS TIME WITHOUT INCIDENT. PATIENT DENIES ANY CHEST PAIN/PRESSURE AT THIS TIME. STATED THAT SHE DOES HAVE SOME SHORTNESS OF BREATH WITH AMBULATION BUT IT RESOLVES WHEN SHE RESTS. CALL LIGHT WITHIN REACH, WILL CONTINUE TO MONITOR.
[2020-04-30] VITALS: BP 106/53
--- NOTE | 2020-04-30 00:55 | NUR ---
PATIENT RESTING IN BED IN A POSITION OF COMFORT IN BED WITH EYES CLOSED. RESPIRATIONS EASY AND NON-LABORED AT THIS TIME. NO SIGNS OR SYMPTOMS OF DISTRESS NOTED AT THIS TIME. CALL LIGHT WITHIN REACH, WILL CONTINUE TO MONITOR.
--- NOTE | 2020-04-30 02:53 | NUR ---
24 HOUR CHART CHECK COMPLETE
--- NOTE | 2020-04-30 05:30 | NUR ---
DR. CONTRERAS CALLED AT THIS TIME FOR PATIENT COMPLAINT OF GAS AND REQUESTING TUMS, ORDERS RECEIVED, SEE EMAR.
[2020-04-30 06:32] LABS: BASO % 0.1 % (0.0-1.0); HEMATOCRIT 36.3 % (37.0-47.0); LYMPH # 0.7 10*3/uL (1.3-4.4); LYMPH % 8.6 % (27.0-41.0); MEAN CELL VOLUME 98.1 fl (81.0-99.0); MEAN CORPUSCULAR HGB 31.4 pg (27.0-31.0); MEAN PLATELET VOLUME 11.4 fl (9.6-12.3); MONO # 0.3 10*3/uL (0.1-1.0); MONO % 3.6 % (3.0-9.0); NEUT # 6.7 10*3/uL (2.3-7.9); NEUT % 87.1 % (47.0-73.0); PLATELET COUNT AUTOMATED 97 10*3/uL (130-400); RED CELL DISTRI WIDTH 13.4 % (0-14.5); WHITE BLOOD COUNT 7.7 10*3/uL (4.8-10.8)
[2020-04-30 06:58] LABS: BUN 18 mg/dl (7-24); CHLORIDE 113 mmol/L (98-107); CREATININE 0.97 mg/dL (0.55-1.02); SODIUM 138 mmol/L (136-145)
[2020-04-30 07:00] LABS: POTASSIUM 4.4 mmol/L (3.5-5.1)
[2020-04-30 08:00] VITALS: BP 111/57
--- NOTE | 2020-04-30 08:45 | NUR ---
PT AWAKE/ALERT/ORIENTEDX3. LUNGS DIMINISHED WITH A VERY FAINT EXPIRATORY WHEEZE. ROOM AIR AT THIS TIME. PATIENT STATES SHE FEELS MUCH BETTER.NO EDEMA NOTED. EATING FINE. IVF COMPLETE. CALL LIGHT WITHIN REACH.
[2020-04-30] MEDS ORDERED: ZITHROMAX TRI-500 M1 PO (10:48)
[2020-04-30] MEDS ORDERED: PREDNISONE10 MG PO (10:48)
--- NOTE | 2020-04-30 11:31 | NUR ---
Discharge instructions reviewed with patient/family. Patient receptive and verbalizes understanding. Follow-up care arranged. Written instructions given to patient/family. PATIENT AMBULATORY OFF FLOOR. PICC LINE REMAINS PATENT AND INTACT TO RIGHT UPPER ARM. DENIES NEED FOR WHEELCHAIR. FLORIDALMA ADKINS
== END 2020-04-30 11:31 | disposition home or self-care (01) | DRG 871 ==
LOC: ED 22:13 → EDHOLD 04-29 04:02 → 5E 04-29 04:21
PROVIDERS: Emergency Medicine Emergency Medical Services; Internal Medicine; ADMIT Internal Medicine
DX: A41.9 Sepsis, unspecified organism (principal); J18.9 Pneumonia, unspecified organism; J96.01 Acute respiratory failure with hypoxia; N17.0 Acute kidney failure with tubular necrosis; J44.1 Chronic obstructive pulmonary disease with (acute) exacerbation; J44.0 Chronic obstructive pulmonary disease with (acute) lower respiratory infection; E87.1 Hypo-osmolality and hyponatremia; E44.0 Moderate protein-calorie malnutrition; I50.22 Chronic systolic (congestive) heart failure; I13.0 Hypertensive heart and chronic kidney disease with heart failure and stage 1 through stage 4 chronic kidney disease, or unspecified chronic kidney disease; R65.20 Severe sepsis without septic shock; D72.819 Decreased white blood cell count, unspecified; R79.89 Other specified abnormal findings of blood chemistry; I25.10 Atherosclerotic heart disease of native coronary artery without angina pectoris; F32.9 Major depressive disorder, single episode, unspecified; F41.9 Anxiety disorder, unspecified; I48.0 Paroxysmal atrial fibrillation; E55.9 Vitamin D deficiency, unspecified; E78.5 Hyperlipidemia, unspecified; G47.33 Obstructive sleep apnea (adult) (pediatric); N18.3 Chronic kidney disease, stage 3 (moderate); I34.0 Nonrheumatic mitral (valve) insufficiency; Z79.01 Long term (current) use of anticoagulants; Z79.02 Long term (current) use of antithrombotics/antiplatelets; Z90.710 Acquired absence of both cervix and uterus; Z90.722 Acquired absence of ovaries, bilateral; Z95.5 Presence of coronary angioplasty implant and graft; Z87.891 Personal history of nicotine dependence; Z84.89 Family history of other specified conditions; Z80.8 Family history of malignant neoplasm of other organs or systems; Z90.49 Acquired absence of other specified parts of digestive tract; Z79.899 Other long term (current) drug therapy; Z93.3 Colostomy status; Z68.28 Body mass index [BMI] 28.0-28.9, adult

== ENCOUNTER 2020-05-13 11:45 | Inpatient (IN) | payer MEDICARE, BC ==
[2020-05-13] VITALS (8 sets, daily range): BP systolic 96–132; BP diastolic 50–68
[~2020-05-13] VITALS: Ht 172.7 cm; Wt 88.5 kg
[~2020-05-13 11:45] MED LIST changes: +DICYCLOMINE HCL20 MG PO; +ZITHROMAX TRI-500 M1 PO
[2020-05-13 12:47] LABS: ALBUMIN 2.9 gm/dl (3.1-4.5); CREATININE 1.22 mg/dL (0.55-1.02); POTASSIUM 3.7 mmol/L (3.5-5.1); TOTAL PROTEIN 6.4 gm/dL (6.4-8.2); TROPONIN I 0.023 ng/ml (<0.045)
[2020-05-13 13:16] LABS: HEMATOCRIT 37.4 % (37.0-47.0); MEAN CELL VOLUME 92.3 fl (81.0-99.0); MEAN CORPUSCULAR HGB 30.1 pg (27.0-31.0); MEAN PLATELET VOLUME 9.9 fl (9.6-12.3); PLATELET COUNT AUTOMATED 197 10*3/uL (130-400); RED BLOOD COUNT 4.05 10*6/uL (4.10-5.10); RED CELL DISTRI WIDTH 13.7 % (0-14.5); WHITE BLOOD COUNT 8.7 10*3/uL (4.8-10.8)
[2020-05-13 13:18] LABS: MEAN CORPUSCULAR HGB CONC 32.6 g/dl (33.0-37.0)
[2020-05-13 13:27] LABS: ACT PARTIAL THROMBO TIME 20.5 SECONDS (20.0-32.1); INTERNATIONAL NORM RATIO 1.1 (2.0-3.5)
[2020-05-13 13:41] LABS: PLATELET SUFFICIENCY NORMAL (NORMAL); TOTAL CELLS COUNTED 100 #CELLS
[2020-05-13 14:09] LABS: BILIRUBIN NEGATIVE (NEGATIVE); BLOOD TRACE-INTACT (NEGATIVE); CLARITY CLEAR (CLEAR); COLOR YELLOW (YELLOW); GLUCOSE NEGATIVE (NEGATIVE); KETONE NEGATIVE (NEGATIVE); LEUKO ESTERASE 1+ (NEGATIVE); NITRITE NEGATIVE (NEGATIVE); SPECIFIC GRAVITY 1.015 (1.005-1.030); UROBILINOGEN 0.2 E.U./dl (0.2-1.0)
[2020-05-13 14:10] LABS: BACTERIA 2+; RBC 0-2 rbc/hpf (0-2)
--- NOTE | 2020-05-13 14:50 | NUR ---
PT RESTING QUIETLY, REPORTS JUST OVER ALL NOT FEELING WELL.
--- NOTE | 2020-05-13 17:38 | NUR ---
A 69, admitted to , under the services of ALTAGRACIA Cali DO with a diagnosis of UNABLE TO AMBULATE. Chief complaint is SOB, WEAKNESS. Patient arrived via bed from [place]. Monitor applied. Initial assessment completed. Vital signs taken and recorded. ALTAGRACIA CALI DO notified of admission to the unit. Orders received. See assessment for past medical history, medications and allergies. Patient and/or family oriented to unit. [facility]. Clothing/patient valuable form completed. QUENTIN CERON
--- NOTE | 2020-05-13 18:00 | NUR ---
DR EVANGELISTA IN TO SEE PATIENT
[2020-05-13] MEDS ORDERED: XARE20MG PO (18:02)
[2020-05-13] MEDS ORDERED: LIPITOR40 MG PO (18:02)
--- NOTE | 2020-05-13 18:12 | NUR ---
NOTIFIED DR MARES OF UPDATED MED LIST
--- NOTE | 2020-05-13 20:00 | NUR ---
DR EVANGELISTA HERE AND SAID TO DECREASE IVF'S TO 60CC/HR.
--- NOTE | 2020-05-13 20:00 | NUR ---
PT RESTING IN BED AWAKE, A&O, PLEASANT AND COOPERATIVE. RESP NONLABORED. NO ACUTE DISTRESS NOTED. NO COMPLAINTS VOICED AT THIS TIME. RIGHT PICC PATENT, DRESSING DRY AND INTACT, IVF'S INFUSING ORDERED WITHOUT DIFFICULTY.
--- NOTE | 2020-05-13 21:37 | NUR ---
DR ROWLEY NOTIFIED OF POSITIVE BLOOD CULTURE IN ANAEROBIC BOTTLE GRAM NEGATIVE BACILLI.
--- NOTE | 2020-05-13 23:57 | NUR ---
DR ROWLEY NOTIFIED OF POSITIVE BLOOD CULTURES IN AEROBIC BOTTLE GRAM NEGATIVE BACILLI.
[2020-05-14] VITALS: BP 101/56
[2020-05-14 06:32] LABS: BUN 21 mg/dl (7-24); CHLORIDE 107 mmol/L (98-107); CREATININE 1.03 mg/dL (0.55-1.02); POTASSIUM 3.7 mmol/L (3.5-5.1); SODIUM 140 mmol/L (136-145)
[2020-05-14 08:00] VITALS: BP 80/40
--- NOTE | 2020-05-14 09:02 | NUR ---
NOTIFIED OF LOW BP
[2020-05-14 09:55] LABS: BASO # 0.1 10*3/uL (0.0-0.1); BASO % 0.5 % (0.0-1.0); EOS # 0.2 10*3/uL (0.0-0.4); EOS % 2.1 % (1.0-4.0); HEMATOCRIT 33.9 % (37.0-47.0); LYMPH # 1.4 10*3/uL (1.3-4.4); LYMPH % 12.5 % (27.0-41.0); MEAN CORPUSCULAR HGB 30.5 pg (27.0-31.0); MEAN CORPUSCULAR HGB CONC 32.2 g/dl (33.0-37.0); MEAN PLATELET VOLUME 10.1 fl (9.6-12.3); MONO # 0.7 10*3/uL (0.1-1.0); MONO % 6.8 % (3.0-9.0); NEUT # 8.4 10*3/uL (2.3-7.9); NEUT % 77.5 % (47.0-73.0); PLATELET COUNT AUTOMATED 182 10*3/uL (130-400); RED BLOOD COUNT 3.57 10*6/uL (4.10-5.10); RED CELL DISTRI WIDTH 13.8 % (0-14.5); WHITE BLOOD COUNT 10.9 10*3/uL (4.8-10.8)
--- NOTE | 2020-05-14 11:17 | NUR ---
NOTIFIED OF BP 86/46, ALSO NOTIFIED OF ILIEOSTOMY CONTINIOUS FLOW OF LIQUID STOOLS
--- NOTE | 2020-05-14 11:44 | NUR ---
NOTIFIED OF BC
[2020-05-14 12:00] VITALS: BP 102/51
[2020-05-14 16:00] VITALS: BP 93/57
[2020-05-14 18:40] VITALS: BP 95/52
[2020-05-14 20:00] VITALS: BP 98/55
--- NOTE | 2020-05-14 20:00 | NUR ---
PT RESTING IN BED PLAYING GAME ON PHONE, A&O, PLEASANT AND COOPERATIVE. RESP NONLABORED. NO ACUTE DISTRESS NOTED. NO COMPLAINTS VOICED. IV PATENT AND IVF'S INFUSING ORDERED WITHOUT DIFFICULTY. PT STATES SHE IS FEELING BETTER TODAY.
--- NOTE | 2020-05-14 23:00 | NUR ---
ASSUMED CARE FOR THIS PT AT THIS TIME. PT C/O INDIGESTION. PT AMBULATED TO BR AD HOMAR AND EMPTIED ILEOSTOMY FOR 500CC GREEN LIQUID. CALL LIGHT IN REACH.
--- NOTE | 2020-05-14 23:54 | NUR ---
PT C/O INDIGESTION. DR. HOLLEY NOTIFIED.
[2020-05-15] VITALS: BP 103/58
--- NOTE | 2020-05-15 05:36 | NUR ---
HEART MONITOR REMOVED ORDERED AND PICC D/C'D ORDERED. PICC INTACT. PRESSURE DRSG APPLIED. PT TOLEREATED WELL.
[2020-05-15 06:52] LABS: BASO % 0.2 % (0.0-1.0); EOS # 0.2 10*3/uL (0.0-0.4); EOS % 1.8 % (1.0-4.0); HEMATOCRIT 31.2 % (37.0-47.0); LYMPH # 1.7 10*3/uL (1.3-4.4); LYMPH % 20.6 % (27.0-41.0); MEAN CELL VOLUME 95.1 fl (81.0-99.0); MEAN CORPUSCULAR HGB 30.2 pg (27.0-31.0); MEAN CORPUSCULAR HGB CONC 31.7 g/dl (33.0-37.0); MEAN PLATELET VOLUME 10.8 fl (9.6-12.3); MONO # 0.8 10*3/uL (0.1-1.0); MONO % 9.6 % (3.0-9.0); NEUT # 5.4 10*3/uL (2.3-7.9); NEUT % 66.9 % (47.0-73.0); PLATELET COUNT AUTOMATED 183 10*3/uL (130-400); RED BLOOD COUNT 3.28 10*6/uL (4.10-5.10); RED CELL DISTRI WIDTH 13.9 % (0-14.5); WHITE BLOOD COUNT 8.1 10*3/uL (4.8-10.8)
--- NOTE | 2020-05-15 06:54 | NUR ---
DR. ROWLEY NOTIFIED OF + BLOOD CULTURES.
--- NOTE | 2020-05-15 07:04 | NUR ---
IV discontinued. Site RED AND SWOLLEN. Pressure applied. Sterile dressing applied. IV started right wrist with #22 angiocath after 0 attempts. The IV site was prepped with Chloraprep. Heparin lock attached. IV solution 0.9NS infusing at 100ML/hr. Sterile dressing applied. Patient tolerated precedure well. Procedure performed according to [facility] policy & procedure. NIKI DAY JORDAN A
[2020-05-15 07:17] LABS: BUN 15 mg/dl (7-24); CHLORIDE 115 mmol/L (98-107); CREATININE 0.95 mg/dL (0.55-1.02); POTASSIUM 3.7 mmol/L (3.5-5.1); SODIUM 141 mmol/L (136-145)
[2020-05-15 08:00] VITALS: BP 107/56
--- NOTE | 2020-05-15 10:40 | NUR ---
Occupational Therapy evaluation completed on five with full evaluation to follow. Recommend occupational therapy per plan of care and home with HH upon discharge. Thank you for this referral. Elly Kat OTR/L
--- NOTE | 2020-05-15 10:50 | NUR ---
Physical Therapy evaluation completed on fifth floor with full evaluation to follow. Recommend physical therapy per plan of care and home with HH and family/daughter support upon discharge if continues to progress well. Thank you for this referral. Erika Schroeder PT
[2020-05-15 12:00] VITALS: BP 101/46
--- NOTE | 2020-05-15 12:35 | NUR ---
Engagement Specialist in to talk to patient. Patient states lives at HOME with ALONE. There are NO steps in the home. Physician: GUANAKITO Pharmacy: [facility] health services: [employer] Patient's level of ADLs: INDEPENDENT Patient has working utilities: YES DME: GETS IV INFUSIONS OF RL DAILY. HAS SUPPLIES FOR THAT, [employer] Follow-up physician's appointment after d/c: WILL BE MADE BY HOSPITALIST NURSE DIRECTOR ON DISCHARGE Does patient want to access PORTAL?: NO Discharge plan PT LIVES AT HOME WITH HER DAUGHTER LIVING IN APARTMENT RIGHT ABOVE HER. STATES SHE HAS [employer] AND HER DAUGHTER AND GRANDSON HELP HER WHEN SHE NEEDS IT. DENIES SHE WILL HAVE ANY HOME NEEDS ON DISCHARGE. TALKED WITH PT ABOUT POSSIBLY NEEDING IV ANTIBIOTICS AT HOME. SHE STATES SHE HAS DONE THEM BEFORE. WILL CONTINUE TO FOLLOW. STATES SHE WILL HAVE A RIDE HOME.. MARCOS PAIGE
[2020-05-15 16:00] VITALS: BP 119/58
--- NOTE | 2020-05-15 19:00 | NUR ---
ASSUMED CARE FOR THIS PT AT THIS TIME. NO C/O VOICED. CALL LIGHT IN REACH.
[2020-05-15 20:00] VITALS: BP 119/48
--- NOTE | 2020-05-15 20:43 | NUR ---
DR. SUTTON NOTIFIED OF PT'S PRELIM ANAEROBIC BLOOD CULTURES + FOR GPC IN PAIRS AND CLUSTERS. T.O. RCVD FOR REPEAT OF BC IN AM.
[2020-05-16] VITALS: BP 130/58
[2020-05-16 06:30] LABS: BASO % 0.4 % (0.0-1.0); EOS # 0.2 10*3/uL (0.0-0.4); EOS % 2.8 % (1.0-4.0); HEMATOCRIT 31.4 % (37.0-47.0); LYMPH # 1.8 10*3/uL (1.3-4.4); LYMPH % 25.3 % (27.0-41.0); MEAN CELL VOLUME 96.9 fl (81.0-99.0); MEAN CORPUSCULAR HGB 30.2 pg (27.0-31.0); MEAN CORPUSCULAR HGB CONC 31.2 g/dl (33.0-37.0); MEAN PLATELET VOLUME 10.3 fl (9.6-12.3); MONO # 0.6 10*3/uL (0.1-1.0); MONO % 7.8 % (3.0-9.0); NEUT # 4.4 10*3/uL (2.3-7.9); NEUT % 62.4 % (47.0-73.0); PLATELET COUNT AUTOMATED 186 10*3/uL (130-400); RED BLOOD COUNT 3.24 10*6/uL (4.10-5.10); RED CELL DISTRI WIDTH 13.8 % (0-14.5)
--- NOTE | 2020-05-16 06:31 | NUR ---
DR. SUTTON NOTIFIED OF POSITIVE BLOOD CULTURES X2 ON April, AND POSITIVE X4 ON April.
[2020-05-16 06:53] LABS: BUN 10 mg/dl (7-24); CHLORIDE 117 mmol/L (98-107); CREATININE 0.86 mg/dL (0.55-1.02); POTASSIUM 3.7 mmol/L (3.5-5.1); SODIUM 143 mmol/L (136-145)
[2020-05-16 09:00] VITALS: BP 115/59
--- NOTE | 2020-05-16 09:30 | NUR ---
PHYSICAL THERAPY Patient seen this am 1;1 for therapy visit and was resting supine in bed upon therapist arrival. Patient identified by name / and reports no new c/o's at this time, presenting with continuous IV treatment. Patient transfers supine to sit EOB, then sit to stand SBA x 1 and ambulates without AD, ad yonas in hallway, > 200'x 1, while demonstrating, slow, steady fanny, Good posture and no LOB. Patient tolerated eyes open / closed without LOB and returned to supine in bed with only mild fatiuge. Patient recorded SpO2 95%, HR 96 bpm following gait ex and after approx 1 minute seated rest, recorded SpO2 98%, HR 84 bpm. Patient remained in bed with call light, tray table and cell phone. Will continue per POC as tolerated, total treatment time 16 minutes. Leandro Sanchez, SHUTTLER CAR
--- NOTE | 2020-05-16 11:48 | NUR ---
PT CONTINUES TO DENY NEW NEEDS AT HOME. HAS [facility]. PLANS TO RETURN HOME WHEN MEDICALLY STABLE. STATES SHE HAS DONE HOME IV ANTIBIOTICS PREVIOUSLY AND WILL BE ABLE TO DO THEM AT HOME IF NEEDED.
[2020-05-16 12:00] VITALS: BP 103/49
--- NOTE | 2020-05-16 12:34 | NUR ---
PT C/O INDIGESTION AND REQUESTING TUMS, MEDICATED PER ORDERS. CALL LIGHT IN REACH. WILL MONITOR
--- NOTE | 2020-05-16 13:00 | NUR ---
TUMS EFFECTIVE PER PT
--- NOTE | 2020-05-16 15:33 | NUR ---
DR GRIFFITH AWARE OF CONSULT, ON UNIT TO SEE PT
[2020-05-16 16:00] VITALS: BP 114/48
--- NOTE | 2020-05-16 19:00 | NUR ---
ASSUMED CARE FOR THIS PT AT THIS TIME. NO C/O VOICED. PT REMINDED OF ECHO IN AM AND TEST EXPLAINED. CALL LIGHT IN REACH.
[2020-05-16 20:00] VITALS: BP 123/52
[2020-05-17] VITALS: BP 122/58
--- NOTE | 2020-05-17 07:45 | NUR ---
COLOSTOMY APPLIANCE CHANGED BY PT.
[2020-05-17 08:00] VITALS: BP 118/58
--- NOTE | 2020-05-17 09:00 | NUR ---
Patient resting quietly with no c/o discomfort. Respirations easy and regular. Vital signs stable. No overt distress. MIRLANDE OROSCO R
--- NOTE | 2020-05-17 11:45 | NUR ---
PHYSICAL THERAPY Patient was out her room this am for a medical procedure / test and unavailable at this time for therapy. Will continue per POC as able. Leandro Sanchez, CANNING MACHINE OPERATOR
--- NOTE | 2020-05-17 11:54 | NUR ---
PT STATES SHE WILL RETURN HOME WHEN MEDICALLY STABLE WITH NO NEW NEEDS. DR GRIFFITH ON CONSULT FOR [facility] WHEN BLOOD CULTURES NEGATIVVE. WILL CONTINUE TO FOLLOW.
[2020-05-17 12:00] VITALS: BP 120/62
[2020-05-17 16:00] VITALS: BP 107/48
--- NOTE | 2020-05-17 16:30 | NUR ---
Patient resting quietly with no c/o discomfort. Respirations easy and regular. Vital signs stable. No overt distress. MIRLANDE OROSCO R
--- NOTE | 2020-05-17 19:20 | NUR ---
REPORT RECEIVED FROM SHEMAR TRUIJLLO. PT WATCHING TV AT THIS TIME. PT VOICES NO COMPLAINTS. CALL LIGHT IN REACH
[2020-05-17 20:00] VITALS: BP 105/66
--- NOTE | 2020-05-17 21:00 | NUR ---
PT PLAYING ON PHONE AT THIS TIME. PT RESPIRATIONS EASY AND UNLABORED. CALL LIGHT IN REACH
--- NOTE | 2020-05-17 23:57 | NUR ---
24 HR chart check completed.
[2020-05-18] VITALS (9 sets, daily range): BP systolic 84–122; BP diastolic 44–70
--- NOTE | 2020-05-18 02:00 | NUR ---
PT ASLEEP. IV FLUIDS INFUSING WITHOUT DIFFICULTY. CALL LIGHT IN REACH
--- NOTE | 2020-05-18 04:00 | NUR ---
PT ASLEEP AT THIS TIME. RESPIRATIONS EASY AND UNLABORED. IV FLUIDS INFUSING WITHOUT DIFFICULTY. CALL LIGHT IN REACH
--- NOTE | 2020-05-18 07:50 | NUR ---
PATIENT IV LEAKING ALL OVER. ATTEMPTED NEW IV AND IT INFILTRATED, SURGERY RN IN ROOM AND WILL START DOWNSTAIRS. TAKEN TO HAVE MEDIPORT PLACED.
[2020-05-18] MEDS ORDERED: CEFTRIAXONE2 G1 IV (11:19)
--- NOTE | 2020-05-18 11:33 | NUR ---
PT IN SURGERY AT THIS TIME
--- NOTE | 2020-05-18 12:09 | NUR ---
PATIENT IS BACK IN ROOM.
--- NOTE | 2020-05-18 12:17 | NUR ---
PT GETTING MEDIPORT TODAY. WILL RETURN HOME WHEN MEDICALLY STABLE.
--- NOTE | 2020-05-18 13:10 | NUR ---
PHYSICAL THERAPY Patient was resting comfortably supine in bed when approached for therapy this pm and reported she was extremely tired from earlier medical procedure. Patient also stated she had just eaten lunch and requested to stay in bed to rest this afternoon. Will continue per POC as able. Leandro Sanchez, PRODUCTION HONING MACHINE OPERATOR
[2020-05-19] VITALS: BP 94/49
[2020-05-19 06:41] LABS: BASO # 0.1 10*3/uL (0.0-0.1); BASO % 0.7 % (0.0-1.0); EOS # 0.3 10*3/uL (0.0-0.4); EOS % 2.8 % (1.0-4.0); HEMATOCRIT 33.8 % (37.0-47.0); LYMPH # 1.7 10*3/uL (1.3-4.4); LYMPH % 18.6 % (27.0-41.0); MEAN CELL VOLUME 94.7 fl (81.0-99.0); MEAN CORPUSCULAR HGB 29.7 pg (27.0-31.0); MEAN CORPUSCULAR HGB CONC 31.4 g/dl (33.0-37.0); MEAN PLATELET VOLUME 10.1 fl (9.6-12.3); MONO # 0.8 10*3/uL (0.1-1.0); MONO % 8.7 % (3.0-9.0); NEUT % 67.7 % (47.0-73.0); PLATELET COUNT AUTOMATED 259 10*3/uL (130-400); RED BLOOD COUNT 3.57 10*6/uL (4.10-5.10); RED CELL DISTRI WIDTH 13.6 % (0-14.5); WHITE BLOOD COUNT 8.9 10*3/uL (4.8-10.8)
[2020-05-19 06:58] LABS: BUN 17 mg/dl (7-24); CHLORIDE 110 mmol/L (98-107); CREATININE 0.91 mg/dL (0.55-1.02); POTASSIUM 4.3 mmol/L (3.5-5.1); SODIUM 140 mmol/L (136-145)
--- NOTE | 2020-05-19 07:50 | NUR ---
PT SITTING UP AT SIDE OF BED. RESP-EASY AND REGULAR. VISITOR AT HER SIDE. CALL LIGHT IN REACH. SEE SHIFT ASSESSMENT.
--- NOTE | 2020-05-19 07:50 | NUR ---
PT RESTING IN BED. NO C/O AT THIS TIME. TOLERATED ROUTINE MED WITH NO PROBLEM. RESP-EASY AND REGULAR. CALL LIGHT IN REACH. SEE SHIFT ASSESSMENT.
[2020-05-19 08:00] VITALS: BP 105/60
--- NOTE | 2020-05-19 11:45 | NUR ---
PHYSICAL THERAPY Patient seen this am 1:1 for therapy visit and was sitting up in bedside chair upon therapist arrival. Patient identified by name / and was very pleasant, voicing no c/o's pain. Patient was Independent with all transfers this session and ambulates without AD, ad yonas in hallway, > 300' x 1, Supervision, while demonstrating slow, steady fanny, Fair+ posture. Patient also tolerated eyes open / closed, no LOB and single leg stance, L side 3 seconds and 6 seconds R LE prior to LOB. Patient returned to bedside chair and remained with call light, tray table and cell phone. Patient tolerated all treatment with no new c/o's and will continue per POC with all goals, total treatment time 17 minutes. Leandro Sanchez, FLASK MAKER
[2020-05-19 12:00] VITALS: BP 119/81
--- NOTE | 2020-05-19 13:30 | NUR ---
IV started left hand with #22 angiocath after attempts. The IV site was prepped with Chloraprep. Heparin lock attached. Sterile dressing applied. Patient tolerated precedure well. Procedure performed according to [facility] policy & procedure. PARTH ZENG
--- NOTE | 2020-05-19 15:30 | NUR ---
PT SITTING UP IN RECLINER CHAIR. TOLERATING IV ANTIBIOTIC. NO C/O. CALLED DR. PICKERING AWARE P0T BP 86/50 MANUALLY./ CALL LIGHT IN REACH. SEE SHIFT ASSESSMENT.
[2020-05-19 16:00] VITALS: BP 86/50
--- NOTE | 2020-05-19 18:20 | NUR ---
PT RESTING IN BED. NO C/O AT THIS TIME. CALL LIGHTIN FANNY.
[2020-05-19 20:00] VITALS: BP 106/60
[2020-05-20] VITALS: BP 105/49
[2020-05-20 08:00] VITALS: BP 111/71
[2020-05-20 12:00] VITALS: BP 99/51
--- NOTE | 2020-05-20 13:41 | NUR ---
MRDICATED WITH PRN NORCO PER ORDER AND REQUEST.
[2020-05-20 16:00] VITALS: BP 101/82
[2020-05-20 20:00] VITALS: BP 111/49
--- NOTE | 2020-05-20 20:30 | NUR ---
IN TO ASSESS PT. NO COMPLAINTS AT THIS TIME. RESPIRATIONS EASY AND NONLABORED. DENIES PAIN. PT UP IN CHAIR. WILL CONTINUE TO MONITOR.
[2020-05-21] VITALS: BP 122/59
[2020-05-21 08:00] VITALS: BP 122/49
[2020-05-21 12:00] VITALS: BP 102/59
[2020-05-21 16:00] VITALS: BP 100/55
[2020-05-21 20:00] VITALS: BP 127/50
[2020-05-22] VITALS: BP 141/68
--- NOTE | 2020-05-22 07:38 | NUR ---
PHYSICAL THERAPY CO-SIGN I approve of the Physical Therapy notes written above. Erika Schroeder PT
[2020-05-22 08:00] VITALS: BP 108/63
--- NOTE | 2020-05-22 11:15 | NUR ---
TALKED WITH PT ABOUT COMING INTO HOSPITAL FOR IV ANTIBOITCS DAILY AND SHE IS AGREEABLE.
--- NOTE | 2020-05-22 11:30 | NUR ---
PHYSICAL THERAPY Patient seen this am 1:1 for therapy visit and was sitting up in bedside chair upon therapist arrival. Patient identified by name / , was very pleasant, voicing no new c/o's at this time. Patient stated she was feeling pretty good today and was Independent with all transfers this session. Patient ambulated without AD, ad yonas in hallway, > 300'x 1, Supervision, while demonstrating steady, fanny and no LOB. Patient returned to bedside chair with only mild fatigue, recording SpO2 97%, HR 91 bpm. Patient remained in chair with call light and cell phone. Will continue per POC as tolerted, total treatment time 15 minutes. Leandro Sanchez, SET DECORATOR
[2020-05-22 12:00] VITALS: BP 111/54
--- NOTE | 2020-05-22 12:45 | NUR ---
CALLED AND FAXED ORDERS FOR IV ANTIBOITCS TO [facility] REGISTRATION AND PHARMACY. PT IS TO BE HERE AT 9 AM TOMORROW FOR START OF INFUSING. PT AND NURSE KRISSY INFORMED. PT GIVEN SCRIP AND INFORMED TO BRING IT WITH HER TOMORROW. VOICES UNDERSTANDING.
--- NOTE | 2020-05-22 12:58 | NUR ---
RESUMED HOME HEALTH ORDER FAXED TO [facility].
--- NOTE | 2020-05-22 14:33 | NUR ---
MEDIPORT ACCESSED BY RONNIE MENDEZ. PT TOLERATED WELL. GOOD BLOOD RETURN. PT TO BE SENT HOME WITH MEDIPORT ACCESSED FOR IV FLUIDS AT HOME WELL CONTINUED IV ANTIBIOTICS. PT AWARE WILL GO HOME WITH MEDIPORT ACCESSED, WILL HAVE VISITING NURSE AT HOME.
[2020-05-22 16:00] VITALS: BP 102/78
--- NOTE | 2020-05-22 16:27 | NUR ---
Discharge instructions reviewed with patient. Patient receptive and verbalizes understanding. Follow-up care understood. Written instructions given to patient. peripheral iv removed. mediport remains accessed for patient to have iv fluids nightly at home as well as iv antibiotics daily outpatient. pt has no questions on discharge at this time. discharged via wheelchair KRISSY VIDAL
--- NOTE | 2020-05-23 07:44 | NUR ---
PHYSICAL THERAPY CO-SIGN I approve of the Physical Therapy notes written above. Erika Schroeder PT
== END 2020-05-22 16:27 | disposition home or self-care (01) | DRG 981 ==
LOC: ED 11:45 → 5E 16:44 → EDHOLD 16:44 → 5E 16:53
PROVIDERS: Emergency Medicine; Internal Medicine; Student in an Organized Health Care Education/Training Program; ADMIT Emergency Medicine
DX: T80.211A Bloodstream infection due to central venous catheter, initial encounter (principal); N17.0 Acute kidney failure with tubular necrosis; A41.51 Sepsis due to Escherichia coli [E. coli]; R65.20 Severe sepsis without septic shock; E44.0 Moderate protein-calorie malnutrition; K91.2 Postsurgical malabsorption, not elsewhere classified; J44.9 Chronic obstructive pulmonary disease, unspecified; F32.9 Major depressive disorder, single episode, unspecified; I25.10 Atherosclerotic heart disease of native coronary artery without angina pectoris; R26.2 Difficulty in walking, not elsewhere classified; N18.3 Chronic kidney disease, stage 3 (moderate); R53.83 Other fatigue; R73.9 Hyperglycemia, unspecified; E86.0 Dehydration; E55.9 Vitamin D deficiency, unspecified; F41.9 Anxiety disorder, unspecified; I48.0 Paroxysmal atrial fibrillation; G47.33 Obstructive sleep apnea (adult) (pediatric); I12.9 Hypertensive chronic kidney disease with stage 1 through stage 4 chronic kidney disease, or unspecified chronic kidney disease; E78.5 Hyperlipidemia, unspecified; I87.2 Venous insufficiency (chronic) (peripheral); Y84.8 Other medical procedures as the cause of abnormal reaction of the patient, or of later complication, without mention of misadventure at the time of the procedure; Z93.2 Ileostomy status; Z90.710 Acquired absence of both cervix and uterus; Z90.722 Acquired absence of ovaries, bilateral; Z95.5 Presence of coronary angioplasty implant and graft; Z87.891 Personal history of nicotine dependence; Z80.8 Family history of malignant neoplasm of other organs or systems; Z84.89 Family history of other specified conditions; Z79.01 Long term (current) use of anticoagulants; Z79.02 Long term (current) use of antithrombotics/antiplatelets; Z79.899 Other long term (current) drug therapy; Y92.89 Other specified places as the place of occurrence of the external cause; Z90.49 Acquired absence of other specified parts of digestive tract; Z68.29 Body mass index [BMI] 29.0-29.9, adult

== ENCOUNTER → 2020-07-07 | Outpatient (CLI) | payer MEDICARE, BC ==
[~2020-07-07] MED LIST changes: +CEFTRIAXONE2 G1 IV; +XARE20MG PO
== END | disposition home or self-care (01) ==
LOC: COVID19 00:52
DX: Z01.812 Encounter for preprocedural laboratory examination (principal); Z20.828 Contact with and (suspected) exposure to other viral communicable diseases

== ENCOUNTER 2020-07-13 00:40 | Inpatient (IN) | payer MEDICARE, BC ==
[2020-07-07 13:42] VITALS: BP 136/87
[~2020-07-13] VITALS: Ht 172.7 cm; Wt 86.2 kg
[2020-07-13] VITALS (8 sets, daily range): BP systolic 104–166; BP diastolic 59–89
--- NOTE | 2020-07-13 16:48 | NUR ---
I SET INCENTIVE SPIROMETER IN ROOM. PT STILL IN SURGERY.
--- NOTE | 2020-07-13 16:50 | NUR ---
Time: 1649 A 69 year old FEMALE admitted to under services of CLAIRE OSHEA DO. Pt. arrived via stretcher from OP/ADMIT. Chief complaint: S/P ABDOMIANL SURGERY ENCOUNTER FOR ILEOSTOMY. TILA MCCARTY
--- NOTE | 2020-07-13 17:17 | NUR ---
PT C/O "SICK BELLY". MEDICATED PER ORDER. WILL MONITOR FOR RELIEF. RESPS EASY AND NON LABORED. NO S/S OF DISTRESS NOTED. CALL LIGHT WITHIN REACH. BED ALARM ON.
--- NOTE | 2020-07-13 19:02 | NUR ---
MEDICATED WITH PRN DILAUDID PER ORDER AND REQUEST.
--- NOTE | 2020-07-13 20:45 | NUR ---
SPOKE WITH DR. SINGER REGARDING PATIENT NAUSEA. ORDERS RECEIVED. PHENERGAN GIVEN. CALL LIGHT WITHIN REACH. WILL CONTINUE TO MONITOR
--- NOTE | 2020-07-13 21:15 | NUR ---
PHENERGAN EFFECTIVE. PATIENT RESTING COMFORTABLY AT THIS TIME. PATIENT STATES THAT NAUSEA HAS GONE AWAY. PATIENT IS DROWSY.
[2020-07-14] VITALS (7 sets, daily range): BP systolic 109–172; BP diastolic 55–94
--- NOTE | 2020-07-14 03:48 | NUR ---
PT WOKE UP WITH C/O PAIN AND DISCOMFORT IN ABDOMEN. PT BP 172/94. PATIENT RATES PAIN A 10/10. WILL CONTINUE TO MONITOR AND REASSESS. CALL LIGHT WITHIN REACH.
--- NOTE | 2020-07-14 04:21 | NUR ---
IV DILAUDID EFFECTIVE. PATIENT RESTING COMFORTABLY AT THIS TIME. PATIENT BP DOWN TO 117/86. CALL LIGHT WITHIN REACH.
[2020-07-14 06:27] LABS: ALBUMIN 3.4 gm/dl (3.1-4.5); BUN 15 mg/dl (7-24); CHLORIDE 108 mmol/L (98-107); POTASSIUM 3.8 mmol/L (3.5-5.1); SODIUM 139 mmol/L (136-145)
[2020-07-14 06:32] LABS: ALKALINE PHOSPHATASE 52 U/L (45-117); CREATININE 0.81 mg/dL (0.55-1.02); SGOT/AST 21 IU/L (3-35); SGPT/ALT 42 U/L (12-78); TOTAL PROTEIN 6.5 gm/dL (6.4-8.2)
[2020-07-14 06:35] LABS: BASO % 0.1 % (0.0-1.0); HEMATOCRIT 36.5 % (37.0-47.0); LYMPH # 0.7 10*3/uL (1.3-4.4); LYMPH % 5.9 % (27.0-41.0); MEAN CELL VOLUME 95.5 fl (81.0-99.0); MEAN CORPUSCULAR HGB 30.6 pg (27.0-31.0); MEAN CORPUSCULAR HGB CONC 32.1 g/dl (33.0-37.0); MEAN PLATELET VOLUME 11.1 fl (9.6-12.3); MONO # 0.8 10*3/uL (0.1-1.0); MONO % 6.5 % (3.0-9.0); NEUT # 10.3 10*3/uL (2.3-7.9); NEUT % 87.2 % (47.0-73.0); PLATELET COUNT AUTOMATED 121 10*3/uL (130-400); RED BLOOD COUNT 3.82 10*6/uL (4.10-5.10); RED CELL DISTRI WIDTH 14.9 % (0-14.5); WHITE BLOOD COUNT 11.8 10*3/uL (4.8-10.8)
--- NOTE | 2020-07-14 07:47 | NUR ---
Medicated with dilaudid iv per prn order for complaints of abdominal pain. Denies nausea.
--- NOTE | 2020-07-14 08:30 | NUR ---
States that dilaudid effective.
--- NOTE | 2020-07-14 12:05 | NUR ---
Cracker Dough Mixer in to talk to patient. Patient states lives at ALONE. There are 2 steps in the home. Physician: GUANAKITO Pharmacy: [facility] Home health services: [facility] Patient's level of ADLs: INDEPENDENT Patient has working utilities: YES DME: NEBULIZER, WALKER, CANE Follow-up physician's appointment after d/c: WILL BE MADE BY HOSPITALIST COORDINATOR Does patient want to access PORTAL?: NO Discharge plan PATIENT RESIDES AT HOME ALONE. PATIENT STATED HER DAUGHTER LIVES ABOVE HER IN AN APARTMENT. PATIENT STATES THAT SHE IS INDEPENDENT WITH CARE AND DOES DRIVE. PATIENT DENIES ANY HOME NEEDS AT THIS TIME. PATIENT STATES THAT SHE WILL RETURN HOME WITH THE RESUMPTION OF HER [facility]. PATIENT REFUSED SNF. DELMA LEDBETTER
--- NOTE | 2020-07-14 13:13 | NUR ---
Medicated with dilaudid iv per prn order for complaints of abdominal pain. States pain is 7/10.
--- NOTE | 2020-07-14 13:18 | NUR ---
Medicated with zofran iv per prn order for nausea.
--- NOTE | 2020-07-14 13:20 | NUR ---
PHYSICAL THERAPY Physical Therapy evaluation completed on 4th floor with full evaluation to follow. Recommend physical therapy per plan of care and SNF vs Home w HH upon discharge. Thank you for this referral. Eloy Kumar SPT Rachel Bal PT
--- NOTE | 2020-07-14 13:36 | NUR ---
Occupational Therapy evaluation completed on four with full evaluation to follow. Recommend occupational therapy per plan of care and SNF versus home with HH with 09/06 supervision assist pending patient progression upon discharge. Thank you for this referral. Elly Kat OTR/L
--- NOTE | 2020-07-14 14:10 | NUR ---
States that medications given earlier were effective.
--- NOTE | 2020-07-14 16:15 | NUR ---
Danay michael per order.
[2020-07-15] VITALS (14 sets, daily range): BP systolic 88–130; BP diastolic 53–78
[2020-07-15 05:42] LABS: BUN 18 mg/dl (7-24); CHLORIDE 106 mmol/L (98-107); CREATININE 0.81 mg/dL (0.55-1.02); POTASSIUM 3.8 mmol/L (3.5-5.1); SODIUM 139 mmol/L (136-145)
[2020-07-15 06:20] LABS: BASO % 0.3 % (0.0-1.0); EOS % 0.5 % (1.0-4.0); HEMATOCRIT 29.4 % (37.0-47.0); LYMPH # 0.8 10*3/uL (1.3-4.4); LYMPH % 10.3 % (27.0-41.0); MEAN CELL VOLUME 95.8 fl (81.0-99.0); MEAN CORPUSCULAR HGB 30.3 pg (27.0-31.0); MEAN CORPUSCULAR HGB CONC 31.6 g/dl (33.0-37.0); MEAN PLATELET VOLUME 10.6 fl (9.6-12.3); MONO # 0.5 10*3/uL (0.1-1.0); MONO % 6.3 % (3.0-9.0); NEUT # 6.4 10*3/uL (2.3-7.9); NEUT % 82.2 % (47.0-73.0); PLATELET COUNT AUTOMATED 127 10*3/uL (130-400); RED BLOOD COUNT 3.07 10*6/uL (4.10-5.10); RED CELL DISTRI WIDTH 15.5 % (0-14.5); WHITE BLOOD COUNT 7.8 10*3/uL (4.8-10.8)
--- NOTE | 2020-07-15 06:29 | NUR ---
NOTIFIED DR. SINGER OF PATIENT RECENT LOW BLOOD PRESSURES. NO NEW ORDERS RECEIVED. STATED SHE WOULD PASS IT ON TO DAYLIGHT TO KEEP AN EYE ON IT.
--- NOTE | 2020-07-15 07:00 | NUR ---
CALLED DR. GRIFFITH TO GIVE UPDATE ON PATIENT. PATIENT VERY PALE, BLOOD PRESSURES LOW. HBG DROPPED FROM 11.7 TO 9.3. PATIENT HAS NOT URINATED SINCE HAVING FLANAGAN REMOVED. BLADDER SCANNER SHOWED 400CC. PER DR. GRIFFITH PLACE FLANAGAN BACK IN PATIENT, TRANSFUSE [address] GRIFFITH OKAY TO ADVANCE DIET TO CLEAR LIQUIDS. PATIENT PASSING GAS AND HAS HYPOACTIVE BOWEL SOUNDS.
--- NOTE | 2020-07-15 07:10 | NUR ---
FLANAGAN PLACED AT THIS TIME. 600CC OUT OF DARK GREEN URINE. PATIENT TOLERATED WELL. WILL CONTINUE TO MONITOR.
--- NOTE | 2020-07-15 08:33 | NUR ---
Blood started at this time, VS Wnl see documentation. Verifed with and hung by Shyla Vaca Rn.
--- NOTE | 2020-07-15 11:50 | NUR ---
Pt assisted up out of bed to chair.
--- NOTE | 2020-07-15 13:08 | NUR ---
Pt assisted back to bed. States that abdomen is hurting. Cramping really bad is the words she used to express pain. Medicated with dilaudid iv per prn order.
--- NOTE | 2020-07-15 14:00 | NUR ---
States that medication effective for pain.
[2020-07-15 14:42] LABS: BASO % 0.2 % (0.0-1.0); EOS # 0.1 10*3/uL (0.0-0.4); EOS % 0.7 % (1.0-4.0); HEMATOCRIT 31.1 % (37.0-47.0); LYMPH # 0.8 10*3/uL (1.3-4.4); MEAN CELL VOLUME 93.1 fl (81.0-99.0); MEAN CORPUSCULAR HGB 30.5 pg (27.0-31.0); MEAN CORPUSCULAR HGB CONC 32.8 g/dl (33.0-37.0); MEAN PLATELET VOLUME 10.3 fl (9.6-12.3); MONO # 0.4 10*3/uL (0.1-1.0); MONO % 4.5 % (3.0-9.0); NEUT # 7.2 10*3/uL (2.3-7.9); NEUT % 85.1 % (47.0-73.0); PLATELET COUNT AUTOMATED 114 10*3/uL (130-400); RED BLOOD COUNT 3.34 10*6/uL (4.10-5.10); RED CELL DISTRI WIDTH 16.1 % (0-14.5); WHITE BLOOD COUNT 8.5 10*3/uL (4.8-10.8)
--- NOTE | 2020-07-15 16:59 | NUR ---
Pt states she is feeling pretty good. Denies pain. Routine toradol effective.
--- NOTE | 2020-07-15 21:44 | NUR ---
PATIENT AMBULATORY TO FOR LARGE LOOSE STOOL, BLACK PER PT, UNABLE TO ASSESS PER TOILET AUTOMATIC FLUSH.
[2020-07-16] VITALS: BP 130/73
--- NOTE | 2020-07-16 03:53 | NUR ---
PATIENT SLEEPING; EASY REGULAR RESPIRATIONS ON ROOM AIR WITHOUT DISTRESS. WILL CONT TO MONITOR.
[2020-07-16 05:46] LABS: BUN 15 mg/dl (7-24); CHLORIDE 105 mmol/L (98-107); CREATININE 0.85 mg/dL (0.55-1.02); POTASSIUM 3.8 mmol/L (3.5-5.1); SODIUM 138 mmol/L (136-145)
--- NOTE | 2020-07-16 05:49 | NUR ---
DILAUDID GIVEN PER PRN ORDER FOR 7/10 ABDOMINAL PAIN. WILL MONITOR.
[2020-07-16 06:06] LABS: BASO % 0.2 % (0.0-1.0); EOS # 0.1 10*3/uL (0.0-0.4); HEMATOCRIT 29.9 % (37.0-47.0); LYMPH # 0.7 10*3/uL (1.3-4.4); LYMPH % 8.2 % (27.0-41.0); MEAN CELL VOLUME 92.6 fl (81.0-99.0); MEAN CORPUSCULAR HGB 31.6 pg (27.0-31.0); MEAN CORPUSCULAR HGB CONC 34.1 g/dl (33.0-37.0); MEAN PLATELET VOLUME 10.8 fl (9.6-12.3); MONO # 0.5 10*3/uL (0.1-1.0); MONO % 5.6 % (3.0-9.0); NEUT # 6.8 10*3/uL (2.3-7.9); NEUT % 84.5 % (47.0-73.0); PLATELET COUNT AUTOMATED 133 10*3/uL (130-400); RED BLOOD COUNT 3.23 10*6/uL (4.10-5.10); WHITE BLOOD COUNT 8.1 10*3/uL (4.8-10.8)
[2020-07-16 07:59] VITALS: BP 101/55
--- NOTE | 2020-07-16 08:00 | NUR ---
RESTING IN BED. DENIES ANY COMPLAINTS OF PAIN. JUST COMPLAINS OF SORENESS AT SURGICAL SITE. DRESSING REMOVED AND ANA MIDLINE CLEANED WITH SALINE. BRIGHT RED BLOOD OOZING FROM AROUND AREA THAT IS PACKED TO RIGHT LOWER ABDOMEN. DRY DRESSING PLACED OVER AREA AND SECURED WITH PAPER TAPE. BOWEL SOUNDS HYPOACTIVE TIMES 4 QUADS. DOES NOT WANT LIQUID TRAY. WANTS REAL FOOD. FLANAGAN INTACT AND DRAINING DARK GREEN/YELLOW URINE. SCD'S INTACT TO BILATERAL LOWER LEGS. MEDIPORT FLUSHES TO LSC WITH DRESISNG DRY AND INTACT.
--- NOTE | 2020-07-16 09:57 | NUR ---
24 HR chart check completed.
--- NOTE | 2020-07-16 10:15 | NUR ---
DR. GRIFFITH WAS NOTIFIED OF BLACK BOWEL MOVEMENT FROM YESTERDAY AND HE WAS ALSO NOTIFIED OF RIGHT LOWER SURGICAL SITE ACTIVELY BLEEDING. HE STATES THAT IT IS OKAY.
[2020-07-16 12:00] VITALS: BP 98/63
[2020-07-16 13:26] VITALS: BP 100/58
--- NOTE | 2020-07-16 13:27 | NUR ---
PRN NORCO WAS GIVEN FOR A PAIN LEVEL OF 9/10 IN HER ABDOMINAL AREA. WILL REASSESS EFFECTIVENESS.
--- NOTE | 2020-07-16 14:11 | NUR ---
PT HAD 1 LARGE BM, WATERY AND DARK BROWN. CATHETER WAS REMOVED AT 1400. AND PATIENT STATES THAT SHE WENT A LITTLE BIT. WILL CONTINUE TO MONITOR URINE OUTPUT.
--- NOTE | 2020-07-16 14:24 | NUR ---
PRERNA MONTERROSO WAS EFFECTIVE. PT STATES THAT IT IS HELPING HER PAIN. SHE SAID SHE DOES NOTICE A DIFFERENCE.
[2020-07-16 16:00] VITALS: BP 110/60
[2020-07-16 20:00] VITALS: BP 108/66
--- NOTE | 2020-07-16 22:27 | NUR ---
NORCO GIVEN PER PATIENT REQUEST FOR COMPLAINTS OF ABDOMINAL PAIN RATED 9/10. WILL ASSESS EFFECTIVENESS.
--- NOTE | 2020-07-16 23:14 | NUR ---
NORCO IS STARTING TO BE EFFECTIVE PER PATIENT.
[2020-07-17] VITALS: BP 99/70
--- NOTE | 2020-07-17 | NUR ---
PT SLEEPING IN BED, AWAKENS EASILY. RESP-EASY AND REGULAR. ABD SOFTLY DISTENDED BS+, SCD'S ON. BED ALARM ON. CALL LIGHT IN REACH. SEE SHIFT ASSESSMENT.
--- NOTE | 2020-07-17 00:45 | NUR ---
PT C/O ABDOMINAL PAIN LOWER ABDOMEN. RATES PAIN 8 OR 9 ON PAIN SCALE 0-10. MEDICATED WITH DILAUDID IV PER PRN ORDER, SEE EMAR. ALSO MEDICATED WITH ZOFRAN IV PER PRN ORDER, SEE EMAR FOR NAUSEA. CALL LIGHT IN REACH. BED ALARM ON.
--- NOTE | 2020-07-17 01:45 | NUR ---
PT RESTING IN BED. STATES PAIN MEDICATION HELPED. DENIES ANY NAUSEA. RATES PAIN IN ABDOMEN 1 ON PAIN SCALE 0-10 PER PT. CALL LIGHT IN REACH. BED ALARM ON.
--- NOTE | 2020-07-17 04:00 | NUR ---
PT SLEEPING IN BED. RESP-EASY AND REGULAR. CALL LIGHT IN REACH.
--- NOTE | 2020-07-17 05:30 | NUR ---
TOLERATED ROUTINE AM MEDICATIONS. NO C/O AT THIS TIME. CALL LIGHT IN REACH. BED ALARM ON.
[2020-07-17 06:30] LABS: BASO % 0.3 % (0.0-1.0); EOS # 0.2 10*3/uL (0.0-0.4); EOS % 4.8 % (1.0-4.0); HEMATOCRIT 32.1 % (37.0-47.0); LYMPH # 0.5 10*3/uL (1.3-4.4); LYMPH % 13.9 % (27.0-41.0); MEAN CORPUSCULAR HGB 31.1 pg (27.0-31.0); MEAN CORPUSCULAR HGB CONC 32.7 g/dl (33.0-37.0); MEAN PLATELET VOLUME 10.3 fl (9.6-12.3); MONO # 0.5 10*3/uL (0.1-1.0); MONO % 15.3 % (3.0-9.0); NEUT # 2.3 10*3/uL (2.3-7.9); NEUT % 65.4 % (47.0-73.0); PLATELET COUNT AUTOMATED 149 10*3/uL (130-400); RED BLOOD COUNT 3.38 10*6/uL (4.10-5.10); RED CELL DISTRI WIDTH 15.8 % (0-14.5); WHITE BLOOD COUNT 3.5 10*3/uL (4.8-10.8)
[2020-07-17 06:35] LABS: BUN 18 mg/dl (7-24); CHLORIDE 104 mmol/L (98-107); CREATININE 0.88 mg/dL (0.55-1.02); POTASSIUM 3.5 mmol/L (3.5-5.1); SODIUM 136 mmol/L (136-145)
--- NOTE | 2020-07-17 07:20 | NUR ---
IN TO ASSESS PT AND SHE IS SLEEPING. APPEARS TO BE IN NO PAIN WITH REGULAR AND RELAXED RESPIRATIONS. CALL LIGHT IS WITHIN REACH OF THE PATIENT. WILL COME BACK ONCE AWAKE
--- NOTE | 2020-07-17 07:30 | NUR ---
PHYSICAL THERAPY Patient seen this am 1:1 for therapy visit and was supine in bed upon therapist arrival. Patient identified by name / , reporting 5/10 abdominal pain and was joined by OT respiratory therapy assistant for observation only this session. Patient transfers supine to sit EOB, then sit to stand CGA x 1 and ambulated 25'x 2, CGA, no AD, while demonstrating "waddling" gait pattern. Patient was also very cautious during all 90/180 turns and returned to bedside chair with mild SOB. Patient recorded SpO2 93%, HR 91 bpm and following brief seated rest completed standing eyes open/closed balance with no LOB. Patient also tolerated 3 seconds single leg stance prior to LOB on both L-R side and remained in bedside chair with call light, tray table, telephone. Will continue per POC as tolerated, total treatment time 17 minutes. Leandro Sanchez, INDUSTRIAL GAS SERVICE HELPER
--- NOTE | 2020-07-17 07:40 | NUR ---
INITIAL ASSESSMENT PLACED UNDER ADVOCATE NOTES ACCIDENTLY: Stream Control Officer in to talk to patient. Patient states lives at ALONE. There are 2 steps in the home. Physician: GUANAKITO Pharmacy: [facility] Home health services: [facility] Patient's level of ADLs: INDEPENDENT Patient has working utilities: YES DME: NEBULIZER, WALKER, CANE Follow-up physician's appointment after d/c: WILL BE MADE BY HOSPITALIST COORDINATOR Does patient want to access PORTAL?: NO Discharge plan PATIENT RESIDES AT HOME ALONE. PATIENT STATED HER DAUGHTER LIVES ABOVE HER IN AN APARTMENT. PATIENT STATES THAT SHE IS INDEPENDENT WITH CARE AND DOES DRIVE. PATIENT DENIES ANY HOME NEEDS AT THIS TIME. PATIENT STATES THAT SHE WILL RETURN HOME WITH THE RESUMPTION OF HER [facility]. PATIENT REFUSED SNF.
--- NOTE | 2020-07-17 07:43 | NUR ---
PT/OT IN TO SEE PATIENT
--- NOTE | 2020-07-17 07:50 | NUR ---
OT NOTE Pt was laying in supine in bed agreeable to 15 minute OT session. Pt identified by name and date of with complaints of abdominal pain at 5/10. Transferring supine to EOB SBA. Pt was able to bring leg to chest level to parker socks at SBA. Sit-stand SBA unsupported. Functional mobility from EOB to bathroom at [facility]. Transferring on and off toilet CGA for saftey. Hygiene SBA. Pt was able to stand sink side unsupported to wash hands. Functional mobility from bathroom to recliner at [facility]. Pt was able to doff and parker hospital gown at SBA. Pts balance was challenged by weight shifting in all planes unsupported at [facility]. Balance was good-. Pt completed UB AROM in all planes x10. Pt was left in recliner with call light in reach. Continue d/c to SNF of . AURA Saleh/GISELLE Corona/Oneyda
[2020-07-17 08:00] VITALS: BP 97/50
--- NOTE | 2020-07-17 09:02 | NUR ---
PRN NORCO PO GIVEN FOR COMPLAINTS OF ABDOMEN PAIN RATED 7/10. WILL MONITOR FOR EFFECTIVENESS
--- NOTE | 2020-07-17 09:35 | NUR ---
GROUNDMAN IN TO SPEAK WITH THE PATIENT. PATIENT STATED SHE HAS NO NEW NEEDS JUST [facility]. PATIENT STATED HER SON IN LAW WILL TRANSPORT HER HOME. GROUNDMAN SPOKE WITH RONNIE SAAVEDRA. PER RN, THE PATIENT IS A POSSIBLE DISCHARGE TODAY.
--- NOTE | 2020-07-17 09:55 | NUR ---
PT STATES NORCO EFFECTIVE.
--- NOTE | 2020-07-17 09:59 | NUR ---
AKIN SALVAGE WINDER ON FLOOR AND STATES SHE WANTS TO GET HOME HEALTH ONCE A WEEK TO PT HOUSE FOR HELP, AND ADVANCE HER DIET TO REGULAR. POSSIBLE DISCHARGE IN 24-48 HOURS
--- NOTE | 2020-07-17 11:13 | NUR ---
MANAGER SCIENTIFIC FAXED RESUMPTION HOME HEALTH ORDER TO [facility]. MANAGER SCIENTIFIC SPOKE TO RONNIE BROOKS WHO STATED THE PATIENT WOULD NOT BE A POTENTIAL DISCHARGE UNTIL FRIDAY. MANAGER SCIENTIFIC NOTIFIED RN HOSPITALIST COORDINATOR GALE.
[2020-07-17 12:00] VITALS: BP 94/56
--- NOTE | 2020-07-17 12:12 | NUR ---
WOUND CHANGED AT THIS TIME. PT TOLERATED WELL
--- NOTE | 2020-07-17 13:45 | NUR ---
OT NOTE Pt laying supine in bed agreeable to 10 minute OT session. Identified by name and date of with no complaints to date. Supine to EOB SBA. Pt was able to bring foot to chest level to fix socks. Sit-stand CGA with w/w for UB support. Functional mobility from EOB to bathroom CGA with w/w. Transferring off and on toilet CGA with w/w. Hygiene SBA. Pt was able to parker depends at SBA. Pt stood unsupported at sink side to wash hands with w/w at CGA. Balance good-. Functional mobility from bathroom to bed CGA with w/w. Pt was able to get back in bed at SBA. Pt left in bed with call light in reach. Continue d/c recommended SNF OR HH. AURA Saleh/GISELLE Corona/Oneyda
--- NOTE | 2020-07-17 15:53 | NUR ---
PRN NORCO PO GIVEN FOR COMPLAINTS OF ABDOMEN PAIN RATED 6/10. WILL MONITOR FOR EFFECTIVENESS
[2020-07-17 16:00] VITALS: BP 108/52
--- NOTE | 2020-07-17 17:01 | NUR ---
PRN ZOFRAN IV GIVEN FOR COMPLAINTS OF NAUSEA. WILL MONITOR FOR EFFECTIVENESS
--- NOTE | 2020-07-17 17:52 | NUR ---
PT STATES ZOFRAN EFFECTIVE. WILL CONTINUE TO MONITOR
--- NOTE | 2020-07-17 19:27 | NUR ---
PT C/O ABDOMINAL PAIN, RATES PAIN 10 ON PAIN SCALE 0-10. MEDICATED WITH DILAUDID IV PER PRN ORDER, SEE EMAR. CALL LIGHT IN REACH. BED ALARM ON.
[2020-07-17 20:00] VITALS: BP 101/75
--- NOTE | 2020-07-17 20:20 | NUR ---
PT RESTING IN BED. STATES PAIN MEDICATION EFFECTIVE. RATES PAIN 1 ON PAIN SCALE 0-10. CALL LIGHT IN REACH. BED ALARM ON.
[2020-07-18] VITALS: BP 97/72
--- NOTE | 2020-07-18 | NUR ---
PT RESTING IN BED WITH EYES CLOSED, AWAKENS EASILY. NO C/O AT THIS TIME. CALL LIGHT IN REACH. SCD'S ON. BED ALARM ON. SEE SHIFT ASSESSMENT.
--- NOTE | 2020-07-18 06:00 | NUR ---
PT TOLERATED ROUTINE MED WITH NO PROBLEM. NO C/O AT THIS TIME. REPOSITIONED SELF IN BED. CALL LIGHT IN REACH. SEE SHIFT ASSESSMENT. BED ALARM ON.
[2020-07-18 06:34] LABS: BASO % 0.2 % (0.0-1.0); EOS # 0.2 10*3/uL (0.0-0.4); EOS % 5.8 % (1.0-4.0); HEMATOCRIT 31.6 % (37.0-47.0); LYMPH # 0.7 10*3/uL (1.3-4.4); LYMPH % 17.3 % (27.0-41.0); MEAN CELL VOLUME 92.9 fl (81.0-99.0); MEAN CORPUSCULAR HGB 30.9 pg (27.0-31.0); MEAN CORPUSCULAR HGB CONC 33.2 g/dl (33.0-37.0); MONO # 0.7 10*3/uL (0.1-1.0); MONO % 16.6 % (3.0-9.0); NEUT # 2.5 10*3/uL (2.3-7.9); NEUT % 59.4 % (47.0-73.0); PLATELET COUNT AUTOMATED 184 10*3/uL (130-400); RED CELL DISTRI WIDTH 14.9 % (0-14.5); WHITE BLOOD COUNT 4.2 10*3/uL (4.8-10.8)
[2020-07-18 06:49] LABS: BUN 15 mg/dl (7-24); CHLORIDE 103 mmol/L (98-107); CREATININE 0.75 mg/dL (0.55-1.02); POTASSIUM 3.5 mmol/L (3.5-5.1); SODIUM 134 mmol/L (136-145)
--- NOTE | 2020-07-18 07:27 | NUR ---
PRN NORCO PO GIVEN FOR COMPLAINTS OF ABDOMINAL PAIN RATED 6/10. WILL CONTINUE TO MONITOR FOR EFFECTIVENESS
--- NOTE | 2020-07-18 07:56 | NUR ---
OT NOTE Pt was laying supine in bed with head slightly elevated, agreeable to 16 minute OT session. Identified by name and date of with complaints of nausea and abdominal pain which scored a 5/10 on the pain scale. Transfer supine to EOB SBA. Pt was able to bring foot to chest level to fix socks at SBA. Sit-stand CGA with w/w for UB support. Functional mobility from EOB to bathroom CGA with w/w for safety. Transferring on and off toilet SBA with use of w/w and grab bar. Hygiene SBA. Pt was able to stand unsupported to pull depends up over hips. balance was good-. Functional mobility from bathroom to recliner CGA with w/w. Pt completed AROM in all planes X10 at SBA. Pts balance was challenged by weight shifting in all planes unsupported at CGA with w/w for safety. Balance good-. Pt left in recliner with call light in reach. Continue d/c recommended SNF or HH. AURA Saleh/GISELLE Corona/Oneyda
[2020-07-18 08:00] VITALS: BP 107/55
--- NOTE | 2020-07-18 08:17 | NUR ---
PT STATES PAIN MEDS "WERE NOT VERY HELPFUL" SHE IS STILL HAVING PAIN. WILL CONTINUE TO MONITOR. PT SITTING UP IN CHAIR AT THIS TIME
--- NOTE | 2020-07-18 09:35 | NUR ---
PHYSICAL THERAPY Patient seen this am 1:1 for therapy visit and was sitting up in bedside chair upon therapist arrival. Patient identified by name / and reports only mild abdominal soreness since receiving pain meds earlier this morning. Patient states she usually is somewhere between 5 or 6/10 pain prior to pain meds. Patient transfers sit to stand from low chair surface, SBA, demonstrating slow, steady rise and ambulates without AD, 100'x 2, SBA, demonstrating slow, cautious gait pattern. Patient also demonstrates mild fatigue, requiring brief standing rest break < 20 seconds prior to return to bedside chair. Patient able to take 4-5 backward steps without LOB and performed seated B LE therex, all planes x 15 reps each to increase LE strength. Patient remained in chair with call light, tray table, and telephone. Will continue per POC as tolerated, total treatment time 23 minutes. Leandro Sanchez, REED FIXER
--- NOTE | 2020-07-18 10:32 | NUR ---
PRN DILUADID IV GIVEN FOR COMPLAING OF ABDOMINAL PAIN 04/26. WILL MONITOR FOR EFFECTIVENESS
[2020-07-18 12:00] VITALS: BP 102/58
--- NOTE | 2020-07-18 12:50 | NUR ---
OT NOTE Pt laying supine in bed agreeable to 10 minute OT session. Identified by name and date of no complaints to date. Transfer supine to EOB SBA. Sit-stand SBA with w/w for UB support. Pts standing tolerance was challenged with functional mobility from EOB down the hallway and back to bed with CGA and w/w for safety. Pt was able to tolerate 10 minutes of activity before getting fatigued. While performing functional mobility, pts balance was good- with CGA and w/w for saftey. Pt was able to situate self in bed at SBA. Pt left in bed with call light at reach. Continue d/c recommended SNF or HH. AURA Saleh/GISELLE Corona/Oneyda
--- NOTE | 2020-07-18 14:32 | NUR ---
WOUND CHANGED AT THIS TIME
[2020-07-18 16:50] VITALS: BP 100/50
--- NOTE | 2020-07-18 19:45 | NUR ---
PT RESTING IN BED. RESP-EASY AND REGULAR. C/O ABDOMINAL PAIN RATES PAIN 7 ON PAIN SCALE 0-10. MEDICATED WITH DILAUDID IV PER PRN ORDER, SEE EMAR. CALL LIGHT IN REACH. ASSISTED TO BATHROOM WITH WALKER AND BACK TO BED. SEE SHIFT ASSESSMENT.
[2020-07-18 20:00] VITALS: BP 116/72
--- NOTE | 2020-07-18 20:45 | NUR ---
PT RESTING IN BED WITH EYES CLOSED. AWAKENS EASILY. STATES PAIN MEDICATION HELPED. CALL LIGHT IN REACH. BED ALARM ON.
--- NOTE | 2020-07-18 22:53 | NUR ---
RESTING IN BED WITH EYES CLOSED. RESP-EASY AND REGULAR. CALL LIGHT IN REACH. BED ALARM ON.
[2020-07-19] VITALS: BP 97/60
--- NOTE | 2020-07-19 | NUR ---
PT RESTING IN BED WITH EYES CLOSED. RESP-EASY AND REGULAR. CALL LIGHT IN REACH. SEE SHIFT ASSESSMENT. BED ALARM ON.
--- NOTE | 2020-07-19 05:16 | NUR ---
PT C/O ABDOMINAL PAIN, RATES PAIN 9 ON PAIN SCALE 0-10. MEDICATED WITH DILAUDID IV PER PRN ORDER, SEE EMAR. ASSISTED TO BATHROOM WITH WALKER AND BACK TO BED. CALL LIGHT IN REACH. BED ALARM ON.
--- NOTE | 2020-07-19 06:00 | NUR ---
PT RESTING IN BED WTIH EYES CLOSED, AWAKENS EASILY. STATES MEDICATION WAS EFFECTIVE. CALL LIGHT IN REACH. BED ALARM ON.
[2020-07-19 06:20] LABS: BUN 12 mg/dl (7-24); CHLORIDE 102 mmol/L (98-107); CREATININE 0.76 mg/dL (0.55-1.02); POTASSIUM 3.3 mmol/L (3.5-5.1); SODIUM 134 mmol/L (136-145)
[2020-07-19 06:26] LABS: BASO % 0.2 % (0.0-1.0); EOS # 0.2 10*3/uL (0.0-0.4); EOS % 5.7 % (1.0-4.0); HEMATOCRIT 29.8 % (37.0-47.0); LYMPH # 0.7 10*3/uL (1.3-4.4); LYMPH % 17.9 % (27.0-41.0); MEAN CELL VOLUME 93.7 fl (81.0-99.0); MEAN CORPUSCULAR HGB 30.5 pg (27.0-31.0); MEAN CORPUSCULAR HGB CONC 32.6 g/dl (33.0-37.0); MEAN PLATELET VOLUME 10.3 fl (9.6-12.3); MONO # 0.8 10*3/uL (0.1-1.0); MONO % 18.9 % (3.0-9.0); NEUT # 2.3 10*3/uL (2.3-7.9); NEUT % 56.3 % (47.0-73.0); PLATELET COUNT AUTOMATED 212 10*3/uL (130-400); RED BLOOD COUNT 3.18 10*6/uL (4.10-5.10); RED CELL DISTRI WIDTH 14.6 % (0-14.5)
[2020-07-19 08:00] VITALS: BP 100/77
--- NOTE | 2020-07-19 08:20 | NUR ---
OT NOTE Pt laying supine in bed with head slightly elevated agreeable to 10 minute OT session. Identified by name and date of with complaints of 2/10 abdomen pain. Transfer supine to EOB SBA. Sit-stand SBA with w/w for UB support. Functional mobility from EOB, down the hallway and back to bathroom sink CGA with w/w. Pt was able to tolerate approx 8 minutes of activity. Pt was able to stand sink side to wash face unsupported with w/w at CGA and presented with F+/G- standing balance. Functional mobility from sink to recliner CGA with w/w. Pt left in recliner with call light in reach. Continue d/c recommended SNF OR HH. AURA Saleh/GISELLE Corona/Oneyda
--- NOTE | 2020-07-19 10:04 | NUR ---
Spoke to Dr. Weller regarding discharge planning. Patient is stable for discharge. Notified hospitalist.
--- NOTE | 2020-07-19 10:50 | NUR ---
PHYSICAL THERAPY Patient seen this am 1:1 for therapy visit and was resting supine in bed upon therapist arrival. Patient identified by name / and reports no new c/o's at this time. Patient transfers SBA supine to sit, then sit to stand, with slow, cautious movements to prevent risk of increased abdominal pain. Patient ambulates without AD, SBA, 100'x 2, demonstrating slow, steady gait pattern and no LOB this session. Patient still demonstrates mild fatigue upon return to EOB sit and remained with call light, tray table, telephone. Will continue per POC as tolerated, total treatment time 17 minutes. Leandro Sanchez, DIGITAL PHOTO PRINTER
--- NOTE | 2020-07-19 11:39 | NUR ---
DATABASE ARCHITECT IN TO SPEAK WITH THE PATIENT. DATABASE ARCHITECT EXPLAINED POSSIBLE DISCHARGE. PATIENT STATED SHE HAS NO NEW NEEDS. DATABASE ARCHITECT EXPLAINED WOULD NOTIFIED [facility] OF PATIENT DISCHARGING. PATIENT STATED THAT SHE WOULD HAVE [facility] TRANSPORT HER HOME. DATABASE ARCHITECT NOTFIED RONNIE HEDRICK.
[2020-07-19 12:00] VITALS: BP 127/62
--- NOTE | 2020-07-19 13:56 | NUR ---
PT MEDICATED WITH IV DILAUDID SLOWLY PER PRN ORDER FOR C/O ABD PAIN. RATES PAIN 05/26. WILL MONITOR EFFECTIVENESS.
--- NOTE | 2020-07-19 14:56 | NUR ---
PER PATIENT, DILAUDID HAS BEEN EFFECTIVE. DENIES FURTHER COMPLAINTS.
--- NOTE | 2020-07-19 15:25 | NUR ---
GIORGI FAXED DISCHARGE ORDERS TO [facility].
--- NOTE | 2020-07-19 16:10 | NUR ---
OCCUPATIONAL THERAPY CO-SIGN I approve of the Occupational Therapy notes written above. JULIANA TREVIÑO, OTR/L
--- NOTE | 2020-07-19 17:00 | NUR ---
Discharge instructions reviewed with patient/family. Patient receptive and verbalizes understanding. Follow-up care arranged. Written instructions given to patient/family. HEPLOCK DISCONTINUED. DRESSING CHANGED PER ORDER PRIOR TO DISCHARGE. PICKED UP BY DAUGHTER. PT AWARE OF APPT WITH IN 1 WEEK. FLORIDALMA ADKINS
[2020-07-19] MEDS ORDERED: NORCO 5-325 TA1 EACH PO ×2 (18:04→18:18)
--- NOTE | 2020-07-20 07:52 | NUR ---
PHYSICAL THERAPY CO-SIGN I approve of the Physical Therapy notes written above. Erika Schroeder PT
[2020-08-10] MEDS ORDERED: VANCO 1.51.5 GM/500 IV (11:09)
== END 2020-07-19 17:14 | disposition home health service (06) | DRG 330 ==
LOC: SDC 00:40 → 4E 13:36 → SDC 14:00 → 4E 15:08
PROVIDERS: Family Medicine; Internal Medicine; Surgery; ADMIT Internal Medicine; ATTEND Internal Medicine
PROC: 0DB80ZZ Excision of Small Intestine, Open Approach (ICD-10-PCS; principal; 2020-07-13)
PROC: 0DBB0ZZ Excision of Ileum, Open Approach (ICD-10-PCS; principal; 2020-07-13)
PROC: 0DQV0ZZ Repair Mesentery, Open Approach (ICD-10-PCS; principal; 2020-07-13)
PROC: 0DN84ZZ Release Small Intestine, Percutaneous Endoscopic Approach (ICD-10-PCS; principal; 2020-07-13)
PROC: 30233N1 Transfusion of Nonautologous Red Blood Cells into Peripheral Vein, Percutaneous Approach (ICD-10-PCS; 2020-07-15)
DX: Z43.2 Encounter for attention to ileostomy (principal); K66.0 Peritoneal adhesions (postprocedural) (postinfection); E44.0 Moderate protein-calorie malnutrition; I50.22 Chronic systolic (congestive) heart failure; I13.0 Hypertensive heart and chronic kidney disease with heart failure and stage 1 through stage 4 chronic kidney disease, or unspecified chronic kidney disease; N18.3 Chronic kidney disease, stage 3 (moderate); I48.0 Paroxysmal atrial fibrillation; J44.9 Chronic obstructive pulmonary disease, unspecified; D72.829 Elevated white blood cell count, unspecified; F41.9 Anxiety disorder, unspecified; I25.10 Atherosclerotic heart disease of native coronary artery without angina pectoris; F32.9 Major depressive disorder, single episode, unspecified; E78.5 Hyperlipidemia, unspecified; G47.00 Insomnia, unspecified; G47.33 Obstructive sleep apnea (adult) (pediatric); F17.210 Nicotine dependence, cigarettes, uncomplicated; D64.9 Anemia, unspecified; D69.6 Thrombocytopenia, unspecified; E87.8 Other disorders of electrolyte and fluid balance, not elsewhere classified; R73.9 Hyperglycemia, unspecified; E55.9 Vitamin D deficiency, unspecified; Z90.710 Acquired absence of both cervix and uterus; Z90.721 Acquired absence of ovaries, unilateral; Z83.1 Family history of other infectious and parasitic diseases; Z98.890 Other specified postprocedural states; Z68.28 Body mass index [BMI] 28.0-28.9, adult; Z79.899 Other long term (current) drug therapy

== ENCOUNTER 2020-07-28 09:45 | Observation (INO) | payer MEDICARE, BC ==
[~2020-07-28] VITALS: Ht 175.2 cm; Wt 80.0 kg
[~2020-07-28 09:45] MED LIST changes: +NORCO 5-325 TA1 EACH PO
[2020-07-28 09:50] VITALS: BP 128/82
[2020-07-28 10:29] LABS: BASO # 0.1 10*3/uL (0.0-0.1); BASO % 0.7 % (0.0-1.0); EOS # 0.2 10*3/uL (0.0-0.4); EOS % 2.2 % (1.0-4.0); HEMATOCRIT 29.9 % (37.0-47.0); LYMPH # 1.2 10*3/uL (1.3-4.4); LYMPH % 11.7 % (27.0-41.0); MEAN CORPUSCULAR HGB 29.8 pg (27.0-31.0); MEAN CORPUSCULAR HGB CONC 32.4 g/dl (33.0-37.0); MEAN PLATELET VOLUME 9.3 fl (9.6-12.3); MONO # 0.7 10*3/uL (0.1-1.0); MONO % 6.9 % (3.0-9.0); NEUT # 7.6 10*3/uL (2.3-7.9); NEUT % 77.9 % (47.0-73.0); PLATELET COUNT AUTOMATED 414 10*3/uL (130-400); RED BLOOD COUNT 3.25 10*6/uL (4.10-5.10); RED CELL DISTRI WIDTH 13.9 % (0-14.5); WHITE BLOOD COUNT 9.8 10*3/uL (4.8-10.8)
[2020-07-28 10:40] LABS: ACT PARTIAL THROMBO TIME 27.6 SECONDS (20.0-32.1); INTERNATIONAL NORM RATIO 1.3 (2.0-3.5)
[2020-07-28 10:45] LABS: ALBUMIN 2.6 gm/dl (3.1-4.5); ALKALINE PHOSPHATASE 85 U/L (45-117); BUN 5 mg/dl (7-24); CHLORIDE 105 mmol/L (98-107); CREATININE 0.77 mg/dL (0.55-1.02); LIPASE 58 U/L (73-393); POTASSIUM 2.7 mmol/L (3.5-5.1); SGOT/AST 18 IU/L (3-35); SGPT/ALT 24 U/L (12-78); SODIUM 140 mmol/L (136-145); TOTAL PROTEIN 6.4 gm/dL (6.4-8.2); TROPONIN I 0.023 ng/ml (<0.045)
[2020-07-28 12:17] VITALS: BP 126/82
--- NOTE | 2020-07-28 12:46 | NUR ---
RADHA THORNTON NOT TO CALL HE WAS ALREADY NOTIFIED AND WILL SEE PATIENT TOMORROW.
[2020-07-28 12:50] VITALS: BP 123/71
--- NOTE | 2020-07-28 12:50 | NUR ---
A 69, admitted to 5E, under the services of AMITA Dawson DO with a diagnosis of HYPOKALEMIA, HYPOMAGNESEMIA. Chief complaint is IRREGULAR LABS, LOOSE STOOLS. Patient arrived via wheel chair from ER. Monitor applied. Initial assessment completed. Vital signs taken and recorded. AMITA DAWSON DO notified of admission to the 5TH FLOOR. Orders received. See assessment for past medical history, medications and allergies. Patient and/or family oriented to unit. [address] visitation policy reviewed. Clothing/patient valuable form completed. TODD FRANZ
--- NOTE | 2020-07-28 15:00 | NUR ---
HILLARY NOTIFIED MED REC UP TO DATE AND PATIENT UNSURE OF FREQUENCY OF HYDORCORTISONE SHE KNOWS DOSE IS 10MG AND THINKS THE FREQUENCY IS DAILY NOW BUT IS UNSURE BECAUSE IT WAS JUST RECENTLY CHANGED.
[2020-07-28 16:00] VITALS: BP 118/59
[2020-07-28 20:00] VITALS: BP 132/66
[2020-07-29] VITALS: BP 131/74
[2020-07-29 06:38] LABS: BASO # 0.1 10*3/uL (0.0-0.1); EOS # 0.3 10*3/uL (0.0-0.4); EOS % 3.9 % (1.0-4.0); HEMATOCRIT 28.9 % (37.0-47.0); LYMPH # 1.2 10*3/uL (1.3-4.4); MEAN CELL VOLUME 94.4 fl (81.0-99.0); MEAN CORPUSCULAR HGB 30.1 pg (27.0-31.0); MEAN CORPUSCULAR HGB CONC 31.8 g/dl (33.0-37.0); MEAN PLATELET VOLUME 9.4 fl (9.6-12.3); MONO # 0.6 10*3/uL (0.1-1.0); MONO % 7.5 % (3.0-9.0); NEUT # 5.7 10*3/uL (2.3-7.9); NEUT % 71.7 % (47.0-73.0); PLATELET COUNT AUTOMATED 395 10*3/uL (130-400); RED BLOOD COUNT 3.06 10*6/uL (4.10-5.10); RED CELL DISTRI WIDTH 14.1 % (0-14.5)
[2020-07-29 07:13] LABS: ALBUMIN 2.4 gm/dl (3.1-4.5); BUN 7 mg/dl (7-24); CHLORIDE 109 mmol/L (98-107); CREATININE 0.79 mg/dL (0.55-1.02); POTASSIUM 3.1 mmol/L (3.5-5.1); SGOT/AST 20 IU/L (3-35); SGPT/ALT 25 U/L (12-78); SODIUM 142 mmol/L (136-145)
[2020-07-29 07:16] LABS: ALKALINE PHOSPHATASE 75 U/L (45-117)
[2020-07-29 08:00] VITALS: BP 130/64
--- NOTE | 2020-07-29 10:15 | NUR ---
NE[place]LE in to talk to patient. Patient states lives at home with daughter living in apartment above pt. There is [address] in the home. Physician: Dr Ferrell Pharmacy: [facility] Home health services: [facility] Patient's level of ADLs: INDEPENDENT Patient has working utilities: yes DME: [email or web address] Follow-up physician's appointment after d/c: to be scheduled prior to d/c Does patient want to access PORTAL?: no Discharge plan: Pt states that she plans on returning home with resumption of VNA through [facility]. Discussed SNF should that be recommended. Pt stated that she will not d/c to a SNF. She states that she is independent and that her daughter is right there is pt would have any needs. YOHANA YANES
[2020-07-29 12:00] VITALS: BP 112/66
--- NOTE | 2020-07-29 12:43 | NUR ---
PT REQUESTED AND GIVEN IMODIUM FOR C/O DIARRHEA. WILL MONITOR
--- NOTE | 2020-07-29 13:20 | NUR ---
PT STATES THAT IMODIUM HELPED A LITTLE. WILL MONITOR
[2020-07-29 16:00] VITALS: BP 110/63
[2020-07-29 20:00] VITALS: BP 97/58
--- NOTE | 2020-07-29 21:00 | NUR ---
PT IS LAYING IN BED WATCHING TV AT THIS TIME. NO S/S OF DISTRESS NOTED. PT STATES THAT SHE HAS NOT EXPERIENCED A LOOSE BM IN OVER 3 HOURS. EDUCATION PROVIDED ON PRN MEDICATIONS. RESPS ARE EASY AND NONLABORED, VITALS WNL. BED LOW, CALL LIGHT WITHIN REACH. WILL CONTINUE TO MONITOR.
--- NOTE | 2020-07-29 21:55 | NUR ---
24 HR CHART CHECK COMPLETE.
[2020-07-30] VITALS: BP 99/56
[2020-07-30 06:35] LABS: BUN 6 mg/dl (7-24); CHLORIDE 115 mmol/L (98-107); POTASSIUM 3.6 mmol/L (3.5-5.1); SODIUM 144 mmol/L (136-145)
--- NOTE | 2020-07-30 08:00 | NUR ---
IN TO ROOM. PATIENT AWAKE, ALERT AND ORIENTED. NO STATED COMPLAINTS AT THIS TIME. PT DENIES ANY PAIN. RESPIRATIONS ARE EASY AND REGULAR ON ROOM AIR. NO SOB NOTED AT REST. PT IS ABLE TO REPOSITION SELF AND IS ENCOURAGED TO DO SO. BED IN LOWEST LOCKED POSITION AND CALL LIGHT WITHIN REACH. WILL CONTINUE TO MONITOR.
[2020-07-30] MEDS ORDERED: QUESTRAN LIGHT4 GM PO (08:19)
[2020-07-30] MEDS ORDERED: K-TAB20 MEQ PO (08:19)
[2020-07-30] MEDS ORDERED: METAMUCIL FIBE3.4 GM PO (08:19)
[2020-07-30] MEDS ORDERED: PANTOPRAZOLE SO40 MG PO (08:19)
[2020-07-30] MEDS ORDERED: LOPERAMIDE HCL2 MG PO (08:19)
--- NOTE | 2020-07-30 08:30 | NUR ---
SURGICAL SITE IS REDRESSED WITH DRY STERILE DRESSING AND PAPER TAPE PER HILLARY GENAO'S ORDERS. NO STATED COMPLAINS. NO SOB OR DISTRESS NOTED. BED IN LOWEST LOCKED POSITION AND CALL LIGHT WITHIN REACH. WILL CONTINUE TO MONITOR.
--- NOTE | 2020-07-30 08:30 | NUR ---
SURIGAL SITE IS REDRESSED WITH DRY STERILE DRESSING PER HILLARY GENAO'S ORDERS. HOME HEALTH WILL CONTINUE WOUND CARE AT HOME.
--- NOTE | 2020-07-30 11:09 | NUR ---
PT DID NOT WANT DRESSING TAKEN OFF OF SURGICAL SITE FOR DISCHARGE PHOTOS.
--- NOTE | 2020-07-30 11:15 | NUR ---
Discharge instructions reviewed with patient/family. Patient receptive and verbalizes understanding. Follow-up care arranged. Written instructions given to patient/family. EMMA MITTAL
--- NOTE | 2020-07-31 07:29 | NUR ---
Faxed home health care resumption order to [facility]
== END 2020-07-30 11:29 | disposition home or self-care (01) ==
LOC: ED 09:45 → EDHOLD 11:08 → 5E 12:21
PROVIDERS: Nurse Practitioner Family; Registered Nurse; ADMIT Student in an Organized Health Care Education/Training Program; ATTEND Student in an Organized Health Care Education/Training Program
DX: E87.6 Hypokalemia (principal); I13.0 Hypertensive heart and chronic kidney disease with heart failure and stage 1 through stage 4 chronic kidney disease, or unspecified chronic kidney disease; N18.3 Chronic kidney disease, stage 3 (moderate); I50.22 Chronic systolic (congestive) heart failure; I48.0 Paroxysmal atrial fibrillation; G47.33 Obstructive sleep apnea (adult) (pediatric); E43 Unspecified severe protein-calorie malnutrition; D64.9 Anemia, unspecified; F32.9 Major depressive disorder, single episode, unspecified; F41.9 Anxiety disorder, unspecified; I25.10 Atherosclerotic heart disease of native coronary artery without angina pectoris; J44.9 Chronic obstructive pulmonary disease, unspecified; E86.0 Dehydration; R19.7 Diarrhea, unspecified; E78.5 Hyperlipidemia, unspecified

== ENCOUNTER → 2020-08-15 | Outpatient (CLI) | payer MEDICARE, BC ==
[~2020-08-15] MED LIST changes: +K-TAB20 MEQ PO; +PANTOPRAZOLE SO40 MG PO; +VANCO 1.51.5 GM/500 IV
[2020-08-15 08:14] VITALS: BP 104/46
[2020-08-15 08:34] VITALS: BP 123/53
[2020-08-15 09:08] VITALS: BP 107/75
[2020-08-15 09:17] LABS: BASO % 0.2 % (0.0-1.0); EOS # 0.6 10*3/uL (0.0-0.4); EOS % 5.2 % (1.0-4.0); HEMATOCRIT 29.3 % (37.0-47.0); LYMPH # 1.5 10*3/uL (1.3-4.4); LYMPH % 13.2 % (27.0-41.0); MEAN CELL VOLUME 92.1 fl (81.0-99.0); MEAN CORPUSCULAR HGB 29.2 pg (27.0-31.0); MEAN CORPUSCULAR HGB CONC 31.7 g/dl (33.0-37.0); MEAN PLATELET VOLUME 10.9 fl (9.6-12.3); MONO # 0.7 10*3/uL (0.1-1.0); MONO % 6.6 % (3.0-9.0); NEUT # 8.3 10*3/uL (2.3-7.9); NEUT % 73.8 % (47.0-73.0); PLATELET COUNT AUTOMATED 230 10*3/uL (130-400); RED BLOOD COUNT 3.18 10*6/uL (4.10-5.10); RED CELL DISTRI WIDTH 15.4 % (0-14.5); WHITE BLOOD COUNT 11.2 10*3/uL (4.8-10.8)
--- NOTE | 2020-08-15 09:27 | NUR ---
CALLING PROVIDER TO SEE IF HE STILL WANTS BLOOD TRANSFUSION. HEMOGLOBIN 9.3
--- NOTE | 2020-08-15 09:31 | NUR ---
DR CALABRESE'S OFFICE CALLED AND SAID TO HOLD TRANSFUSION FOR TODAY.
== END | disposition home or self-care (01) ==
LOC: TRNFUSION 06:01
PROVIDERS: ATTEND Internal Medicine
DX: D64.9 Anemia, unspecified (principal); I10 Essential (primary) hypertension; J44.9 Chronic obstructive pulmonary disease, unspecified; I25.2 Old myocardial infarction; E78.5 Hyperlipidemia, unspecified; I48.91 Unspecified atrial fibrillation; Z87.891 Personal history of nicotine dependence

== ENCOUNTER 2020-12-13 04:53 | Inpatient (IN) | payer MEDICARE, BC ==
[~2020-12-13] VITALS: Ht 172.7 cm; Wt 84.0 kg
[2020-12-13] VITALS (16 sets, daily range): BP systolic 74–156; BP diastolic 40–77
[2020-12-13 05:59] LABS: ALBUMIN 3.5 gm/dl (3.1-4.5); ALKALINE PHOSPHATASE 104 U/L (45-117); BUN 29 mg/dl (7-24); CHLORIDE 109 mmol/L (98-107); CREATININE 1.17 mg/dL (0.55-1.02); POTASSIUM 5.2 mmol/L (3.5-5.1); SGOT/AST 40 IU/L (3-35); SGPT/ALT 44 U/L (12-78); SODIUM 138 mmol/L (136-145); TOTAL PROTEIN 7.6 gm/dL (6.4-8.2)
[2020-12-13 06:02] LABS: BASO # 0.1 10*3/uL (0.0-0.1); BASO % 0.7 % (0.0-1.0); EOS # 0.4 10*3/uL (0.0-0.4); LYMPH # 2.4 10*3/uL (1.3-4.4); LYMPH % 16.7 % (27.0-41.0); MEAN CELL VOLUME 95.2 fl (81.0-99.0); MEAN CORPUSCULAR HGB 28.8 pg (27.0-31.0); MEAN CORPUSCULAR HGB CONC 30.2 g/dl (33.0-37.0); MEAN PLATELET VOLUME 10.2 fl (9.6-12.3); NEUT % 70.9 % (47.0-73.0); PLATELET COUNT AUTOMATED 265 10*3/uL (130-400); RED BLOOD COUNT 4.41 10*6/uL (4.10-5.10); RED CELL DISTRI WIDTH 15.4 % (0-14.5); WHITE BLOOD COUNT 14.2 10*3/uL (4.8-10.8)
[2020-12-13 08:02] LABS: ABG BASE EXCESS -7.3 mmol/L (-2.0-2.0); ARTERIAL BLOOD GAS PH 7.085 (7.35-7.45)
[2020-12-13 12:43] LABS: ABG BASE EXCESS -6.1 mmol/L (-2.0-2.0)
[2020-12-13 12:44] LABS: ARTERIAL BLOOD GAS PH 7.175 (7.35-7.45)
[2020-12-13 12:56] LABS: BILIRUBIN Negative (Negative); BLOOD 1+ (Negative); CLARITY Clear (Clear); COLOR Yellow (Yellow); GLUCOSE Negative (Negative); KETONE Negative (Negative); LEUKO ESTERASE Negative (Negative); NITRITE Negative (Negative); PH 5.5 (4.5-8.0); SPECIFIC GRAVITY 1.015 (1.001-1.030); UROBILINOGEN 0.2 E.U./dl (0.0-1.0)
[2020-12-13 13:11] LABS: BACTERIA 2+
[2020-12-13 15:35] LABS: ABG BASE EXCESS -3.7 mmol/L (-2.0-2.0); ARTERIAL BLOOD GAS PH 7.316 (7.35-7.45)
[2020-12-13] MEDS ORDERED: FEROSUL325 MG PO (15:36)
[2020-12-13] MEDS ORDERED: ZESTRIL30 M3 PO (15:39)
[2020-12-13] MEDS ORDERED: METOPROLOL25 MG PO (15:41)
[2020-12-13] MEDS ORDERED: ASPIRIN CHEWABL81 MG PO (15:42)
[2020-12-13] MEDS ORDERED: PRASUGREL HCL10 MG PO (15:43)
[2020-12-13] MEDS ORDERED: FUROSEMIDE20 M1 PO (15:52)
[2020-12-13] MEDS ORDERED: POTASSIUM CHLO20 ME4 PO (15:55)
[2020-12-13] MEDS ORDERED: ZESTRIL10 MG PO (15:57)
[2020-12-13] MEDS ORDERED: WARFARIN SODIU2.5 MG PO (16:01)
[2020-12-13] MEDS ORDERED: CLOPIDOGREL75 MG PO (16:19)
[2020-12-13] MEDS ORDERED: CITALOPRAM40 MG PO (16:20)
[2020-12-13 18:11] LABS: ABG BASE EXCESS -3.5 mmol/L (-2.0-2.0); ARTERIAL BLOOD GAS PH 7.341 (7.35-7.45)
[2020-12-13 18:23] LABS: INTERNATIONAL NORM RATIO 1.2 (2.0-3.5)
[2020-12-14] VITALS (9 sets, daily range): BP systolic 93–155; BP diastolic 54–82
[2020-12-14 06:22] LABS: ALKALINE PHOSPHATASE 77 U/L (45-117); BUN 26 mg/dl (7-24); CHLORIDE 111 mmol/L (98-107); CREATININE 0.84 mg/dL (0.55-1.02); LDH 158 U/L (84-246); SGOT/AST 25 IU/L (3-35); SGPT/ALT 36 U/L (12-78); SODIUM 141 mmol/L (136-145); TOTAL PROTEIN 6.2 gm/dL (6.4-8.2)
[2020-12-14 06:23] LABS: CPK 85 U/L (26-192)
[2020-12-14 06:25] LABS: ACT PARTIAL THROMBO TIME 24.2 SECONDS (20.0-32.1); INTERNATIONAL NORM RATIO 1.2 (2.0-3.5)
[2020-12-14 06:26] LABS: BASO % 0.1 % (0.0-1.0); HEMATOCRIT 34.2 % (37.0-47.0); LYMPH # 0.8 10*3/uL (1.3-4.4); LYMPH % 7.6 % (27.0-41.0); MEAN CORPUSCULAR HGB 28.7 pg (27.0-31.0); MEAN CORPUSCULAR HGB CONC 31.3 g/dl (33.0-37.0); MEAN PLATELET VOLUME 11.2 fl (9.6-12.3); MONO # 0.7 10*3/uL (0.1-1.0); MONO % 6.7 % (3.0-9.0); NEUT # 9.2 10*3/uL (2.3-7.9); NEUT % 85.1 % (47.0-73.0); RED BLOOD COUNT 3.73 10*6/uL (4.10-5.10); RED CELL DISTRI WIDTH 15.8 % (0-14.5); WHITE BLOOD COUNT 10.9 10*3/uL (4.8-10.8)
[2020-12-14 06:32] LABS: MEAN CELL VOLUME 91.7 fl (81.0-99.0); PLATELET COUNT AUTOMATED 161 10*3/uL (130-400)
[2020-12-14 07:40] LABS: ABG BASE EXCESS -0.1 mmol/L (-2.0-2.0); ARTERIAL BLOOD GAS PH 7.425 (7.35-7.45)
[2020-12-14 15:08] LABS: ABG BASE EXCESS 0.1 mmol/L (-2.0-2.0); ARTERIAL BLOOD GAS PH 7.468 (7.35-7.45)
[2020-12-14 17:15] LABS: ABG BASE EXCESS 0.6 mmol/L (-2.0-2.0); ARTERIAL BLOOD GAS PH 7.457 (7.35-7.45)
[2020-12-15] VITALS (7 sets, daily range): BP systolic 90–166; BP diastolic 48–110
[2020-12-15 05:53] LABS: ALBUMIN 3.1 gm/dl (3.1-4.5); ALKALINE PHOSPHATASE 75 U/L (45-117); BUN 32 mg/dl (7-24); CHLORIDE 109 mmol/L (98-107); CREATININE 0.86 mg/dL (0.55-1.02); POTASSIUM 4.2 mmol/L (3.5-5.1); SGOT/AST 15 IU/L (3-35); SGPT/ALT 30 U/L (12-78); SODIUM 141 mmol/L (136-145); TOTAL PROTEIN 6.6 gm/dL (6.4-8.2)
[2020-12-15 06:20] LABS: BASO % 0.1 % (0.0-1.0); EOS % 0.1 % (1.0-4.0); HEMATOCRIT 35.4 % (37.0-47.0); LYMPH # 1.6 10*3/uL (1.3-4.4); LYMPH % 13.1 % (27.0-41.0); MEAN CELL VOLUME 91.9 fl (81.0-99.0); MEAN CORPUSCULAR HGB 28.6 pg (27.0-31.0); MEAN CORPUSCULAR HGB CONC 31.1 g/dl (33.0-37.0); MEAN PLATELET VOLUME 11.2 fl (9.6-12.3); MONO % 8.1 % (3.0-9.0); NEUT # 9.6 10*3/uL (2.3-7.9); NEUT % 78.2 % (47.0-73.0); PLATELET COUNT AUTOMATED 185 10*3/uL (130-400); RED BLOOD COUNT 3.85 10*6/uL (4.10-5.10); RED CELL DISTRI WIDTH 16.6 % (0-14.5); WHITE BLOOD COUNT 12.2 10*3/uL (4.8-10.8)
[2020-12-15 06:25] LABS: INTERNATIONAL NORM RATIO 1.3 (2.0-3.5)
[2020-12-15 07:41] LABS: ABG BASE EXCESS 2.5 mmol/L (-2.0-2.0); ARTERIAL BLOOD GAS PH 7.429 (7.35-7.45)
[2020-12-15 08:17] LABS: ABG BASE EXCESS -3.3 mmol/L (-2.0-2.0); ARTERIAL BLOOD GAS PH 7.34 (7.35-7.45)
[2020-12-15 12:55] LABS: ABG BASE EXCESS 3.4 mmol/L (-2.0-2.0); ARTERIAL BLOOD GAS PH 7.509 (7.35-7.45)
[2020-12-15 15:44] LABS: ABG BASE EXCESS 3.1 mmol/L (-2.0-2.0); ARTERIAL BLOOD GAS PH 7.454 (7.35-7.45)
[2020-12-16 00:01] VITALS: BP 116/64
[2020-12-16 04:00] VITALS: BP 121/62
[2020-12-16 06:08] LABS: CHLORIDE 107 mmol/L (98-107); POTASSIUM 3.9 mmol/L (3.5-5.1); SODIUM 139 mmol/L (136-145)
[2020-12-16 06:14] LABS: BASO % 0.4 % (0.0-1.0); EOS # 0.2 10*3/uL (0.0-0.4); EOS % 2.4 % (1.0-4.0); HEMATOCRIT 33.1 % (37.0-47.0); LYMPH # 1.9 10*3/uL (1.3-4.4); LYMPH % 24.5 % (27.0-41.0); MEAN CELL VOLUME 91.7 fl (81.0-99.0); MEAN CORPUSCULAR HGB 28.8 pg (27.0-31.0); MEAN CORPUSCULAR HGB CONC 31.4 g/dl (33.0-37.0); MEAN PLATELET VOLUME 10.9 fl (9.6-12.3); MONO # 0.7 10*3/uL (0.1-1.0); MONO % 9.2 % (3.0-9.0); NEUT # 4.8 10*3/uL (2.3-7.9); NEUT % 63.1 % (47.0-73.0); PLATELET COUNT AUTOMATED 164 10*3/uL (130-400); RED BLOOD COUNT 3.61 10*6/uL (4.10-5.10); RED CELL DISTRI WIDTH 16.1 % (0-14.5); WHITE BLOOD COUNT 7.6 10*3/uL (4.8-10.8)
[2020-12-16 06:15] LABS: ALBUMIN 2.8 gm/dl (3.1-4.5); ALKALINE PHOSPHATASE 84 U/L (45-117); CREATININE 0.79 mg/dL (0.55-1.02); SGOT/AST 25 IU/L (3-35); SGPT/ALT 48 U/L (12-78)
[2020-12-16 06:19] LABS: BUN 21 mg/dl (7-24)
[2020-12-16 08:00] VITALS: BP 135/70
[2020-12-16 12:00] VITALS: BP 105/60
[2020-12-16 15:39] LABS: ARTERIAL BLOOD GAS PH 7.432 (7.35-7.45)
[2020-12-16 16:00] VITALS: BP 119/72
[2020-12-16 20:00] VITALS: BP 101/67
[2020-12-17] VITALS: BP 110/52; BP 96/56
[2020-12-17 04:00] VITALS: BP 110/52
[2020-12-17 07:38] LABS: ARTERIAL BLOOD GAS PH 7.399 (7.35-7.45)
[2020-12-17 08:00] VITALS: BP 120/65
[2020-12-17 12:00] VITALS: BP 129/73
[2020-12-17 16:00] VITALS: BP 111/62
[2020-12-17 20:00] VITALS: BP 98/79
[2020-12-18] VITALS: BP 110/52
[2020-12-18 08:00] VITALS: BP 100/68
[2020-12-18 12:00] VITALS: BP 105/63
[2020-12-18] MEDS ORDERED: Coumadin3 MG PO ×2 (13:04)
== END 2020-12-18 17:47 | disposition home or self-care (01) | DRG 871 ==
LOC: ED 04:53 → EDHOLD 08:47 → ICCU 08:47 → EDHOLD 09:09 → ICCU 09:16 → 5E 12-16 15:52
PROVIDERS: Emergency Medicine; Internal Medicine; Internal Medicine Critical Care Medicine; ADMIT Internal Medicine; ATTEND Internal Medicine
PROC: 5A09357 Assistance with Respiratory Ventilation, Less than 24 Consecutive Hours, Continuous Positive Airway Pressure (ICD-10-PCS; principal; 2020-12-13)
PROC: 0BH17EZ Insertion of Endotracheal Airway into Trachea, Via Natural or Artificial Opening (ICD-10-PCS; 2020-12-13)
PROC: 5A1945Z Respiratory Ventilation, 24-96 Consecutive Hours (ICD-10-PCS; 2020-12-13)
PROC: 03HB33Z Insertion of Infusion Device into Right Radial Artery, Percutaneous Approach (ICD-10-PCS; 2020-12-13)
PROC: B34HZZZ Ultrasonography of Right Upper Extremity Arteries (ICD-10-PCS; 2020-12-13)
PROC: 02HV33Z Insertion of Infusion Device into Superior Vena Cava, Percutaneous Approach (ICD-10-PCS; 2020-12-13)
PROC: B548ZZA Ultrasonography of Superior Vena Cava, Guidance (ICD-10-PCS; 2020-12-13)
DX: A41.9 Sepsis, unspecified organism (principal); J18.9 Pneumonia, unspecified organism; R65.21 Severe sepsis with septic shock; J96.21 Acute and chronic respiratory failure with hypoxia; J96.22 Acute and chronic respiratory failure with hypercapnia; I13.0 Hypertensive heart and chronic kidney disease with heart failure and stage 1 through stage 4 chronic kidney disease, or unspecified chronic kidney disease; I50.22 Chronic systolic (congestive) heart failure; E44.1 Mild protein-calorie malnutrition; E87.5 Hyperkalemia; E83.41 Hypermagnesemia; I25.10 Atherosclerotic heart disease of native coronary artery without angina pectoris; F32.9 Major depressive disorder, single episode, unspecified; R00.1 Bradycardia, unspecified; I48.0 Paroxysmal atrial fibrillation; N18.31 Chronic kidney disease, stage 3a; Z20.822 Contact with and (suspected) exposure to COVID-19; G47.33 Obstructive sleep apnea (adult) (pediatric); F41.9 Anxiety disorder, unspecified; G47.00 Insomnia, unspecified; I34.0 Nonrheumatic mitral (valve) insufficiency; T50.995A Adverse effect of other drugs, medicaments and biological substances, initial encounter; E83.39 Other disorders of phosphorus metabolism; D64.9 Anemia, unspecified; I25.5 Ischemic cardiomyopathy; Z90.49 Acquired absence of other specified parts of digestive tract; Z90.710 Acquired absence of both cervix and uterus; Z82.49 Family history of ischemic heart disease and other diseases of the circulatory system; I25.2 Old myocardial infarction; Z79.01 Long term (current) use of anticoagulants; Y92.89 Other specified places as the place of occurrence of the external cause

== ENCOUNTER → 2021-01-09 | Outpatient (CLI) | payer MEDICARE, BC ==
[~2021-01-09] MED LIST changes: +ASPIRIN CHEWABL81 MG PO; +CITALOPRAM40 MG PO; +CLOPIDOGREL75 MG PO; +Coumadin3 MG PO; +FEROSUL325 MG PO; +FUROSEMIDE20 M1 PO; +LEVOFLOXACIN500 MG PO; +METOPROLOL25 MG PO; +POTASSIUM CHLO20 ME4 PO; +PRASUGREL HCL10 MG PO; +WARFARIN SODIU2.5 MG PO; +ZESTRIL30 M3 PO
== END | disposition home or self-care (01) ==
LOC: CT 14:45
PROVIDERS: ATTEND Internal Medicine
DX: N13.2 Hydronephrosis with renal and ureteral calculous obstruction (principal); M41.87 Other forms of scoliosis, lumbosacral region; M51.37 Other intervertebral disc degeneration, lumbosacral region; M85.88 Other specified disorders of bone density and structure, other site; Z90.710 Acquired absence of both cervix and uterus

== ENCOUNTER 2021-01-25 13:32 | Observation (INO) | payer MEDICARE, BC ==
[~2021-01-25] VITALS: Ht 172.7 cm; Wt 83.9 kg
[2021-01-25 13:32] VITALS: BP 120/62
[~2021-01-25 13:32] MED LIST changes: -LEVOFLOXACIN500 MG PO
[2021-01-25 14:08] LABS: BASO # 0.1 10*3/uL (0.0-0.1); BASO % 1.4 % (0.0-1.0); EOS # 0.5 10*3/uL (0.0-0.4); EOS % 7.9 % (1.0-4.0); HEMATOCRIT 39.4 % (37.0-47.0); LYMPH # 1.3 10*3/uL (1.3-4.4); LYMPH % 22.2 % (27.0-41.0); MEAN CORPUSCULAR HGB 30.5 pg (27.0-31.0); MEAN CORPUSCULAR HGB CONC 31.5 g/dl (33.0-37.0); MEAN PLATELET VOLUME 9.8 fl (9.6-12.3); MONO # 0.5 10*3/uL (0.1-1.0); MONO % 8.4 % (3.0-9.0); NEUT # 3.4 10*3/uL (2.3-7.9); NEUT % 59.6 % (47.0-73.0); PLATELET COUNT AUTOMATED 189 10*3/uL (130-400); RED BLOOD COUNT 4.06 10*6/uL (4.10-5.10); RED CELL DISTRI WIDTH 14.1 % (0-14.5); WHITE BLOOD COUNT 5.7 10*3/uL (4.8-10.8)
[2021-01-25 14:20] LABS: INTERNATIONAL NORM RATIO 1.1 (2.0-3.5)
[2021-01-25 14:26] LABS: ALBUMIN 3.3 gm/dl (3.1-4.5); ALKALINE PHOSPHATASE 85 U/L (45-117); BUN 19 mg/dl (7-24); CHLORIDE 107 mmol/L (98-107); CREATININE 0.96 mg/dL (0.55-1.02); POTASSIUM 4.2 mmol/L (3.5-5.1); SGOT/AST 10 IU/L (3-35); SGPT/ALT 17 U/L (12-78); SODIUM 141 mmol/L (136-145); TOTAL PROTEIN 6.7 gm/dL (6.4-8.2); TROPONIN I < 0.015 ng/ml (<0.045)
[2021-01-25 15:24] VITALS: BP 109/79
[2021-01-25 15:55] VITALS: BP 121/93
[2021-01-25 15:56] LABS: BILIRUBIN Negative (Negative); BLOOD Negative (Negative); CLARITY Clear (Clear); COLOR Yellow (Yellow); GLUCOSE Negative (Negative); KETONE Negative (Negative); LEUKO ESTERASE Trace (Negative); NITRITE Negative (Negative); PH 6.5 (4.5-8.0); UROBILINOGEN 0.2 E.U./dl (0.0-1.0)
[2021-01-25 16:12] LABS: ABG BASE EXCESS 0.1 mmol/L (-2.0-2.0); ARTERIAL BLOOD GAS PH 7.408 (7.35-7.45); ARTERIAL BLOOD GAS PO2 86.1 (80-90)
[2021-01-25 16:12] LABS: BACTERIA 1+; RBC 0-2 rbc/hpf (0-2)
[2021-01-25 20:00] VITALS: BP 105/59
[2021-01-26] VITALS: BP 113/61
[2021-01-26 06:09] LABS: BASO % 0.1 % (0.0-1.0); HEMATOCRIT 37.7 % (37.0-47.0); LYMPH # 0.9 10*3/uL (1.3-4.4); LYMPH % 11.3 % (27.0-41.0); MEAN CELL VOLUME 96.9 fl (81.0-99.0); MEAN CORPUSCULAR HGB 30.6 pg (27.0-31.0); MEAN CORPUSCULAR HGB CONC 31.6 g/dl (33.0-37.0); MEAN PLATELET VOLUME 10.1 fl (9.6-12.3); MONO # 0.4 10*3/uL (0.1-1.0); MONO % 5.8 % (3.0-9.0); NEUT # 6.2 10*3/uL (2.3-7.9); PLATELET COUNT AUTOMATED 192 10*3/uL (130-400); RED BLOOD COUNT 3.89 10*6/uL (4.10-5.10); RED CELL DISTRI WIDTH 13.9 % (0-14.5); WHITE BLOOD COUNT 7.5 10*3/uL (4.8-10.8)
[2021-01-26 06:11] LABS: ALBUMIN 3.4 gm/dl (3.1-4.5); BUN 20 mg/dl (7-24); CHLORIDE 106 mmol/L (98-107); CREATININE 0.97 mg/dL (0.55-1.02); POTASSIUM 4.4 mmol/L (3.5-5.1); SGOT/AST 11 IU/L (3-35); SGPT/ALT 17 U/L (12-78); SODIUM 139 mmol/L (136-145)
[2021-01-26 06:13] LABS: ALKALINE PHOSPHATASE 81 U/L (45-117); TOTAL PROTEIN 6.9 gm/dL (6.4-8.2)
[2021-01-26 06:14] LABS: INTERNATIONAL NORM RATIO 1.1 (2.0-3.5)
[2021-01-26 08:00] VITALS: BP 95/71
[2021-01-26] MEDS ORDERED: Coumadin3 MG PO (09:46)
[2021-01-26] MEDS ORDERED: LEVOFLOXACIN500 MG PO (09:46)
[2021-01-26] MEDS ORDERED: PREDNISONE50 MG PO (09:46)
== END 2021-01-26 13:00 | disposition home or self-care (01) ==
LOC: ED 13:32 → EDHOLD 15:11 → 4E 15:11
PROVIDERS: Emergency Medicine; Internal Medicine; ADMIT Internal Medicine; ATTEND Internal Medicine
DX: J44.1 Chronic obstructive pulmonary disease with (acute) exacerbation (principal); E83.41 Hypermagnesemia; R73.9 Hyperglycemia, unspecified; E78.5 Hyperlipidemia, unspecified; F32.9 Major depressive disorder, single episode, unspecified; F41.9 Anxiety disorder, unspecified; G47.33 Obstructive sleep apnea (adult) (pediatric); I13.0 Hypertensive heart and chronic kidney disease with heart failure and stage 1 through stage 4 chronic kidney disease, or unspecified chronic kidney disease; I50.22 Chronic systolic (congestive) heart failure; N18.31 Chronic kidney disease, stage 3a; I25.10 Atherosclerotic heart disease of native coronary artery without angina pectoris; I48.0 Paroxysmal atrial fibrillation; I25.2 Old myocardial infarction; Z87.891 Personal history of nicotine dependence; Z79.899 Other long term (current) drug therapy

== ENCOUNTER → 2021-04-10 | Outpatient (CLI) | payer MEDICARE, BC ==
[~2021-04-10] MED LIST changes: +LEVOFLOXACIN500 MG PO
== END | disposition home or self-care (01) ==
LOC: RAD 13:47
PROVIDERS: ATTEND Internal Medicine
DX: M47.816 Spondylosis without myelopathy or radiculopathy, lumbar region (principal); M41.86 Other forms of scoliosis, lumbar region; M48.061 Spinal stenosis, lumbar region without neurogenic claudication

== ENCOUNTER → 2021-06-07 | Outpatient (CLI) | payer MEDICARE, BC | END | disposition home or self-care (01) | LOC: RAD 08:01 | PROVIDERS: ATTEND Internal Medicine | DX: M41.84 Other forms of scoliosis, thoracic region (principal); J44.9 Chronic obstructive pulmonary disease, unspecified; Q79.1 Other congenital malformations of diaphragm ==

== ENCOUNTER → 2021-07-13 | Outpatient (CLI) | payer MEDICARE, BC ==
[2021-07-13 09:45] LABS: INTERNATIONAL NORM RATIO 1.4 (2.0-3.5)
== END ==
LOC: RAD 08:46 → LAB 08:46 → RAD 09:00
PROVIDERS: ATTEND Internal Medicine
DX: Z13.820 Encounter for screening for osteoporosis (principal); M81.0 Age-related osteoporosis without current pathological fracture; Z79.01 Long term (current) use of anticoagulants; Z78.0 Asymptomatic menopausal state

== ENCOUNTER → 2021-07-17 | Outpatient (CLI) | payer MEDICARE, BC | END | disposition home or self-care (01) | LOC: MAMMO 15:30 | PROVIDERS: ATTEND Internal Medicine | DX: Z12.31 Encounter for screening mammogram for malignant neoplasm of breast (principal); N64.89 Other specified disorders of breast ==

== ENCOUNTER → 2021-09-13 | Outpatient (CLI) | payer MEDICARE, BC | END | disposition home or self-care (01) | LOC: RAD 08:46 | PROVIDERS: ATTEND Nurse Practitioner Family | DX: R05.9 Cough, unspecified (principal) ==

== ENCOUNTER 2022-02-12 20:07 | Inpatient (IN) | payer MEDICARE, BC ==
[~2022-02-12] VITALS: Ht 167.6 cm; Wt 92.6 kg
[~2022-02-12 20:07] MED LIST changes: +HYDROCODONE-AC1 EAC1 PO; +LASIX20 MG PO; +OMNICEF300 MG PO; +TYLENOL W/CODEI1 TA4 PO; +VITAMIN D250 MC1 PO; +ZOFRAN4 MG PO; +ZOLOFT50 MG PO
[2022-02-12 20:13] VITALS: BP 149/83
[2022-02-12 20:26] LABS: BASO # 0.1 10*3/uL (0.0-0.1); EOS # 0.2 10*3/uL (0.0-0.4); HEMATOCRIT 39.6 % (37.0-47.0); LYMPH # 0.9 10*3/uL (1.3-4.4); LYMPH % 11.6 % (27.0-41.0); MEAN CORPUSCULAR HGB 30.9 pg (27.0-31.0); MEAN CORPUSCULAR HGB CONC 32.6 g/dl (33.0-37.0); MEAN PLATELET VOLUME 9.8 fl (9.6-12.3); MONO # 0.7 10*3/uL (0.1-1.0); MONO % 9.2 % (3.0-9.0); NEUT # 5.4 10*3/uL (2.3-7.9); NEUT % 74.5 % (47.0-73.0); PLATELET COUNT AUTOMATED 199 10*3/uL (130-400); RED BLOOD COUNT 4.17 10*6/uL (4.10-5.10); RED CELL DISTRI WIDTH 13.9 % (0-14.5); WHITE BLOOD COUNT 7.3 10*3/uL (4.8-10.8)
[2022-02-12 20:46] LABS: ACT PARTIAL THROMBO TIME 39.6 SECONDS (20.0-32.1)
[2022-02-12 20:50] LABS: INTERNATIONAL NORM RATIO 7.7 (2.0-3.5)
[2022-02-12 20:56] LABS: ALKALINE PHOSPHATASE 101 U/L (45-117); BUN 5 mg/dl (7-24); CHLORIDE 103 mmol/L (98-107); CREATININE 0.95 mg/dL (0.55-1.02); POTASSIUM 3.9 mmol/L (3.5-5.1); SGOT/AST 21 IU/L (3-35); SGPT/ALT 28 U/L (12-78); SODIUM 138 mmol/L (136-145); TOTAL PROTEIN 7.1 gm/dL (6.4-8.2)
[2022-02-13 01:30] VITALS: BP 119/92
[2022-02-13] MEDS ORDERED: ALENDRONATE SOD70 M1 PO (03:03)
[2022-02-13] MEDS ORDERED: TYLENOL W/CODEI1 TA4 PO (03:08)
[2022-02-13] MEDS ORDERED: VENLAFAXINE HYD75 M3 PO (03:41)
[2022-02-13 05:46] LABS: CREATININE 1.15 mg/dL (0.55-1.02); POTASSIUM 4.4 mmol/L (3.5-5.1); TOTAL PROTEIN 7.1 gm/dL (6.4-8.2)
[2022-02-13 06:30] LABS: INTERNATIONAL NORM RATIO 3.7 (2.0-3.5)
[2022-02-13 06:42] LABS: BASO % 0.2 % (0.0-1.0); HEMATOCRIT 40.5 % (37.0-47.0); LYMPH # 0.5 10*3/uL (1.3-4.4); LYMPH % 9.1 % (27.0-41.0); MEAN CELL VOLUME 97.6 fl (81.0-99.0); MEAN CORPUSCULAR HGB 31.6 pg (27.0-31.0); MEAN CORPUSCULAR HGB CONC 32.3 g/dl (33.0-37.0); MEAN PLATELET VOLUME 10.3 fl (9.6-12.3); MONO # 0.1 10*3/uL (0.1-1.0); NEUT # 4.5 10*3/uL (2.3-7.9); NEUT % 87.7 % (47.0-73.0); PLATELET COUNT AUTOMATED 204 10*3/uL (130-400); RED BLOOD COUNT 4.15 10*6/uL (4.10-5.10); WHITE BLOOD COUNT 5.1 10*3/uL (4.8-10.8)
[2022-02-13 08:00] VITALS: BP 133/61
[2022-02-13 12:00] VITALS: BP 137/79
[2022-02-13 16:00] VITALS: BP 144/48
[2022-02-13 20:00] VITALS: BP 143/72
[2022-02-14] VITALS: BP 136/66
[2022-02-14 06:00] LABS: BUN 12 mg/dl (7-24); CHLORIDE 106 mmol/L (98-107); POTASSIUM 4.4 mmol/L (3.5-5.1); SODIUM 139 mmol/L (136-145)
[2022-02-14 06:25] LABS: INTERNATIONAL NORM RATIO 1.5 (2.0-3.5)
[2022-02-14 06:38] LABS: BASO % 0.1 % (0.0-1.0); HEMATOCRIT 36.6 % (37.0-47.0); LYMPH # 0.7 10*3/uL (1.3-4.4); MEAN CELL VOLUME 96.8 fl (81.0-99.0); MEAN CORPUSCULAR HGB CONC 33.1 g/dl (33.0-37.0); MEAN PLATELET VOLUME 10.2 fl (9.6-12.3); MONO # 0.6 10*3/uL (0.1-1.0); MONO % 5.5 % (3.0-9.0); NEUT # 10.3 10*3/uL (2.3-7.9); NEUT % 87.8 % (47.0-73.0); PLATELET COUNT AUTOMATED 218 10*3/uL (130-400); RED BLOOD COUNT 3.78 10*6/uL (4.10-5.10); RED CELL DISTRI WIDTH 14.3 % (0-14.5); WHITE BLOOD COUNT 11.7 10*3/uL (4.8-10.8)
[2022-02-14 08:00] VITALS: BP 139/63
[2022-02-14 12:00] VITALS: BP 117/63
[2022-02-14] MEDS ORDERED: DOXYCYCLINE HY100 M3 PO (12:43)
[2022-02-14] MEDS ORDERED: SYMB160 INH (12:43)
[2022-02-14] MEDS ORDERED: PREDNISONE10 MG PO (12:43)
[2022-02-14] MEDS ORDERED: CLOTRIMAZOLE AF15 G3 T (12:44)
== END 2022-02-14 17:55 | disposition home or self-care (01) | DRG 191 ==
LOC: ED 20:07 → 5E 23:50 → EDHOLD 23:50 → 5E 02-13 00:25
PROVIDERS: Hospitalist; Internal Medicine; ADMIT Family Medicine; ATTEND Family Medicine
PROC: 5A09357 Assistance with Respiratory Ventilation, Less than 24 Consecutive Hours, Continuous Positive Airway Pressure (ICD-10-PCS; principal; 2022-02-12)
PROC: 5A09357 Assistance with Respiratory Ventilation, Less than 24 Consecutive Hours, Continuous Positive Airway Pressure (ICD-10-PCS; 2022-02-13)
PROC: 5A09357 Assistance with Respiratory Ventilation, Less than 24 Consecutive Hours, Continuous Positive Airway Pressure (ICD-10-PCS; 2022-02-14)
DX: J44.1 Chronic obstructive pulmonary disease with (acute) exacerbation (principal); I50.22 Chronic systolic (congestive) heart failure; I13.0 Hypertensive heart and chronic kidney disease with heart failure and stage 1 through stage 4 chronic kidney disease, or unspecified chronic kidney disease; E44.0 Moderate protein-calorie malnutrition; F33.9 Major depressive disorder, recurrent, unspecified; I34.0 Nonrheumatic mitral (valve) insufficiency; K43.2 Incisional hernia without obstruction or gangrene; N18.31 Chronic kidney disease, stage 3a; F41.9 Anxiety disorder, unspecified; E78.2 Mixed hyperlipidemia; G47.33 Obstructive sleep apnea (adult) (pediatric); I48.0 Paroxysmal atrial fibrillation; B35.3 Tinea pedis; Z79.01 Long term (current) use of anticoagulants; Z79.1 Long term (current) use of non-steroidal anti-inflammatories (NSAID); Z79.899 Other long term (current) drug therapy; Z68.32 Body mass index [BMI] 32.0-32.9, adult

== ENCOUNTER → 2022-07-24 | Outpatient (CLI) | payer MEDICARE, BC ==
[~2022-07-24] MED LIST changes: +ALENDRONATE SOD70 M1 PO; +CLOTRIMAZOLE AF15 G3 T; +DOXYCYCLINE HY100 M3 PO; +SYMB160 INH; +VENLAFAXINE HYD75 M3 PO
== END | disposition home or self-care (01) ==
LOC: MAMMO 09:32
PROVIDERS: ATTEND Internal Medicine
DX: Z12.31 Encounter for screening mammogram for malignant neoplasm of breast (principal); N64.9 Disorder of breast, unspecified; N63.21 Unspecified lump in the left breast, upper outer quadrant; N63.11 Unspecified lump in the right breast, upper outer quadrant

== ENCOUNTER → 2022-08-12 | Outpatient (CLI) | payer MEDICARE, BC | END | disposition home or self-care (01) | LOC: RAD 11:39 | PROVIDERS: ATTEND Internal Medicine | DX: R10.9 Unspecified abdominal pain (principal); M47.816 Spondylosis without myelopathy or radiculopathy, lumbar region; M41.86 Other forms of scoliosis, lumbar region; I70.0 Atherosclerosis of aorta ==

== ENCOUNTER 2023-03-25 00:31 | Emergency (ER) | payer MEDICARE, BC ==
[~2023-03-25] VITALS: Ht 165.1 cm; Wt 107.0 kg
[~2023-03-25 00:31] MED LIST changes: +ALBUTEROL2.5 MG/0.5 INH; +Coumadin5 MG PO; +DICYCLOMINE HYD20 MG PO; +HYDROXYZINE HCL25 MG PO; +KLOR-CON M2020 ME1 PO; +LEXAPRO5 M1 PO; +METOCLOPRAMIDE10 M1 PO; +REQUIP2 MG PO; +SEPTDS PO; +SULFAMETHOXAZOLE-TMP; +TOPROL XL25 MG PO; +TRELEGY ELLIPT1 EACH INH; +VITAMIN B1250 MCG PO; +VITAMIN D-40010 MCG PO; +WARFARIN SOD5 MG PO; +ZOLOFT25 MG PO
[2023-03-25 01:04] LABS: BASO % 0.4 % (0.0-1.0); EOS # 0.2 10*3/uL (0.0-0.4); EOS % 1.6 % (1.0-4.0); HEMATOCRIT 45.2 % (37.0-47.0); LYMPH # 0.4 10*3/uL (1.3-4.4); MEAN CELL VOLUME 98.5 fl (81.0-99.0); MEAN CORPUSCULAR HGB 31.8 pg (27.0-31.0); MEAN CORPUSCULAR HGB CONC 32.3 g/dl (33.0-37.0); MEAN PLATELET VOLUME 9.6 fl (9.6-12.3); MONO % 9.6 % (3.0-9.0); NEUT # 8.9 10*3/uL (2.3-7.9); PLATELET COUNT AUTOMATED 206 10*3/uL (130-400); RED BLOOD COUNT 4.59 10*6/uL (4.10-5.10); RED CELL DISTRI WIDTH 13.2 % (0-14.5); WHITE BLOOD COUNT 10.6 10*3/uL (4.8-10.8)
[2023-03-25 01:25] LABS: POTASSIUM 4.4 mmol/L (3.4-5.1); TOTAL PROTEIN 7.1 gm/dL (6.0-8.0)
[2023-03-25] MEDS ORDERED: ONDANSETRON4 MG SL (04:02)
== END 2023-03-25 04:09 | disposition home or self-care (01) ==
LOC: ED 00:31
PROVIDERS: Internal Medicine
DX: K52.9 Noninfective gastroenteritis and colitis, unspecified (principal); I11.0 Hypertensive heart disease with heart failure; I50.9 Heart failure, unspecified; J44.9 Chronic obstructive pulmonary disease, unspecified; I25.10 Atherosclerotic heart disease of native coronary artery without angina pectoris; N17.9 Acute kidney failure, unspecified; E78.5 Hyperlipidemia, unspecified; I48.91 Unspecified atrial fibrillation; D64.9 Anemia, unspecified; Z98.890 Other specified postprocedural states; Z90.710 Acquired absence of both cervix and uterus; Z95.5 Presence of coronary angioplasty implant and graft; Z87.891 Personal history of nicotine dependence

== ENCOUNTER 2023-06-10 10:51 | Emergency (ER) | payer MEDICARE, BC ==
[~2023-06-10] VITALS: Wt 96.6 kg
[~2023-06-10 10:51] MED LIST changes: +AUGMENTIN 500500 M1 PO; +BENADRYL ALLERG25 M5 PO; +ONDANSETRON4 MG SL; +RANOLAZINE ER500 MG PO; +VITAMIN D350 MC2 PO; +ZITHROMAX250 MG PO
[2023-06-10 11:43] LABS: BASO # 0.1 10*3/uL (0.0-0.1); EOS # 0.2 10*3/uL (0.0-0.4); EOS % 1.8 % (1.0-4.0); HEMATOCRIT 39.4 % (37.0-47.0); LYMPH # 1.6 10*3/uL (1.3-4.4); LYMPH % 19.1 % (27.0-41.0); MEAN CELL VOLUME 96.3 fl (81.0-99.0); MEAN CORPUSCULAR HGB 32.3 pg (27.0-31.0); MEAN CORPUSCULAR HGB CONC 33.5 g/dl (33.0-37.0); MEAN PLATELET VOLUME 9.2 fl (9.6-12.3); MONO # 0.9 10*3/uL (0.1-1.0); MONO % 10.6 % (3.0-9.0); NEUT # 5.4 10*3/uL (2.3-7.9); NEUT % 66.5 % (47.0-73.0); PLATELET COUNT AUTOMATED 243 10*3/uL (130-400); RED BLOOD COUNT 4.09 10*6/uL (4.10-5.10); RED CELL DISTRI WIDTH 13.7 % (0-14.5); WHITE BLOOD COUNT 8.2 10*3/uL (4.8-10.8)
[2023-06-10 12:02] LABS: ACT PARTIAL THROMBO TIME 44.4 SECONDS (20.0-32.1)
[2023-06-10 12:05] LABS: INTERNATIONAL NORM RATIO 6.4 (2.0-3.5); POTASSIUM 4.3 mmol/L (3.4-5.1); TOTAL PROTEIN 6.6 gm/dL (6.0-8.0)
== END 2023-06-10 12:48 | disposition home or self-care (01) ==
LOC: ED 10:51
PROVIDERS: Physician Assistant Medical
DX: R79.0 Abnormal level of blood mineral (principal); H11.31 Conjunctival hemorrhage, right eye; I11.0 Hypertensive heart disease with heart failure; I50.9 Heart failure, unspecified; J44.9 Chronic obstructive pulmonary disease, unspecified; I25.10 Atherosclerotic heart disease of native coronary artery without angina pectoris; E78.5 Hyperlipidemia, unspecified; I48.91 Unspecified atrial fibrillation; D64.9 Anemia, unspecified; Z98.890 Other specified postprocedural states; Z90.710 Acquired absence of both cervix and uterus; Z95.5 Presence of coronary angioplasty implant and graft; Z87.891 Personal history of nicotine dependence

== ENCOUNTER → 2023-06-11 | Outpatient (CLI) | payer MEDICARE, BC ==
[2023-06-11 10:47] LABS: INTERNATIONAL NORM RATIO 2.5 (2.0-3.5)
== END | disposition home or self-care (01) ==
LOC: LAB 09:59
PROVIDERS: ATTEND Internal Medicine
DX: Z79.01 Long term (current) use of anticoagulants (principal)